=== PATIENT | male | born 1965 | race Caucasian/White ===

== ENCOUNTER → 2016-09-19 | Outpatient (CLI) | payer OTHER ==
[~2016-09-19] MED LIST: ASPCH81X PO; ATOR-54 PO; CLB100 PO; GABA-113 PO; HYDR25TA5 PO; LORA0.5T12 PO; LSNP/30 PO; METH-446 PO; PANT40TA PO; TRAM-10 PO; ZOLP10TA PO
--- NOTE | 2016-09-19 10:02 | DIAGNOSTIC IMAGING REPORT ---
KUB CLINICAL HISTORY: ABDOMINAL PAIN pain. Nausea. COMPARISON STUDY: 08/19/2015 FINDINGS: The soft tissues, psoas shadows, renal outlines and intestinal gas pattern appear normal. There is no evidence for bowel obstruction. No abnormal abdominal calcifications are seen. IMPRESSION: Normal study. Electronically signed by: Bryant Waters M.D. 09/19/2016 10:01 AM Dictated Date/Time: 09/19/2016 9:58 AM
[2016-09-19 10:53] LABS: BASO % 0.6 %; BASO ABS # 0.03 K/uL (0-0.2); COMPLETE YES; EOS % 3.7 %; HEMATOCRIT 39.2 % (42-52); IG% 0.2 %; LYMPH % 27.6 %; LYMPH ABS # 1.35 K/uL (1.2-3.4); MEAN CELL VOLUME 91.2 fL (80-100); MEAN CORPUSCULAR HGB CONC 32.9 g/dl (32-36); MEAN PLATELET VOLUME 10.8 fL (7.4-10.4); NEUT % 56.9 %; PLATELET COUNT 252 K/uL (130-400); WHITE BLOOD COUNT 4.89 K/uL (4.8-10.8)
[2016-09-19 11:15] LABS: URINE APPEARANCE CLEAR (CLEAR); URINE BILIRUBIN NEG (NEG); URINE COLOR YELLOW; URINE EPITHELIAL CELL AUTO 0-5 /lpf (0-5); URINE NITRITE NEG (NEG); URINE PH 6.5 (4.5-7.5); URINE SPECIFIC GRAVITY 1.009 (1.000-1.030); UROBILINOGEN NEG (NEG); ZZUR CULT IF INDIC CLEAN CATCH NO
[2016-09-19 11:18] LABS: ALB/GLOB RATIO 1.2 (0.9-2); ALKALINE PHOSPHATASE 78 U/L (45-117); ALT/SGPT 26 U/L (12-78); AST/SGOT 18 U/L (15-37); BLOOD UREA NITROGEN 23 mg/dl (7-18); BUN/CREATININE RATIO 21.3 (10-20); CALCIUM 9.1 mg/dl (8.5-10.1); CARBON DIOXIDE 29 mmol/L (21-32); CHLORIDE 104 mmol/L (98-107); GLUCOSE 104 mg/dl (70-99); MANUAL MICROSCOPIC REQUIRED? NO; POTASSIUM 4.5 mmol/L (3.5-5.1); REVIEW REQ? NO; SODIUM 139 mmol/L (136-145)
[2016-09-19 11:30] LABS: ESTIMATED AVERAGE GLUCOSE 120 mg/dl; HA1C FLAG Normal (Normal)
== END | disposition home or self-care (01) ==
LOC: C.RADBC 09:11
PROVIDERS: ATTEND Nurse Practitioner Family
DX: R10.9 Unspecified abdominal pain (principal)

== ENCOUNTER → 2016-10-03 | Outpatient (CLI) | payer OTHER ==
--- NOTE | 2016-10-03 11:01 | DIAGNOSTIC IMAGING REPORT ---
LEFT FOOT MIN 3 VIEWS ROUTINE CLINICAL HISTORY: M79.672 Left foot [id number] trauma. Pain. COMPARISON: None. DISCUSSION: The bones and joint spaces appear intact. There is no evidence of fracture, dislocation or bony disease. There is no evidence for soft tissue swelling. IMPRESSION: Negative study. Electronically signed by: Bryant Waters M.D. 10/03/2016 11:00 AM Dictated Date/Time: 10/03/2016 10:59 AM
== END | disposition home or self-care (01) ==
LOC: C.RADBC 10:22
PROVIDERS: ATTEND Nurse Practitioner Family
DX: M79.672 Pain in left foot (principal)

== ENCOUNTER → 2016-10-19 | Outpatient (CLI) | payer OTHER ==
[2016-10-19 17:15] LABS: C-REACTIVE PROTEIN < 0.29 mg/dl (0-0.29); RHEUMATOID FACTOR < 10.0 U/mL (0-15); URIC ACID 5.3 mg/dl (2.6-7.2)
[2016-10-19 18:43] LABS: LYME DISEASE AB IGG NEG (NEG); LYME DISEASE AB IGM NEG (NEG)
== END | disposition home or self-care (01) ==
LOC: C.LABBC 12:56
PROVIDERS: ATTEND Nurse Practitioner Family
DX: M79.672 Pain in left foot (principal)

== ENCOUNTER → 2016-11-22 | Outpatient (CLI) | payer OTHER ==
--- NOTE | 2016-11-22 15:54 | DIAGNOSTIC IMAGING REPORT ---
L-SPINE MIN 4 VIEWS ROUTINE CLINICAL HISTORY: Low back pain left-sided radiculopathy. COMPARISON STUDY: No previous studies for comparison. FINDINGS: There are 5 lumbar type vertebral bodies present. There are moderate multilevel degenerative changes. There is multilevel osteophytic spurring. There is disc space narrowing most pronounced the L4-5 level. There is mild narrowing of the AP diameter of the spinal canal. Underlying spinal stenosis cannot be excluded. No fractures are visualized. IMPRESSION: 1. Multilevel degenerative changes most pronounced the L4-5 level 2. No acute fractures or subluxations identified Electronically signed by: Ruy Gómez M.D. 11/22/2016 3:52 PM Dictated Date/Time: 11/22/2016 3:50 PM
== END | disposition home or self-care (01) ==
LOC: C.RADBC 15:24
PROVIDERS: ATTEND Nurse Practitioner Family
DX: M54.5 Low back pain (principal)

== ENCOUNTER → 2016-12-05 | Outpatient (CLI) | payer OTHER ==
--- NOTE | 2016-12-05 17:44 | DIAGNOSTIC IMAGING REPORT ---
MRI LUMBAR SPINE W/O CONTRAST CLINICAL HISTORY: Lower back pain. Spinal stenosis. TECHNIQUE: Sagittal and axial T1, T2 and STIR images were obtained. COMPARISON STUDY: Conventional radiographic study dated November 22, 2016 OBSERVATIONS: The vertebral bodies and posterior elements appear intact. There is no abnormal bony signal present to suggest a marrow replacement process. L1-2: There is a tiny left paracentral disc protrusion. There is no significant spinal or foraminal stenosis. L2-3: There is a mild circumferential disc bulge present. There is slight flattening of the anterior thecal sac. There is no significant foraminal narrowing. L3-4: No disc protrusions or extrusions. No evidence of spinal canal or neural foraminal compromise. L4-5: There is marked disc desiccation and narrowing. There is a tiny central disc protrusion. There is slight deformity of the anterior thecal sac. There is no significant foraminal narrowing L5-S1: There is a small central disc protrusion. There is no thecal sac deformity. There is no significant spinal or foraminal stenosis. The conus medullaris and cauda equina appear normal. IMPRESSION: Multilevel spondylitic changes. Tiny left paracentral disc protrusion at the L1-2 level, tiny central disc protrusion at the L4-5 level, and small central disc protrusion at the L5-S1 level. There is minimal spinal canal narrowing at several levels. There is no evidence of moderate or severe spinal stenosis Electronically signed by: Ruy Gómez M.D. 12/05/2016 5:42 PM Dictated Date/Time: 12/05/2016 5:37 PM
== END | disposition home or self-care (01) ==
LOC: C.MRIBC 16:42
PROVIDERS: ATTEND Orthopaedic Surgery Orthopaedic Surgery of the Spine
DX: M48.06 Spinal stenosis, lumbar region (principal)

== ENCOUNTER → 2017-03-06 | Outpatient (CLI) | payer OTHER ==
[2017-03-06 10:46] LABS: ALT/SGPT 27 U/L (12-78); BLOOD UREA NITROGEN 15 mg/dl (7-18); BUN/CREATININE RATIO 14.1 (10-20); CALCIUM 8.8 mg/dl (8.5-10.1); CARBON DIOXIDE 29 mmol/L (21-32); CHLORIDE 100 mmol/L (98-107); CHOLESTEROL 110 mg/dl (0-200); CREATININE 1.09 mg/dl (0.60-1.40); GLUCOSE 104 mg/dl (70-99); POTASSIUM 4.4 mmol/L (3.5-5.1); SODIUM 135 mmol/L (136-145); TRIGLYCERIDES 30 mg/dl (0-150); VERY LOW DENSITY LIPOPROT CALC 6 mg/dl
[2017-03-06 10:50] LABS: ALB/GLOB RATIO 1.2 (0.9-2); ALKALINE PHOSPHATASE 64 U/L (45-117); AST/SGOT 16 U/L (15-37); CHOLESTEROL/HDL RATIO 1.8; HDL CHOLESTEROL 61 mg/dl; LDL CHOLESTEROL CALCULATED 43 mg/dl
[2017-03-06 11:07] LABS: HEMATOCRIT 37.9 % (42-52); MEAN CELL VOLUME 91.8 fL (80-100); MEAN CORPUSCULAR HEMOGLOBIN 30.8 pg (25-34); MEAN CORPUSCULAR HGB CONC 33.5 g/dl (32-36); MEAN PLATELET VOLUME 10.7 fL (7.4-10.4); PLATELET COUNT 238 K/uL (130-400); RED BLOOD COUNT 4.13 M/uL (4.7-6.1); WHITE BLOOD COUNT 5.67 K/uL (4.8-10.8)
== END | disposition home or self-care (01) ==
LOC: C.LABBC 07:59
PROVIDERS: ATTEND Nurse Practitioner Family
DX: E78.5 Hyperlipidemia, unspecified (principal); I10 Essential (primary) hypertension

== ENCOUNTER → 2017-03-09 | Outpatient (CLI) | payer OTHER ==
--- NOTE | 2017-03-09 12:55 | DIAGNOSTIC IMAGING REPORT ---
RIGHT HIP 2 VIEWS CLINICAL HISTORY: Right hip pain of 3 months duration. No reported history of trauma. FINDINGS: AP and frog-leg views of the right hip are obtained. No prior studies are available for comparison at the time of dictation. The skeletal structures appear osteopenic. No fracture is seen in the right hip or the imaged right hemipelvis. There is moderate arthritic change in the right hip with associated joint space narrowing. Spurring is present along the acetabular roof and the femoral head. Enthesophytes arise from the right anterior superior iliac spine and the greater trochanter of the right femur. The overlying soft tissues are within normal limits. IMPRESSION: Arthritic change as above with no acute bony abnormality identified in the right hip. Electronically signed by: Anatoly Sandoval M.D. 03/09/2017 12:53 PM Dictated Date/Time: 03/09/2017 12:51 PM
[2017-03-09 14:07] LABS: FERRITIN 206.5 ng/ml (8.0-388.0); MAGNESIUM 2.2 mg/dl (1.8-2.4); THYROID STIMULATING HORMONE 1.36 uIu/ml (0.300-4.500)
== END | disposition home or self-care (01) ==
LOC: C.RADBC 09:25
PROVIDERS: ATTEND Nurse Practitioner Family
DX: M25.551 Pain in right hip (principal)

== ENCOUNTER → 2017-05-10 | Outpatient (CLI) | payer OTHER ==
--- NOTE | 2017-05-10 11:04 | DIAGNOSTIC IMAGING REPORT ---
FLUOROSCOPICALLY GUIDED RIGHT HIP STEROID AND ANESTHETIC INJECTION CLINICAL HISTORY: Right hip pain. Osteoarthritis. COMPARISON STUDY: Conventional radiographic study dated 03/09/2017 FLUOROSCOPY TIME: 22 seconds. NUMBER OF FLUOROSCOPIC IMAGES: 1 FINDINGS: A timeout was performed. The risks of the procedure were explained the patient informed consent was obtained. The patient was prepped and draped in sterile fashion. The skin was anesthetized 1% lidocaine. Under fluoroscopic guidance, 22-gauge needle was introduced into the joint capsule. Intra-articular location was documented with injection of Optiray 300. 2 cc of Celestone, and 5 cc of 0.5% Marcaine were injected intra-articularly. There were no immediate complications. IMPRESSION: Successful fluoroscopically guided intra-articular injection of 5 cc of 0.5% Marcaine, and 2 cc of Celestone into the right hip. Electronically signed by: Ruy Gómez M.D. 05/10/2017 11:03 AM Dictated Date/Time: 05/10/2017 11:01 AM
== END | disposition home or self-care (01) ==
LOC: C.RADBC 09:50
PROVIDERS: ATTEND Orthopaedic Surgery
DX: M16.10 Unilateral primary osteoarthritis, unspecified hip (principal)

== ENCOUNTER → 2017-08-02 | Outpatient (CLI) | payer BC ==
[2017-08-02 10:40] LABS: BASO % 0.3 %; BASO ABS # 0.01 K/uL (0-0.2); EOS ABS # 0.16 K/uL (0-0.5); HEMATOCRIT 41.9 % (42-52); HEMOGLOBIN 14.2 g/dL (14.0-18.0); LYMPH % 33.2 %; LYMPH ABS # 1.32 K/uL (1.2-3.4); MEAN CELL VOLUME 91.5 fL (80-100); MEAN CORPUSCULAR HGB CONC 33.9 g/dl (32-36); MEAN PLATELET VOLUME 11.9 fL (7.4-10.4); MONO % 14.6 %; MONO ABS # 0.58 K/uL (0.11-0.59); NEUT % 47.9 %; PLATELET COUNT 185 K/uL (130-400); RED CELL DISTRIBUTION WIDTH CV 12.5 % (11.5-14.5); RED CELL DISTRIBUTION WIDTH SD 42.1 fL (36.4-46.3); WHITE BLOOD COUNT 3.97 K/uL (4.8-10.8)
[2017-08-02 10:47] LABS: PTT PATIENT 26.2 SECONDS (21.0-31.0)
[2017-08-02 11:23] LABS: ALBUMIN 3.8 gm/dl (3.4-5.0); ALT/SGPT 26 U/L (12-78); BLOOD UREA NITROGEN 14 mg/dl (7-18); CALCIUM 8.9 mg/dl (8.5-10.1); CARBON DIOXIDE 29 mmol/L (21-32); CREATININE 1.26 mg/dl (0.60-1.40); GLUCOSE 113 mg/dl (70-99); POTASSIUM 3.4 mmol/L (3.5-5.1); SODIUM 134 mmol/L (136-145)
[2017-08-02 11:26] LABS: ALKALINE PHOSPHATASE 97 U/L (45-117); AST/SGOT 17 U/L (15-37); TOTAL PROTEIN 7.1 gm/dl (6.4-8.2)
== END | disposition home or self-care (01) ==
LOC: C.LABBC 08:01
PROVIDERS: ATTEND Nurse Practitioner Family
DX: E55.9 Vitamin D deficiency, unspecified (principal); M79.672 Pain in left foot; M16.11 Unilateral primary osteoarthritis, right hip; Z01.818 Encounter for other preprocedural examination; Z01.810 Encounter for preprocedural cardiovascular examination

== ENCOUNTER 2022-06-19 21:22 | Observation (INO) ==
[2022-06-19 22:10] LABS: Basophils # (auto) 0.07 K/uL (0-0.2); Eosinophils # (auto) 0.21 K/uL (0-0.50); Hemoglobin 10.1 g/dl (14.0-18.0); Immature Granulocytes # (auto) 0.03 K/uL (0.01-0.20); Immature Granulocytes % (auto) 0.4 %; Lymphocytes # (auto) 0.43 K/uL (1.2-3.4); Lymphocytes % (auto) 6.2 %; Mean Corpuscular Hemoglobin 29.4 pg (25.0-34.0); Mean Corpuscular Hgb Conc 32.6 g/dL (32.0-36.0); Mean Corpuscular Volume 90.4 fL (80.0-100.0); Mean Platelet Volume 10.2 fL (9.4-12.4); Monocytes # (auto) 0.65 K/uL (0.11-0.59); Monocytes % (auto) 9.4 %; Neutrophils # (auto) 5.51 K/uL (1.40-6.50); Platelet Count 308 K/uL (130-400); RDW Coefficient of Variation 13.2 % (11.5-14.5); RDW Standard Deviation 43.8 fL (36.4-46.3); Red Blood Count 3.43 M/uL (4.70-6.10)
[2022-06-19 22:22] LABS: Partial Thromboplastin Ratio 1.1; Partial Thromboplastin Time 31.2 Seconds (21.0-31.0)
[2022-06-19] MEDS ORDERED: SODIUM CHLORIDE 0.9% 1000ML 1,000 ML IV ONE (22:27)
[2022-06-19] MEDS ORDERED: ACETAMINOPHEN 1,000 MG/100 ML VIAL IV STA (22:27)
[2022-06-19] MEDS ORDERED: PIPERACILLIN/TAZOBACTAM 4.5 GM/120 ML BAG IV ONE (22:27)
[2022-06-19] MEDS ORDERED: ALBUT/IPRATROP 3MG/0.5MG NEB 3 ML VIAL NEB STA (22:27)
[2022-06-19 22:40] LABS: Albumin Globulin Ratio 1.1 (0.9-2); Albumin Level 3.6 gm/dl (3.4-5.0); BUN Creatinine Ratio 14.3 (10-20); Bilirubin,Total 0.4 mg/dl (0.2-1.0); Calcium 9.1 mg/dl (8.5-10.1); Creatinine Clr Calc Pharmacy 95.1 ml/min; Est GFR (African American) 84.7 ml/min; Globulin 3.2 gm/dl (2.5-4.0); Magnesium 1.7 mg/dl (1.7-2.4); Potassium 4.6 mmol/L (3.5-5.1); Total Protein 6.8 gm/dl (6.0-8.3)
[2022-06-19 22:48] LABS: Troponin I High Sensitivity 4.8 pg/ml (0-20)
[2022-06-19 22:48] LABS: Influenza A virus by PCR Negative (Neg); Influenza B virus by PCR Negative (Neg); RSV by PCR Negative (Neg); SARS CoV2 RNA(COVID-19) Ceph NEGATIVE (Negative)
--- NOTE | 2022-06-19 22:51 | Emergency Department Note ---
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 Last chemo was a month ago. Patient denies abdominal pain, leg swelling, history of DVTs, headache, neck stiffness. Patient is due to start a new trial next week for his cancer. T-max 103 last night. Tylenol was this morning. Home Medications Medication Instructions Recorded Confirmed Type cholecalciferol (vitamin D3) 50 50 mcg PO QAM #30 tabs 04/06/20 06/19/22 History mcg (2,000 unit) tablet cyanocobalamin (vitamin B-12) 1,000 mcg sublingual QAM #30 tabs 04/06/20 06/19/22 History 1,000 mcg sublingual tablet acetaminophen 500 mg capsule 1,000 mg PO HS PRN Pain 09/10/20 06/19/22 History bisacodyl 5 mg tablet,delayed 5 mg PO HS PRN Constipation 09/10/20 06/19/22 History release (Dulcolax (bisacodyl)) aspirin 81 mg tablet,delayed 81 mg PO DAILY #90 tabs 01/28/21 06/19/22 Rx release (Adult Low Dose Aspirin) celecoxib 100 mg capsule (Celebrex) 100 mg PO BID #180 caps 06/10/21 06/19/22 Rx fluticasone propionate 50 2 spray intranasal BID PRN Allergy 09/23/21 06/19/22 Rx mcg/actuation nasal Symptoms #16 grams spray,suspension duloxetine 30 mg capsule,delayed 30 mg PO DAILY #90 caps 12/15/21 06/19/22 Rx release oxycodone 5 mg tablet 5 mg PO QID PRN pain #30 tabs 01/05/22 06/19/22 Rx gabapentin 800 mg tablet 800 mg PO TID #270 tabs 01/06/22 06/19/22 Rx pilocarpine HCl 5 mg tablet 5 mg PO TID #270 tabs 01/06/22 06/19/22 Rx (Salagen (pilocarpine)) atorvastatin 20 mg tablet (Lipitor) 20 mg PO HS #90 tabs 01/24/22 06/19/22 Rx lisinopril 40 mg tablet 40 mg PO DAILY #30 tabs 02/16/22 06/19/22 Rx pantoprazole 40 mg tablet,delayed 40 mg PO QAM #90 tabs 03/14/22 06/19/22 Rx release clobetasol 0.05 % topical ointment 1 applic topical DAILY PRN Skin 05/08/22 06/19/22 History Irritation Cock-Up Wrist Splint #2 ea 05/19/22 Rx famotidine 40 mg tablet 40 mg PO BID #180 tabs 06/14/22 06/19/22 Rx gabapentin 100 mg capsule 100 mg PO TID #270 caps 06/14/22 06/19/22 Rx lorazepam 0.5 mg tablet 0.5 mg PO DAILY PRN anxiety #30 06/14/22 06/19/22 Rx tabs mupirocin 2 % topical ointment 1 applic topical BID PRN NEEDED 06/19/22 06/19/22 History zolpidem 10 mg tablet 10 mg PO HS 06/19/22 06/19/22 History Allergies Allergy/AdvReac Type Severity Reaction Status Date / Time No Known Allergies Allergy Verified 06/19/22 23:10 Past Med/Surg History Medical History Allergic rhinitis Anemia Chronic, baseline hgb 12-13 range per chart review Anxiety Cervical radiculopathy Chronic insomnia Congestion of nasal sinus Degenerative disc disease (02/06/13) Deviated nasal septum Diverticulosis GERD (gastroesophageal reflux disease) Hiatal hernia Hyperlipidemia Hypertension Hypertrophy of nasal turbinates Left hip pain group home prescription benzodiazepine use Lumbar disc disease Lumbar radiculopathy Lymphadenopathy of left cervical region Lymphadenopathy of right cervical region Macular hole of left eye Mass of right parotid gland Numbness of upper extremity Osteoarthritis Overweight Sleep apnea Mild, not using CPAP Spinal stenosis Vitamin D deficiency Surgical History History of anesthesia reaction Awareness during [facility] (2018 and 2019)- at [facility] History of back surgery History of cervical discectomy "Good" ROM History of colonoscopy History of esophagogastroduodenoscopy (EGD) History of hand surgery (~2004) Right hand surery History of hip replacement right (2018), left (2019) History of left cataract surgery History of open reduction and internal fixation (ORIF) procedure right wrist History of repair of rotator cuff left History of sinus surgery History of superficial parotidectomy 09/24/20 Family History Mother , 62yo Stroke Father , 44yo Myocardial infarction Brother Mantle cell lymphoma Rodriguez esophagus Heart disease Stent placed; Daughter Hypertension Other No family history of adverse response to anesthesia No family history of allergies No family history of bleeding disorder Denies family history of Ovarian cancer Prostate cancer Diabetes Breast cancer Colorectal cancer Social History Smoking Status: Never smoker Second Hand Exposure: Yes (FATHER SMOKED); Hx Alcohol Use: No Hx Substance Use: No Preferred Language: Citizen Of [place] Communication Ability: Effective Visual Impairment: No Limitations Hearing Ability: Normal Bottom Turner Required: No Beliefs That Will Affect Care: None marital status: Current Living Situation: Spouse Current Living Situation Comment: AND DAUGHTER current occupational status: employed current occupation: [employer] at [employer] Feels Safe at Home: Yes Childhood Exposure to Second-Hand Smoke: Yes Diet Comment: regular caffeine: No during the past year weight has: increased > 10 lbs Dental Care, Regularly: Yes Physical Activity Frequency: Daily Seatbelt Use: always Sunscreen Use: Yes Assistive Devices: Glasses Review of Systems A total of 10 systems reviewed and were otherwise negative Physical Exam Vital Signs Vital Signs - 24 hr 06/19/22 21:33 06/19/22 21:33 06/19/22 22:27 Temperature 38.7 C H Temperature Source Temporal Artery Scan Pulse Rate 100 H Pulse Rate [Apical] 105 H Respiratory Rate 28 H 24 Respiratory Effort / Characteristics Labored Blood Pressure 133/84 Blood Pressure [Left Arm] 124/70 Blood Pressure Mean 100 Blood Pressure Mean [Left Arm] 88 Pulse Oximetry 98 95 Oxygen Delivery Method Room Air Room Air Room Air Sepsis Recent Fever Within 48 Hours Yes Sepsis New/Unexplained Change in Mental Status No Sepsis Action Taken by Nursing No Action Required 06/19/22 22:30 Temperature Temperature Source Pulse Rate Pulse Rate [Apical] Respiratory Rate Respiratory Effort / Characteristics Blood Pressure Blood Pressure [Left Arm] Blood Pressure Mean Blood Pressure Mean [Left Arm] Pulse Oximetry 96 Oxygen Delivery Method Room Air Sepsis Recent Fever Within 48 Hours Sepsis New/Unexplained Change in Mental Status Sepsis Action Taken by Nursing VITALS: Vitals are noted on the nurse's note and reviewed by myself. Vital signs febrile. GENERAL: White male ill-appearing with present coughing SKIN: The skin was without rashes, erythema, edema, or bruising. There is no tenting of the skin. Capillary reflex less than 2 seconds. HEAD: Normocephalic atraumatic. EARS: External auditory canals clear, tympanic membranes pearly steward without erythema or effusion bilaterally. EYES: Pupils equal round and reactive to light and accommodation. Conjunctivae without injection, sclerae without icterus. Extraocular movements intact. NOSE: Patent, turbinates without inflammation or discharge. MOUTH: Mucous membranes mildly dry. Pharynx without erythema or exudate. Uvula midline. Airway patent. Tongue does not deviate. NECK: Supple without nuchal rigidity. No lymphadenopathy. No thyromegaly. Cervical spine is nontender. No JVD. HEART: Regular rate and rhythm LUNGS: Diffuse inspiratory and end expiratory wheeze. No retractions or accessory muscle use. ABDOMEN: Positive bowel sounds x 4. Normal tympanic percussion. Soft, nontender, without masses or organomegaly. Reagan sign negative. No guarding or rebound tenderness. No CVA tenderness MUSCULOSKELETAL: No muscle atrophy, erythema, or edema noted. NEURO: Patient was alert and oriented to person place and time. Normal sensation to light and sharp touch. No focal neurological deficits. Course Administered Medications Discontinued Medications Albuterol (Albut/Ipratrop 3mg/0.5mg Neb 3 Ml Vial) 3 ml NEB NOW STA; Protocol Stop: 06/19/22 22:28 Last Admin: 06/19/22 22:49 Dose: 3 ml Documented By: VIET Piperacillin Sod/Tazobactam Sod (Zosyn) 4.5 gm in 120 mls @ 240 mls/hr IV NOW ONE Stop: 06/19/22 22:56 Last Infusion: 06/19/22 23:28 Dose: 0 mls/hr Documented By: Admin: 06/19/22 22:53 Dose: 240 mls/hr Documented By: VIET Sodium Chloride (Nss 1000ml) 1,000 mls @ 999 mls/hr IV .Q1H1M ONE Stop: 06/19/22 23:27 Last Infusion: 06/20/22 00:07 Dose: 0 mls/hr Documented By: Admin: 06/19/22 22:51 Dose: 999 mls/hr Documented By: VIET Acetaminophen (Ofirmev) 1,000 mg in 100 mls @ 400 mls/hr IV NOW STA Stop: 06/19/22 22:41 Last Infusion: 06/20/22 00:07 Dose: 0 mls/hr Documented By: Admin: 06/19/22 23:28 Dose: 400 mls/hr Documented By: TAISHA Ioversol (Optiray 320 500ml) 108 ml IV ONCE ONE Stop: 06/19/22 23:22 Last Admin: 06/19/22 23:24 Dose: 108 ml Documented By: ALONSO Morphine Sulfate (Morphine Sulfate 4 Mg/Ml 1 Ml Carp\\Vial) 4 mg IV NOW STA Stop: 06/20/22 00:24 Last Admin: 06/20/22 00:30 Dose: 4 mg Documented By: TAISHA Medical Decision Making Medical Records Attestation: I reviewed the patient's medical records. Home Medications Current Medication List: was personally reviewed by me Laboratory Data Attestation: I reviewed the patient's lab results. 06/19/22 21:40 06/19/22 21:40 Lab Results 06/19/22 06/19/22 06/19/22 Range/Units 21:40 21:40 21:40 WBC 6.90 (4.8-10.8) K/ul RBC 3.43 L (4.70-6.10) M/uL Hgb 10.1 L (14.0-18.0) g/dl Hct 31.0 L (42.0-52.0) % MCV 90.4 (80.0-100.0) fL MCH 29.4 (25.0-34.0) pg MCHC 32.6 (32.0-36.0) g/dL RDW Std Deviation 43.8 (36.4-46.3) fL RDW Coeff of Renny 13.2 (11.5-14.5) % Plt Count 308 (130-400) K/uL MPV 10.2 (9.4-12.4) fL Immature Gran % (Auto) 0.4 % Neut % (Auto) 80.0 % Lymph % (Auto) 6.2 % Harper % (Auto) 9.4 % Eos % (Auto) 3.0 % Baso % (Auto) 1.0 % Neut # (Auto) 5.51 (1.40-6.50) K/uL Lymph # (Auto) 0.43 L (1.2-3.4) K/uL Harper # (Auto) 0.65 H (0.11-0.59) K/uL Eos # (Auto) 0.21 (0-0.50) K/uL Baso # (Auto) 0.07 (0-0.2) K/uL Immature Gran # (Auto) 0.03 (0.01-0.20) K/uL PT 11.0 (9.0-12.0) Seconds INR 1.0 (0.9-1.1) APTT 31.2 H (21.0-31.0) Seconds PTT Ratio 1.1 Sodium 131 L (136-145) mmol/L Potassium 4.6 (3.5-5.1) mmol/L Chloride 99 (98-107) mmol/L Carbon Dioxide 25 (21-32) mmol/L Anion Gap 7 (3-11) BUN 16 (6-23) mg/dl Creatinine 1.12 (0.6-1.4) mg/dl Est Cr Clr Drug Dosing 95.1 ml/min Est GFR ( Amer) 84.7 ml/min Est GFR (Non-Af Amer) 73.0 ml/min BUN/Creatinine Ratio 14.3 (10-20) Glucose 108 H (70-99(Fasting)) mg/dl Lactate (0.4-2.0) mmol/L Calcium 9.1 (8.5-10.1) mg/dl Magnesium 1.7 (1.7-2.4) mg/dl Total Bilirubin 0.4 (0.2-1.0) mg/dl AST 22 (13-39) U/L ALT 15 (7-52) U/L Alkaline Phosphatase 91 (34-104) U/L Troponin I High Sens 4.8 (0-20) pg/ml Total Protein 6.8 (6.0-8.3) gm/dl Albumin 3.6 (3.4-5.0) gm/dl Globulin 3.2 (2.5-4.0) gm/dl Albumin/Globulin Ratio 1.1 (0.9-2) Procalcitonin (0-0.5) ng/ml SARS-CoV-2 (PCR) (Negative) Influenza Type A (PCR) (Neg) Influenza Type B (PCR) (Neg) RSV (RT-PCR) (Neg) 06/19/22 06/19/22 06/19/22 Range/Units 21:40 21:45 21:50 WBC (4.8-10.8) K/ul RBC (4.70-6.10) M/uL Hgb (14.0-18.0) g/dl Hct (42.0-52.0) % MCV (80.0-100.0) fL MCH (25.0-34.0) pg MCHC (32.0-36.0) g/dL RDW Std Deviation (36.4-46.3) fL RDW Coeff of Renny (11.5-14.5) % Plt Count (130-400) K/uL MPV (9.4-12.4) fL Immature Gran % (Auto) % Neut % (Auto) % Lymph % (Auto) % Harper % (Auto) % Eos % (Auto) % Baso % (Auto) % Neut # (Auto) (1.40-6.50) K/uL Lymph # (Auto) (1.2-3.4) K/uL Harper # (Auto) (0.11-0.59) K/uL Eos # (Auto) (0-0.50) K/uL Baso # (Auto) (0-0.2) K/uL Immature Gran # (Auto) (0.01-0.20) K/uL PT (9.0-12.0) Seconds INR (0.9-1.1) APTT (21.0-31.0) Seconds PTT Ratio Sodium (136-145) mmol/L Potassium (3.5-5.1) mmol/L Chloride (98-107) mmol/L Carbon Dioxide (21-32) mmol/L Anion Gap (3-11) BUN (6-23) mg/dl Creatinine (0.6-1.4) mg/dl Est Cr Clr Drug Dosing ml/min Est GFR ( Amer) ml/min Est GFR (Non-Af Amer) ml/min BUN/Creatinine Ratio (10-20) Glucose (70-99(Fasting)) mg/dl Lactate 0.7 (0.4-2.0) mmol/L Calcium (8.5-10.1) mg/dl Magnesium (1.7-2.4) mg/dl Total Bilirubin (0.2-1.0) mg/dl AST (13-39) U/L ALT (7-52) U/L Alkaline Phosphatase (34-104) U/L Troponin I High Sens (0-20) pg/ml Total Protein (6.0-8.3) gm/dl Albumin (3.4-5.0) gm/dl Globulin (2.5-4.0) gm/dl Albumin/Globulin Ratio (0.9-2) Procalcitonin 0.07 (0-0.5) ng/ml SARS-CoV-2 (PCR) NEGATIVE (Negative) Influenza Type A (PCR) Negative (Neg) Influenza Type B (PCR) Negative (Neg) RSV (RT-PCR) Negative (Neg) Imaging Data Attestation: I personally reviewed and interpreted this imaging study as follows: MDM Narrative Prior records/ancillary studies reviewed. Triage Nursing notes reviewed. Additional history obtained from family. The patient's history was concerning for fever with cough congestion chest and back pain. Differential diagnosis: Etiologies such as sepsis, UTI, pneumonia, metabolic, electrolyte abnormalities, cardiac sources, intracerebral event, toxicologic, neurologic, as well as others were entertained. Physical examination: As above. Pertinent findings were febrile. Vital signs reviewed and revealed febrile. ER treatment provided: IV fluid resuscitation with Normal saline solution, IV fluids Blood and urine cultures Antibiotics: Zosyn Nebulizer An order was placed for continuous cardiac monitoring. The monitor shows a rate of 60-1 50 with a sinus rhythm per my interpretation. On reassessment the patient vital signs improved. Diagnostics interpretation by me: ECG: Ordered for dyspnea and independently interpreted by myself EKG: Poor baseline, normal sinus, normal nose, no acute ST-T wave changes. Impression sinus tachycardia interpreted by myself I think arrhythmia is unlikely. EKG shows normal sinus rhythm with no interval abnormalities such as QT prolongation or WPW. There are no findings to suggest Brugada syndrome. Cardiac monitoring in the emergency department reveals no tachycardic or bradycardic dysrhythmia. Hypertrophic cardiomyopathy was considered but there are no clear historical elements pointing toward this. EKG is not suggestive. The QRS voltage is not extremely large and there are no suggestive Q waves. The labs Independently Interpreted by myself revealed no worrisome leukocytosis, negative procalcitonin. Negative troponin Negative COVID Blood and urine cultures are pending. Imaging studies: Chest xray revealed multifocal pneumonia and progression of cancer per my interpretation. Preliminary Findings Only See Final Report For Complete Findings CT T SPINE: When compared to the MRI of the thoracic spine dated 03/09/2022, there has been interval surgical posterior fusion from T3-T7 with bilateral pedicle screws and paraspinal rods at T3, T4, T6 and T7. The anterior wedge compression fracture at T5 level is noted. Laminectomy defect identified at this level. No significant postoperative complication. Incidental fractures involving the posterior medial aspect of the right fifth and sixth ribs. There is a lytic area involving the left posterior lateral T8 vertebral body. No pathologic compression noted in this region. Subsegmental changes throughout the lungs is nonspecific. However, subsegmental changes in the apices suggest infection. Prominent paratracheal, hilar and prevascular lymphadenopathy with the largest lymph node measuring 3.3 cm in diameter along the lateral margin of the aortic arch. Findings are atypical for infection, which raises the concern for lymphoma/lymphoproliferative process. Radiologist: Ricardo Hernandez MD CTA CHEST: Evaluation of the pulmonary artery tree is limited by extensive respiratory artifact and beam hardening artifact from history of fusion. Accounting for limitations, there is no definite evidence for pulmonary embolism. The thoracic aorta is unremarkable. The cardiac chambers demonstrate no significant acute abnormality. No pericardial effusion. Coronary artery calcifi cation is of uncertain clinical significance. There is extensive prevascular, AP window, paratracheal, pericarinal and hilar lymphadenopathy. The largest single lymph node overlying the lateral aspect of the aortic arch measures 3.3 cm and AP diameter from 2.5 cm on the CTA examination dated 05/01/2022. Findings are consistent with advancing metastatic disease, as previously noted. Multiple peripherally subcentimeter nodules throughout the lungs are consistent with advancing metastatic disease. The largest nodules at the lung apices are increased in size from the previous exam. No pleural effusion or pneumothorax. There is a healing left lateral seventh rib fracture which is subacute 5 no from the previous examination. Posterior fusion from T3-T7 with associated laminectomy and kyphopla sty/vertebroplasty changes. Please see the thoracic spine examination for further details. There are subtle lytic lesions involving the left lateral T8 vertebral body and involving the L2 and L3 vertebral bodies. No new interval pathologic fracture. No significant overlying soft tissue abnormality. Radiologist: Ricardo Hernandez MD Consultation: A consultation was placed with the hospitalist. The case was discussed and diagnostics were reviewed. The patient was evaluated in the ER for further treatment. Exam and history seem consistent with multifocal pneumonia with progression of cancer. Patient was started on IV antibiotics upon initial evaluation. He was medicated as above. Advanced imaging was ordered as patient was extremely short of breath and was concerns for PE and infection to the spine. This was reviewed and read by radiology as above. Medicine was consulted and the case was discussed. Patient will be admitted to the medical service. Patient is agreeable. Patient unfortunate stage IV cancer that that is progressed. He supposed to start a new trial next week. Patient had no PE on imaging. Troponin was negative. EKG was nonischemic but poor baseline. The chart was completed utilizing [employer] Speech voice recognition software. Grammatical errors, random word insertions, pronoun errors, and incomplete sentences are an occassional consequence of this system due to software limitations, ambient noise, and hardware issues. Any formal questions or concerns about the content, text, or information contained within the body of this dictation should be directly addressed to the physician shop assistant for clarification. Impression & Plan PNA (pneumonia), Metastatic cancer, Chest pain, Acute dyspnea Discharge Plan Visit Data Chief Complaint: Respiratory Problems Stated Complaint: SOB,WHEEZING,COUGH ED Provider: [facility] Midlevel Provider: Maribell Gresham Discharge Problem: PNA (pneumonia), Metastatic cancer, Chest pain, Acute dyspnea Patient Disposition: Admitted As Inpatient Condition: Fair Forms Stand Alone Forms: My [employer] Prescriptions Prescriptions: No Action duloxetine 30 mg capsule,delayed release(DR/EC) 30 mg PO DAILY Qty: 90 1RF atorvastatin [Lipitor] 20 mg tablet 20 mg PO HS Qty: 90 1RF pantoprazole 40 mg tablet,delayed release (DR/EC) 40 mg PO QAM Qty: 90 3RF (DME) Cock-Up Wrist Splint Misc See Dose Instructions .ROUTE .MEDSUPPLY Qty: 2 0RF Dose Instruction: As directed Rx Instructions: Left and right wrist splints G56.00 lorazepam 0.5 mg tablet 0.5 mg PO DAILY PRN (Reason: anxiety) Qty: 30 0RF famotidine 40 mg tablet 40 mg PO BID Qty: 180 1RF gabapentin 100 mg capsule 100 mg PO TID Qty: 270 1RF Rx Instructions: WITH 800 MG DAILY FOR TOTAL OF 900 MG TID cholecalciferol (vitamin D3) 50 mcg (2,000 unit) tablet 50 mcg PO QAM Qty: 30 cyanocobalamin (vitamin B-12) 1,000 mcg tablet, sublingual 1,000 mcg SL QAM Qty: 30 Label Comments: ON HOLD FOR SURGERY aspirin [Adult Low Dose Aspirin] 81 mg tablet,delayed release (DR/EC) 81 mg PO DAILY Qty: 90 3RF oxycodone 5 mg tablet 5 mg PO QID PRN (Reason: pain) Qty: 30 0RF gabapentin 800 mg tablet 800 mg PO TID Qty: 270 1RF Rx Instructions: WITH 100 MG DAILY FOR TOTAL OF 900 MG TID pilocarpine HCl [Salagen (pilocarpine)] 5 mg tablet 5 mg PO TID Qty: 270 1RF fluticasone propionate 50 mcg/actuation spray,suspension 2 spray intranasal BID PRN (Reason: Allergy Symptoms) Qty: 16 1RF lisinopril 40 mg tablet 40 mg PO DAILY Qty: 30 2RF celecoxib [Celebrex] 100 mg capsule 100 mg PO BID Qty: 180 1RF Label Comments: ON HOLD FOR SURGERY clobetasol 0.05 % ointment 1 applic topical DAILY PRN (Reason: Skin Irritation) Rx Instructions: Apply to the hands at night for 2 weeks for flaring. mupirocin 2 % ointment 1 applic topical BID PRN (Reason: NEEDED) Rx Instructions: Apply to the cracks of the hands BID for 10-14 days until closed. zolpidem 10 mg tablet 10 mg PO HS acetaminophen 500 mg Capsule 1,000 mg PO HS PRN (Reason: Pain) bisacodyl [Dulcolax (bisacodyl)] 5 mg Tablet,Delayed Release (Dr/Ec) 5 mg PO HS PRN (Reason: Constipation) Referrals Referrals: Jo Maxwell MD [Primary Care Provider] - : PNA (pneumonia) Qualifiers: Pneumonia type: due to unspecified organism Laterality: bilateral Lung location: unspecified part of lung Qualified Code(s): J18.9 - Pneumonia, unspecified organism
[2022-06-19] MEDS ORDERED: OPTIRAY 320 500ml IV ONE (23:21)
[2022-06-20] MEDS ORDERED: MoRPHine SULFATE 4 MG/ML 1 ML CARP\\VIAL IV STA (00:23)
[2022-06-20] MEDS ORDERED: ALBUT/IPRATROP 3MG/0.5MG NEB 3 ML VIAL NEB STA (00:38)
--- NOTE | 2022-06-20 00:38 | History & Physical Report ---
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 Acute dyspnea/PNA: -WBC 6.90, procal 0.07, Na 131 otherwise electrolytes WNL. -CXR w/ pulmonary congestion and perihilar LAD. -CTA chest and CT T spine w/ evidence of metastatic disease in lungs as well as nodules, subsegmental changes at lung apices suspicious for infection. -Given patient's temperature up to 38.7, upper respiratory symptoms, metastatic disease, and pulmonary congestion worsened over past day most likely pneumonia. -Also questionable source of spinal hardware, however blood cultures pending. Urinalysis w/ culture also sent. -Given low sodium, urine legionaire's antigen ordered. -Given Zosyn 4.5gm and Vancomycin loading dose 20mg/kg in ED. -Continue Zosyn 4.5gm q8h, Vancomycin maintenance. -Ordered nasal MRSA. -Admitted to med/tele. Metastatic cancer: -Noted, had appointment with Dr. Wren oncology on Sunday but will be delayed due to inpatient hospitalization. -Would recommend reaching out to Dr. Wren's office to notify them. HTN: -Continue home lisinoril. GERD: -Continue home famotidine 40mg BID, pantoprazole 40mg qAM. Hx of papilledema of R eye: -Continue home pilocarpine. HLD: -Continue home atorvastatin. DVT Prophylaxis: Lovenox 40mg daily. F/E/N/GI: Regular diet. Code status: Full code. 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 Patient stated a few days ago he started to have increased runny nose, cough and sputum production, mostly in the morning although no other symptoms. He states that earlier today he went to his PT session a few blocks down from his house and when he returned he felt more mucous and congestion in his lungs and head as well as feeling warm. He took his temperature orally and got 103F. Him and his have a retired nurse as a neighbor and they consulted this neighbor who came over and listened to his lungs, after hearing some wheezing and coarse sounds the neighbor recommended he go to the hospital for further evaluation. He denies any nausea, vomiting, chest pain or abdominal pain other than MSK type pain from the cough, dysuria, urinary frequency. In the ED vitals 38.7C for temp, tachy to 105, O2 96%, WBC 6.90, Hgb 10.1, procal 0.07, his CXR had evidence of pulmonary and perihilar congestion, CTA chest w/o evidence for PE, multiple pulmonary nodules, LAD, w/ findings consistent w/ advancing metastatic disease, CT T spine w/ anterior wedge compression fracture T5, lytic area L posterior lateral T8 vertebral body w/o compression noted, subsegmental changes to apices of lungs suggesting infection. Allergies Allergy/AdvReac Type Severity Reaction Status Date / Time No Known Allergies Allergy Verified 06/19/22 23:10 Home Medications Medication Instructions Recorded Confirmed Type cholecalciferol (vitamin D3) 50 50 mcg PO QAM #30 tabs 04/06/20 06/19/22 History mcg (2,000 unit) tablet cyanocobalamin (vitamin B-12) 1,000 mcg sublingual QAM #30 tabs 04/06/20 06/19/22 History 1,000 mcg sublingual tablet acetaminophen 500 mg capsule 1,000 mg PO HS PRN Pain 09/10/20 06/19/22 History bisacodyl 5 mg tablet,delayed 5 mg PO HS PRN Constipation 09/10/20 06/19/22 History release (Dulcolax (bisacodyl)) aspirin 81 mg tablet,delayed 81 mg PO DAILY #90 tabs 01/28/21 06/19/22 Rx release (Adult Low Dose Aspirin) celecoxib 100 mg capsule (Celebrex) 100 mg PO BID #180 caps 06/10/21 06/19/22 Rx fluticasone propionate 50 2 spray intranasal BID PRN Allergy 09/23/21 06/19/22 Rx mcg/actuation nasal Symptoms #16 grams spray,suspension duloxetine 30 mg capsule,delayed 30 mg PO DAILY #90 caps 12/15/21 06/19/22 Rx release oxycodone 5 mg tablet 5 mg PO QID PRN pain #30 tabs 01/05/22 06/19/22 Rx gabapentin 800 mg tablet 800 mg PO TID #270 tabs 01/06/22 06/19/22 Rx pilocarpine HCl 5 mg tablet 5 mg PO TID #270 tabs 01/06/22 06/19/22 Rx (Salagen (pilocarpine)) atorvastatin 20 mg tablet (Lipitor) 20 mg PO HS #90 tabs 01/24/22 06/19/22 Rx lisinopril 40 mg tablet 40 mg PO DAILY #30 tabs 02/16/22 06/19/22 Rx pantoprazole 40 mg tablet,delayed 40 mg PO QAM #90 tabs 03/14/22 06/19/22 Rx release clobetasol 0.05 % topical ointment 1 applic topical DAILY PRN Skin 05/08/22 06/19/22 History Irritation Cock-Up Wrist Splint #2 ea 05/19/22 Rx famotidine 40 mg tablet 40 mg PO BID #180 tabs 06/14/22 06/19/22 Rx gabapentin 100 mg capsule 100 mg PO TID #270 caps 06/14/22 06/19/22 Rx lorazepam 0.5 mg tablet 0.5 mg PO DAILY PRN anxiety #30 06/14/22 06/19/22 Rx tabs mupirocin 2 % topical ointment 1 applic topical BID PRN NEEDED 06/19/22 06/19/22 History zolpidem 10 mg tablet 10 mg PO HS 06/19/22 06/19/22 History azithromycin 250 mg tablet See Rx Instructions PO .COMPLEX #6 06/20/22 Rx (Zithromax Z-Pablito) tabs Past Med/Surg History Medical History Allergic rhinitis Anemia Chronic, baseline hgb 12-13 range per chart review Anxiety Cervical radiculopathy Chronic insomnia Congestion of nasal sinus Degenerative disc disease (02/06/13) Deviated nasal septum Diverticulosis GERD (gastroesophageal reflux disease) Hiatal hernia Hyperlipidemia Hypertension Hypertrophy of nasal turbinates Left hip pain half-way prescription benzodiazepine use Lumbar disc disease Lumbar radiculopathy Lymphadenopathy of left cervical region Lymphadenopathy of right cervical region Macular hole of left eye Mass of right parotid gland Numbness of upper extremity Osteoarthritis Overweight Sleep apnea Mild, not using CPAP Spinal stenosis Vitamin D deficiency Surgical History History of anesthesia reaction Awareness during [facility] (2018 and 2019)- at [facility] History of back surgery History of cervical discectomy "Good" ROM History of colonoscopy History of esophagogastroduodenoscopy (EGD) History of hand surgery (~2004) Right hand surery History of hip replacement right (2018), left (2019) History of left cataract surgery History of open reduction and internal fixation (ORIF) procedure right wrist History of repair of rotator cuff left History of sinus surgery History of superficial parotidectomy 09/24/20 Family History Mother , 62yo Stroke Father , 44yo Myocardial infarction Brother Mantle cell lymphoma Rodriguez esophagus Heart disease Stent placed; Daughter Hypertension Other No family history of adverse response to anesthesia No family history of allergies No family history of bleeding disorder Denies family history of Ovarian cancer Prostate cancer Diabetes Breast cancer Colorectal cancer Social History Smoking Status: Never smoker Second Hand Exposure: No; Do You Dip or Chew Tobacco: No; Hx Alcohol Use: No Hx Substance Use: No Preferred Language: Hungarian Communication Ability: Effective Visual Impairment: No Limitations Hearing Ability: Normal Principal Bioinformatics 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 Required: No Beliefs That Will Affect Care: Adventism marital status: Current Living Situation: Spouse Current Living Situation Comment: AND DAUGHTER current occupational status: employed current occupation: [employer] at [employer] Other Information That Helps Us Care for You: No Feels Safe at Home: Yes Safety Concerns: Feels Safe At This Time Childhood Exposure to Second-Hand Smoke: Yes Diet Comment: regular caffeine: No during the past year weight has: increased > 10 lbs Dental Care, Regularly: Yes Physical Activity Frequency: Daily Seatbelt Use: always Sunscreen Use: Yes Assistive Devices: Glasses Review of Systems Review of Systems: As per HPI. Physical Exam Constitutional: WD/WN, vitals as above Respiratory: Mild expiratory wheezes at the bilateral lung bases, lungs coarse throughout bilaterally even post cough. Cardiovascular: Rate/Rhythm: regular rhythm and + tachycardic Heart Sounds: normal S1 and normal S2 Gastrointestinal (Abdomen): normal bowel sounds, soft, nontender, no hepatosplenomegaly Skin: no rashes, warm and dry Psychiatric: A+Ox3, euthymic affect Results & Data Results & Data ([place]) Vital Signs (Past 12 Hours) Vital Signs Temp Pulse Pulse Resp BP BP Pulse Ox 06/19/22 22:30 96 06/19/22 22:27 105 H 24 124/70 95 06/19/22 21:33 38.7 C H 100 H 28 H 133/84 98 06/19/22 21:33 O2 Del Method 06/19/22 22:30 Room Air 06/19/22 22:27 Room Air 06/19/22 21:33 Room Air 06/19/22 21:33 Room Air Diagnostic Findings Preliminary Findings Only See Final Report For Complete FindingsCT T SPINE: When compared to the MRI of the thoracic spine dated 03/09/2022, there has been interval surgical posterior fusion from T3-T7 with bilateral pedicle screws and paraspinal rods at T3, T4, T6 and T7. The anterior wedge compression fracture at T5 level is noted. Laminectomy defect identified at this level. No significant postoperative complication. Incidental fractures involving the posterior medial aspect of the right fifth and sixth ribs. There is a lytic area involving the left posterior lateral T8 vertebral body. No pathologic compression noted in this region. Subsegmental changes throughout the lungs is nonspecific. However, subsegmental changes in the apices suggest infection. Prominent paratracheal, hilar and prevascular lymphadenopathy with the largest lymph node measuring 3.3 cm in diameter along the lateral margin of the aortic arch. Findings are atypical for infection, which raises the concern for lymphoma/lymphoproliferative process. Radiologist: Ricardo Hernandez MD CTA CHEST: Evaluation of the pulmonary artery tree is limited by extensive respiratory artifact and beam hardening artifact from history of fusion. Accounting for limitations, there is no definite evidence for pulmonary embolism. The thoracic aorta is unremarkable. The cardiac chambers demonstrate no significant acute abnormality. No pericardial effusion. Coronary artery calcification is of uncertain clinical significance. There is extensive prevascular, AP window, paratracheal, pericarinal and hilar lymphadenopathy. The largest single lymph node overlying the lateral aspect of the aortic arch measures 3.3 cm and AP diameter from 2.5 cm on the CTA examination dated 05/01/2022. Findings are consistent with advancing metastatic disease, as previously noted. Multiple peripherally subcentimeter nodules throughout the lungs are consistent with advancing metastatic disease. The largest nodules at the lung apices are increased in size from the previous exam. No pleural effusion or pneumothorax. There is a healing left lateral seventh rib fracture which is subacute 5 no from the previous examination. Posterior fusion from T3-T7 with associated laminectomy and kyphoplasty/vertebroplasty changes. Please see the thoracic spine examination for further details. There are subtle lytic lesions involving the left lateral T8 vertebral body and involving the L2 and L3 vertebral bodies. No new interval pathologic fracture. No significant overlying soft tissue abnormality. Radiologist: Ricardo Hernandez MD Supervising Physician Co-Signing Physician Notes Attending addendum: I have physically seen this patient, have supervised the medical residents activities, and agree with the H&P unless as otherwise noted. Assessment and Plan: Pneumonia bilateral apices with MDR risk- Zosyn 4.5 g IV every 8 hours Vancomycin IV per pharmacokinetic monitoring MRSA swab Duonebs every 4 hours while awake and every 2 hours when necessary. Guaifenesin extended release 1200 mg p.o. twice daily Metastatic cancer of the parotid gland to bone- CT negative for PE, but does show multiple metastatic lymph node involvement along with lytic lesions in bone He was to begin new cancer treatment this week, however, will notify Dr. Wren's office of current infection Hypertension- Continue lisinopril with hold parameters GERD- Continue outpatient regimen of pantoprazole 40 mg every morning and famotidine 40 mg p.o. twice daily Remaining orders and notations as noted Resident Activity Tracking Resident Involvement: Resident Care Provided Care Provided: Adult Hospital Medicine (1) PNA (pneumonia) Laterality: bilateral Lung location: unspecified part of lung Pneumonia type: due to unspecified organism Qualified Code(s): J18.9 - Pneumonia, unspecified organism
[2022-06-20] MEDS ORDERED: VANCOMYCIN CONSULT ACTIVE PRN (00:49)
[2022-06-20] MEDS ORDERED: VANCOMYCIN HCL 2,250 MG in SODIUM CHLORIDE 0.9% 500 ML IV ONE (00:49)
[2022-06-20] MEDS ORDERED: ONDANSETRON INJ 2 MG/ML 2 ML VIAL IV PRN (01:47)
[2022-06-20] MEDS ORDERED: ALBUTEROL 0.083% NEBU SOLN 3 ML VIAL NEB PRN (01:51)
[2022-06-20 04:00] VITALS: TEMP 98.1
[2022-06-20] MEDS ORDERED: PIPERACILLIN/TAZOBACTAM 4.5 GM in DEXTROSE 5% 100 ML IV SCH (04:00)
[2022-06-20 05:27] LABS: BUN Creatinine Ratio 12.4 (10-20); Calcium 8.6 mg/dl (8.5-10.1); Creatinine Clr Calc Pharmacy 101.4 ml/min; Est GFR (African American) 91.5 ml/min; Potassium 4.5 mmol/L (3.5-5.1)
[2022-06-20 06:09] LABS: Basophils # (auto) 0.07 K/uL (0-0.2); Eosinophils # (auto) 0.11 K/uL (0-0.50); Eosinophils % (auto) 1.5 %; Hematocrit (blood only) 28.2 % (42.0-52.0); Hemoglobin 9.2 g/dl (14.0-18.0); Immature Granulocytes # (auto) 0.03 K/uL (0.01-0.20); Immature Granulocytes % (auto) 0.4 %; Lymphocytes # (auto) 0.54 K/uL (1.2-3.4); Lymphocytes % (auto) 7.4 %; Mean Corpuscular Hemoglobin 29.7 pg (25.0-34.0); Mean Corpuscular Hgb Conc 32.6 g/dL (32.0-36.0); Mean Platelet Volume 10.2 fL (9.4-12.4); Monocytes % (auto) 12.3 %; Neutrophils # (auto) 5.64 K/uL (1.40-6.50); Neutrophils % (auto) 77.4 %; Platelet Count 271 K/uL (130-400); RDW Coefficient of Variation 13.2 % (11.5-14.5); RDW Standard Deviation 44.6 fL (36.4-46.3); White Blood Count 7.29 K/ul (4.8-10.8)
[2022-06-20 06:17] VITALS: O2SAT 97
[2022-06-20 06:35] LABS: Appearance Urine Clear (Clear); Bilirubin Urine Negative (Negative); Blood Urine Negative (Negative); Color Urine Yellow; Glucose Urine UA Negative (Negative); Ketones Urine Negative (Negative); Leukocyte Esterase Urine Negative (Negative); Nitrite Urine Negative (Negative); Protein Urine Negative (Negative); Specific Gravity Urine 1.015 (1.000-1.030); Urobilinogen Urine Negative (Negative)
[2022-06-20] MEDS ORDERED: ACETAMINOPHEN 325 MG TAB PO PRN (08:06)
--- NOTE | 2022-06-20 08:23 | XRay Report ---
XR chest 1V portable CLINICAL HISTORY: Shortness of breath. Malignant neoplasm of parotid gland. COMPARISON STUDY: Chest radiograph and chest CT May 01, 2022. FINDINGS: Postoperative findings within the spine are noted. There is mild cardiomegaly with pulmonar y vascular congestion. Reticulonodular interstitial thickening has progressed. This favors progressio n of metastatic disease. Mediastinal and bilateral hilar lymphadenopathy has progressed. There is no pneumothorax or pleural effusion. IMPRESSION: 1. Progression of metastatic disease, as described above. 2. Mild cardiomegaly with pulmonary vascular congestion. ACT 112: Negative or not required by law. Electronically signed by: Toney Crump M.D. 06/20/2022 8:21 AM
--- NOTE | 2022-06-20 08:31 | CT Scan Report ---
CT thoracic spine w con HISTORY: 56 years-old Male severe pain, fever, CA pt acute cough with fever and shortness of breath. COMPARISON: CTA chest of same day and also 05/01/2022 TECHNIQUE: Multiple axial CT images of the thoracic spine were obtained following the intravenous adm inistration of 108 mL Optiray 320. A dose lowering technique was used consistent with the principals of ALARA. FINDINGS: Posterior interbody darrel and screw fusion again noted at T3-T7 with T3, T4, T6 and T7 vertebroplasty. Pathologic burst fracture of T5 with retropulsion appears unchanged. Partially imaged anterior plate and screw cervical spinal fusion hardware. Scattered lytic osseous metastasis have progressed. For ex ample, the lesions involving the left lateral aspect of the T8 vertebral body with cortical breakthro ugh and increased in size on image 187 series 5. Mild interval healing of the subacute mildly comminuted and slightly displaced fractures in the media l aspect of the right fourth through sixth ribs. Paravertebral edema at T5-T6 is similar to the prior study. Limited dilation of the central canal and neural foramen at this level secondary to artifact from the hardware. Metastatic mediastinal and hilar lymphadenopathy again noted. Pulmonary metastatic disease has progre ssively worsened. IMPRESSION: 1. Progressively worsened metastatic disease of the chest as above. 2. Increased size of the lytic metastatic foci including lesions within the T8 vertebral body with co rtical destruction. No definite acute pathologic fracture identified. 4. Unchanged appearance of the pathologic T5 fracture with retropulsion. 5. Mild interval healing of the subacute posterior medial right-sided rib fractures. ACT 112: Negative or not required by law. The above report was generated using voice recognition software. It may contain grammatical, syntax o r spelling errors. Electronically signed by: William Whitlock M.D. 06/20/2022 8:29 AM
[2022-06-20] MEDS ORDERED: MoRPHine SULFATE 2 MG/ML CARP IV ONE (08:38)
--- NOTE | 2022-06-20 08:38 | CT Scan Report ---
CT ANGIOGRAPHY OF THE CHEST, PULMONARY EMBOLUS PROTOCOL CLINICAL HISTORY: PE, metastatic acinic cell carcinoma of the parotid gland. COMPARISON STUDY: Chest CT May 01, 2022. TECHNIQUE: Following IV administration of 108 mL of Optiray, helical axial images of the chest were o btained utilizing the pulmonary embolus protocol. Maximal intensity projections and sagittal and cor onal reformats were viewed on an independent 3D workstation. IV contrast was administered without co mplication. Automated exposure control was utilized for the study. A dose lowering technique was ut ilized adhering to the principles of ALARA. FINDINGS: No pulmonary emboli are identified although sensitivity is diminished given respiratory mo tion and suboptimal opacification. Extrinsic mass effect/narrowing of several pulmonary arteries is n oted due to lymphadenopathy. Mild cardiomegaly is noted. There is coronary calcification. No pericard ial effusion is present. No pneumothorax is present. Trace right pleural effusion has decreased in si ze since prior examination. There is no consolidation to suggest pneumonia. Groundglass opacities wit h mild mosaic attenuation within the lungs are noted. There has been increase in size and number of i nnumerable pulmonary nodules since CT of May 01, 2022. A 2.2 cm right lower lobe nodule on image 257 of 406 was not clearly identified on prior exam. A 1.1 cm right upper lobe nodule on image 347 p reviously measured 0.8 cm. Extensive mediastinal and bilateral hilar lymphadenopathy has progressed. Index prevascular node on image 320 measures 3.6 x 3.3 cm. It previously measured 3.3 x 2.7 cm. The t horacic spine CT will be reported separately. Extensive skeletal metastatic disease has progressed si nce prior CT. T5 pathologic fracture is again noted. Thoracic spinal fusion is noted. Several patholo gic bilateral rib fractures have developed. There is a pathologic fracture of the left transverse pro cess of L3 which is new since CT of the abdomen and pelvis February 21, 2022. Lytic lesions within the lumbar spine have significantly progressed. IMPRESSION: 1. No pulmonary emboli within the limitations described above. 2. Progression of extensive metastatic disease since chest CT May 01, 2022, as detailed above. 3. No consolidation to suggest pneumonia. ACT 112: Negative or not required by law. Electronically signed by: Toney Crump M.D. 06/20/2022 8:36 AM
[2022-06-20] MEDS ORDERED: PANTOprazole 40 MG TAB PO SCH (09:00)
[2022-06-20] MEDS ORDERED: FLUTICASONE PROPIONATE NA SPR 16 GM BTL SCH (09:00)
[2022-06-20] MEDS ORDERED: lisinopril 40 MG TAB PO SCH (09:00)
[2022-06-20] MEDS ORDERED: DULoxetine HCL 30 MG CAP PO SCH (09:00)
[2022-06-20] MEDS ORDERED: GABAPENTIN 800 MG TAB PO SCH (09:00)
[2022-06-20] MEDS ORDERED: PILOCARPINE HCL 5 MG TABLET PO SCH (09:00)
[2022-06-20] MEDS ORDERED: ENOXAPARIN INJ 40 MG/0.4 ML SYR SQ SCH (09:00)
[2022-06-20] MEDS ORDERED: GABAPENTIN 100 MG CAP PO SCH (09:00)
[2022-06-20] MEDS ORDERED: ASPIRIN 81 MG ECTAB PO SCH (09:00)
[2022-06-20] MEDS ORDERED: FAMOTIDINE 40 MG TABLET PO SCH (09:00)
[2022-06-20] MEDS ORDERED: LIDOCAINE 5% 1 PATCH TD SCH (09:00)
[2022-06-20] MEDS ORDERED: VANCOMYCIN HCL 1,250 MG in SODIUM CHLORIDE 0.9% 250 ML IV SCH (10:00)
--- NOTE | 2022-06-20 10:37 | Pharmacy Report ---
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 MRSA nasal (-), Blood cultures pending. Renal function stable, (+) fevers. Day #1 of antimicrobial therapy. Plan Vancomycin * Loading dose: 2250 mg IV x 1 * Maintenance dose: 1250 mg IV every 12 hours * Regimen is predicted to achieve target AUC/SIXTO of 400-600 mg/L.hr * Will obtain a level around steady state if vancomycin continued, or sooner if clinically indicated Pharmacy will continue to follow and will adjust dose/frequency as necessary. Thank you. Pharmacy has transitioned to AUC monitoring for vancomycin. AUC/SIXTO is the preferred PK/PD target and is associated with decreased risk of nephrotoxicity compared to traditional trough targets.
[2022-06-20 12:55] VITALS: BP 133/75; PULSE 78
--- NOTE | 2022-06-20 15:29 | Electrocardiogram Report ---
Test Reason : Blood Pressure : / mmHG Vent. Rate : 111 BPM Atrial Rate : 111 BPM P-R Int : 196 ms QRS Dur : 072 ms QT Int : 250 ms P-R-T Axes : 024 006 042 degrees QTc Int : 340 ms Poor data quality, interpretation may be adversely affected Sinus tachycardia with Premature ventricular complexes Nonspecific ST abnormality Abnormal ECG When compared with ECG of 01-MAY-2022 08:56, Premature ventricular complexes are now Present ST now depressed in Inferior leads ST now depressed in Anterior leads Confirmed by Cricket Tobar ([id number]) on 06/20/2022 3:29:12 PM Referred By: REFERRED SELF Confirmed By:Cricket Tobar
--- NOTE | 2022-06-20 18:12 | Discharge Summary ---
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 Patient stated a few days ago he started to have increased runny nose, cough and sputum production, mostly in the morning although no other symptoms. He states that earlier today he went to his PT session a few blocks down from his house and when he returned he felt more mucous and congestion in his lungs and head as well as feeling warm. He took his temperature orally and got 103F. Him and his have a retired nurse as a neighbor and they consulted this neighbor who came over and listened to his lungs, after hearing some wheezing and coarse sounds the neighbor recommended he go to the hospital for further evaluation. He denies any nausea, vomiting, chest pain or abdominal pain other than MSK type pain from the cough, dysuria, urinary frequency. In the ED vitals 38.7C for temp, tachy to 105, O2 96%, WBC 6.90, Hgb 10.1, procal 0.07, his CXR had evidence of pulmonary and perihilar congestion, CTA chest w/o evidence for PE, multiple pulmonary nodules, LAD, w/ findings consistent w/ advancing metastatic disease, CT T spine w/ anterior wedge compression fracture T5, lytic area L posterior lateral T8 vertebral body w/o compression noted, subsegmental changes to apices of lungs suggesting infection. Principal Diagnosis Dyspnea Discharge Exam Constitutional WD/WN, vitals as above Eyes + anicteric sclerae Neck trachea midline, no thyromegaly Respiratory normal respiratory effort; no respiratory distress Bronchial breath sounds noted in the upper lobes b/l otherwise cta Cardiovascular RRR, no murmur, no edema Gastrointestinal (Abdomen) normal bowel sounds, soft, nontender, no hepatosplenomegaly Musculoskeletal Head/Neck/Chest: normocephalic and head atraumatic Skin no rashes, warm and dry Neurologic moves all extremities Psychiatric A+Ox3, euthymic affect Discharge Data Allergies Allergy/AdvReac Type Severity Reaction Status Date / Time No Known Allergies Allergy Verified 06/19/22 23:10 Consultations 06/20/22 00:38 ED Decision to Admit Stat Ordered Studies 06/19/22 22:27 CT angio chest PE protocol Urgent CT thoracic spine w con Urgent Hospital Course (1) Acute dyspnea: Chris is a 56 year old male w/ PmHx 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 Acute dyspnea/PNA: -WBC 6.90, procal 0.07, Na 131 otherwise electrolytes WNL. -CXR w/ pulmonary congestion and perihilar LAD. -CTA chest and CT T spine w/ evidence of metastatic disease in lungs as well as nodules. Initial read by stat rad suggested pneumonia but when read by our radiologist and the hospitalist providers, no evidence of pneumonia or consolidation. -Patient symptoms are likely a combination of acute viral illness with lung mets making it difficult for him to breathe. Oxygen saturation normal. -Given flutter valve and incentive spirometry in house. Additionally given some breathing treatments in ED. -Blood cultures were taken on admission, pending. -Discharge patient on azithromycin to cover atypicals and provide anti- inflammatory properties. Continue for 5 days total -Ordered nasal MRSA. -Discharged home with spirometry and flutter valve. Metastatic cancer: -Noted. -COVID, flu, RSV negative, so no need to quarantine. Patient may go to follow- up appointment with oncology tomorrow. HTN: -Continue home lisinoril. GERD: -Continue home famotidine 40mg BID, pantoprazole 40mg qAM. Hx of papilledema of R eye: -Continue home pilocarpine. HLD: -Continue home atorvastatin. F/E/N/GI: Regular diet. Code status: Full code. Dispo: Discharge home. (2) PNA (pneumonia): (3) Metastatic cancer: (4) Hypertension: (5) Anxiety: (6) Degenerative disc disease: Total Time Total Time Spent Total Time Spent (In Minutes): <30 Discharge Plan Discharge Items Patient Disposition: Home - Self-Care Reason For Visit: FEVERS, INFECTION IN CANCER PATIENT Discharge Diagnosis: Fever Viral Upper Respiratory Infection Condition on Discharge: Fair Activity: Per Instructions section Non-emergency contact: Primary Care Provider Call non-emergency contact if: you have any medication questions Follow-up/Referrals: Jo Maxwell MD [Primary Care Provider] - (please schedule f/u within 1 week of discharge) Diet: Regular Addtl Attending Provider Instructions: You were admitted to [facility] from 06/19 to 06/20 for cold- like symptoms. You had a fever of 101F on arrival but thankfully no further fevers. You were given several doses of IV antibiotics to cover for potential pneumonia, but thankfully your blood work and imaging did not show evidence of flu, COVID, or pneumonia. The imaging did show the known metastasis of your cancer to your lungs. You will be discharged in improved, stable condition on 06/20. You will continue to take a medication called Azithromycin - you will take this medication daily for the next 5 days. You should follow up with your primary care provider as well as your oncologist. You should continue to take all of your home medications as scheduled. Pending Studies at Discharge: No Stand-Alone Forms: My [facility], Smoking Cessation Medications and DC Order Prescriptions: New azithromycin [Zithromax Z-Pablito] 250 mg tablet See Rx Instructions .ROUTE .COMPLEX Qty: 6 0RF Rx Instructions: For 250 mg dose pack: take 500 mg today (day 1), then 250 mg for 4 days (days 2-5) Continued duloxetine 30 mg capsule,delayed release(DR/EC) 30 mg PO DAILY Qty: 90 1RF atorvastatin [Lipitor] 20 mg tablet 20 mg PO HS Qty: 90 1RF pantoprazole 40 mg tablet,delayed release (DR/EC) 40 mg PO QAM Qty: 90 3RF (DME) Cock-Up Wrist Splint Misc See Dose Instructions .ROUTE .MEDSUPPLY Qty: 2 0RF Dose Instruction: As directed Rx Instructions: Left and right wrist splints G56.00 lorazepam 0.5 mg tablet 0.5 mg PO DAILY PRN (Reason: anxiety) Qty: 30 0RF famotidine 40 mg tablet 40 mg PO BID Qty: 180 1RF gabapentin 100 mg capsule 100 mg PO TID Qty: 270 1RF Rx Instructions: WITH 800 MG DAILY FOR TOTAL OF 900 MG TID cholecalciferol (vitamin D3) 50 mcg (2,000 unit) tablet 50 mcg PO QAM Qty: 30 cyanocobalamin (vitamin B-12) 1,000 mcg tablet, sublingual 1,000 mcg SL QAM Qty: 30 Label Comments: ON HOLD FOR SURGERY aspirin [Adult Low Dose Aspirin] 81 mg tablet,delayed release (DR/EC) 81 mg PO DAILY Qty: 90 3RF oxycodone 5 mg tablet 5 mg PO QID PRN (Reason: pain) Qty: 30 0RF gabapentin 800 mg tablet 800 mg PO TID Qty: 270 1RF Rx Instructions: WITH 100 MG DAILY FOR TOTAL OF 900 MG TID pilocarpine HCl [Salagen (pilocarpine)] 5 mg tablet 5 mg PO TID Qty: 270 1RF fluticasone propionate 50 mcg/actuation spray,suspension 2 spray intranasal BID PRN (Reason: Allergy Symptoms) Qty: 16 1RF lisinopril 40 mg tablet 40 mg PO DAILY Qty: 30 2RF celecoxib [Celebrex] 100 mg capsule 100 mg PO BID Qty: 180 1RF Label Comments: ON HOLD FOR SURGERY clobetasol 0.05 % ointment 1 applic topical DAILY PRN (Reason: Skin Irritation) Rx Instructions: Apply to the hands at night for 2 weeks for flaring. mupirocin 2 % ointment 1 applic topical BID PRN (Reason: NEEDED) Rx Instructions: Apply to the cracks of the hands BID for 10-14 days until closed. zolpidem 10 mg tablet 10 mg PO HS acetaminophen 500 mg Capsule 1,000 mg PO HS PRN (Reason: Pain) bisacodyl [Dulcolax (bisacodyl)] 5 mg Tablet,Delayed Release (Dr/Ec) 5 mg PO HS PRN (Reason: Constipation) Discharge Orders: Discharge Order (Routine); Ordered 06/20/22 Ordered By: Kushal Ball Admission Data Admit Date/Time: 06/20/22 01:13 Attending Provider: Nitesh Fenton Admit Provider: Ishaan De Primary Care Provider: Jo Maxwell Other Providers: Shaw Bean Other Interventions: Discharge Summary Assessment (RN) Last Done: 06/20/22 12:53 Supervising Physician Co-Signing Physician Notes I personally examined the patient and verified all muir points of history and exam, discussed case, and agree with decision making with Dr Ball Feeling okay, feels up to going home. Would like to keep oncology follow-up tomorrow. Extensive discussion with patient and , answered all questions the best my ability and to their satisfaction. Vitals noted, in general he is awake and alert pleasant no distress. HEENT normocephalic atraumatic mucous membranes moist. Lungs show scattered mucus-like sounds essentially and extremely mild rhonchi, no rales no wheezes no accessory muscle use no conversational dyspnea good effort. Skin shows no rashes no pallor or icterus. Initial concern on sepsis/pneumoniaI suspect this is really all metastatic diseaseas evidenced based on the CT of his lungs, he probably does have an acute infection overlay with what is most likely a viral URIwe will cover with empiric antibiotics particularly for atypicals given his risk status, but I really believe that proceeding with treating his cancer is most important here. Safe/stable for home given his stable vital stable on room air. Secondary malignant neoplasm of bone, T5, T8 vertebral body, pulmonary metastatic disease, mediastinal adenopathywith reported parotid primary - sees oncology tomorrow.
--- NOTE | 2022-06-20 19:35 | Billing Data ---
Date of Service June 20, 2022 Coding Level of Care Code HOSP INP/OBS DISCH 30 MIN/LESS
--- NOTE | 2022-06-20 19:38 | Communication Note ---
Date of Service: June 20, [address] velez to communicate plan of care
[2022-06-20] MEDS ORDERED: ATORVASTATIN 20 MG TAB PO SCH (21:00)
[2022-06-20] MEDS ORDERED: ZOLPIDEM TARTRATE 10 MG TAB PO SCH (21:00)
--- NOTE | 2022-06-21 03:46 | Billing Data ---
Date of Service June 21, 2022 Coding Level of Care Code 15287 INT INP/OBS CARE
== END 2022-06-20 13:04 | disposition home or self-care (01) ==
LOC: ED 21:22 → EDINP 06-20 01:13 → SUATTDRO 06-20 01:13 → INTOOBSV 06-20 01:13 → EDINP 06-20 01:47

== ENCOUNTER 2022-09-22 16:36 | Inpatient (IN) ==
--- NOTE | 2022-09-22 16:44 | ED Triage Note ---
Date of Service September 22, 2022 History of Present Illness This patient was briefly evaluated while in triage. An abbreviated physical exam was performed. This patient is a 56-year-old Male who presents to the ED for evaluation of chest pain. He was walking upstairs and began to feel short of breath and devel oped chest pain with radiation into the left arm. He took his blood pressure and it was elevated. He states he was here 2 days ago for the same symptoms. His symptoms have been coming and going. He has acinic cell carcinoma and currently gets chemotherapy. He does state that he has metastasis to his bones. Physical Exam VITALS: Vitals are noted on the nurse's note and reviewed by myself. GENERAL: This is a 56-year-old male, in no acute distress, sitting in a wheelchair. SKIN: The skin was without rashes. Nondiaphoretic. HEART: Regular rate and rhythm without murmurs gallops or rubs. LUNGS: Clear to auscultation bilaterally without wheezes, rales or rhonchi. No retractions or accessory muscle use. NEURO: Patient was alert and oriented to person place and time. Initial orders for labs and / or imaging were placed and patient was placed in the waiting area until a bed is available. Please see further documentation for the full ED course.
[2022-09-22 17:44] LABS: Basophils # (auto) 0.06 K/uL (0-0.2); Basophils % (auto) 0.8 %; Eosinophils # (auto) 0.14 K/uL (0-0.50); Hematocrit (blood only) 28.4 % (42.0-52.0); Hemoglobin 9.1 g/dl (14.0-18.0); Immature Granulocytes # (auto) 0.03 K/uL (0.01-0.20); Immature Granulocytes % (auto) 0.4 %; Lymphocytes # (auto) 0.22 K/uL (1.2-3.4); Lymphocytes % (auto) 3.1 %; Mean Corpuscular Hemoglobin 28.5 pg (25.0-34.0); Mean Platelet Volume 10.2 fL (9.4-12.4); Monocytes # (auto) 0.76 K/uL (0.11-0.59); Monocytes % (auto) 10.6 %; Neutrophils # (auto) 5.93 K/uL (1.40-6.50); Neutrophils % (auto) 83.1 %; Platelet Count 437 K/uL (130-400); RDW Coefficient of Variation 18.5 % (11.5-14.5); RDW Standard Deviation 60.2 fL (36.4-46.3); Red Blood Count 3.19 M/uL (4.70-6.10); White Blood Count 7.14 K/ul (4.8-10.8)
[2022-09-22 17:51] LABS: Alanine Aminotransferase 62 U/L (7-52); Albumin Level 3.4 gm/dl (3.4-5.0); Alkaline Phosphatase 174 U/L (34-104); Anion Gap 8 (3-11); Aspartate Aminotransferase 110 U/L (13-39); BUN Creatinine Ratio 13.9 (10-20); Bilirubin,Total 0.6 mg/dl (0.2-1.0); Blood Urea Nitrogen 14 mg/dl (6-23); Calcium 8.2 mg/dl (8.6-10.3); Carbon Dioxide 23 mmol/L (21-32); Chloride 97 mmol/L (98-107); Est GFR (African American) 95.9 ml/min; Est GFR (Non-African American) 82.8 ml/min; Globulin 3.4 gm/dl (2.5-4.0); Glucose 102 mg/dl (70-99(Fasting)); Potassium 4.4 mmol/L (3.5-5.1); Sodium 128 mmol/L (136-145); Total Protein 6.8 gm/dl (6.0-8.3)
[2022-09-22 17:57] LABS: Troponin I High Sensitivity 5.8 pg/ml (0-20)
--- NOTE | 2022-09-22 18:31 | Emergency Department Note ---
Impression & Plan Chest pain, Stroke-like symptom, Closed rib fracture, Acute hyponatremia ED Provider Note NAME: TOM LARA AGE: 56 SEX: M : 1965 ARRIVES VIA: Walk-In INFORMANT: Patient, ED PROVIDER(S): Cricket Quintero DO CHIEF COMPLAINT: Chest pain HPI: The patient is a 56-year-old male who presented to the emergency department for evaluation of chest pain. The patient states he was seen in our facility recently for similar complaints. At that time his emergency department work-up did not reveal a cause for his symptoms. The patient presents back to the emergency department today because of ongoing symptoms. He started noticing now that he is having exertional dyspnea as well as chest pain. He describes left- sided chest pain. 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 He denies having any headache. He denies having any vomiting. He denies having any lower extremity swelling. The patient was not seen by his family doctor after he was seen in the emergency department. At this time he states his chest pain is minimal. ROS: See above HPI for pertinent positives & negatives. A total of 10 systems reviewed and were otherwise negative. PAST MEDICAL HISTORY: See Below PAST SURGICAL HISTORY: See Below FAMILY HISTORY: See Below SOCIAL HISTORY: See Below HOME MEDICATIONS: See Below ALLERGIES: See Below VITALS: See Below PHYSICAL EXAMINATION: GENERAL: Patient is awake alert in no acute distress patient is resting comfortably and showing no signs of anxiety EYES: The conjunctivae are clear. The pupils are round and reactive. EARS, NOSE, MOUTH AND THROAT: The nose is without any evidence of any deformity. NECK: The neck is nontender and supple. RESPIRATORY: Normal respiratory effort is noted there is no evidence of wheezing rhonchi or rales CARDIOVASCULAR: Regular rate and rhythm noted there no murmurs rubs or gallops normal S1 normal S2. GASTROINTESTINAL: The abdomen is soft. Abdomen is nontender. MUSCULOSKELETAL/EXTREMITIES: There is no evidence of gross deformity full range of motion is noted in the hips and shoulders. SKIN: There is no obvious evidence of any rash. There are no petechiae, pallor or cyanosis noted. NEUROLOGIC: Patient is awake alert and oriented x3. Patellar tendon reflexes are 2+ bilaterally. 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 There is no drift in the upper extremities. Facial droop was absent. Speech was clear. MEDICAL DECISION MAKING: The patient is a 56-year-old male who presented to the emergency department for an evaluation of chest pain. The patient has a history of metastatic head neck cancer. The patient was seen in our facility recently for similar complaints. The chest pain did return today but he was more concerned because he started having left-sided weakness. He complained of left upper and left lower extremity weakness. On my exam there is no significant asymmetry in his physical exam. I discussed the patient's laboratory and radiographic studies with him. I also discussed the limitations of the emergency department work-up for chest pain with him. Ultimately the patient had CT angiography of the head neck and chest. There was concern this could represent venous thromboembolic disease or even possibly other vascular issue given the patient's unilateral weakness and chest pain. Ultimately no definite cause for the patient's symptoms could be found. Given his weakness I discussed his condition with the on-call [facility] hospitalist. He may require further inpatient work-up and management. Triage Nursing notes reviewed. Prior medical records reviewed Vital Signs: reviewed and remarkable for tachycardia. Differential diagnosis: Cardiac ischemia, aortic dissection, pulmonary embolism, pneumothorax, pneumonia, pericarditis, myocarditis, esophageal rupture, GERD, cholecystitis, pancreatitis, musculoskeletal, as well as other pathologies. ER treatment provided: See below Diagnostics interpreted by me: ECG: EKG was obtained in the emergency department. My interpretation is sinus tachycardia at 107 bpm. There is no ectopy. There is no acute ST segment abnormalities noted. This was compared to a tracing from September 18, 2022. No changes were noted. Cardiac Monitoring: An order was placed for continuous cardiac monitoring. The monitor shows a rate of 103 bpm with sinus tachycardia. Laboratory studies: As stated above and show below. Imaging studies: See below. Radiographic imaging was reviewed by myself Consultation(s): I discussed this case with Dr. Nicole who [facility]. 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 Numbness of upper extremity Osteoarthritis Overweight Sleep apnea Mild, not using CPAP Spinal stenosis Vitamin D deficiency Surgical History History of anesthesia reaction Awareness during [facility] (2017 and 2018)- at [facility] History of back surgery History of cervical discectomy "Good" ROM History of colonoscopy History of esophagogastroduodenoscopy (EGD) History of hand surgery (~2004) Right hand surery History of hip replacement right (2018), left (2019) History of left cataract surgery History of open reduction and internal fixation (ORIF) procedure right wrist History of repair of rotator cuff left History of sinus surgery History of superficial parotidectomy 09/24/20 Family History Mother , 62yo Stroke Father , 44yo Myocardial infarction Brother Mantle cell lymphoma Rodriguez esophagus Heart disease Stent placed; Daughter Hypertension Other No family history of adverse response to anesthesia No family history of allergies No family history of bleeding disorder Denies family history of Ovarian cancer Prostate cancer Diabetes Breast cancer Colorectal cancer Social History Smoking Status: Never smoker Second Hand Exposure: No; Do You Dip or Chew Tobacco: No; Hx Alcohol Use: No Hx Substance Use: No Preferred Language: Armenian Communication Ability: Effective Visual Impairment: No Limitations Hearing Ability: Normal Second Helper Required: No Beliefs That Will Affect Care: Yazidi marital status: Current Living Situation: Spouse Current Living Situation Comment: AND DAUGHTER current occupational status: employed 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 [employer] Feels Safe at Home: Yes Childhood Exposure to Second-Hand Smoke: Yes Diet: regular Diet Comment: regular caffeine: No during the past year weight has: increased > 10 lbs Dental Care, Regularly: Yes Physical Activity Frequency: Daily Seatbelt Use: always Sunscreen Use: Yes Assistive Devices: Glasses Allergies Allergies Allergy/AdvReac Type Severity Reaction Status Date / Time No Known Allergies Allergy Verified 09/22/22 19:04 Home Meds Home Medications Medication Instructions Recorded Confirmed acetaminophen 500 mg capsule 1,000 mg PO HS PRN Pain 09/10/20 09/22/22 bisacodyl 5 mg tablet,delayed 5 mg PO HS PRN Constipation 09/10/20 09/22/22 release (Dulcolax (bisacodyl)) clobetasol 0.05 % topical ointment 1 applic topical DAILY PRN Skin 05/08/22 09/22/22 Irritation mupirocin 2 % topical ointment 1 applic topical BID PRN NEEDED 06/19/22 09/22/22 levothyroxine 50 mcg capsule 50 mcg PO DAILY 08/08/22 09/22/22 ondansetron HCl 8 mg tablet 8 mg PO Q8H PRN Nausea 08/08/22 09/22/22 prochlorperazine maleate 10 mg 10 mg PO Q6H PRN Nausea 08/08/22 09/22/22 tablet (Compazine) duloxetine 40 mg capsule,delayed 40 mg PO DAILY 09/22/22 09/22/22 release fentanyl 25 mcg/hr transdermal See Rx Instructions .Route .COMPLEX 09/22/22 09/22/22 patch gabapentin 100 mg capsule See Rx Instructions .Route .COMPLEX 09/22/22 09/22/22 gabapentin 800 mg tablet See Rx Instructions .Route .COMPLEX 09/22/22 09/22/22 naloxone 4 mg/actuation nasal spray See Rx Instructions .Route .COMPLEX 09/22/22 09/22/22 Previous Rx's Medication Instructions Recorded aspirin 81 mg tablet,delayed 81 mg PO DAILY #90 tabs 01/28/21 release (Adult Low Dose Aspirin) fluticasone propionate 50 2 spray intranasal BID PRN Allergy 09/23/21 mcg/actuation nasal Symptoms #16 grams spray,suspension lisinopril 40 mg tablet 40 mg PO DAILY #30 tabs 02/16/22 pantoprazole 40 mg tablet,delayed 40 mg PO QAM #90 tabs 03/14/22 release Cock-Up Wrist Splint #2 ea 05/19/22 Auto Titrating CPAP #1 ea 07/10/22 celecoxib 100 mg capsule (Celebrex) 100 mg PO BID #180 caps 07/12/22 pilocarpine HCl 5 mg tablet 5 mg PO TID #270 tabs 07/12/22 (Salagen (pilocarpine)) atorvastatin 20 mg tablet (Lipitor) 20 mg PO HS #90 tabs 07/26/22 lorazepam 0.5 mg tablet 0.5 mg PO DAILY PRN anxiety #30 09/05/22 tabs famotidine 40 mg tablet 40 mg PO BID #180 tabs 09/21/22 zolpidem 10 mg tablet 10 mg PO HS #30 tabs 09/21/22 Results & Data (ED) Vital Signs Vital Signs - 24 hr 09/22/22 16:39 09/22/22 16:43 09/22/22 18:13 Temperature 37.0 C Temperature Source Temporal Artery Scan Pulse Rate 110 H Pulse Rate [Radial] Pulse Rate from SpO2 Sensor Respiratory Rate 20 Respiratory Effort / Characteristics Non-Labored Spontaneous SOB on Exertion Respiratory Depth Normal Respiratory Pattern Blood Pressure 163/87 H Blood Pressure [Right Arm] Blood Pressure Mean 112 Blood Pressure Mean [Right Arm] Pulse Oximetry 97 94 Oxygen Delivery Method Room Air Room Air Sepsis New/Unexplained Change in Mental Status N/A Sepsis Action Taken by Nursing No Action Required 09/22/22 18:20 09/22/22 18:45 09/22/22 18:18 Temperature Temperature Source Pulse Rate 103 H 102 H Pulse Rate [Radial] 102 H Pulse Rate from SpO2 Sensor 102 H Respiratory Rate 16 20 Respiratory Effort / Characteristics Non-Labored Spontaneous Respiratory Depth Normal Respiratory Pattern Regular Blood Pressure Blood Pressure [Right Arm] 125/74 Blood Pressure Mean Blood Pressure Mean [Right Arm] 91 Pulse Oximetry 95 96 Oxygen Delivery Method Room Air Sepsis New/Unexplained Change in Mental Status Sepsis Action Taken by Nursing 09/22/22 18:20 09/22/22 18:30 09/22/22 18:40 Temperature Temperature Source Pulse Rate 102 H 104 H 103 H Pulse Rate [Radial] Pulse Rate from SpO2 Sensor 102 H 104 H 103 H Respiratory Rate 21 18 16 Respiratory Effort / Characteristics Respiratory Depth Respiratory Pattern Blood Pressure Blood Pressure [Right Arm] Blood Pressure Mean Blood Pressure Mean [Right Arm] Pulse Oximetry 96 95 95 Oxygen Delivery Method Sepsis New/Unexplained Change in Mental Status Sepsis Action Taken by Nursing 09/22/22 18:50 Temperature Temperature Source Pulse Rate 103 H Pulse Rate [Radial] Pulse Rate from SpO2 Sensor 103 H Respiratory Rate 24 Respiratory Effort / Characteristics Respiratory Depth Respiratory Pattern Blood Pressure Blood Pressure [Right Arm] Blood Pressure Mean Blood Pressure Mean [Right Arm] Pulse Oximetry 96 Oxygen Delivery Method Sepsis New/Unexplained Change in Mental Status Sepsis Action Taken by Longterm Medications Current Medication List: was personally reviewed by me Laboratory Data Attestation: I reviewed the patient's lab results. 09/22/22 17:14 09/22/22 17:14 Lab Results 09/22/22 09/22/22 Range/Units 17:14 17:14 WBC 7.14 (4.8-10.8) K/ul RBC 3.19 L (4.70-6.10) M/uL Hgb 9.1 L (14.0-18.0) g/dl Hct 28.4 L (42.0-52.0) % MCV 89.0 (80.0-100.0) fL MCH 28.5 (25.0-34.0) pg MCHC 32.0 (32.0-36.0) g/dL RDW Std Deviation 60.2 H (36.4-46.3) fL RDW Coeff of Renny 18.5 H (11.5-14.5) % Plt Count 437 H (130-400) K/uL MPV 10.2 (9.4-12.4) fL Immature Gran % (Auto) 0.4 % Neut % (Auto) 83.1 % Lymph % (Auto) 3.1 % Haakon % (Auto) 10.6 % Eos % (Auto) 2.0 % Baso % (Auto) 0.8 % Neut # (Auto) 5.93 (1.40-6.50) K/uL Lymph # (Auto) 0.22 L (1.2-3.4) K/uL Haakon # (Auto) 0.76 H (0.11-0.59) K/uL Eos # (Auto) 0.14 (0-0.50) K/uL Baso # (Auto) 0.06 (0-0.2) K/uL Immature Gran # (Auto) 0.03 (0.01-0.20) K/uL Sodium 128 L (136-145) mmol/L Potassium 4.4 (3.5-5.1) mmol/L Chloride 97 L (98-107) mmol/L Carbon Dioxide 23 (21-32) mmol/L Anion Gap 8 (3-11) BUN 14 (6-23) mg/dl Creatinine 1.01 (0.6-1.4) mg/dl Est Cr Clr Drug Dosing Not Reportable Est GFR ( Amer) 95.9 ml/min Est GFR (Non-Af Amer) 82.8 ml/min BUN/Creatinine Ratio 13.9 (10-20) Glucose 102 H (70-99(Fasting)) mg/dl Calcium 8.2 L (8.6-10.3) mg/dl Total Bilirubin 0.6 (0.2-1.0) mg/dl AST 110 H (13-39) U/L ALT 62 H (7-52) U/L Alkaline Phosphatase 174 H (34-104) U/L Troponin I High Sens 5.8 (0-20) pg/ml Total Protein 6.8 (6.0-8.3) gm/dl Albumin 3.4 (3.4-5.0) gm/dl Globulin 3.4 (2.5-4.0) gm/dl Albumin/Globulin Ratio 1.0 (0.9-2) Administered Medications Discontinued Medications Ioversol (Optiray 320 500ml) 115 ml IV ONCE ONE Stop: 09/22/22 19:11 Last Admin: 09/22/22 19:11 Dose: 115 ml Documented By: ALONSO Imaging Data Attestation: I personally reviewed and interpreted this imaging study as follows: My Impression: 1 view chest x-ray was obtained in the emergency department. My interpretation is no free air, no definite filtrate, final report below Radiologist's Impression: Chest X-Ray 09/22/22 16:46 SINGLE VIEW CHEST CLINICAL HISTORY: Atypical chest pain. FINDINGS: An AP, portable, upright chest radiograph is compared to chest x-ray and chest CT dated 09/18/2022. The examination is degraded by portable technique, apical lordotic positioning, and patient rotation. The heart is enlarged. There is pulmonary vascular congestion. There is chronic elevation of the right hemidiaphragm with bibasilar scarring/atelectasis. No airspace consolidation or large pleural effusion is identified. Findings of multifocal pulmonary metastatic disease are unchanged. No pneumothorax is seen. The skeletal structures are osteopenic. There are numerous thoracic compression deformities with evidence of previous vertebroplasty. Fusion hardware is seen in the lower cervical spine as well as within the lumbar spine. Bilateral rib fractures are again noted. IMPRESSION: 1. Cardiomegaly with pulmonary vascular congestion. 2. No airspace consolidation or large pleural effusion is identified. 3. Findings of multifocal pulmonary metastatic disease are unchanged. 4. Bilateral rib fractures are again noted. ACT 112: Negative or not required by law. Electronically signed by: Anatoly Sandoval M.D. 09/22/2022 7:11 PM Chest CTA 09/22/22 18:28 Exam(s): CTA CHEST IV Amt: OPTIRAY 320 115ML EXAM: CT Angiography Chest With Intravenous Contrast CLINICAL HISTORY: Pulmonary embolus. TECHNIQUE: Axial computed tomographic angiography images of the chest with intravenous contrast. CTDI is 18.01 mGy and DLP is 1105.04 mGy-cm. Automated exposure control was utilized for the study. A dose lowering technique was utilized adhering to the principles of ALARA. MIP reconstructed images were created and reviewed. CONTRAST: 115 mL of Optiray 320 COMPARISON: CTA chest 09/18/2022 FINDINGS: Pulmonary arteries: Unremarkable. No pulmonary embolus. Aorta: No acute findings. No thoracic aortic aneurysm. Lungs: Diffuse pulmonary metastases. Interval thickening may represent atelectasis and/or pulmonary edema. Pleural space: Unremarkable. No significant effusion. No pneumothorax. Heart: Unremarkable. No cardiomegaly. No significant pericardial effusion. No evidence of RV dysfunction. Mediastinum: Extensive mediastinal lymphadenopathy most consistent with metastatic disease. Bones/joints: Redemonstrated bilateral lateral rib fractures. Osseous metastases are redemonstrated. Stable chronic compression fracture of T5 with stable retropulsion, Opacities and traversing posterior screws and rods. No dislocation. Soft tissues: Unremarkable. Lymph nodes: Unremarkable. No enlarged lymph nodes. IMPRESSION: 1. No pulmonary embolus. 2. Diffuse pulmonary metastases. 3. Extensive mediastinal lymphadenopathy most consistent with metastatic disease. 4. Interval thickening may represent atelectasis and/or pulmonary edema. 5. Redemonstrated bilateral lateral rib fractures. 6. Osseous metastases are redemonstrated. Electronically signed by: Anat Rowe MD 09/22/22 21:[address] 09/22/22 18:28 Exam(s): CT HEAD Without Contrast EXAM: CT Head Without Intravenous Contrast CLINICAL HISTORY: Chest pain with left-sided weakness.. TECHNIQUE: Axial computed tomography images of the head/brain without intravenous contrast. CTDI is 37.55 mGy and DLP is 691.05 mGy-cm. Automated exposure control was utilized for the study. A dose lowering technique was utilized adhering to the principles of ALARA. COMPARISON: MRI brain 06/30/2021 FINDINGS: Brain: No intracranial hemorrhage, mass-effect or midline shift. No abnormal extra axial fluid. No evidence of acute infarct. Mild periventricular white matter hypodensities are most consistent with chronic microangiopathy. Ventricles: Unremarkable. No ventriculomegaly. Bones/joints: Unremarkable. No acute fracture. Soft tissues: Unremarkable. Sinuses: Unremarkable as visualized. No acute sinusitis. Mastoid air cells: Unremarkable as visualized. No mastoid effusion. IMPRESSION: No acute intracranial finding. Electronically signed by: Anat Rowe MD 09/22/22 20:48 PM Head CTA 09/22/22 18:28 Exam(s): CTA HEAD With Contrast IV Amt: 115ML OPTIRAY 320 EXAM: CT Head With Intravenous Contrast CLINICAL HISTORY: Chest pain with left-sided weakness. TECHNIQUE: Axial computed tomographic images of the head with intravenous contrast. CTDI is 63.38 mGy and DLP is 31.69 mGy-cm. Automated exposure control was utilized for the study. A dose lowering technique was utilized adhering to the principles of ALARA. CONTRAST: 115 mL of Optiray 320. COMPARISON: No relevant prior studies available. FINDINGS: Right internal carotid artery: No acute findings. Intracranial segment is patent with no significant stenosis. No aneurysm. Right anterior cerebral artery: Unremarkable. No occlusion or significant stenosis. No aneurysm. Right middle cerebral artery: Unremarkable. No occlusion or significant stenosis. No aneurysm. Right posterior cerebral artery: Unremarkable. No occlusion or significant stenosis. No aneurysm. Right vertebral artery: Unremarkable as visualized. Left internal carotid artery: No acute findings. Intracranial segment is patent with no significant stenosis. No aneurysm. Left anterior cerebral artery: Unremarkable. No occlusion or significant stenosis. No aneurysm. Left middle cerebral artery: Unremarkable. No occlusion or significant stenosis. No aneurysm. Left posterior cerebral artery: Unremarkable. No occlusion or significant stenosis. No aneurysm. Left vertebral artery: Unremarkable as visualized. Basilar artery: Unremarkable. No occlusion or significant stenosis. No aneurysm. IMPRESSION: No acute finding of the arteries of the head. Electronically signed by: Anat Rowe MD 09/22/22 21:11 PM Neck CTA 09/22/22 18:28 Exam(s): CTA NECK With Contrast IV Amt: 115ML OPTIRAY 320 EXAM: CT Neck With Intravenous Contrast CLINICAL HISTORY: Chest pain with left-sided weakness. TECHNIQUE: Routine carotid CT protocol was performed with intravenous contrast. NASCET criteria using the distal ICAs for comparison were used for evaluation of stenoses. CTDI is 63.38 mGy and DLP is 31.69 mGy-cm. Automated exposure control was utilized for the study. A dose lowering technique was utilized adhering to the principles of ALARA. CONTRAST: 115 mL of Optiray 320 COMPARISON: None. FINDINGS: VASCULATURE: Right common carotid artery: Unremarkable. No occlusion or significant stenosis. No dissection. Right internal carotid artery: Unremarkable. Extracranial segment is patent with no occlusion or significant stenosis. No dissection. Right external carotid artery: Unremarkable. No occlusion. Right vertebral artery: Unremarkable. No occlusion or significant stenosis. No dissection. Left common carotid artery: Unremarkable. No occlusion or significant stenosis. No dissection. Left internal carotid artery: Unremarkable. Extracranial segment is patent with no occlusion or significant stenosis. No dissection. Left external carotid artery: Unremarkable. No occlusion. Left vertebral artery: Unremarkable. No occlusion or significant stenosis. No dissection. NECK: Bones/joints: There are degenerative changes of the spine. No fracture. Intervertebral disc spacers of C4-C5, C5-C6 and C6-C7 with anterior screws and plates. Soft tissues: Unremarkable. Lung apices: Please see dedicated CTA chest regarding the thoracic findings. CAROTID STENOSIS REFERENCE USING NASCET CRITERIA: % ICA stenosis = (1 - narrowest ICA diameter/diameter of distal cervical ICA) x 100. Mild - <50% stenosis. Moderate - 50-69% stenosis. Severe - 70-94% stenosis. Near occlusion - 95-99% stenosis. Occluded - 100% stenosis. IMPRESSION: 1. No acute finding of the arteries of the neck. 2. Please see dedicated CTA chest regarding the thoracic findings. Electronically signed by: Anat Rowe MD 09/22/22 21:14 PM Discharge Plan Visit Data Chief Complaint: Cardiac Assessment Stated Complaint: CHEST PAIN RAIDIATING TO L ARM, ED Provider: Cricket Quintero Discharge Problem: Chest pain, Stroke-like symptom, Closed rib fracture, Acute hyponatremia Patient Disposition: Being Evaluated by Hospitalist Forms Stand Alone Forms: My [facility] [employer] Prescriptions Prescriptions: No Action levothyroxine 50 mcg capsule 50 mcg PO DAILY ondansetron HCl 8 mg tablet 8 mg PO Q8H PRN (Reason: Nausea) prochlorperazine maleate [Compazine] 10 mg tablet 10 mg PO Q6H PRN (Reason: Nausea) pantoprazole 40 mg tablet,delayed release (DR/EC) 40 mg PO QAM Qty: 90 3RF (DME) Cock-Up Wrist Splint Misc See Dose Instructions .ROUTE .MEDSUPPLY Qty: 2 0RF Dose Instruction: As directed Rx Instructions: Left and right wrist splints G56.00 celecoxib [Celebrex] 100 mg capsule 100 mg PO BID Qty: 180 1RF Patient Comments: ON HOLD FOR SURGERY pilocarpine HCl [Salagen (pilocarpine)] 5 mg tablet 5 mg PO TID Qty: 270 1RF atorvastatin [Lipitor] 20 mg tablet 20 mg PO HS Qty: 90 1RF lorazepam 0.5 mg tablet 0.5 mg PO DAILY PRN (Reason: anxiety) Qty: 30 0RF famotidine 40 mg tablet 40 mg PO BID Qty: 180 1RF zolpidem 10 mg tablet 10 mg PO HS Qty: 30 1RF aspirin [Adult Low Dose Aspirin] 81 mg tablet,delayed release (DR/EC) 81 mg PO DAILY Qty: 90 3RF fluticasone propionate 50 mcg/actuation spray,suspension 2 spray intranasal BID PRN (Reason: Allergy Symptoms) Qty: 16 1RF lisinopril 40 mg tablet 40 mg PO DAILY Qty: 30 2RF (DME) Auto Titrating CPAP Misc See Rx Instructions .Route Qty: 1 0RF Rx Instructions: as directed-Min pressure: 4cmH2O, Max pressure: [id number], CPAP SUPPLIES NEEDED: HUMIDIFIER, HEATED , REPLACEMENT WATER CHAMBER , TUBING , DISPOSABLE FILTERS , NON-DISPOSABLE FILTERS , HEADGEAR , MASK. clobetasol 0.05 % ointment 1 applic topical DAILY PRN (Reason: Skin Irritation) Rx Instructions: Apply to the hands at night for 2 weeks for flaring. mupirocin 2 % ointment 1 applic topical BID PRN (Reason: NEEDED) Rx Instructions: Apply to the cracks of the hands BID for 10-14 days until closed. fentanyl 25 mcg/hr patch 72 hour See Rx Instructions .ROUTE .COMPLEX Rx Instructions: Replace 1 patch every 72 hours. duloxetine 40 mg capsule,delayed release(DR/EC) 40 mg PO DAILY naloxone 4 mg/actuation spray,non-aerosol See Rx Instructions .ROUTE .COMPLEX Rx Instructions: CALL 911. ADMINISTER A SINGLE SPRAY INTRANASALLY INTO ONE NOSTRIL UPON SIGNS OF OPIOID OVERDOSE. MAY REPEAT AFTER 3 MINUTES IF NO RESPONSE. gabapentin 800 mg tablet See Rx Instructions .ROUTE .COMPLEX Rx Instructions: TAKE 1 CAPSULE BY MOUTH THREE TIMES DAILY WITH THE 100MG DOSES FOR A TOTAL OF 900MG THREE TIMES A DAY gabapentin 100 mg capsule See Rx Instructions .ROUTE .COMPLEX Rx Instructions: TAKE 1 CAPSULE BY MOUTH THREE TIMES DAILY WITH THE 800MG DOSES FOR A TOTAL OF 900MG THREE TIMES A DAY acetaminophen 500 mg Capsule 1,000 mg PO HS PRN (Reason: Pain) bisacodyl [Dulcolax (bisacodyl)] 5 mg Tablet,Delayed Release (Dr/Ec) 5 mg PO HS PRN (Reason: Constipation) Referrals Referrals: Jo Maxwell MD [Primary Care Provider] - Chest pain Qualifiers: Chest pain type: unspecified Qualified Code(s): R07.9 - Chest pain, unspecified Closed rib fracture Qualifiers: Encounter type: initial encounter Rib fracture type: multiple ribs Laterality: unspecified laterality Qualified Code(s): S22.49XA - Multiple fractures of ribs, unspecified side, initial encounter for closed fracture
[2022-09-22] MEDS ORDERED: OPTIRAY 320 500ml IV ONE (19:10)
--- NOTE | 2022-09-22 19:13 | XRay Report ---
SINGLE VIEW CHEST CLINICAL HISTORY: Atypical chest pain. FINDINGS: An AP, portable, upright chest radiograph is compared to chest x-ray and chest CT dated 09/18. The examination is degraded by portable technique, apical lordotic positioning, and patient ro tation. The heart is enlarged. There is pulmonary vascular congestion. There is chronic elevation of the right hemidiaphragm with bibasilar scarring/atelectasis. No airspace consolidation or large pleu ral effusion is identified. Findings of multifocal pulmonary metastatic disease are unchanged. No pne umothorax is seen. The skeletal structures are osteopenic. There are numerous thoracic compression de formities with evidence of previous vertebroplasty. Fusion hardware is seen in the lower cervical spi ne as well as within the lumbar spine. Bilateral rib fractures are again noted. IMPRESSION: 1. Cardiomegaly with pulmonary vascular congestion. 2. No airspace consolidation or large pleural effusion is identified. 3. Findings of multifocal pulmonary metastatic disease are unchanged. 4. Bilateral rib fractures are again noted. ACT 112: Negative or not required by law. Electronically signed by: Anatoly Sandoval M.D. 09/22/2022 7:11 PM
--- NOTE | 2022-09-22 20:48 | CT Scan Report ---
Exam(s): CT HEAD Without Contrast EXAM: CT Head Without Intravenous Contrast CLINICAL HISTORY: Chest pain with left-sided weakness.. TECHNIQUE: Axial computed tomography images of the head/brain without intravenous contrast. CTDI is 37.55 mGy and DLP is 691.05 mGy-cm. Automated exposure control was utilized for the study. A dose lowering technique was utilized adhering to the principles of ALARA. COMPARISON: MRI brain 06/30/2021 FINDINGS: Brain: No intracranial hemorrhage, mass-effect or midline shift. No abnormal extra axial fluid. No evidence of acute infarct. Mild periventricular white matter hypodensities are most consistent with chronic microangiopathy. Ventricles: Unremarkable. No ventriculomegaly. Bones/joints: Unremarkable. No acute fracture. Soft tissues: Unremarkable. Sinuses: Unremarkable as visualized. No acute sinusitis. Mastoid air cells: Unremarkable as visualized. No mastoid effusion. IMPRESSION: No acute intracranial finding. Electronically signed by: Anat Rowe MD 09/22/22 20:48 PM
--- NOTE | 2022-09-22 21:12 | CT Scan Report ---
Exam(s): CTA HEAD With Contrast IV Amt: 115ML OPTIRAY 320 EXAM: CT Head With Intravenous Contrast CLINICAL HISTORY: Chest pain with left-sided weakness. TECHNIQUE: Axial computed tomographic images of the head with intravenous contrast. CTDI is 63.38 mGy and DLP is 31.69 mGy-cm. Automated exposure control was utilized for the study. A dose lowering technique was utilized adhering to the principles of ALARA. CONTRAST: 115 mL of Optiray 320. COMPARISON: No relevant prior studies available. FINDINGS: Right internal carotid artery: No acute findings. Intracranial segment is patent with no significant stenosis. No aneurysm. Right anterior cerebral artery: Unremarkable. No occlusion or significant stenosis. No aneurysm. Right middle cerebral artery: Unremarkable. No occlusion or significant stenosis. No aneurysm. Right posterior cerebral artery: Unremarkable. No occlusion or significant stenosis. No aneurysm. Right vertebral artery: Unremarkable as visualized. Left internal carotid artery: No acute findings. Intracranial segment is patent with no significant stenosis. No aneurysm. Left anterior cerebral artery: Unremarkable. No occlusion or significant stenosis. No aneurysm. Left middle cerebral artery: Unremarkable. No occlusion or significant stenosis. No aneurysm. Left posterior cerebral artery: Unremarkable. No occlusion or significant stenosis. No aneurysm. Left vertebral artery: Unremarkable as visualized. Basilar artery: Unremarkable. No occlusion or significant stenosis. No aneurysm. IMPRESSION: No acute finding of the arteries of the head. Electronically signed by: Anat Rowe MD 09/22/22 21:11 PM
--- NOTE | 2022-09-22 21:13 | CT Scan Report ---
Exam(s): CTA CHEST IV Amt: OPTIRAY 320 115ML EXAM: CT Angiography Chest With Intravenous Contrast CLINICAL HISTORY: Pulmonary embolus. TECHNIQUE: Axial computed tomographic angiography images of the chest with intravenous contrast. CTDI is 18.01 mGy and DLP is 1105.04 mGy-cm. Automated exposure control was utilized for the study. A dose lowering technique was utilized adhering to the principles of ALARA. MIP reconstructed images were created and reviewed. CONTRAST: 115 mL of Optiray 320 COMPARISON: CTA chest 09/18/2022 FINDINGS: Pulmonary arteries: Unremarkable. No pulmonary embolus. Aorta: No acute findings. No thoracic aortic aneurysm. Lungs: Diffuse pulmonary metastases. Interval thickening may represent atelectasis and/or pulmonary edema. Pleural space: Unremarkable. No significant effusion. No pneumothorax. Heart: Unremarkable. No cardiomegaly. No significant pericardial effusion. No evidence of RV dysfunction. Mediastinum: Extensive mediastinal lymphadenopathy most consistent with metastatic disease. Bones/joints: Redemonstrated bilateral lateral rib fractures. Osseous metastases are redemonstrated. Stable chronic compression fracture of T5 with stable retropulsion, Opacities and traversing posterior screws and rods. No dislocation. Soft tissues: Unremarkable. Lymph nodes: Unremarkable. No enlarged lymph nodes. IMPRESSION: 1. No pulmonary embolus. 2. Diffuse pulmonary metastases. 3. Extensive mediastinal lymphadenopathy most consistent with metastatic disease. 4. Interval thickening may represent atelectasis and/or pulmonary edema. 5. Redemonstrated bilateral lateral rib fractures. 6. Osseous metastases are redemonstrated. Electronically signed by: Anat Rowe MD 09/22/22 21:12 PM
--- NOTE | 2022-09-22 21:15 | CT Scan Report ---
Exam(s): CTA NECK With Contrast IV Amt: 115ML OPTIRAY 320 EXAM: CT Neck With Intravenous Contrast CLINICAL HISTORY: Chest pain with left-sided weakness. TECHNIQUE: Routine carotid CT protocol was performed with intravenous contrast. NASCET criteria using the distal ICAs for comparison were used for evaluation of stenoses. CTDI is 63.38 mGy and DLP is 31.69 mGy-cm. Automated exposure control was utilized for the study. A dose lowering technique was utilized adhering to the principles of ALARA. CONTRAST: 115 mL of Optiray 320 COMPARISON: None. FINDINGS: VASCULATURE: Right common carotid artery: Unremarkable. No occlusion or significant stenosis. No dissection. Right internal carotid artery: Unremarkable. Extracranial segment is patent with no occlusion or significant stenosis. No dissection. Right external carotid artery: Unremarkable. No occlusion. Right vertebral artery: Unremarkable. No occlusion or significant stenosis. No dissection. Left common carotid artery: Unremarkable. No occlusion or significant stenosis. No dissection. Left internal carotid artery: Unremarkable. Extracranial segment is patent with no occlusion or significant stenosis. No dissection. Left external carotid artery: Unremarkable. No occlusion. Left vertebral artery: Unremarkable. No occlusion or significant stenosis. No dissection. NECK: Bones/joints: There are degenerative changes of the spine. No fracture. Intervertebral disc spacers of C4-C5, C5-C6 and C6-C7 with anterior screws and plates. Soft tissues: Unremarkable. Lung apices: Please see dedicated CTA chest regarding the thoracic findings. CAROTID STENOSIS REFERENCE USING NASCET CRITERIA: % ICA stenosis = (1 - narrowest ICA diameter/diameter of distal cervical ICA) x 100. Mild - <50% stenosis. Moderate - 50-69% stenosis. Severe - 70-94% stenosis. Near occlusion - 95-99% stenosis. Occluded - 100% stenosis. IMPRESSION: 1. No acute finding of the arteries of the neck. 2. Please see dedicated CTA chest regarding the thoracic findings. Electronically signed by: Anat Rowe MD 09/22/22 21:14 PM
[2022-09-22] MEDS ORDERED: ASPIRIN CHEW 324 MG PO STA (21:51)
--- NOTE | 2022-09-22 22:42 | History & Physical Report ---
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 Patient was seen in the ER on 09/18/2022 with similar complaints. Had negative CTA at that time as well as a largely normal work-up and was subsequently discharged home with a diagnosis of musculoskeletal pain. Pain has persisted. Patient also reports worsening dyspnea on exertion. Suspect multifactorial -patient with pulmonary metastasis, fractured ribs, likely some degree of atelectasis with splinting. Possible pulmonary edema contributing as well. Telemetry monitoring Trend troponin Pulmonary toilet with incentive spirometer and flutter valve Check BNP and procalcitonin Lasix 40 mg IV x1 Monitor I's/O's and daily weights (2) Acute hyponatremia: Plan: Sodium = 128 Check urine and serum osmolality Check random urine sodium Repeat chemistry in the morning (3) Abnormal LFTs: Plan: Patient with progressively worsening LFTs. AST = 110, ALT = 62, alkaline phosphatase = 174 (known bony metastasis, normal bilirubin). Repeat LFTs in the morning Check right upper quadrant ultrasound (4) Left-sided weakness: Plan: Patient with complaint of left-sided weakness of his arm and leg. Very minimal weakness appreciated in the left lower extremity on exam. CT head as well as CTA head and neck are unremarkable for acute intracranial issue. We will check MRI brain given history of metastatic malignancy (5) Metastatic cancer: Plan: Patient with metastatic malignancy Continue fentanyl patch for pain control (6) GERD (gastroesophageal reflux disease): Plan: Chronic. Stable. Continue Protonix 40 mg p.o. every morning Continue Pepcid 40 mg p.o. twice daily (7) Hypertension: Plan: Blood pressure mildly elevated presently 161/82 Continue lisinopril 40 mg p.o. daily Continue to monitor (8) Sleep apnea: Plan: Chronic. CPAP nightly (9) Hyperlipidemia: Plan: Chronic. Stable. 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 Bateman with adjuvant radiation therapy. He was found to have metastatic disease in April 2021 with involvement of T5 s/p resection. Unfortunately with progression of metastatic disease. He has participated in clinical trials at [facility] and has been seen at [facility] as well. Patient follows with Oncology at the [facility] and is presently receiving chemotherapy (?Enhertu per Rad-Onc notes). His last treatment was early August and he is due again now. He is to follow at [facility] next week for a PET scan and additional medical opinion. Patient has had several unprovoked rib fractures of late. He was seen in the ER on 09/18/22 with pleuritic left sided chest pain that had been ongoing x 4 days as well as fatigue. Patient had a largely negative work-up to include EKG shows NSR with normal intervals, normal QRS complexes, no ST elevation or depression, and no arrhythmias. And CT without PE. Patient did have some rib fractures as well as a thoracic fracture. He was discharged home. Pain thought to be secondary to musculoskeletal origin Patient returns this evening with ongoing left-sided chest discomfort as well as shortness of breath, dyspnea on exertion, wheezing. He reports ongoing dry cough and chills as well. Additionally he reports subjective weakness of left upper and lower extremity which began today. He reports increased urinary frequency and urgency but no dysuria. In the ER he is afebrile, tachycardic otherwise hemodynamically stable. No acute distress. ER course: Aspirin Allergies Allergy/AdvReac Type Severity Reaction Status Date / Time No Known Allergies Allergy Verified 09/22/22 19:04 Home Medications Medication Instructions Recorded Confirmed Type acetaminophen 500 mg capsule 1,000 mg PO HS PRN Pain 09/10/20 09/22/22 History bisacodyl 5 mg tablet,delayed 5 mg PO HS PRN Constipation 09/10/20 09/22/22 History release (Dulcolax (bisacodyl)) aspirin 81 mg tablet,delayed 81 mg PO DAILY #90 tabs 01/28/21 09/22/22 Rx release (Adult Low Dose Aspirin) fluticasone propionate 50 2 spray intranasal BID PRN Allergy 09/23/21 09/22/22 Rx mcg/actuation nasal Symptoms #16 grams spray,suspension lisinopril 40 mg tablet 40 mg PO DAILY #30 tabs 02/16/22 09/22/22 Rx pantoprazole 40 mg tablet,delayed 40 mg PO QAM #90 tabs 03/14/22 09/22/22 Rx release clobetasol 0.05 % topical ointment 1 applic topical DAILY PRN Skin 05/08/22 09/22/22 History Irritation Cock-Up Wrist Splint #2 ea 05/19/22 06/30/22 Rx mupirocin 2 % topical ointment 1 applic topical BID PRN NEEDED 06/19/22 09/22/22 History Auto Titrating CPAP #1 ea 07/10/22 07/10/22 Rx celecoxib 100 mg capsule (Celebrex) 100 mg PO BID #180 caps 07/12/22 09/22/22 Rx pilocarpine HCl 5 mg tablet 5 mg PO TID #270 tabs 07/12/22 09/22/22 Rx (Salagen (pilocarpine)) atorvastatin 20 mg tablet (Lipitor) 20 mg PO HS #90 tabs 07/26/22 09/22/22 Rx levothyroxine 50 mcg capsule 50 mcg PO DAILY 08/08/22 09/22/22 History ondansetron HCl 8 mg tablet 8 mg PO Q8H PRN Nausea 08/08/22 09/22/22 History prochlorperazine maleate 10 mg 10 mg PO Q6H PRN Nausea 08/08/22 09/22/22 History tablet (Compazine) lorazepam 0.5 mg tablet 0.5 mg PO DAILY PRN anxiety #30 09/05/22 09/22/22 Rx tabs famotidine 40 mg tablet 40 mg PO BID #180 tabs 09/21/22 09/22/22 Rx zolpidem 10 mg tablet 10 mg PO HS #30 tabs 09/21/22 09/22/22 Rx duloxetine 40 mg capsule,delayed 40 mg PO DAILY 09/22/22 09/22/22 History release fentanyl 25 mcg/hr transdermal See Rx Instructions .Route .COMPLEX 09/22/22 09/22/22 History patch gabapentin 100 mg capsule See Rx Instructions .Route .COMPLEX 09/22/22 09/22/22 History gabapentin 800 mg tablet See Rx Instructions .Route .COMPLEX 09/22/22 09/22/22 History naloxone 4 mg/actuation nasal spray See Rx Instructions .Route .COMPLEX 09/22/22 09/22/22 History Past Med/Surg History Medical History Allergic rhinitis Anemia Chronic, baseline hgb 12-13 range per chart review Anxiety Cervical radiculopathy Chronic insomnia Degenerative disc disease (02/06/13) Deviated nasal septum Diverticulosis GERD (gastroesophageal reflux disease) Hiatal hernia Hyperlipidemia Hypertension Hypertrophy of nasal turbinates Left hip pain [facility] prescription benzodiazepine use Lumbar disc disease Lumbar radiculopathy Lymphadenopathy of left cervical region Lymphadenopathy of right cervical region Macular hole of left eye Mass of right parotid gland Numbness of upper extremity Osteoarthritis Overweight Sleep apnea Mild, not using CPAP Spinal stenosis Vitamin D deficiency Surgical History History of anesthesia reaction Awareness during COLETTE (2018 and 2018)- at [facility] History of back surgery History of cervical discectomy "Good" ROM History of colonoscopy History of esophagogastroduodenoscopy (EGD) History of hand surgery (~2004) Right hand surery History of hip replacement right (2018), left (2019) History of left cataract surgery History of open reduction and internal fixation (ORIF) procedure right wrist History of repair of rotator cuff left History of sinus surgery History of superficial parotidectomy 09/24/20 Family History Mother , 62yo Stroke Father , 44yo Myocardial infarction Brother Mantle cell lymphoma Rodriguez esophagus Heart disease Stent placed; Daughter Hypertension Other No family history of adverse response to anesthesia No family history of allergies No family history of bleeding disorder Denies family history of Ovarian cancer Prostate cancer Diabetes Breast cancer Colorectal cancer Social History Smoking Status: Never smoker Second Hand Exposure: No; Do You Dip or Chew Tobacco: No; Hx Alcohol Use: No Hx Substance Use: No Preferred Language: Lithuanian Communication Ability: Effective Visual Impairment: No Limitations Hearing Ability: Normal 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: No Beliefs That Will Affect Care: Episcopal marital status: Current Living Situation: Spouse Current Living Situation Comment: AND DAUGHTER current occupational status: employed current occupation: [employer] at [employer] Feels Safe at Home: Yes Childhood Exposure to Second-Hand Smoke: Yes Diet: regular Diet Comment: regular caffeine: No during the past year weight has: increased > 10 lbs Dental Care, Regularly: Yes Physical Activity Frequency: Daily Seatbelt Use: always Sunscreen Use: Yes Assistive Devices: Glasses Review of Systems Review of Systems: All systems reviewed & are unremarkable except as noted in HPI & below Physical Exam Physical Exam: General: patient resting comfortably, NAD, non-toxic in appearance, AA&O x 4 Skin: warm, dry, intact, no rashes or lesions HEENT: NC/AT, PERRL, EOMI, anicteric sclera, conjunctiva without injection, external ear normal to inspection and nontender, nares patent, moist mucus membranes, dentition intact, no oropharyngeal lesions, neck supple, trachea midline, no LAD, no thyromegaly, no JVD Heart: +S1/S2, regular, tachycardic, no m/r/g Lungs: Slightly diminished breath sounds right hemithorax, coarse breath sounds at times cleared by coughing, no rhonchi or wheeze Abd: +BS, soft, NT/ND, no masses/organomegaly/ascites Ext: warm, 2+ pulses in UE/LE bilaterally, no clubbing/cyanosis or edema Neuro: nonfocal, patient AA&O x 4, speech intact, no facial droop, moving all ex tremities on command, mild weakness noted LLE, LUE 5/5 however Results & Data Results & Data Vital Signs (Past 12 Hours) Vital Signs Temp Pulse Pulse Resp BP BP Pulse Ox 09/22/22 18:50 103 H 24 96 09/22/22 18:40 103 H 16 95 09/22/22 18:30 104 H 18 95 09/22/22 18:20 102 H 21 96 09/22/22 18:18 102 H 20 96 09/22/22 18:45 102 H 16 125/74 95 09/22/22 18:20 103 H 09/22/22 18:13 94 09/22/22 16:39 37.0 C 110 H 20 163/87 H 97 O2 Del Method 09/22/22 18:50 09/22/22 18:40 09/22/22 18:30 09/22/22 18:20 09/22/22 18:18 09/22/22 18:45 Room Air 09/22/22 18:20 09/22/22 18:13 Room Air 09/22/22 16:39 Room Air Laboratory Results Laboratory Results WBC 7.14 K/ul (4.8-10.8) 09/22/22 17:14 RBC 3.19 M/uL (4.70-6.10) L 09/22/22 17:14 Hgb 9.1 g/dl (14.0-18.0) L 09/22/22 17:14 Hct 28.4 % (42.0-52.0) L 09/22/22 17:14 MCV 89.0 fL (80.0-100.0) 09/22/22 17:14 MCH 28.5 pg (25.0-34.0) 09/22/22 17:14 MCHC 32.0 g/dL (32.0-36.0) 09/22/22 17:14 RDW Std Deviation 60.2 fL (36.4-46.3) H 09/22/22 17:14 RDW Coeff of Renny 18.5 % (11.5-14.5) H 09/22/22 17:14 Plt Count 437 K/uL (130-400) H 09/22/22 17:14 MPV 10.2 fL (9.4-12.4) 09/22/22 17:14 Immature Gran % (Auto) 0.4 % 09/22/22 17:14 Neut % (Auto) 83.1 % 09/22/22 17:14 Lymph % (Auto) 3.1 % 09/22/22 17:14 [place] % (Auto) 10.6 % 09/22/22 17:14 Eos % (Auto) 2.0 % 09/22/22 17:14 Baso % (Auto) 0.8 % 09/22/22 17:14 Neut # (Auto) 5.93 K/uL (1.40-6.50) 09/22/22 17:14 Lymph # (Auto) 0.22 K/uL (1.2-3.4) L 09/22/22 17:14 [place] # (Auto) 0.76 K/uL (0.11-0.59) H 09/22/22 17:14 Eos # (Auto) 0.14 K/uL (0-0.50) 09/22/22 17:14 Baso # (Auto) 0.06 K/uL (0-0.2) 09/22/22 17:14 Immature Gran # (Auto) 0.03 K/uL (0.01-0.20) 09/22/22 17:14 Sodium 128 mmol/L (136-145) L 09/22/22 17:14 Potassium 4.4 mmol/L (3.5-5.1) 09/22/22 17:14 Chloride 97 mmol/L (98-107) L 09/22/22 17:14 Carbon Dioxide 23 mmol/L (21-32) 09/22/22 17:14 Anion Gap 8 (3-11) 09/22/22 17:14 BUN 14 mg/dl (6-23) 09/22/22 17:14 Creatinine 1.01 mg/dl (0.6-1.4) 09/22/22 17:14 Est Cr Clr Drug Dosing Not Reportable 09/22/22 17:14 Est GFR ( Amer) 95.9 ml/min 09/22/22 17:14 Est GFR (Non-Af Amer) 82.8 ml/min 09/22/22 17:14 BUN/Creatinine Ratio 13.9 (10-20) 09/22/22 17:14 Glucose 102 mg/dl (70-99(Fasting)) H 09/22/22 17:14 Calcium 8.2 mg/dl (8.6-10.3) L 09/22/22 17:14 Total Bilirubin 0.6 mg/dl (0.2-1.0) 09/22/22 17:14 AST 110 U/L (13-39) H 09/22/22 17:14 ALT 62 U/L (7-52) H 09/22/22 17:14 Alkaline Phosphatase 174 U/L (34-104) H 09/22/22 17:14 Troponin I High Sens 5.8 pg/ml (0-20) 09/22/22 17:14 Total Protein 6.8 gm/dl (6.0-8.3) 09/22/22 17:14 Albumin 3.4 gm/dl (3.4-5.0) 09/22/22 17:14 Globulin 3.4 gm/dl (2.5-4.0) 09/22/22 17:14 Albumin/Globulin Ratio 1.0 (0.9-2) 09/22/22 17:14 SARS-CoV-2, RNA, NAAT NEGATIVE (NEGATIVE) 09/22/22 21:14 Impressions Chest X-Ray 09/22/22 16:46 SINGLE VIEW CHEST CLINICAL HISTORY: Atypical chest pain. FINDINGS: An AP, portable, upright chest radiograph is compared to chest x-ray and chest CT dated 09/18/2022. The examination is degraded by portable technique, apical lordotic positioning, and patient rotation. The heart is enlarged. There is pulmonary vascular congestion. There is chronic elevation of the right hemidiaphragm with bibasilar scarring/atelectasis. No airspace consolidation or large pleural effusion is identified. Findings of multifocal pulmonary metastatic disease are unchanged. No pneumothorax is seen. The skeletal structures are osteopenic. There are numerous thoracic compression deformities with evidence of previous vertebroplasty. Fusion hardware is seen in the lower cervical spine as well as within the lumbar spine. Bilateral rib fractures are again noted. IMPRESSION: 1. Cardiomegaly with pulmonary vascular congestion. 2. No airspace consolidation or large pleural effusion is identified. 3. Findings of multifocal pulmonary metastatic disease are unchanged. 4. Bilateral rib fractures are again noted. ACT 112: Negative or not required by law. Electronically signed by: Anatoly Sandoval M.D. 09/22/2022 7:11 PM Chest CTA 09/22/22 18:28 Exam(s): CTA CHEST IV Amt: OPTIRAY 320 115ML EXAM: CT Angiography Chest With Intravenous Contrast CLINICAL HISTORY: Pulmonary embolus. TECHNIQUE: Axial computed tomographic angiography images of the chest with intravenous contrast. CTDI is 18.01 mGy and DLP is 1105.04 mGy-cm. Automated exposure control was utilized for the study. A dose lowering technique was utilized adhering to the principles of ALARA. MIP reconstructed images were created and reviewed. CONTRAST: 115 mL of Optiray 320 COMPARISON: CTA chest 09/18/2022 FINDINGS: Pulmonary arteries: Unremarkable. No pulmonary embolus. Aorta: No acute findings. No thoracic aortic aneurysm. Lungs: Diffuse pulmonary metastases. Interval thickening may represent atelectasis and/or pulmonary edema. Pleural space: Unremarkable. No significant effusion. No pneumothorax. Heart: Unremarkable. No cardiomegaly. No significant pericardial effusion. No evidence of RV dysfunction. Mediastinum: Extensive mediastinal lymphadenopathy most consistent with metastatic disease. Bones/joints: Redemonstrated bilateral lateral rib fractures. Osseous metastases are redemonstrated. Stable chronic compression fracture of T5 with stable retropulsion, Opacities and traversing posterior screws and rods. No dislocation. Soft tissues: Unremarkable. Lymph nodes: Unremarkable. No enlarged lymph nodes. IMPRESSION: 1. No pulmonary embolus. 2. Diffuse pulmonary metastases. 3. Extensive mediastinal lymphadenopathy most consistent with metastatic disease. 4. Interval thickening may represent atelectasis and/or pulmonary edema. 5. Redemonstrated bilateral lateral rib fractures. 6. Osseous metastases are redemonstrated. Electronically signed by: Anat Rowe MD 09/22/22 21:[address] 09/22/22 18:28 Exam(s): CT HEAD Without Contrast EXAM: CT Head Without Intravenous Contrast CLINICAL HISTORY: Chest pain with left-sided weakness.. TECHNIQUE: Axial computed tomography images of the head/brain without intravenous contrast. CTDI is 37.55 mGy and DLP is 691.05 mGy-cm. Automated exposure control was utilized for the study. A dose lowering technique was utilized adhering to the principles of ALARA. COMPARISON: MRI brain 06/30/2021 FINDINGS: Brain: No intracranial hemorrhage, mass-effect or midline shift. No abnormal extra axial fluid. No evidence of acute infarct. Mild periventricular white matter hypodensities are most consistent with chronic microangiopathy. Ventricles: Unremarkable. No ventriculomegaly. Bones/joints: Unremarkable. No acute fracture. Soft tissues: Unremarkable. Sinuses: Unremarkable as visualized. No acute sinusitis. Mastoid air cells: Unremarkable as visualized. No mastoid effusion. IMPRESSION: No acute intracranial finding. Electronically signed by: Anat Rowe MD 09/22/22 20:48 PM Head CTA 09/22/22 18:28 Exam(s): CTA HEAD With Contrast IV Amt: 115ML OPTIRAY 320 EXAM: CT Head With Intravenous Contrast CLINICAL HISTORY: Chest pain with left-sided weakness. TECHNIQUE: Axial computed tomographic images of the head with intravenous contrast. CTDI is 63.38 mGy and DLP is 31.69 mGy-cm. Automated exposure control was utilized for the study. A dose lowering technique was utilized adhering to the principles of ALARA. CONTRAST: 115 mL of Optiray 320. COMPARISON: No relevant prior studies available. FINDINGS: Right internal carotid artery: No acute findings. Intracranial segment is patent with no significant stenosis. No aneurysm. Right anterior cerebral artery: Unremarkable. No occlusion or significant stenosis. No aneurysm. Right middle cerebral artery: Unremarkable. No occlusion or significant stenosis. No aneurysm. Right posterior cerebral artery: Unremarkable. No occlusion or significant stenosis. No aneurysm. Right vertebral artery: Unremarkable as visualized. Left internal carotid artery: No acute findings. Intracranial segment is patent with no significant stenosis. No aneurysm. Left anterior cerebral artery: Unremarkable. No occlusion or significant stenosis. No aneurysm. Left middle cerebral artery: Unremarkable. No occlusion or significant stenosis. No aneurysm. Left posterior cerebral artery: Unremarkable. No occlusion or significant stenosis. No aneurysm. Left vertebral artery: Unremarkable as visualized. Basilar artery: Unremarkable. No occlusion or significant stenosis. No aneurysm. IMPRESSION: No acute finding of the arteries of the head. Electronically signed by: Anat Rowe MD 09/22/22 21:11 PM Neck CTA 09/22/22 18:28 Exam(s): CTA NECK With Contrast IV Amt: 115ML OPTIRAY 320 EXAM: CT Neck With Intravenous Contrast CLINICAL HISTORY: Chest pain with left-sided weakness. TECHNIQUE: Routine carotid CT protocol was performed with intravenous contrast. NASCET criteria using the distal ICAs for comparison were used for evaluation of stenoses. CTDI is 63.38 mGy and DLP is 31.69 mGy-cm. Automated exposure control was utilized for the study. A dose lowering technique was utilized adhering to the principles of ALARA. CONTRAST: 115 mL of Optiray 320 COMPARISON: None. FINDINGS: VASCULATURE: Right common carotid artery: Unremarkable. No occlusion or significant stenosis. No dissection. Right internal carotid artery: Unremarkable. Extracranial segment is patent with no occlusion or significant stenosis. No dissection. Right external carotid artery: Unremarkable. No occlusion. Right vertebral artery: Unremarkable. No occlusion or significant stenosis. No dissection. Left common carotid artery: Unremarkable. No occlusion or significant stenosis. No dissection. Left internal carotid artery: Unremarkable. Extracranial segment is patent with no occlusion or significant stenosis. No dissection. Left external carotid artery: Unremarkable. No occlusion. Left vertebral artery: Unremarkable. No occlusion or significant stenosis. No dissection. NECK: Bones/joints: There are degenerative changes of the spine. No fracture. Intervertebral disc spacers of C4-C5, C5-C6 and C6-C7 with anterior screws and plates. Soft tissues: Unremarkable. Lung apices: Please see dedicated CTA chest regarding the thoracic findings. CAROTID STENOSIS REFERENCE USING NASCET CRITERIA: % ICA stenosis = (1 - narrowest ICA diameter/diameter of distal cervical ICA) x 100. Mild - <50% stenosis. Moderate - 50-69% stenosis. Severe - 70-94% stenosis. Near occlusion - 95-99% stenosis. Occluded - 100% stenosis. IMPRESSION: 1. No acute finding of the arteries of the neck. 2. Please see dedicated CTA chest regarding the thoracic findings. Electronically signed by: Anat Rowe MD 09/22/22 21:14 PM Code Status & VTE Plan VTE Prophylaxis Plan VTE Prophylaxis will be ordered: Yes PG Care Time/CCT Total # of Minutes Spent Total Time Spent with Patient: Total time spent is greater than 50% in coordination of care (as documented) at patient's floor/unit and/or counseling patient: Coding Level of Care Code 63208 INT INP/OBS CARE 3/75MIN Diagnoses Left-sided chest pain R07.9 Acute hyponatremia E87.1 Abnormal LFTs R79.89 Left-sided weakness R53.1 Metastatic cancer C79.9 GERD (gastroesophageal reflux disease) K21.9 Hypertension I10 Sleep apnea G47.30 Hyperlipidemia E78.5
[2022-09-23] MEDS ORDERED: POLYETHYLENE (MIRALAX) 17 GM PACK PO PRN (01:33)
[2022-09-23] MEDS ORDERED: FUROSEMIDE 40 MG/4 ML VIAL IV ONE (01:33)
[2022-09-23] MEDS ORDERED: FLUTICASONE PROPIONATE NA SPR 16 GM BTL PRN (01:33)
[2022-09-23] MEDS ORDERED: ACETAMINOPHEN 325 MG TAB PO PRN (01:33)
[2022-09-23] MEDS ORDERED: LORazepam 0.5 MG TAB PO PRN (01:33)
[2022-09-23] MEDS ORDERED: bisacodyL 5 MG TABEC PO PRN (01:33)
[2022-09-23] MEDS ORDERED: ONDANSETRON INJ 2 MG/ML 2 ML VIAL IV PRN (01:33)
[2022-09-23 02:07] LABS: Hematocrit (blood only) 26.2 % (42.0-52.0); Hemoglobin 8.4 g/dl (14.0-18.0); Mean Corpuscular Hemoglobin 28.2 pg (25.0-34.0); Mean Corpuscular Hgb Conc 32.1 g/dL (32.0-36.0); Mean Corpuscular Volume 87.9 fL (80.0-100.0); Mean Platelet Volume 10.5 fL (9.4-12.4); Platelet Count 413 K/uL (130-400); RDW Coefficient of Variation 18.6 % (11.5-14.5); RDW Standard Deviation 60.3 fL (36.4-46.3); Red Blood Count 2.98 M/uL (4.70-6.10); White Blood Count 8.38 K/ul (4.8-10.8)
[2022-09-23 02:26] LABS: Albumin Level 3.1 gm/dl (3.4-5.0); BUN Creatinine Ratio 11.3 (10-20); Bilirubin Direct 0.2 mg/dl (0-0.2); Bilirubin,Total 0.6 mg/dl (0.2-1.0); Calcium 7.6 mg/dl (8.6-10.3); Creatinine Clr Calc Pharmacy 105.5 ml/min; Est GFR (African American) 100.7 ml/min; Est GFR (Non-African American) 86.9 ml/min; Magnesium 1.9 mg/dl (1.7-2.4); Phosphorus 2.3 mg/dl (2.5-4.9); Potassium 4.3 mmol/L (3.5-5.1); Total Protein 5.9 gm/dl (6.0-8.3)
[2022-09-23] MEDS: CHECK fentaNYL PATCH PLACEMENT SCH ×4 (02:30→23:30)
[2022-09-23 02:32] LABS: Troponin I High Sensitivity 5.3 pg/ml (0-20)
[2022-09-23 03:24] LABS: Appearance Urine Clear (Clear); Bilirubin Urine Negative (Negative); Blood Urine Negative (Negative); Color Urine Yellow; Glucose Urine UA Negative (Negative); Ketones Urine Negative (Negative); Leukocyte Esterase Urine Negative (Negative); Nitrite Urine Negative (Negative); Protein Urine Negative (Negative); Specific Gravity Urine 1.012 (1.000-1.030); Urobilinogen Urine Negative (Negative); pH Urine 5.5 (4.5-7.5)
[2022-09-23] MEDS: LEVOTHYROXINE SODIUM 50 MCG TABLET PO SCH (05:53)
--- NOTE | 2022-09-23 07:42 | Hospitalist Progress Note ---
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 See below, now w/ concerning lesions to brain, liver as well, pathological fractures noted on imaging MRI brain unfortunately showed evidence for metastatic disease: There is a lobular enhancing T2 hyperintense focus within the right posterior parietal bone consistent with metastatic disease. This measures approximately 6.5 cm in length. There is associated abnormal right posterior dural thickening and enhancement consistent with additional sites of metastatic disease. CT cervical spine w/ Nondisplaced pathologic fracture at the tip of the C7 spinous process. This is secondary to a small underlying osteolytic metastatic lesion at this location. (of note, severe left neural foraminal narrowing noted at C4-C5), could contribute to issues w/ LUE weakness at times w/ movement/pain w/ movement Heme/onc on consult--> additional labs for eval ordered. Discussed and added decadron 4mg BID ordered and will monitor. Pain control -- continuing fentanyl patch 50mcg at present -- consider increasing patch based on response to steroids Radiation/oncology consulted for Sunday - - discussed w/ Dr Cowan and can offer some SBRT but will discuss w/ patient on Sunday We are going to get MRI lumbar/thoracic spine for further eval given his weakness reported Did spike temp 38.2C this morning, blood cultures obtained and placed on broad spectrum abx with Vanco/Zosyn given cancer hx/chemotherapy but not neutropenic. Monitor cx/empiric for 48hrs. Pro carolyn minimal bump 0.19 on admission. Tylenol available prn Of note, patient has appt on Sunday w/ [facility] we will attempt to get patient to for further eval/opinions as far as options go for ongoing treatment . Hopefully pending course, will be able to accommodate for dc Sunday hopefully --> per , patient also ONLY RECEIVED ONE dose of his Enhertu, not two doses, as prior denied by insurance per for unknown reason. 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 Patient was seen in the ER on 09/18/2022 with similar complaints. Had negative CTA at that time as well as a largely normal work-up and was subsequently discharged home with a diagnosis of musculoskeletal pain. Pain has persisted. Patient also reports worsening dyspnea on exertion. Suspect multifactorial -patient with pulmonary metastasis, fractured ribs, likely some degree of atelectasis with splinting. Possible pulmonary edema contributing as well. Was given Lasix 40mg IV x 1, will hold off further dosing for now. Is back to room air at present. CXR w/ pulm congestion on admit but HRs were elevated. Will monitor on exam tomorrow and consider additional dosing if needed Monitor I&O Troponin negative Continue pulmonary toilet given rib fractures, pathologic. BNP not elevated. Would not further pursue cardiac work-up at this time given above findings and low suspicion for cardiac etiology and rather suspect bony mets/fractures contributing to his pain Continue fentanyl patch, pulmonary toilet. Can consider topical voltaren/lidocaine if needed as well Monitor on tele for any arrythmia (3) Left-sided weakness: Plan: Patient with complaint of left-sided weakness of his arm and leg. Very minimal weakness appreciated in the left lower extremity on exam. CTA head/neck unremarkable for acute process Brain MRI as above, ordering MRI lumbar/thoracic spine as outlined Heme/onc, radiation oncology on consult Consideration for brace for comfort w/ orthotics? PT/OT consults (4) Acute hyponatremia: Plan: Sodium = 128 Urine osm Serum Osm Random urine sodium elevated 101, urine osm 310 -- fluid restriction in place Repeat/monitor BMP, consider small amt IVF and repeating levels as well (5) Abnormal LFTs: Plan: Patient with progressively worsening LFTs. AST = 110, ALT = 62, alkaline phosphatase = 174 (known bony metastasis, normal bilirubin). Repeat LFts in AM improving, still elevation ALP - see above RUQ w/ 1.1cm lesion concerning for malignancy but too small to characterize Heme/onc on consult as above Additional lab testing sent for eval Will hold statin at this time will need outpt f/u for treatment as above (6) GERD (gastroesophageal reflux disease): Plan: Chronic. Stable. Continue Protonix 40 mg p.o. every morning -- consider increasing to BID if needed w/ steroid use Continue Pepcid 40 mg p.o. twice daily (7) Hypertension: Plan: Blood pressure mildly elevated on admit to 161/82, likely 2nd to aspect of pain as well Continues on lisinopril 40mg daily, given lasix as above on admit BP presently 153/78 Monitor (8) Sleep apnea: Plan: Chronic. States just recently was set up with machine but that he does have excessive daytime sleepiness CPAP ordered HS while inpatient (9) Hyperlipidemia: Plan: Chronic. Stable. Will hold statin for now given LFTS (10) Anemia: Plan: Baseline hgb appears to have been in the 10-12s prior to the start of this year denied any wilfrido bleeding hgb 9.1 on admission, repeat 8.4 checking iron panel/b12/folate -- replacement as indicated --> B12 low normal 255 and will supplement w/ IM while inpatient and plan for PO at d/c Folate not deficient but lower end at 7.55 and will start PO supplementation for AM Iron panel w iron LOW <10 reported. TIBC/trans % sat unable to be performed. Ferritin elevated 917 likely 2nd to reactive/malignancy as above peripheral smear pending, LDH further labs by heme/oncology (11) Abnormal brain MRI: Plan: as above, c/w met disease (12) Liver lesion: Plan: 1.1cm lesion, too small to characterize but concerning for malignancy, gurwinder in setting of elevated LFTs (13) C7 cervical fracture: Plan: noted nondisplaced pathologic fx tip C7 spinous process, 2nd to small underlying osteolytic metastatic lesion at this location. pain control, PT/OT consults consider brace w/ orthotics pending further imaging of the back as above for comfort if tolerated Plan DVT prophylaxis: Lovenox SQ while inpatient continued inpatient stay Updated by phone this morning and at bedside this afternoon. Admission and Anticipated Discharge Date Admission Date: September 22, 2022 Supervising Physician Co-Signing Physician Notes The patient was not seen by me. The chart was reviewed. Case discussed with Thalia Luther, agree with assessment and plan Subjective evaluated this morning, doing alright. decent appetite but varies. Weakness to his left side, more with walking around. Difficulty lifting his left arm but stable on exam, just takes some time. Discussed MRI brain/lesion, reaching out to heme/oncology. Cervical spine findings also discussed. He reports he has an appointment with [facility] this upcoming week to discuss options. Also had been seen in the past by [facility]. Discussed mood- he notes he is typically a calm/collected person and stays positive but hard time with this recently w/ continued bad news. Pain to chest/ribs reported, on fentanyl patch for about 1-2 months. Never had adjustments to this medication but reported some constipation since starting this. Will continue senna/docusate. Updated on phone and at bedside regarding findings/plan. She does note his chemo most recently was cancelled due to insurance coverage and so Mr Jesus has only undergone one round of Chemo w/ Ehertu at this point. He did have a PET scan in the past which did not show these new findings. Discussed obtaining MRI lumbar/thoracic spine for further eval in anticipation for radiation/oncology consultation and possible getting measurements to begin radiation after eval at [facility]. They do wonder if he will be able to make this appointment and discussed further imaging and Dr Wren back on Sunday as well to help coordinate. Regarding depression, he notes his Cymbalta he takes at night. Discussed taking in AM given insomnia/ambien use and would avoid ambien. He does note daytime fatigue/sleepiness and recent obtained CPAP. Making sure ordered for tonight. Physical Exam Physical Exam: General: WD chronically ill appearing male, sitting up in bed, NAD HEENT: head normocephalic, pupils equal in size, mmm, trachea midline, thick neck, +lymphadenopathy Resp: CTA, slightly diminished in the bases, coarse breath sounds at times cleared w/ coughing, no wheezing/rales, on room air 93% CV: regular rhythm, rates in 90s-low 100s, no significant m/r/g, no pitting edema GI: +BS, soft, slightly distended, nontender to palpation : no Flynn, urinal at bedside MSK/Neuro: follows commands, no facial droop/slurred speech strength LE equal bilaterally in bed with dorsiflexion/plantar flexion. not assessed sitting/standing able to raise b/l UE above head, albeit slowly, but equal strength against resistance, slightly reduced bilaterally Psych: AOx3, cooperative, does endorse some depression symptoms w/ recent news but otherwise stable, no SI/HI at present Sin: warm, dry, no obvious lesions/rashes Results & Data Results & Data Vital Signs (Past 12 Hours) Vital Signs Temp Pulse Pulse Resp BP BP Pulse Ox 09/23/22 03:44 38.2 C H 107 H 24 136/79 96 09/23/22 01:54 09/23/22 01:43 37.8 C H 111 H 16 129/64 09/23/22 01:33 37.8 C H 111 H 22 129/64 91 09/23/22 00:30 105 H 24 139/73 94 09/23/22 00:00 107 H 22 144/77 H 93 09/22/22 23:08 106 H 09/22/22 22:30 104 H 22 161/82 H 95 O2 Del Method O2 Flow Rate 09/23/22 03:44 Nasal Cannula 2 09/23/22 01:54 Nasal Cannula 2 09/23/22 01:43 Nasal Cannula 2 09/23/22 01:33 Nasal Cannula 2 09/23/22 00:30 09/23/22 00:00 09/22/22 23:08 09/22/22 22:30 Laboratory Results 09/23/22 09/23/22 09/23/22 Range/Units 02:50 02:50 02:50 WBC (4.8-10.8) K/ul RBC (4.70-6.10) M/uL Hgb (14.0-18.0) g/dl Hct (42.0-52.0) % MCV (80.0-100.0) fL MCH (25.0-34.0) pg MCHC (32.0-36.0) g/dL RDW Std Deviation (36.4-46.3) fL RDW Coeff of Renny (11.5-14.5) % Plt Count (130-400) K/uL MPV (9.4-12.4) fL Immature Gran % (Auto) % Neut % (Auto) % Lymph % (Auto) % [place] % (Auto) % Eos % (Auto) % Baso % (Auto) % Neut # (Auto) (1.40-6.50) K/uL Lymph # (Auto) (1.2-3.4) K/uL [place] # (Auto) (0.11-0.59) K/uL Eos # (Auto) (0-0.50) K/uL Baso # (Auto) (0-0.2) K/uL Immature Gran # (Auto) (0.01-0.20) K/uL Sodium (136-145) mmol/L Potassium (3.5-5.1) mmol/L Chloride (98-107) mmol/L Carbon Dioxide (21-32) mmol/L Anion Gap (3-11) BUN (6-23) mg/dl Creatinine (0.6-1.4) mg/dl Est Cr Clr Drug Dosing Est GFR ( Amer) ml/min Est GFR (Non-Af Amer) ml/min BUN/Creatinine Ratio (10-20) Glucose (70-99(Fasting)) mg/dl Osmolality (280-300) mOsm/kg Calcium (8.6-10.3) mg/dl Phosphorus (2.5-4.9) mg/dl Magnesium (1.7-2.4) mg/dl Total Bilirubin (0.2-1.0) mg/dl Direct Bilirubin (0-0.2) mg/dl AST (13-39) U/L ALT (7-52) U/L Alkaline Phosphatase (34-104) U/L Troponin I High Sens (0-20) pg/ml B-Natriuretic Peptide (0-100) pg/ml Total Protein (6.0-8.3) gm/dl Albumin (3.4-5.0) gm/dl Globulin (2.5-4.0) gm/dl Albumin/Globulin Ratio (0.9-2) Procalcitonin (0-0.5) ng/ml Urine Color Yellow Urine Appearance Clear (Clear) Urine pH 5.5 (4.5-7.5) Ur Specific [place] 1.012 (1.000-1.030) Urine Protein Negative (Negative) Urine Glucose (UA) Negative (Negative) Urine Ketones Negative (Negative) Urine Blood Negative (Negative) Urine Nitrite Negative (Negative) Urine Bilirubin Negative (Negative) Urine Urobilinogen Negative (Negative) Ur Leukocyte Esterase Negative (Negative) Urine Osmolality 310 L (500-800) mOsm/kg Ur Random Sodium 104 mmol/L SARS-CoV-2, RNA, NAAT (NEGATIVE) 09/23/22 09/23/22 09/23/22 Range/Units 01:44 01:44 01:44 WBC 8.38 (4.8-10.8) K/ul RBC 2.98 L (4.70-6.10) M/uL Hgb 8.4 L (14.0-18.0) g/dl Hct 26.2 L (42.0-52.0) % MCV 87.9 (80.0-100.0) fL MCH 28.2 (25.0-34.0) pg MCHC 32.1 (32.0-36.0) g/dL RDW Std Deviation 60.3 H (36.4-46.3) fL RDW Coeff of Renny 18.6 H (11.5-14.5) % Plt Count 413 H (130-400) K/uL MPV 10.5 (9.4-12.4) fL Immature Gran % (Auto) % Neut % (Auto) % Lymph % (Auto) % [place] % (Auto) % Eos % (Auto) % Baso % (Auto) % Neut # (Auto) (1.40-6.50) K/uL Lymph # (Auto) (1.2-3.4) K/uL [place] # (Auto) (0.11-0.59) K/uL Eos # (Auto) (0-0.50) K/uL Baso # (Auto) (0-0.2) K/uL Immature Gran # (Auto) (0.01-0.20) K/uL Sodium 128 L (136-145) mmol/L Potassium 4.3 (3.5-5.1) mmol/L Chloride 98 (98-107) mmol/L Carbon Dioxide 24 (21-32) mmol/L Anion Gap 6 (3-11) BUN 11 (6-23) mg/dl Creatinine 0.97 (0.6-1.4) mg/dl Est Cr Clr Drug Dosing 105.5 Est GFR ( Amer) 100.7 ml/min Est GFR (Non-Af Amer) 86.9 ml/min BUN/Creatinine Ratio 11.3 (10-20) Glucose 113 H (70-99(Fasting)) mg/dl Osmolality (280-300) mOsm/kg Calcium 7.6 L (8.6-10.3) mg/dl Phosphorus 2.3 L (2.5-4.9) mg/dl Magnesium 1.9 (1.7-2.4) mg/dl Total Bilirubin 0.6 (0.2-1.0) mg/dl Direct Bilirubin 0.2 (0-0.2) mg/dl AST 84 H (13-39) U/L ALT 50 (7-52) U/L Alkaline Phosphatase 154 H (34-104) U/L Troponin I High Sens 5.3 (0-20) pg/ml B-Natriuretic Peptide (0-100) pg/ml Total Protein 5.9 L (6.0-8.3) gm/dl Albumin 3.1 L (3.4-5.0) gm/dl Globulin (2.5-4.0) gm/dl Albumin/Globulin Ratio (0.9-2) Procalcitonin 0.19 (0-0.5) ng/ml Urine Color Urine Appearance (Clear) Urine pH (4.5-7.5) Ur Specific [place] (1.000-1.030) Urine Protein (Negative) Urine Glucose (UA) (Negative) Urine Ketones (Negative) Urine Blood (Negative) Urine Nitrite (Negative) Urine Bilirubin (Negative) Urine Urobilinogen (Negative) Ur Leukocyte Esterase (Negative) Urine Osmolality (500-800) mOsm/kg Ur Random Sodium mmol/L SARS-CoV-2, RNA, NAAT (NEGATIVE) 09/23/22 09/23/22 09/22/22 Range/Units 01:44 01:44 21:14 WBC (4.8-10.8) K/ul RBC (4.70-6.10) M/uL Hgb (14.0-18.0) g/dl Hct (42.0-52.0) % MCV (80.0-100.0) fL MCH (25.0-34.0) pg MCHC (32.0-36.0) g/dL RDW Std Deviation (36.4-46.3) fL RDW Coeff of Renny (11.5-14.5) % Plt Count (130-400) K/uL MPV (9.4-12.4) fL Immature Gran % (Auto) % Neut % (Auto) % Lymph % (Auto) % [place] % (Auto) % Eos % (Auto) % Baso % (Auto) % Neut # (Auto) (1.40-6.50) K/uL Lymph # (Auto) (1.2-3.4) K/uL [place] # (Auto) (0.11-0.59) K/uL Eos # (Auto) (0-0.50) K/uL Baso # (Auto) (0-0.2) K/uL Immature Gran # (Auto) (0.01-0.20) K/uL Sodium (136-145) mmol/L Potassium (3.5-5.1) mmol/L Chloride (98-107) mmol/L Carbon Dioxide (21-32) mmol/L Anion Gap (3-11) BUN (6-23) mg/dl Creatinine (0.6-1.4) mg/dl Est Cr Clr Drug Dosing Est GFR ( Amer) ml/min Est GFR (Non-Af Amer) ml/min BUN/Creatinine Ratio (10-20) Glucose (70-99(Fasting)) mg/dl Osmolality 268 L (280-300) mOsm/kg Calcium (8.6-10.3) mg/dl Phosphorus (2.5-4.9) mg/dl Magnesium (1.7-2.4) mg/dl Total Bilirubin (0.2-1.0) mg/dl Direct Bilirubin (0-0.2) mg/dl AST (13-39) U/L ALT (7-52) U/L Alkaline Phosphatase (34-104) U/L Troponin I High Sens (0-20) pg/ml B-Natriuretic Peptide 42 (0-100) pg/ml Total Protein (6.0-8.3) gm/dl Albumin (3.4-5.0) gm/dl Globulin (2.5-4.0) gm/dl Albumin/Globulin Ratio (0.9-2) Procalcitonin (0-0.5) ng/ml Urine Color Urine Appearance (Clear) Urine pH (4.5-7.5) Ur Specific [place] (1.000-1.030) Urine Protein (Negative) Urine Glucose (UA) (Negative) Urine Ketones (Negative) Urine Blood (Negative) Urine Nitrite (Negative) Urine Bilirubin (Negative) Urine Urobilinogen (Negative) Ur Leukocyte Esterase (Negative) Urine Osmolality (500-800) mOsm/kg Ur Random Sodium mmol/L SARS-CoV-2, RNA, NAAT NEGATIVE (NEGATIVE) 09/22/22 09/22/22 Range/Units 17:14 17:14 WBC 7.14 (4.8-10.8) K/ul RBC 3.19 L (4.70-6.10) M/uL Hgb 9.1 L (14.0-18.0) g/dl Hct 28.4 L (42.0-52.0) % MCV 89.0 (80.0-100.0) fL MCH 28.5 (25.0-34.0) pg MCHC 32.0 (32.0-36.0) g/dL RDW Std Deviation 60.2 H (36.4-46.3) fL RDW Coeff of Renny 18.5 H (11.5-14.5) % Plt Count 437 H (130-400) K/uL MPV 10.2 (9.4-12.4) fL Immature Gran % (Auto) 0.4 % Neut % (Auto) 83.1 % Lymph % (Auto) 3.1 % [place] % (Auto) 10.6 % Eos % (Auto) 2.0 % Baso % (Auto) 0.8 % Neut # (Auto) 5.93 (1.40-6.50) K/uL Lymph # (Auto) 0.22 L (1.2-3.4) K/uL [place] # (Auto) 0.76 H (0.11-0.59) K/uL Eos # (Auto) 0.14 (0-0.50) K/uL Baso # (Auto) 0.06 (0-0.2) K/uL Immature Gran # (Auto) 0.03 (0.01-0.20) K/uL Sodium 128 L (136-145) mmol/L Potassium 4.4 (3.5-5.1) mmol/L Chloride 97 L (98-107) mmol/L Carbon Dioxide 23 (21-32) mmol/L Anion Gap 8 (3-11) BUN 14 (6-23) mg/dl Creatinine 1.01 (0.6-1.4) mg/dl Est Cr Clr Drug Dosing Not Reportable Est GFR ( Amer) 95.9 ml/min Est GFR (Non-Af Amer) 82.8 ml/min BUN/Creatinine Ratio 13.9 (10-20) Glucose 102 H (70-99(Fasting)) mg/dl Osmolality (280-300) mOsm/kg Calcium 8.2 L (8.6-10.3) mg/dl Phosphorus (2.5-4.9) mg/dl Magnesium (1.7-2.4) mg/dl Total Bilirubin 0.6 (0.2-1.0) mg/dl Direct Bilirubin (0-0.2) mg/dl AST 110 H (13-39) U/L ALT 62 H (7-52) U/L Alkaline Phosphatase 174 H (34-104) U/L Troponin I High Sens 5.8 (0-20) pg/ml B-Natriuretic Peptide (0-100) pg/ml Total Protein 6.8 (6.0-8.3) gm/dl Albumin 3.4 (3.4-5.0) gm/dl Globulin 3.4 (2.5-4.0) gm/dl Albumin/Globulin Ratio 1.0 (0.9-2) Procalcitonin (0-0.5) ng/ml Urine Color Urine Appearance (Clear) Urine pH (4.5-7.5) Ur Specific [place] (1.000-1.030) Urine Protein (Negative) Urine Glucose (UA) (Negative) Urine Ketones (Negative) Urine Blood (Negative) Urine Nitrite (Negative) Urine Bilirubin (Negative) Urine Urobilinogen (Negative) Ur Leukocyte Esterase (Negative) Urine Osmolality (500-800) mOsm/kg Ur Random Sodium mmol/L SARS-CoV-2, RNA, NAAT (NEGATIVE) Diagnostic Findings Chest X-Ray 09/22/22 16:46 SINGLE VIEW CHEST CLINICAL HISTORY: Atypical chest pain. FINDINGS: An AP, portable, upright chest radiograph is compared to chest x-ray and chest CT dated 09/18/2022. The examination is degraded by portable technique, apical lordotic positioning, and patient rotation. The heart is enlarged. There is pulmonary vascular congestion. There is chronic elevation of the right hemid iaphragm with bibasilar scarring/atelectasis. No airspace consolidation or large pleural effusion is identified. Findings of multifocal pulmonary metastatic disease are unchanged. No pneumothorax is seen. The skeletal structures are osteopenic. There are numerous thoracic compression deformities with evidence of previous vertebroplasty. Fusion hardware is seen in the lower cervical spine as well as within the lumbar spine. Bilateral rib fractures are again noted. IMPRESSION: 1. Cardiomegaly with pulmonary vascular congestion. 2. No airspace consolidation or large pleural effusion is identified. 3. Findings of multifocal pulmonary metastatic disease are unchanged. 4. Bilateral rib fractures are again noted. ACT 112: Negative or not required by law. Electronically signed by: Anatoly Sandoval M.D. 09/22/2022 7:11 PM Chest CTA 09/22/22 18:28 Exam(s): CTA CHEST IV Amt: OPTIRAY 320 115ML EXAM: CT Angiography Chest With Intravenous Contrast CLINICAL HISTORY: Pulmonary embolus. TECHNIQUE: Axial computed tomographic angiography images of the chest with intravenous contrast. CTDI is 18.01 mGy and DLP is 1105.04 mGy-cm. Automated exposure control was utilized for the study. A dose lowering technique was utilized adhering to the principles of ALARA. MIP reconstructed images were created and reviewed. CONTRAST: 115 mL of Optiray 320 COMPARISON: CTA chest 09/18/2022 FINDINGS: Pulmonary arteries: Unremarkable. No pulmonary embolus. Aorta: No acute findings. No thoracic aortic aneurysm. Lungs: Diffuse pulmonary metastases. Interval thickening may represent atelectasis and/or pulmonary edema. Pleural space: Unremarkable. No significant effusion. No pneumothorax. Heart: Unremarkable. No cardiomegaly. No significant pericardial effusion. No evidence of RV dysfunction. Mediastinum: Extensive mediastinal lymphadenopathy most consistent with metastatic disease. Bones/joints: Redemonstrated bilateral lateral rib fractures. Osseous metastases are redemonstrated. Stable chronic compression fracture of T5 with stable retropulsion, Opacities and traversing posterior screws and rods. No dislocation. Soft tissues: Unremarkable. Lymph nodes: Unremarkable. No enlarged lymph nodes. IMPRESSION: 1. No pulmonary embolus. 2. Diffuse pulmonary metastases. 3. Extensive mediastinal lymphadenopathy most consistent with metastatic disease. 4. Interval thickening may represent atelectasis and/or pulmonary edema. 5. Redemonstrated bilateral lateral rib fractures. 6. Osseous metastases are redemonstrated. Electronically signed by: Anat Rowe MD 09/22/22 21:[address] 09/22/22 18:28 Exam(s): CT HEAD Without Contrast EXAM: CT Head Without Intravenous Contrast CLINICAL HISTORY: Chest pain with left-sided weakness.. TECHNIQUE: Axial computed tomography images of the head/brain without intravenous contrast. CTDI is 37.55 mGy and DLP is 691.05 mGy-cm. Automated exposure control was utilized for the study. A dose lowering technique was utilized adhering to the principles of ALARA. COMPARISON: MRI brain 06/30/2021 FINDINGS: Brain: No intracranial hemorrhage, mass-effect or midline shift. No abnormal extra axial fluid. No evidence of acute infarct. Mild periventricular white matter hypodensities are most consistent with chronic microangiopathy. Ventricles: Unremarkable. No ventriculomegaly. Bones/joints: Unremarkable. No acute fracture. Soft tissues: Unremarkable. Sinuses: Unremarkable as visualized. No acute sinusitis. Mastoid air cells: Unremarkable as visualized. No mastoid effusion. IMPRESSION: No acute intracranial finding. Electronically signed by: Anat Rowe MD 09/22/22 20:48 PM Head CTA 09/22/22 18:28 Exam(s): CTA HEAD With Contrast IV Amt: 115ML OPTIRAY 320 EXAM: CT Head With Intravenous Contrast CLINICAL HISTORY: Chest pain with left-sided weakness. TECHNIQUE: Axial computed tomographic images of the head with intravenous contrast. CTDI is 63.38 mGy and DLP is 31.69 mGy-cm. Automated exposure control was utilized for the study. A dose lowering technique was utilized adhering to the principles of ALARA. CONTRAST: 115 mL of Optiray 320. COMPARISON: No relevant prior studies available. FINDINGS: Right internal carotid artery: No acute findings. Intracranial segment is patent with no significant stenosis. No aneurysm. Right anterior cerebral artery: Unremarkable. No occlusion or significant stenosis. No aneurysm. Right middle cerebral artery: Unremarkable. No occlusion or significant stenosis. No aneurysm. Right posterior cerebral artery: Unremarkable. No occlusion or significant stenosis. No aneurysm. Right vertebral artery: Unremarkable as visualized. Left internal carotid artery: No acute findings. Intracranial segment is patent with no significant stenosis. No aneurysm. Left anterior cerebral artery: Unremarkable. No occlusion or significant stenosis. No aneurysm. Left middle cerebral artery: Unremarkable. No occlusion or significant stenosis. No aneurysm. Left posterior cerebral artery: Unremarkable. No occlusion or significant stenosis. No aneurysm. Left vertebral artery: Unremarkable as visualized. Basilar artery: Unremarkable. No occlusion or significant stenosis. No aneurysm. IMPRESSION: No acute finding of the arteries of the head. Electronically signed by: Anat Rowe MD 09/22/22 21:11 PM Neck CTA 09/22/22 18:28 Exam(s): CTA NECK With Contrast IV Amt: 115ML OPTIRAY 320 EXAM: CT Neck With Intravenous Contrast CLINICAL HISTORY: Chest pain with left-sided weakness. TECHNIQUE: Routine carotid CT protocol was performed with intravenous contrast. NASCET criteria using the distal ICAs for comparison were used for evaluation of stenoses. CTDI is 63.38 mGy and DLP is 31.69 mGy-cm. Automated exposure control was utilized for the study. A dose lowering technique was utilized adhering to the principles of ALARA. CONTRAST: 115 mL of Optiray 320 COMPARISON: None. FINDINGS: VASCULATURE: Right common carotid artery: Unremarkable. No occlusion or significant stenosis. No dissection. Right internal carotid artery: Unremarkable. Extracranial segment is patent with no occlusion or significant stenosis. No dissection. Right external carotid artery: Unremarkable. No occlusion. Right vertebral artery: Unremarkable. No occlusion or significant stenosis. No dissection. Left common carotid artery: Unremarkable. No occlusion or significant stenosis. No dissection. Left internal carotid artery: Unremarkable. Extracranial segment is patent with no occlusion or significant stenosis. No dissection. Left external carotid artery: Unremarkable. No occlusion. Left vertebral artery: Unremarkable. No occlusion or significant stenosis. No dissection. NECK: Bones/joints: There are degenerative changes of the spine. No fracture. Intervertebral disc spacers of C4-C5, C5-C6 and C6-C7 with anterior screws and plates. Soft tissues: Unremarkable. Lung apices: Please see dedicated CTA chest regarding the thoracic findings. CAROTID STENOSIS REFERENCE USING NASCET CRITERIA: % ICA stenosis = (1 - narrowest ICA diameter/diameter of distal cervical ICA) x 100. Mild - <50% stenosis. Moderate - 50-69% stenosis. Severe - 70-94% stenosis. Near occlusion - 95-99% stenosis. Occluded - 100% stenosis. IMPRESSION: 1. No acute finding of the arteries of the neck. 2. Please see dedicated CTA chest regarding the thoracic findings. Electronically signed by: Anat Rowe MD 09/22/22 21:14 PM Brain MRI 09/23/22 01:33 Brain MRI WITH AND WITHOUT CONTRAST HISTORY: left sided weakness, h/o cancer TECHNIQUE: Multiplanar multisequence MRI of the brain was performed both before and after the intravenous administration of contrast. COMPARISON STUDY: Head CT 09/22/2022. FINDINGS: No areas restricted diffusion to suggest an acute infarction. The midline structures are intact. Small right mastoid effusion. The paranasal sinuses and left mastoid air cells are clear. Prior left lens replacement. The major vascular flow-voids at the skull base are well-maintained. The ventricles are normal in size. The brain parenchyma demonstrate a normal signal intensity with no evidence for an intracranial mass, hematoma, or midline shift. There is a lobular enhancing T2 hyperintense focus within the right posterior parietal bone consistent with metastatic disease. This measures approximately 6.5 cm in length. There is associated abnormal right posterior dural thickening and enhancement consistent with additional sites of metastatic disease. IMPRESSION: 1. No acute infarct or intracranial hemorrhage. 2. An enhancing metastatic focus within the right posterior parietal bone with adjacent right posterior dural thickening and enhancement consistent with me tastatic disease. ACT 112: Negative or not required by law. Electronically signed by: Bob Hinds M.D. 09/23/2022 11:19 AM Liver Ultrasound 09/23/22 01:33 ABDOMINAL ULTRASOUND, RIGHT UPPER QUADRANT HISTORY: Abnormal LFTs - h/o Cancer. COMPARISON: Abdomen and pelvis CT 12/30/2021. FINDINGS: Pancreas: The pancreatic head and tail are obscured by overlying bowel gas. The remaining portions of the pancreas are within normal limits. Liver: There is a 1.1 cm peripheral hypoechoic lesion within the anterior liver. This is difficult to characterize but is concerning for a solid lesion/mass. There is a 7 mm right hepatic lobe cyst, unchanged. Gallbladder: No gallbladder wall thickening. No gallstones. CBD: 3 mm. Right kidney: No hydronephrosis. IMPRESSION: 1. Normal gallbladder. No gallstones. 2. A 1.1 cm hypoechoic lesion within the liver which could represent a small metastatic focus. This is difficult to characterize due to its small size. ACT 112: Negative or not required by law. Electronically signed by: Bob Hinds M.D. 09/23/2022 7:43 AM Cervical Spine MRI 09/23/22 09:01 CERVICAL SPINE MRI WITH AND WITHOUT CONTRAST HISTORY: Left-sided weakness. with mri brain, parotid cancer, mets, weakness, eval l TECHNIQUE: Multiplanar multisequence MRI of the cervical spine was performed both before and after the use of intravenous contrast. COMPARISON STUDY: CT neck 09/22/2022. Thoracic spine MRI 08/14/2022. Neck MRA 03/01/2022. Cervical spine MRI 11/04/2012. FINDINGS: There is anteroseptal discectomy and fusion from C4 through C7. The metallic artifact partially obscures the vertebral bodies at these levels. There is mild disc space narrowing at C3-4 and C7-T1. There is mild reversal the normal lordotic curvature with 1 mm of anterolisthesis of C3 on C4. The cervical spinal cord is normal in course, caliber, and signal intensity. The right lower neck lymphadenopathy, right paratracheal lymphadenopathy, pulmonary metastatic disease are better appreciated on the prior studies. There is nondisplaced pathologic fracture at the tip of the C7 spinous process due to an osteolytic lesion. This likely accounts for the marrow and soft tissue edema at this location. No additional osseous lesions identified within the cervical spine. There are [id number] facet degenerative changes throughout the cervical spine. No epidural fluid collections or soft tissue masses identified. The posterior fossa is better appreciated on the same day head CT. Prevertebral soft tissues and the C1-C2 interval are intact. C2-C3: No significant central canal or right-sided neural foraminal narrowing. There is mild left-sided neural foraminal narrowing. C3-C4: No central canal narrowing. There is severe right and mild left neural foraminal narrowing. C4-C5: Small broad-based posterior disc osteophyte without significant central canal narrowing. There is mild right and severe left neural foraminal narrowing. C5-C6: No significant central canal or neural foraminal narrowing. C6-C7: Small broad-based posterior disc osteophyte without significant central canal narrowing. There is moderate left and mild right neural foraminal narrowing. C7-T1: No significant central canal or neural foraminal narrowing. IMPRESSION: 1. Nondisplaced pathologic fracture at the tip of the C7 spinous process. This is secondary to a small underlying osteolytic metastatic lesion at this location. 2. No additional osseous lesions identified within the cervical spine. 3. Degenerative changes as described above. 4. The right lower neck lymphadenopathy, paratracheal lymphadenopathy, and pulmonary metastatic disease is better appreciated on the prior studies. ACT 112: Negative or not required by law. Electronically signed by: Bob Hinds M.D. 09/23/2022 11:28 AM PG Care Time/CCT Total # of Minutes Spent Total Time Spent with Patient: Total time spent is greater than 50% in coordination of care (as documented) at patient's floor/unit and/or counseling patient: Prolonged Care Time Prolonged Care Time: Yes additional 65 minutes of time spent in combination with time with patient at bedside initially, phone conversation with following for update, discussion w/ Dr Morgan from hematology/oncology as well as Dr Cowan from radiation/oncology on the phone today in conjunction with return to the patient's room to update again at bedside for further questions in addition to usual time spend reviewing chart/labs Coding Level of Care Code 00893 SUB INP/OBS CARE 3/50MIN (25 - SIGNIFICANT, SEPARATELY IDENTIFIABLE ) Diagnoses Metastatic cancer C79.9 Left-sided chest pain R07.9 Left-sided weakness R53.1 Acute hyponatremia E87.1 Abnormal LFTs R79.89 GERD (gastroesophageal reflux disease) K21.9 Hypertension I10 Sleep apnea G47.30 Hyperlipidemia E78.5 Anemia D64.9 Abnormal brain MRI R90.89 Liver lesion K76.9 C7 cervical fracture S12.600A Additional Codes Prolonged Care Time - Prolonged Care Time: Yes ([id number])
--- NOTE | 2022-09-23 07:45 | Ultrasound Report ---
ABDOMINAL ULTRASOUND, RIGHT UPPER QUADRANT HISTORY: Abnormal LFTs - h/o Cancer. COMPARISON: Abdomen and pelvis CT 12/30/2021. FINDINGS: Pancreas: The pancreatic head and tail are obscured by overlying bowel gas. The remaining portions of the pancreas are within normal limits. Liver: There is a 1.1 cm peripheral hypoechoic lesion within the anterior liver. This is difficult to characterize but is concerning for a solid lesion/mass. There is a 7 mm right hepatic lobe cyst, unc hanged. Gallbladder: No gallbladder wall thickening. No gallstones. CBD: 3 mm. Right kidney: No hydronephrosis. IMPRESSION: 1. Normal gallbladder. No gallstones. 2. A 1.1 cm hypoechoic lesion within the liver which could represent a small metastatic focus. This i s difficult to characterize due to its small size. ACT 112: Negative or not required by law. Electronically signed by: Bob Hinds M.D. 09/23/2022 7:43 AM
--- NOTE | 2022-09-23 08:44 | Consultation ---
Date of Consultation September 23, 2022 Assessment & Plan (1) Left-sided weakness: While CT/CTA of the head and neck are not immediately concerning, MRI of the brain and cervical spine MRI may be worthwhile to assess for more subtle lesions. 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 Did not well tolerate the combination of pembrolizumab/lenvatinib. Most recently on fam-trastuzumab deruxtecan and denosumab, 3 months out from start of that therapy there certainly has not been a dramatic response and may even be some mild progression. Has significant intrathoracic and skeletal disease, ultrasound suggest a possible early liver lesion and there is some modest increase in transaminases but there does not seem to be immediately threatening disease there. He is apparently scheduled for [facility] review in the near future and has been followed at [facility]. Acute presentation would suggest possible progression within the thorax and/or ribs in the interim underlying the acute, immediate management will need to be with regards to stabilization of his pain. There does not seem to be evidence of pulmonary embolism though obviously he is at risk for VTE because of the cancer and would be appropriate for ongoing prophylaxis at least during his hospitalization Need to further assess from the standpoint of his mild hyponatremia and left- sided weakness for DOCK ATTENDANT and/or cervical spine changes. CT/CTA imaging of the head and neck were unremarkable but there could be subtle brain metastases not evident by those studies and an MRI of the brain with and without contrast is pending. He does have a T5 lesion that includes apparent epidural extension, that would not specifically explain left upper extremity weakness but would certainly raise the concern as to possible somewhat subtle involvement elsewhere within the spine and thus an MRI of the cervical spine will be pursued as well. Additional significant findings in either of these warrant more immediate local attention but unfortunately would also further raise concerns regarding the overall prognosis and practicality of systemic treatment beyond supportive care. MRI imaging will also be important to rule out subtle DOCK ATTENDANT lesions that might be inducing an SIADH like picture. I am not specifically familiar with the patient nor with his desired level of aggression with regards to further diagnostics and therapeutic options. I am limited in electronic only review of his situation at this time. Certainly through the weekend it will be most important to pursue the additional imaging as outlined above and stabilize his pain. Dr. Wren will return on Sunday and can more broadly reassess parameters of care and on the basis of further conversation with her and the patient decisions can be made as to whether or not to involve palliative care in discussions during his inpatient admission. (3) Anemia: Most likely a consequence of his fam-trastuzumab deruxtecan but will assure that there are no additional contributors with anemia work-up, peripheral smear review/reticulocyte count/nutritional studies are pending (4) Abnormal LFTs: Has had previous alk phos elevation probably reflecting his bony metastases but that has risen mildly further along with some mild changes in transaminases. These could be chemotherapy induced toxicities, ultrasound does not suggest dramatic changes in the liver though early metastatic disease there is not e xcluded. Does not need emergent further imaging though as we evolve a picture of the understanding of the presence or absence of new DOCK ATTENDANT or cervical spine disease, will need to determine if broader restaging is appropriate. He is apparently tentatively scheduled for a PET CT scan at the [facility] in the not too distant future Plan Would proceed with more definitive MRI imaging with and without contrast of his brain and as well MRI of the cervical spine to see if there are specific lesions associated with his left-sided weakness and hyponatremia [facility] pain management Dr. Wren will be available for [id number] discussions with the patient as of Sunday and can work to review the longer-term level of aggression with regards to further diagnostics or therapeutic intervention History of Present Illness Reason for Consultation: Metastatic adenocarcinoma of the parotid, admitted with left-sided weakness and chest pain Attending Physician: Sina Ferrari MD History of Present Illness Please note that this is a consultation constructed purely from review of the electronic database. I am working remotely and unable to speak directly with the patient or examine him. I reviewed both the records from the [facility] and the current admission records which seem to be an accurate source of relevant information but I am completely reliant on that for my conclusions and perspectives. If there are urgent concerns regarding the need for more direct [id number] review, you should consider transferring the patient to another institution. Dr. Wren will be available Sunday for a [id number] meeting to augment our assessment and recommendations. The evaluation is consultative in nature and all patient care and treatment decisions can either be accepted or rejected by the patient's primary hospital- based treating physician using their own independent medical judgment for the patient. Patient had presented with right ear pain in 2020 with evolution of a right parotid nodule biopsy which on 09/03/2020 revealed an oncocytic neoplasm. He underwent 09/27/2020 surgical parotidectomy with regional lymph node dissection identifying T3N1 disease. This was followed by adjuvant radiation completed 12/23/2020. 04/20/[address] scan shows a T5 lytic lesion which was ultimately biopsied at [facility] confirming metastatic carcinoma consistent with parotid primary. This was resected there in August, but additional staging that time also showed an increased number of lung nodules and necrotic hilar adenopathy. There was also evidence of multifocal bony metastasis Based on evaluation at [facility] he was started in October, on the combination of pembrolizumab and lenvatinib but had multiple complications including loss of right eye vision, hypertension and skin lesions and these were discontinued at the end of 2021. Follow-up in June at [facility] suggested the initiation of fam-trastuzumab deruxtecan-nxki which started 06/21/2022 with his fourth dose administered on 08/23/2022. He has also been on denosumab He is admitted now with hyponatremia, chest pain, significant pulmonary/mediast inal metastatic disease, widespread skeletal metastases including apparent spontaneous rib fractures, but no pulmonary emboli. There is some mild left- sided weakness but previous brain MRI did not show metastases and at least initial head CT and neck CTA were unremarkable but we do note that he does have a T5 metastatic lesion that includes some retropulsion and epidural changes Allergies Allergy/AdvReac Type Severity Reaction Status Date / Time No Known Allergies Allergy Verified 09/22/22 19:04 Home Medications Medication Instructions Recorded Confirmed Type acetaminophen 500 mg capsule 1,000 mg PO HS PRN Pain 09/10/20 09/22/22 History bisacodyl 5 mg tablet,delayed 5 mg PO HS PRN Constipation 09/10/20 09/22/22 History release (Dulcolax (bisacodyl)) aspirin 81 mg tablet,delayed 81 mg PO DAILY #90 tabs 01/28/21 09/22/22 Rx release (Adult Low Dose Aspirin) fluticasone propionate 50 2 spray intranasal BID PRN Allergy 09/23/21 09/22/22 Rx mcg/actuation nasal Symptoms #16 grams spray,suspension lisinopril 40 mg tablet 40 mg PO DAILY #30 tabs 02/16/22 09/22/22 Rx pantoprazole 40 mg tablet,delayed 40 mg PO QAM #90 tabs 03/14/22 09/22/22 Rx release clobetasol 0.05 % topical ointment 1 applic topical DAILY PRN Skin 05/08/22 09/22/22 History Irritation Cock-Up Wrist Splint #2 ea 05/19/22 06/30/22 Rx mupirocin 2 % topical ointment 1 applic topical BID PRN NEEDED 06/19/22 09/22/22 History Auto Titrating CPAP #1 ea 07/10/22 07/10/22 Rx celecoxib 100 mg capsule (Celebrex) 100 mg PO BID #180 caps 07/12/22 09/22/22 Rx pilocarpine HCl 5 mg tablet 5 mg PO TID #270 tabs 07/12/22 09/22/22 Rx (Salagen (pilocarpine)) atorvastatin 20 mg tablet (Lipitor) 20 mg PO HS #90 tabs 07/26/22 09/22/22 Rx levothyroxine 50 mcg capsule 50 mcg PO DAILY 08/08/22 09/22/22 History ondansetron HCl 8 mg tablet 8 mg PO Q8H PRN Nausea 08/08/22 09/22/22 History prochlorperazine maleate 10 mg 10 mg PO Q6H PRN Nausea 08/08/22 09/22/22 History tablet (Compazine) lorazepam 0.5 mg tablet 0.5 mg PO DAILY PRN anxiety #30 09/05/22 09/22/22 Rx tabs famotidine 40 mg tablet 40 mg PO BID #180 tabs 09/21/22 09/22/22 Rx zolpidem 10 mg tablet 10 mg PO HS #30 tabs 09/21/22 09/22/22 Rx duloxetine 40 mg capsule,delayed 40 mg PO DAILY 09/22/22 09/22/22 History release fentanyl 25 mcg/hr transdermal See Rx Instructions .Route .COMPLEX 09/22/22 09/22/22 History patch gabapentin 100 mg capsule See Rx Instructions .Route .COMPLEX 09/22/22 09/22/22 History gabapentin 800 mg tablet See Rx Instructions .Route .COMPLEX 09/22/22 09/22/22 History naloxone 4 mg/actuation nasal spray See Rx Instructions .Route .COMPLEX 09/22/22 09/22/22 History Patient History Medical History (Updated 09/23/22 @ 09:47 by Ronan Morgan MD) Allergic rhinitis Anemia Chronic, baseline hgb 12-13 range per chart review Anxiety Cervical radiculopathy Chronic insomnia Degenerative disc disease (02/06/13) Deviated nasal septum Diverticulosis GERD (gastroesophageal reflux disease) Hiatal hernia Hyperlipidemia Hypertension Hypertrophy of nasal turbinates Left hip pain residential prescription benzodiazepine use Lumbar disc disease Lumbar radiculopathy Lymphadenopathy of left cervical region Lymphadenopathy of right cervical region Macular hole of left eye Mass of right parotid gland Numbness of upper extremity Osteoarthritis Overweight Sleep apnea Mild, not using CPAP Spinal stenosis Vitamin D deficiency Surgical History History of anesthesia reaction Awareness during [facility]LETT[facility] (2018 and 2019)- at [facility] History of back surgery History of cervical discectomy "Good" ROM History of colonoscopy History of esophagogastroduodenoscopy (EGD) History of hand surgery (~2004) Right hand surery History of hip replacement right (2018), left (2019) History of left cataract surgery History of open reduction and internal fixation (ORIF) procedure right wrist History of repair of rotator cuff left History of sinus surgery History of superficial parotidectomy 09/24/20 Family History Mother , 62yo Stroke Father , 44yo Myocardial infarction Brother Mantle cell lymphoma Rodriguez esophagus Heart disease Stent placed; Daughter Hypertension Other No family history of adverse response to anesthesia No family history of allergies No family history of bleeding disorder Denies family history of Ovarian cancer Prostate cancer Diabetes Breast cancer Colorectal cancer Social History Smoking Status: Never smoker Second Hand Exposure: No; Do You Dip or Chew Tobacco: No; Hx Alcohol Use: No Hx Substance Use: No Preferred Language: Latvian Communication Ability: Effective Visual Impairment: No Limitations Hearing Ability: Normal Automation Test Engineer Required: No Beliefs That Will Affect Care: None marital status: Current Living Situation: Spouse Current Living Situation Comment: AND DAUGHTER current occupational status: employed 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 Feels Safe at Home: Yes Childhood Exposure to Second-Hand Smoke: Yes Diet: regular Diet Comment: regular caffeine: No during the past year weight has: increased > 10 lbs Dental Care, Regularly: Yes Physical Activity Frequency: Daily Seatbelt Use: always Sunscreen Use: Yes Assistive Devices: None Physical Exam Physical Exam: Vital signs are stable and he has good oxygenation with 2 L nasal cannula. Hospitalist note suggest only subtle weakness on the left side with no immediately threatening physical changes otherwise Results & Data Vital Signs (Past 12 Hours) Vital Signs Temp Pulse Pulse Resp BP BP Pulse Ox 09/23/22 07:45 38.0 C H 99 H 18 131/75 96 09/23/22 03:44 38.2 C H 107 H 24 136/79 96 09/23/22 01:54 09/23/22 01:43 37.8 C H 111 H 16 129/64 09/23/22 01:33 37.8 C H 111 H 22 129/64 91 09/23/22 00:30 105 H 24 139/73 94 09/23/22 00:00 107 H 22 144/77 H 93 09/22/22 23:08 106 H 09/22/22 22:30 104 H 22 161/82 H 95 O2 Del Method O2 Flow Rate 09/23/22 07:45 Nasal Cannula 2 09/23/22 03:44 Nasal Cannula 2 09/23/22 01:54 Nasal Cannula 2 09/23/22 01:43 Nasal Cannula 2 09/23/22 01:33 Nasal Cannula 2 09/23/22 00:30 09/23/22 00:00 09/22/22 23:08 09/22/22 22:30 Laboratory Results Laboratory Results - last 24 hr 09/22/22 09/22/22 09/22/22 17:14 17:14 21:14 WBC 7.14 RBC 3.19 L Hgb 9.1 L Hct 28.4 L MCV 89.0 MCH 28.5 MCHC 32.0 RDW Std Deviation 60.2 H RDW Coeff of Renny 18.5 H Plt Count 437 H MPV 10.2 Immature Gran % (Auto) 0.4 Neut % (Auto) 83.1 Lymph % (Auto) 3.1 Anderson % (Auto) 10.6 Eos % (Auto) 2.0 Baso % (Auto) 0.8 Neut # (Auto) 5.93 Lymph # (Auto) 0.22 L Anderson # (Auto) 0.76 H Eos # (Auto) 0.14 Baso # (Auto) 0.06 Immature Gran # (Auto) 0.03 Sodium 128 L Potassium 4.4 Chloride 97 L Carbon Dioxide 23 Anion Gap 8 BUN 14 Creatinine 1.01 Est Cr Clr Drug Dosing Not Reportable Est GFR ( Amer) 95.9 Est GFR (Non-Af Amer) 82.8 BUN/Creatinine Ratio 13.9 Glucose 102 H Osmolality Calcium 8.2 L Phosphorus Magnesium Total Bilirubin 0.6 Direct Bilirubin AST 110 H ALT 62 H Alkaline Phosphatase 174 H Troponin I High Sens 5.8 B-Natriuretic Peptide Total Protein 6.8 Albumin 3.4 Globulin 3.4 Albumin/Globulin Ratio 1.0 Procalcitonin Urine Color Urine Appearance Urine pH Ur Specific [place] Urine Protein Urine Glucose (UA) Urine Ketones Urine Blood Urine Nitrite Urine Bilirubin Urine Urobilinogen Ur Leukocyte Esterase Urine Osmolality Ur Random Sodium SARS-CoV-2, RNA, NAAT NEGATIVE 09/23/22 09/23/22 09/23/22 01:44 01:44 01:44 WBC RBC Hgb Hct MCV MCH MCHC RDW Std Deviation RDW Coeff of Renny Plt Count MPV Immature Gran % (Auto) Neut % (Auto) Lymph % (Auto) Anderson % (Auto) Eos % (Auto) Baso % (Auto) Neut # (Auto) Lymph # (Auto) Anderson # (Auto) Eos # (Auto) Baso # (Auto) Immature Gran # (Auto) Sodium Potassium Chloride Carbon Dioxide Anion Gap BUN Creatinine Est Cr Clr Drug Dosing Est GFR ( Amer) Est GFR (Non-Af Amer) BUN/Creatinine Ratio Glucose Osmolality 268 L Calcium Phosphorus Magnesium Total Bilirubin Direct Bilirubin AST ALT Alkaline Phosphatase Troponin I High Sens B-Natriuretic Peptide 42 Total Protein Albumin Globulin Albumin/Globulin Ratio Procalcitonin 0.19 Urine Color Urine Appearance Urine pH Ur Specific [place] Urine Protein Urine Glucose (UA) Urine Ketones Urine Blood Urine Nitrite Urine Bilirubin Urine Urobilinogen Ur Leukocyte Esterase Urine Osmolality Ur Random Sodium SARS-CoV-2, RNA, NAAT 09/23/22 09/23/22 09/23/22 01:44 01:44 02:50 WBC 8.38 RBC 2.98 L Hgb 8.4 L Hct 26.2 L MCV 87.9 MCH 28.2 MCHC 32.1 RDW Std Deviation 60.3 H RDW Coeff of Renny 18.6 H Plt Count 413 H MPV 10.5 Immature Gran % (Auto) Neut % (Auto) Lymph % (Auto) Anderson % (Auto) Eos % (Auto) Baso % (Auto) Neut # (Auto) Lymph # (Auto) Anderson # (Auto) Eos # (Auto) Baso # (Auto) Immature Gran # (Auto) Sodium 128 L Potassium 4.3 Chloride 98 Carbon Dioxide 24 Anion Gap 6 BUN 11 Creatinine 0.97 Est Cr Clr Drug Dosing 105.5 Est GFR ( Amer) 100.7 Est GFR (Non-Af Amer) 86.9 BUN/Creatinine Ratio 11.3 Glucose 113 H Osmolality Calcium 7.6 L Phosphorus 2.3 L Magnesium 1.9 Total Bilirubin 0.6 Direct Bilirubin 0.2 AST 84 H ALT 50 Alkaline Phosphatase 154 H Troponin I High Sens 5.3 B-Natriuretic Peptide Total Protein 5.9 L Albumin 3.1 L Globulin Albumin/Globulin Ratio Procalcitonin Urine Color Urine Appearance Urine pH Ur Specific [place] Urine Protein Urine Glucose (UA) Urine Ketones Urine Blood Urine Nitrite Urine Bilirubin Urine Urobilinogen Ur Leukocyte Esterase Urine Osmolality 310 L Ur Random Sodium SARS-CoV-2, RNA, NAAT 09/23/22 09/23/22 02:50 02:50 WBC RBC Hgb Hct MCV MCH MCHC RDW Std Deviation RDW Coeff of Renny Plt Count MPV Immature Gran % (Auto) Neut % (Auto) Lymph % (Auto) Anderson % (Auto) Eos % (Auto) Baso % (Auto) Neut # (Auto) Lymph # (Auto) Anderson # (Auto) Eos # (Auto) Baso # (Auto) Immature Gran # (Auto) Sodium Potassium Chloride Carbon Dioxide Anion Gap BUN Creatinine Est Cr Clr Drug Dosing Est GFR ( Amer) Est GFR (Non-Af Amer) BUN/Creatinine Ratio Glucose Osmolality Calcium Phosphorus Magnesium Total Bilirubin Direct Bilirubin AST ALT Alkaline Phosphatase Troponin I High Sens B-Natriuretic Peptide Total Protein Albumin Globulin Albumin/Globulin Ratio Procalcitonin Urine Color Yellow Urine Appearance Clear Urine pH 5.5 Ur Specific [place] 1.012 Urine Protein Negative Urine Glucose (UA) Negative Urine Ketones Negative Urine Blood Negative Urine Nitrite Negative Urine Bilirubin Negative Urine Urobilinogen Negative Ur Leukocyte Esterase Negative Urine Osmolality Ur Random Sodium 104 SARS-CoV-2, RNA, NAAT Diagnostic Findings Chest X-Ray 09/22/22 16:46 SINGLE VIEW CHEST CLINICAL HISTORY: Atypical chest pain. FINDINGS: An AP, portable, upright chest radiograph is compared to chest x-ray and chest CT dated 09/18/2022. The examination is degraded by portable technique, apical lordotic positioning, and patient rotation. The heart is enlarged. There is pulmonary vascular congestion. There is chronic elevation of the right hemidiaphragm with bibasilar scarring/atelectasis. No airspace consolidation or large pleural effusion is identified. Findings of multifocal pulmonary metastatic disease are unchanged. No pneumothorax is seen. The skeletal structures are osteopenic. There are numerous thoracic compression deformities with evidence of previous vertebroplasty. Fusion hardware is seen in the lower cervical spine as well as within the lumbar spine. Bilateral rib fractures are again noted. IMPRESSION: 1. Cardiomegaly with pulmonary vascular congestion. 2. No airspace consolidation or large pleural effusion is identified. 3. Findings of multifocal pulmonary metastatic disease are unchanged. 4. Bilateral rib fractures are again noted. ACT 112: Negative or not required by law. Electronically signed by: Anatoly Sandoval M.D. 09/22/2022 7:11 PM Chest CTA 09/22/22 18:28 Exam(s): CTA CHEST IV Amt: OPTIRAY 320 115ML EXAM: CT Angiography Chest With Intravenous Contrast CLINICAL HISTORY: Pulmonary embolus. TECHNIQUE: Axial computed tomographic angiography images of the chest with intravenous contrast. CTDI is 18.01 mGy and DLP is 1105.04 mGy-cm. Automated exposure control was utilized for the study. A dose lowering technique was utilized adhering to the principles of ALARA. MIP reconstructed images were created and reviewed. CONTRAST: 115 mL of Optiray 320 COMPARISON: CTA chest 09/18/2022 FINDINGS: Pulmonary arteries: Unremarkable. No pulmonary embolus. Aorta: No acute findings. No thoracic aortic aneurysm. Lungs: Diffuse pulmonary metastases. Interval thickening may represent atelectasis and/or pulmonary edema. Pleural space: Unremarkable. No significant effusion. No pneumothorax. Heart: Unremarkable. No cardiomegaly. No significant pericardial effusion. No evidence of RV dysfunction. Mediastinum: Extensive mediastinal lymphadenopathy most consistent with metastatic disease. Bones/joints: Redemonstrated bilateral lateral rib fractures. Osseous metastases are redemonstrated. Stable chronic compression fracture of T5 with stable retropulsion, Opacities and traversing posterior screws and rods. No dislocation. Soft tissues: Unremarkable. Lymph nodes: Unremarkable. No enlarged lymph nodes. IMPRESSION: 1. No pulmonary embolus. 2. Diffuse pulmonary metastases. 3. Extensive mediastinal lymphadenopathy most consistent with metastatic disease. 4. Interval thickening may represent atelectasis and/or pulmonary edema. 5. Redemonstrated bilateral lateral rib fractures. 6. Osseous metastases are redemonstrated. Electronically signed by: Anat Rowe MD 09/22/22 21:[address] 09/22/22 18:28 Exam(s): CT HEAD Without Contrast EXAM: CT Head Without Intravenous Contrast CLINICAL HISTORY: Chest pain with left-sided weakness.. TECHNIQUE: Axial computed tomography images of the head/brain without intravenous contrast. CTDI is 37.55 mGy and DLP is 691.05 mGy-cm. Automated exposure control was utilized for the study. A dose lowering technique was utilized adhering to the principles of ALARA. COMPARISON: MRI brain 06/30/2021 FINDINGS: Brain: No intracranial hemorrhage, mass-effect or midline shift. No abnormal extra axial fluid. No evidence of acute infarct. Mild periventricular white matter hypodensities are most consistent with chronic microangiopathy. Ventricles: Unremarkable. No ventriculomegaly. Bones/joints: Unremarkable. No acute fracture. Soft tissues: Unremarkable. Sinuses: Unremarkable as visualized. No acute sinusitis. Mastoid air cells: Unremarkable as visualized. No mastoid effusion. IMPRESSION: No acute intracranial finding. Electronically signed by: Anat Rowe MD 09/22/22 20:48 PM Head CTA 09/22/22 18:28 Exam(s): CTA HEAD With Contrast IV Amt: 115ML OPTIRAY 320 EXAM: CT Head With Intravenous Contrast CLINICAL HISTORY: Chest pain with left-sided weakness. TECHNIQUE: Axial computed tomographic images of the head with intravenous contrast. CTDI is 63.38 mGy and DLP is 31.69 mGy-cm. Automated exposure control was utilized for the study. A dose lowering technique was utilized adhering to the principles of ALARA. CONTRAST: 115 mL of Optiray 320. COMPARISON: No relevant prior studies available. FINDINGS: Right internal carotid artery: No acute findings. Intracranial segment is patent with no significant stenosis. No aneurysm. Right anterior cerebral artery: Unremarkable. No occlusion or significant stenosis. No aneurysm. Right middle cerebral artery: Unremarkable. No occlusion or significant stenosis. No aneurysm. Right posterior cerebral artery: Unremarkable. No occlusion or significant stenosis. No aneurysm. Right vertebral artery: Unremarkable as visualized. Left internal carotid artery: No acute findings. Intracranial segment is patent with no significant stenosis. No aneurysm. Left anterior cerebral artery: Unremarkable. No occlusion or significant stenosis. No aneurysm. Left middle cerebral artery: Unremarkable. No occlusion or significant stenosis. No aneurysm. Left posterior cerebral artery: Unremarkable. No occlusion or significant stenosis. No aneurysm. Left vertebral artery: Unremarkable as visualized. Basilar artery: Unremarkable. No occlusion or significant stenosis. No aneurysm. IMPRESSION: No acute finding of the arteries of the head. Electronically signed by: Anat Rowe MD 09/22/22 21:11 PM Neck CTA 09/22/22 18:28 Exam(s): CTA NECK With Contrast IV Amt: 115ML OPTIRAY 320 EXAM: CT Neck With Intravenous Contrast CLINICAL HISTORY: Chest pain with left-sided weakness. TECHNIQUE: Routine carotid CT protocol was performed with intravenous contrast. NASCET criteria using the distal ICAs for comparison were used for evaluation of stenoses. CTDI is 63.38 mGy and DLP is 31.69 mGy-cm. Automated exposure control was utilized for the study. A dose lowering technique was utilized adhering to the principles of ALARA. CONTRAST: 115 mL of Optiray 320 COMPARISON: None. FINDINGS: VASCULATURE: Right common carotid artery: Unremarkable. No occlusion or significant stenosis. No dissection. Right internal carotid artery: Unremarkable. Extracranial segment is patent with no occlusion or significant stenosis. No dissection. Right external carotid artery: Unremarkable. No occlusion. Right vertebral artery: Unremarkable. No occlusion or significant stenosis. No dissection. Left common carotid artery: Unremarkable. No occlusion or significant stenosis. No dissection. Left internal carotid artery: Unremarkable. Extracranial segment is patent with no occlusion or significant stenosis. No dissection. Left external carotid artery: Unremarkable. No occlusion. Left vertebral artery: Unremarkable. No occlusion or significant stenosis. No dissection. NECK: Bones/joints: There are degenerative changes of the spine. No fracture. Intervertebral disc spacers of C4-C5, C5-C6 and C6-C7 with anterior screws and plates. Soft tissues: Unremarkable. Lung apices: Please see dedicated CTA chest regarding the thoracic findings. CAROTID STENOSIS REFERENCE USING NASCET CRITERIA: % ICA stenosis = (1 - narrowest ICA diameter/diameter of distal cervical ICA) x 100. Mild - <50% stenosis. Moderate - 50-69% stenosis. Severe - 70-94% stenosis. Near occlusion - 95-99% stenosis. Occluded - 100% stenosis. IMPRESSION: 1. No acute finding of the arteries of the neck. 2. Please see dedicated CTA chest regarding the thoracic findings. Electronically signed by: Anat Rowe MD 09/22/22 21:14 PM Liver Ultrasound 09/23/22 01:33 ABDOMINAL ULTRASOUND, RIGHT UPPER QUADRANT HISTORY: Abnormal LFTs - h/o Cancer. COMPARISON: Abdomen and pelvis CT 12/30/2021. FINDINGS: Pancreas: The pancreatic head and tail are obscured by overlying bowel gas. The remaining portions of the pancreas are within normal limits. Liver: There is a 1.1 cm peripheral hypoechoic lesion within the anterior liver. This is difficult to characterize but is concerning for a solid lesion/mass. There is a 7 mm right hepatic lobe cyst, unchanged. Gallbladder: No gallbladder wall thickening. No gallstones. CBD: 3 mm. Right kidney: No hydronephrosis. IMPRESSION: 1. Normal gallbladder. No gallstones. 2. A 1.1 cm hypoechoic lesion within the liver which could represent a small metastatic focus. This is difficult to characterize due to its small size. ACT 112: Negative or not required by law. Electronically signed by: Bob Hinds M.D. 09/23/2022 7:43 AM PG Care Time/CCT Total # of Minutes Spent Total Time Spent with Patient: Total time spent is greater than 50% in coordination of care (as documented) at patient's floor/unit and/or counseling patient: Coding Level of Care Code 87903 IN/OBS CONSULT LVL 3,45M Diagnoses Left-sided weakness R53.1 Malignant neoplasm of parotid gland C07 Anemia D64.9 Abnormal LFTs R79.89
[2022-09-23] MEDS ORDERED: PIPERACILLIN/TAZOBACTAM 4.5 GM in DEXTROSE 5% 100 ML IV ONE (09:00)
[2022-09-23] MEDS ORDERED: VANCOMYCIN HCL 2,500 MG in SODIUM CHLORIDE 0.9% 500 ML IV ONE (09:00)
[2022-09-23] MEDS: PANTOprazole 40 MG TAB PO SCH (09:03)
[2022-09-23] MEDS: PILOCARPINE HCL 5 MG TABLET PO SCH ×3 (09:04→21:18)
[2022-09-23] MEDS: lisinopril 40 MG TAB PO SCH (09:04)
[2022-09-23] MEDS: GABAPENTIN 800 MG TAB PO SCH ×3 (09:04→21:17)
[2022-09-23] MEDS: FAMOTIDINE 40 MG TABLET PO SCH ×2 (09:04→21:18)
[2022-09-23] MEDS: GABAPENTIN 100 MG CAP PO SCH ×3 (09:04→21:18)
[2022-09-23] MEDS: DULoxetine HCL 20 MG CAP PO SCH (09:05)
[2022-09-23] MEDS: ENOXAPARIN INJ 40 MG/0.4 ML SYR SQ SCH (09:05)
[2022-09-23] MEDS: ASPIRIN 81 MG ECTAB PO SCH (09:05)
[2022-09-23] MEDS ORDERED: VANCOMYCIN CONSULT ACTIVE PRN (09:52)
[2022-09-23] MEDS ORDERED: GADOBUTROL 30ML VIAL IV ONE (10:32)
--- NOTE | 2022-09-23 10:45 | Electrocardiogram Report ---
Test Reason : Blood Pressure : / mmHG Vent. Rate : 107 BPM Atrial Rate : 107 BPM P-R Int : 204 ms QRS Dur : 082 ms QT Int : 312 ms P-R-T Axes : 011 010 039 degrees QTc Int : 416 ms Sinus tachycardia Otherwise normal ECG When compared with ECG of 18-SEP-2022 11:22, No significant change was found Confirmed by Eliseo Fink ([id number]) on 09/23/2022 10:45:26 AM Referred By: REFERRED SELF Confirmed By:Eliseo Fink
--- NOTE | 2022-09-23 11:21 | Magnetic Resonance Report ---
Brain MRI WITH AND WITHOUT CONTRAST HISTORY: left sided weakness, h/o cancer TECHNIQUE: Multiplanar multisequence MRI of the brain was performed both before and after the intrave nous administration of contrast. COMPARISON STUDY: Head CT 09/22/2022. FINDINGS: No areas restricted diffusion to suggest an acute infarction. The midline structures are in tact. Small right mastoid effusion. The paranasal sinuses and left mastoid air cells are clear. Prior left lens replacement. The major vascular flow-voids at the skull base are well-maintained. The vent ricles are normal in size. The brain parenchyma demonstrate a normal signal intensity with no evidenc e for an intracranial mass, hematoma, or midline shift. There is a lobular enhancing T2 hyperintense focus within the right posterior parietal bone consistent with metastatic disease. This measures appr oximately 6.5 cm in length. There is associated abnormal right posterior dural thickening and enhance ment consistent with additional sites of metastatic disease. IMPRESSION: 1. No acute infarct or intracranial hemorrhage. 2. An enhancing metastatic focus within the right posterior parietal bone with adjacent right posteri or dural thickening and enhancement consistent with metastatic disease. ACT 112: Negative or not required by law. Electronically signed by: Bob Hinds M.D. 09/23/2022 11:19 AM
--- NOTE | 2022-09-23 11:31 | Magnetic Resonance Report ---
CERVICAL SPINE MRI WITH AND WITHOUT CONTRAST HISTORY: Left-sided weakness. with mri brain, parotid cancer, mets, weakness, eval l TECHNIQUE: Multiplanar multisequence MRI of the cervical spine was performed both before and after th e use of intravenous contrast. COMPARISON STUDY: CT neck 09/22/2022. Thoracic spine MRI 08/14/2022. Neck MRA 03/01/2022. Cervical spin e MRI 11/04/2012. FINDINGS: There is anteroseptal discectomy and fusion from C4 through C7. The metallic artifact parti ally obscures the vertebral bodies at these levels. There is mild disc space narrowing at C3-4 and C7 -T1. There is mild reversal the normal lordotic curvature with 1 mm of anterolisthesis of C3 on C4. T he cervical spinal cord is normal in course, caliber, and signal intensity. The right lower neck lymp hadenopathy, right paratracheal lymphadenopathy, pulmonary metastatic disease are better appreciated on the prior studies. There is nondisplaced pathologic fracture at the tip of the C7 spinous process due to an osteolytic lesion. This likely accounts for the marrow and soft tissue edema at this locati on. No additional osseous lesions identified within the cervical spine. There are [id number] fa cet degenerative changes throughout the cervical spine. No epidural fluid collections or soft tissue masses identified. The posterior fossa is better appreciated on the same day head CT. Prevertebral so ft tissues and the C1-C2 interval are intact. C2-C3: No significant central canal or right-sided neural foraminal narrowing. There is mild left-huong ed neural foraminal narrowing. C3-C4: No central canal narrowing. There is severe right and mild left neural foraminal narrowing. C4-C5: Small broad-based posterior disc osteophyte without significant central canal narrowing. There is mild right and severe left neural foraminal narrowing. C5-C6: No significant central canal or neural foraminal narrowing. C6-C7: Small broad-based posterior disc osteophyte without significant central canal narrowing. There is moderate left and mild right neural foraminal narrowing. C7-T1: No significant central canal or neural foraminal narrowing. IMPRESSION: 1. Nondisplaced pathologic fracture at the tip of the C7 spinous process. This is secondary to a smal l underlying osteolytic metastatic lesion at this location. 2. No additional osseous lesions identified within the cervical spine. 3. Degenerative changes as described above. 4. The right lower neck lymphadenopathy, paratracheal lymphadenopathy, and pulmonary metastatic disea se is better appreciated on the prior studies. ACT 112: Negative or not required by law. Electronically signed by: Bob Hinds M.D. 09/23/2022 11:28 AM
[2022-09-23] MEDS: DOCUSATE SODIUM/SENNA 50/8.6MG TAB PO SCH (11:41)
[2022-09-23 11:47] LABS: Reticulocyte % 0.9 % (0.5-2.0); Reticulocytes # 0.03 10^6/uL (0.02-0.10)
--- NOTE | 2022-09-23 12:17 | Pharmacy Report ---
Pharmacy PK ABX Note - Date of Service September 23, 2022 - Assessment and Plan Assessment 56 year old M receiving Vancomycin and Zosyn for the empiric treatment of fevers. * Day #1 of antimicrobial therapy. 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 * Febrile at 100.8oF. No leukocytosis. No neutropenia. Procalcitonin 0.19. * Blood cultures pending. Plan Vancomycin * Loading dose: 2500 mg IV x 1 * Maintenance dose: 1250 mg IV every 12 hours * Regimen is predicted to achieve target AUC/SIXTO of 400-600 mg/L.hr * Random level ordered for: 09/25/22 Zosyn * 4.5 g IV every 8 hours Pharmacy will continue to follow and will adjust dose/frequency as necessary. Thank you. Pharmacy has transitioned to AUC monitoring for vancomycin. AUC/SIXTO is the preferred PK/PD target and is associated with decreased risk of nephrotoxicity compared to traditional trough targets.
[2022-09-23 12:23] LABS: Iron < 10 mcg/dl (35-175); Unsaturated Iron Binding Cap 220 mcg/dl (155-355)
[2022-09-23] MEDS: dexAMETHasone 4 MG in SYRINGE 0 ML IV SCH ×2 (13:25→22:17)
[2022-09-23] MEDS: CYANOCOBALAMIN 1000 MCG/ML VIAL IM SCH (15:52)
[2022-09-23 18:00] LABS: BUN Creatinine Ratio 12.2 (10-20); Calcium 7.3 mg/dl (8.6-10.3); Creatinine Clr Calc Pharmacy 113.7 ml/min; Est GFR (African American) 110.3 ml/min; Est GFR (Non-African American) 95.1 ml/min; Potassium 3.9 mmol/L (3.5-5.1)
[2022-09-23] MEDS ORDERED: SODIUM CHLORIDE 0.9% 1000ML 250 ML IV ONE (18:08)
[2022-09-23] MEDS: PIPERACILLIN/TAZOBACTAM 4.5 GM in DEXTROSE 5% 100 ML IV SCH (18:21)
[2022-09-23 20:09] LABS: BUN Creatinine Ratio 11.5 (10-20); Calcium 7.8 mg/dl (8.6-10.3); Creatinine Clr Calc Pharmacy 98.4 ml/min; Est GFR (African American) 92.6 ml/min; Est GFR (Non-African American) 79.9 ml/min
[2022-09-23] MEDS: VANCOMYCIN HCL 1,250 MG in SODIUM CHLORIDE 0.9% 250 ML IV SCH (20:33)
[2022-09-23] MEDS ORDERED: ZOLPIDEM TARTRATE 10 MG TAB PO SCH (21:00)
[2022-09-23] MEDS ORDERED: ATORVASTATIN 20 MG TAB PO SCH (21:00)
[2022-09-23] MEDS ORDERED: MIRTAZAPINE TAB 15 MG TAB PO SCH (21:00)
[2022-09-24] MEDS: PIPERACILLIN/TAZOBACTAM 4.5 GM in DEXTROSE 5% 100 ML IV SCH ×2 (01:48→11:15)
[2022-09-24] MEDS: LEVOTHYROXINE SODIUM 50 MCG TABLET PO SCH (05:51)
--- NOTE | 2022-09-24 07:21 | XRay Report ---
XR chest 1V portable CLINICAL HISTORY: f/u COMPARISON STUDY: Chest radiograph and chest CT September 22, 2022. FINDINGS: Postoperative findings within the cervical and thoracic spine circulation noted. There is n o pneumothorax or pleural effusion. Pulmonary metastases and thoracic lymphadenopathy is better depic kaity on recent chest CT. No consolidation is identified to suggest superimposed pneumonia. There is pu lmonary vascular congestion without overt pulmonary edema. IMPRESSION: 1. Pulmonary vascular congestion without overt pulmonary edema. 2. Pulmonary metastases in thoracic lymphadenopathy is better depicted on chest CT. 3. No consolidation to suggest pneumonia. ACT 112: Negative or not required by law. Electronically signed by: Toney Crump M.D. 09/24/2022 7:20 AM
[2022-09-24 07:28] LABS: Hemoglobin 8.7 g/dl (14.0-18.0); Mean Corpuscular Hemoglobin 28.3 pg (25.0-34.0); Mean Corpuscular Hgb Conc 32.2 g/dL (32.0-36.0); Mean Corpuscular Volume 87.9 fL (80.0-100.0); Mean Platelet Volume 10.3 fL (9.4-12.4); Platelet Count 425 K/uL (130-400); RDW Coefficient of Variation 18.6 % (11.5-14.5); RDW Standard Deviation 59.6 fL (36.4-46.3); Red Blood Count 3.07 M/uL (4.70-6.10); White Blood Count 11.52 K/ul (4.8-10.8)
[2022-09-24 07:43] LABS: Basophils # (auto) 0.02 K/uL (0-0.2); Basophils % (auto) 0.2 %; Immature Granulocytes # (auto) 0.11 K/uL (0.01-0.20); Lymphocytes # (auto) 0.16 K/uL (1.2-3.4); Lymphocytes % (auto) 1.4 %; Monocytes # (auto) 0.42 K/uL (0.11-0.59); Monocytes % (auto) 3.6 %; Neutrophils # (auto) 10.81 K/uL (1.40-6.50); Neutrophils % (auto) 93.8 %; Ovalocytes 1+; Polychromasia 1+; Tear Drop Cells 1+
[2022-09-24 07:47] LABS: Albumin Globulin Ratio 0.9 (0.9-2); BUN Creatinine Ratio 19.7 (10-20); Bilirubin,Total 0.5 mg/dl (0.2-1.0); Calcium 7.3 mg/dl (8.6-10.3); Creatinine Clr Calc Pharmacy 139.3 ml/min; Est GFR (African American) 120.7 ml/min; Est GFR (Non-African American) 104.2 ml/min; Globulin 3.4 gm/dl (2.5-4.0); Magnesium 2.3 mg/dl (1.7-2.4); Potassium 4.1 mmol/L (3.5-5.1); Total Protein 6.4 gm/dl (6.0-8.3)
[2022-09-24 07:53] LABS: INR 1.1 (0.9-1.1); Prothrombin Time 12.1 Seconds (9.0-12.0)
--- NOTE | 2022-09-24 08:00 | Hospitalist Progress Note ---
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 See below, now w/ concerning lesions to brain, liver as well, pathological fractures noted on imaging MRI brain unfortunately showed evidence for metastatic disease: There is a lobular enhancing T2 hyperintense focus within the right posterior parietal bone consistent with metastatic disease. This measures approximately 6.5 cm in length. There is associated abnormal right posterior dural thickening and enhancement consistent with additional sites of metastatic disease. CT cervical spine w/ Nondisplaced pathologic fracture at the tip of the C7 spinous process. This is secondary to a small underlying osteolytic metastatic lesion at this location. (of note, severe left neural foraminal narrowing noted at C4-C5), could contribute to issues w/ LUE weakness at times w/ movement/pain w/ movement Heme/onc on consult--> additional labs for eval ordered. Discussed and added decadron 4mg BID ordered and will monitor. Pain control -- continuing fentanyl patch 25mcg at present -- consider increasing patch based on response to steroids Radiation/oncology consulted for Sunday - - discussed w/ Dr Cowan and can offer some SBRT but will discuss w/ patient on Sunday We are going to get MRI lumbar/thoracic spine for further eval given his weakness reported Did spike temp 38.2C this morning, blood cultures obtained and placed on broad spectrum abx with Vanco/Zosyn given cancer hx/chemotherapy but not neutropenic. Monitor cx/empiric for 48hrs. Pro carolyn minimal bump 0.19 on admission. Tylenol available prn Of note, patient has appt on Sunday w/ [facility] we will attempt to get patient to for further eval/opinions as far as options go for ongoing treatment . Hopefully pending course, will be able to accommodate for dc Sunday hopefully --> per , patient also ONLY RECEIVED ONE dose of his Enhertu, not two doses, as prior denied by insurance per for unknown reason. 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 Patient was seen in the ER on 09/18/2022 with similar complaints. Had negative CTA at that time as well as a largely normal work-up and was subsequently discharged home with a diagnosis of musculoskeletal pain. Pain has persisted. Patient also reports worsening dyspnea on exertion. Suspect multifactorial -patient with pulmonary metastasis, fractured ribs, likely some degree of atelectasis with splinting. Possible pulmonary edema contributing as well. Was given Lasix 40mg IV x 1, will hold off further dosing for now. Is back to room air at present. CXR w/ pulm congestion on admit but HRs were elevated. Will monitor on exam tomorrow and consider additional dosing if needed Monitor I&O Troponin negative Continue pulmonary toilet given rib fractures, pathologic. BNP not elevated. Would not further pursue cardiac work-up at this time given above findings and low suspicion for cardiac etiology and rather suspect bony mets/fractures contributing to his pain Continue fentanyl patch, pulmonary toilet. Can consider topical voltaren/lidocaine if needed as well Monitor on tele for any arrythmia (3) Left-sided weakness: Plan: Patient with complaint of left-sided weakness of his arm and leg. Very minimal weakness appreciated in the left lower extremity on exam. CTA head/neck unremarkable for acute process Brain MRI as above, ordering MRI lumbar/thoracic spine as outlined Heme/onc, radiation oncology on consult Consideration for brace for comfort w/ orthotics? PT/OT consults (4) Acute hyponatremia: Plan: Sodium = 128 Urine osm Serum Osm Random urine sodium elevated 101, urine osm 310 -- fluid restriction in place Repeat/monitor BMP, consider small amt IVF and repeating levels as well (5) Abnormal LFTs: Plan: Patient with progressively worsening LFTs. AST = 110, ALT = 62, alkaline phosphatase = 174 (known bony metastasis, normal bilirubin). Repeat LFts in AM improving, still elevation ALP - see above RUQ w/ 1.1cm lesion concerning for malignancy but too small to characterize Heme/onc on consult as above Additional lab testing sent for eval Will hold statin at this time will need outpt f/u for treatment as above (6) GERD (gastroesophageal reflux disease): Plan: Chronic. Stable. Continue Protonix 40 mg p.o. every morning -- consider increasing to BID if needed w/ steroid use Continue Pepcid 40 mg p.o. twice daily (7) Hypertension: Plan: Blood pressure mildly elevated on admit to 161/82, likely 2nd to aspect of pain as well Continues on lisinopril 40mg daily, given lasix as above on admit BP presently 153/78 Monitor (8) Sleep apnea: Plan: Chronic. States just recently was set up with machine but that he does have excessive daytime sleepiness CPAP ordered HS while inpatient (9) Hyperlipidemia: Plan: Chronic. Stable. Will hold statin for now given LFTS (10) Anemia: Plan: Baseline hgb appears to have been in the 10-12s prior to the start of this year denied any wiflrido bleeding hgb 9.1 on admission, repeat 8.4 checking iron panel/b12/folate -- replacement as indicated --> B12 low normal 255 and will supplement w/ IM while inpatient and plan for PO at d/c Folate not deficient but lower end at 7.55 and will start PO supplementation for AM Iron panel w iron LOW <10 reported. TIBC/trans % sat unable to be performed. Ferritin elevated 917 likely 2nd to reactive/malignancy as above peripheral smear pending, LDH further labs by heme/oncology (11) Abnormal brain MRI: Plan: as above, c/w met disease (12) Liver lesion: Plan: 1.1cm lesion, too small to characterize but concerning for malignancy, gurwinder in setting of elevated LFTs (13) C7 cervical fracture: Plan: noted nondisplaced pathologic fx tip C7 spinous process, 2nd to small underlying osteolytic metastatic lesion at this location. pain control, PT/OT consults consider brace w/ orthotics pending further imaging of the back as above for comfort if tolerated Plan DVT prophylaxis: Lovenox SQ while inpatient continued inpatient stay Updated by phone this morning and at bedside this afternoon. Admission and Anticipated Discharge Date Admission Date: September 22, 2022 Subjective eval this morning around 1115am. doing well, just got back from MRI. Reports not yet available. He is feeling much better. Passing gas but no BM since yesterday. Na levels improved and stable. He is actually inquiring if possible about discharge today. Will see about MRI but strength appears good on exam, ambulating in the room. Back to room air at present, no shortness of breath or chest pain at all reported. Patch for pain to be at [facility] tomorrow but was out of stock. Discussed if any issues to call in tomorrow to us or Dr Morgan and we can attempt to send to different pharmacy if needed so he has for his trip. Results & Data Results & Data Vital Signs (Past 12 Hours) Vital Signs Temp Pulse Pulse Resp BP Pulse Ox O2 Del Method 09/24/22 07:11 67 09/24/22 03:03 36.5 C 78 16 132/82 99 Nasal Cannula 09/23/22 21:58 86 09/23/22 23:37 Nasal Cannula 09/23/22 22:22 36.8 C 87 16 123/73 93 Room Air O2 Flow Rate 09/24/22 07:11 09/24/22 03:03 2 09/23/22 21:58 09/23/22 23:37 2 09/23/22 22:22 PG Care Time/CCT Total # of Minutes Spent Total Time Spent with Patient: Total time spent is greater than 50% in coordination of care (as documented) at patient's floor/unit and/or counseling patient: Coding Diagnoses Metastatic cancer C79.9 Left-sided chest pain R07.9 Left-sided weakness R53.1 Acute hyponatremia E87.1 Abnormal LFTs R79.89 GERD (gastroesophageal reflux disease) K21.9 Hypertension I10 Sleep apnea G47.30 Hyperlipidemia E78.5 Anemia D64.9 Abnormal brain MRI R90.89 Liver lesion K76.9 C7 cervical fracture S12.600A
[2022-09-24] MEDS: VANCOMYCIN HCL 1,250 MG in SODIUM CHLORIDE 0.9% 250 ML IV SCH (08:25)
[2022-09-24] MEDS: CHECK fentaNYL PATCH PLACEMENT SCH (08:25)
[2022-09-24] MEDS: ENOXAPARIN INJ 40 MG/0.4 ML SYR SQ SCH (08:28)
[2022-09-24] MEDS: DOCUSATE SODIUM/SENNA 50/8.6MG TAB PO SCH (08:28)
[2022-09-24] MEDS: DULoxetine HCL 20 MG CAP PO SCH (08:28)
[2022-09-24] MEDS: CYANOCOBALAMIN 1000 MCG/ML VIAL IM SCH (08:28)
[2022-09-24] MEDS: PANTOprazole 40 MG TAB PO SCH (08:29)
[2022-09-24] MEDS: ASPIRIN 81 MG ECTAB PO SCH (08:29)
[2022-09-24] MEDS ORDERED: FOLIC ACID 1 MG TAB PO SCH (09:00)
[2022-09-24] MEDS ORDERED: fentaNYL 25 MCG/HR TDSY TD SCH (09:00)
[2022-09-24] MEDS: dexAMETHasone 4 MG in SYRINGE 0 ML IV SCH (09:06)
[2022-09-24] MEDS: PILOCARPINE HCL 5 MG TABLET PO SCH ×2 (09:06→14:08)
[2022-09-24] MEDS: GABAPENTIN 800 MG TAB PO SCH ×2 (09:06→14:09)
[2022-09-24] MEDS: lisinopril 40 MG TAB PO SCH (09:06)
[2022-09-24] MEDS: GABAPENTIN 100 MG CAP PO SCH ×2 (09:06→14:36)
[2022-09-24] MEDS: FAMOTIDINE 40 MG TABLET PO SCH (09:06)
[2022-09-24] MEDS ORDERED: GADOBUTROL 30ML VIAL IV ONE (10:47)
[2022-09-24] MEDS ORDERED: CALCIUM GLUCONATE 10% 1,000 MG in DEXTROSE 5% 50 ML IV ONE (11:13)
[2022-09-24] MEDS ORDERED: STAT IV STA (11:13)
--- NOTE | 2022-09-24 11:38 | Discharge Summary ---
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 Bateman with adjuvant radiation therapy. He was found to have metastatic disease in April 2021 with involvement of T5 s/p resection. Unfortunately with progression of metastatic disease. He has participated in clinical trials at [facility] and has been seen at [facility] as well. Patient follows with Oncology at the [facility] and is presently receiving chemotherapy (?Enhertu per Rad-Onc notes). His last treatment was early August and he is due again now. He is to follow at [facility] next week for a PET scan and additional medical opinion. Patient has had several unprovoked rib fractures of late. He was seen in the ER on 09/18/22 with pleuritic left sided chest pain that had been ongoing x 4 days as well as fatigue. Patient had a largely negative work-up to include EKG shows NSR with normal intervals, normal QRS complexes, no ST elevation or depression, and no arrhythmias. And CT without PE. Patient did have some rib fractures as well as a thoracic fracture. He was discharged home. Pain thought to be secondary to musculoskeletal origin Patient returns this evening with ongoing left-sided chest discomfort as well as shortness of breath, dyspnea on exertion, wheezing. He reports ongoing dry cough and chills as well. Additionally he reports subjective weakness of left upper and lower extremity which began today. He reports increased urinary frequency and urgency but no dysuria. In the ER he is afebrile, tachycardic otherwise hemodynamically stable. No acute distress. ER course: Aspirin Admission Exam Per Admitting Provider General: patient resting comfortably, NAD, non-toxic in appearance, AA&O x 4 Skin: warm, dry, intact, no rashes or lesions HEENT: NC/AT, PERRL, EOMI, anicteric sclera, conjunctiva without injection, external ear normal to inspection and nontender, nares patent, moist mucus membranes, dentition intact, no oropharyngeal lesions, neck supple, trachea midline, no LAD, no thyromegaly, no JVD Heart: +S1/S2, regular, tachycardic, no m/r/g Lungs: Slightly diminished breath sounds right hemithorax, coarse breath sounds at times cleared by coughing, no rhonchi or wheeze Abd: +BS, soft, NT/ND, no masses/organomegaly/ascites Ext: warm, 2+ pulses in UE/LE bilaterally, no clubbing/cyanosis or edema Neuro: nonfocal, patient AA&O x 4, speech intact, no facial droop, moving all extremities on command, mild weakness noted LLE, LUE 5/5 however Principal Diagnosis Chest Pain, Metastatic Ca Discharge Exam General: WD chronically ill appearing male, walking back to the chair without issue, NAD HEENT: head normocephalic, pupils equal in size, mmm, trachea midline, thick neck, +lymphadenopathy Resp: CTA, improvement in air entry bilaterally, diminished int he bases, no w/c, on room air CV: regular rhythm, rates in 80-90s, no significant m/r/g, no pitting edema GI: +BS, soft, NT : no Flynn, urinal at bedside MSK/Neuro: follows commands, no facial droop/slurred speech strength LE equal bilaterally in bed with dorsiflexion/plantar flexion. not assessed sitting/standing improvement in ability for L straight leg without pain, slightly reduced strength against resistance able to raise b/l UE above head, albeit slowly, but equal strength against resistance, slightly reduced bilaterally --> IMPROVED ON REPEAT EXAM Psych: AOx3, cooperative, does endorse some depression symptoms w/ recent news but otherwise stable, no SI/HI at present Sin: warm, dry, no obvious lesions/rashes Discharge Data Allergies Allergy/AdvReac Type Severity Reaction Status Date / Time No Known Allergies Allergy Verified 09/25/22 13:30 Consultations 09/22/22 22:10 ED Decision to Admit Stat 09/23/22 07:35 Consult Hematology Routine 09/23/22 12:36 Consult Radiation Oncology Routine 09/24/22 11:37 Burn CD for patient Routine Ordered Studies Chest X-Ray 09/22/22 16:46 SINGLE VIEW CHEST CLINICAL HISTORY: Atypical chest pain. FINDINGS: An AP, portable, upright chest radiograph is compared to chest x-ray and chest CT dated 09/18/2022. The examination is degraded by portable technique, apical lordotic positioning, and patient rotation. The heart is enlarged. There is pulmonary vascular congestion. There is chronic elevation of the right hemidiaphragm with bibasilar scarring/atelectasis. No airspace consolidation or large pleural effusion is identified. Findings of multifocal pulmonary metastatic disease are unchanged. No pneumothorax is seen. The skeletal structures are osteopenic. There are numerous thoracic compression deformities with evidence of previous vertebroplasty. Fusion hardware is seen in the lower cervical spine as well as within the lumbar spine. Bilateral rib fractures are again noted. IMPRESSION: 1. Cardiomegaly with pulmonary vascular congestion. 2. No airspace consolidation or large pleural effusion is identified. 3. Findings of multifocal pulmonary metastatic disease are unchanged. 4. Bilateral rib fractures are again noted. ACT 112: Negative or not required by law. Electronically signed by: Anatoly Sandoval M.D. 09/22/2022 7:11 PM Chest CTA 09/22/22 18:28 Exam(s): CTA CHEST IV Amt: OPTIRAY 320 115ML EXAM: CT Angiography Chest With Intravenous Contrast CLINICAL HISTORY: Pulmonary embolus. TECHNIQUE: Axial computed tomographic angiography images of the chest with intravenous contrast. CTDI is 18.01 mGy and DLP is 1105.04 mGy-cm. Automated exposure control was utilized for the study. A dose lowering technique was utilized adhering to the principles of ALARA. MIP reconstructed images were created and reviewed. CONTRAST: 115 mL of Optiray 320 COMPARISON: CTA chest 09/18/2022 FINDINGS: Pulmonary arteries: Unremarkable. No pulmonary embolus. Aorta: No acute findings. No thoracic aortic aneurysm. Lungs: Diffuse pulmonary metastases. Interval thickening may represent atelectasis and/or pulmonary edema. Pleural space: Unremarkable. No significant effusion. No pneumothorax. Heart: Unremarkable. No cardiomegaly. No significant pericardial effusion. No evidence of RV dysfunction. Mediastinum: Extensive mediastinal lymphadenopathy most consistent with metastatic disease. Bones/joints: Redemonstrated bilateral lateral rib fractures. Osseous metastases are redemonstrated. Stable chronic compression fracture of T5 with stable retropulsion, Opacities and traversing posterior screws and rods. No dislocation. Soft tissues: Unremarkable. Lymph nodes: Unremarkable. No enlarged lymph nodes. IMPRESSION: 1. No pulmonary embolus. 2. Diffuse pulmonary metastases. 3. Extensive mediastinal lymphadenopathy most consistent with metastatic disease. 4. Interval thickening may represent atelectasis and/or pulmonary edema. 5. Redemonstrated bilateral lateral rib fractures. 6. Osseous metastases are redemonstrated. Electronically signed by: Anat Rowe MD 09/22/22 21:[address] 09/22/22 18:28 Exam(s): CT HEAD Without Contrast EXAM: CT Head Without Intravenous Contrast CLINICAL HISTORY: Chest pain with left-sided weakness.. TECHNIQUE: Axial computed tomography images of the head/brain without intravenous contrast. CTDI is 37.55 mGy and DLP is 691.05 mGy-cm. Automated exposure control was utilized for the study. A dose lowering technique was utilized adhering to the principles of ALARA. COMPARISON: MRI brain 06/30/2021 FINDINGS: Brain: No intracranial hemorrhage, mass-effect or midline shift. No abnormal extra axial fluid. No evidence of acute infarct. Mild periventricular white matter hypodensities are most consistent with chronic microangiopathy. Ventricles: Unremarkable. No ventriculomegaly. Bones/joints: Unremarkable. No acute fracture. Soft tissues: Unremarkable. Sinuses: Unremarkable as visualized. No acute sinusitis. Mastoid air cells: Unremarkable as visualized. No mastoid effusion. IMPRESSION: No acute intracranial finding. Electronically signed by: Anat Rowe MD 09/22/22 20:48 PM Head CTA 09/22/22 18:28 Exam(s): CTA HEAD With Contrast IV Amt: 115ML OPTIRAY 320 EXAM: CT Head With Intravenous Contrast CLINICAL HISTORY: Chest pain with left-sided weakness. TECHNIQUE: Axial computed tomographic images of the head with intravenous contrast. CTDI is 63.38 mGy and DLP is 31.69 mGy-cm. Automated exposure control was utilized for the study. A dose lowering technique was utilized adhering to the principles of ALARA. CONTRAST: 115 mL of Optiray 320. COMPARISON: No relevant prior studies available. FINDINGS: Right internal carotid artery: No acute findings. Intracranial segment is patent with no significant stenosis. No aneurysm. Right anterior cerebral artery: Unremarkable. No occlusion or significant stenosis. No aneurysm. Right middle cerebral artery: Unremarkable. No occlusion or significant stenosis. No aneurysm. Right posterior cerebral artery: Unremarkable. No occlusion or significant stenosis. No aneurysm. Right vertebral artery: Unremarkable as visualized. Left internal carotid artery: No acute findings. Intracranial segment is patent with no significant stenosis. No aneurysm. Left anterior cerebral artery: Unremarkable. No occlusion or significant stenosis. No aneurysm. Left middle cerebral artery: Unremarkable. No occlusion or significant stenosis. No aneurysm. Left posterior cerebral artery: Unremarkable. No occlusion or significant stenosis. No aneurysm. Left vertebral artery: Unremarkable as visualized. Basilar artery: Unremarkable. No occlusion or significant stenosis. No aneurysm. IMPRESSION: No acute finding of the arteries of the head. Electronically signed by: Anat Rowe MD 09/22/22 21:11 PM Neck CTA 09/22/22 18:28 Exam(s): CTA NECK With Contrast IV Amt: 115ML OPTIRAY 320 EXAM: CT Neck With Intravenous Contrast CLINICAL HISTORY: Chest pain with left-sided weakness. TECHNIQUE: Routine carotid CT protocol was performed with intravenous contrast. NASCET criteria using the distal ICAs for comparison were used for evaluation of stenoses. CTDI is 63.38 mGy and DLP is 31.69 mGy-cm. Automated exposure control was utilized for the study. A dose lowering technique was utilized adhering to the principles of ALARA. CONTRAST: 115 mL of Optiray 320 COMPARISON: None. FINDINGS: VASCULATURE: Right common carotid artery: Unremarkable. No occlusion or significant stenosis. No dissection. Right internal carotid artery: Unremarkable. Extracranial segment is patent with no occlusion or significant stenosis. No dissection. Right external carotid artery: Unremarkable. No occlusion. Right vertebral artery: Unremarkable. No occlusion or significant stenosis. No dissection. Left common carotid artery: Unremarkable. No occlusion or significant stenosis. No dissection. Left internal carotid artery: Unremarkable. Extracranial segment is patent with no occlusion or significant stenosis. No dissection. Left external carotid artery: Unremarkable. No occlusion. Left vertebral artery: Unremarkable. No occlusion or significant stenosis. No dissection. NECK: Bones/joints: There are degenerative changes of the spine. No fracture. Intervertebral disc spacers of C4-C5, C5-C6 and C6-C7 with anterior screws and plates. Soft tissues: Unremarkable. Lung apices: Please see dedicated CTA chest regarding the thoracic findings. CAROTID STENOSIS REFERENCE USING NASCET CRITERIA: % ICA stenosis = (1 - narrowest ICA diameter/diameter of distal cervical ICA) x 100. Mild - <50% stenosis. Moderate - 50-69% stenosis. Severe - 70-94% stenosis. Near occlusion - 95-99% stenosis. Occluded - 100% stenosis. IMPRESSION: 1. No acute finding of the arteries of the neck. 2. Please see dedicated CTA chest regarding the thoracic findings. Electronically signed by: Anat Rowe MD 09/22/22 21:14 PM Brain MRI 09/23/22 01:33 Brain MRI WITH AND WITHOUT CONTRAST HISTORY: left sided weakness, h/o cancer TECHNIQUE: Multiplanar multisequence MRI of the brain was performed both before and after the intravenous administration of contrast. COMPARISON STUDY: Head CT 09/22/2022. FINDINGS: No areas restricted diffusion to suggest an acute infarction. The midline structures are intact. Small right mastoid effusion. The paranasal sinuses and left mastoid air cells are clear. Prior left lens replacement. The major vascular flow-voids at the skull base are well-maintained. The ventricles are normal in size. The brain parenchyma demonstrate a normal signal intensity with no evidence for an intracranial mass, hematoma, or midline shift. There is a lobular enhancing T2 hyperintense focus within the right posterior parietal bone consistent with metastatic disease. This measures approximately 6.5 cm in l ength. There is associated abnormal right posterior dural thickening and enhancement consistent with additional sites of metastatic disease. IMPRESSION: 1. No acute infarct or intracranial hemorrhage. 2. An enhancing metastatic focus within the right posterior parietal bone with adjacent right posterior dural thickening and enhancement consistent with metastatic disease. ACT 112: Negative or not required by law. Electronically signed by: Bob Hinds M.D. 09/23/2022 11:19 AM Liver Ultrasound 09/23/22 01:33 ABDOMINAL ULTRASOUND, RIGHT UPPER QUADRANT HISTORY: Abnormal LFTs - h/o Cancer. COMPARISON: Abdomen and pelvis CT 12/30/2021. FINDINGS: Pancreas: The pancreatic head and tail are obscured by overlying bowel gas. The remaining portions of the pancreas are within normal limits. Liver: There is a 1.1 cm peripheral hypoechoic lesion within the anterior liver. This is difficult to characterize but is concerning for a solid lesion/mass. There is a 7 mm right hepatic lobe cyst, unchanged. Gallbladder: No gallbladder wall thickening. No gallstones. CBD: 3 mm. Right kidney: No hydronephrosis. IMPRESSION: 1. Normal gallbladder. No gallstones. 2. A 1.1 cm hypoechoic lesion within the liver which could represent a small metastatic focus. This is difficult to characterize due to its small size. ACT 112: Negative or not required by law. Electronically signed by: Bob Hinds M.D. 09/23/2022 7:43 AM Cervical Spine MRI 09/23/22 09:01 CERVICAL SPINE MRI WITH AND WITHOUT CONTRAST HISTORY: Left-sided weakness. with mri brain, parotid cancer, mets, weakness, eval l TECHNIQUE: Multiplanar multisequence MRI of the cervical spine was performed both before and after the use of intravenous contrast. COMPARISON STUDY: CT neck 09/22/2022. Thoracic spine MRI 08/14/2022. Neck MRA 03/01/2022. Cervical spine MRI 11/04/2012. FINDINGS: There is anteroseptal discectomy and fusion from C4 through C7. The metallic artifact partially obscures the vertebral bodies at these levels. There is mild disc space narrowing at C3-4 and C7-T1. There is mild reversal the normal lordotic curvature with 1 mm of anterolisthesis of C3 on C4. The cervical spinal cord is normal in course, caliber, and signal intensity. The right lower neck lymphadenopathy, right paratracheal lymphadenopathy, pulmonary metastatic disease are better appreciated on the prior studies. There is nondisplaced pathologic fracture at the tip of the C7 spinous process due to an osteolytic lesion. This likely accounts for the marrow and soft tissue edema at this location. No additional osseous lesions identified within the cervical spine. There are veym-lw-[id number] facet degenerative changes throughout the cervical spine. No epidural fluid collections or soft tissue masses identified. The posterior fossa is better appreciated on the same day head CT. Prevertebral soft tissues and the C1-C2 interval are intact. C2-C3: No significant central canal or right-sided neural foraminal narrowing. There is mild left-sided neural foraminal narrowing. C3-C4: No central canal narrowing. There is severe right and mild left neural foraminal narrowing. C4-C5: Small broad-based posterior disc osteophyte without significant central canal narrowing. There is mild right and severe left neural foraminal narrowing. C5-C6: No significant central canal or neural foraminal narrowing. C6-C7: Small broad-based posterior disc osteophyte without significant central canal narrowing. There is moderate left and mild right neural foraminal narrowing. C7-T1: No significant central canal or neural foraminal narrowing. IMPRESSION: 1. Nondisplaced pathologic fracture at the tip of the C7 spinous process. This is secondary to a small underlying osteolytic metastatic lesion at this location. 2. No additional osseous lesions identified within the cervical spine. 3. Degenerative changes as described above. 4. The right lower neck lymphadenopathy, paratracheal lymphadenopathy, and pulmonary metastatic disease is better appreciated on the prior studies. ACT 112: Negative or not required by law. Electronically signed by: Bob Hinds M.D. 09/23/2022 11:28 AM Lumbar Spine MRI 09/24/22 00:00 MRI OF THE LUMBAR SPINE WITH AND WITHOUT CONTRAST CLINICAL HISTORY: Weakness, metastatic disease, eval pathological fx/lesion COMPARISON STUDY: Lumbar spine MRI August 14, 2022. TECHNIQUE: Utilizing a 1.5 Josiane magnet and dedicated coil, multiplanar, multiecho imaging of the lumbar spine was performed before and after uneventful IV administration of Gadavist. FINDINGS: For purposes of numbering on this exam, the L5-S1 disc space is assigned to axial image 23 of 25. Lumbar spine vertebral body heights are maintained. There is no lumbar spine pathologic fracture. Dense of multifocal marrow replacement is noted. This has mildly progressed since MRI of August 14, 2022 and represents metastatic disease. These include metastases within the left iliac bone, partially imaged on this exam. No epidural extension of tumor is noted. Moderate multilevel degenerative changes are present. These are similar to previous MRI. A 1.5 x 1.1 cm pathologic left para-aortic lymph node is similar to prior exam. L1-2: Moderate disc space narrowing is noted with disc bulge and facet arthrosis. The central canal is patent. There is mild bilateral neural foraminal stenosis. L2-3: Moderate disc space narrowing is noted with disc bulge. There is severe facet arthrosis, greater on the left. Moderate to severe narrowing of the left neural foramen is similar to previous MRI of August 14, 2022. There is mild central canal stenosis. L3-4: Central canal is patent. There is moderate facet arthrosis. There is moderate left and mild right neural foraminal stenosis. L4-5: Moderate disc space narrowing is noted. There is moderate facet arthrosis. Central canal is patent. There is mild bilateral neural foraminal stenosis. L5-S1: Moderate disc space narrowing is noted. There is mild disc bulge. Moderate bilateral neural foraminal stenosis. IMPRESSION: 1. Mild progression of extensive skeletal metastatic disease since MRI of August 14, 2022. No pathologic fractures or epidural extension of tumor within the lumbar spine. 2. No severe central canal stenosis. Moderate multilevel degenerative changes within lumbar spine, similar to MRI of August 14, 2022. Multilevel neural foraminal stenosis, as above. ACT 112: Negative or not required by law. Electronically signed by: Toney Crump M.D. 09/24/2022 11:48 AM Thoracic Spine MRI 09/24/22 00:00 MRI OF THE THORACIC SPINE WITH AND WITHOUT CONTRAST CLINICAL HISTORY: Weakness, metastatic disease, eval pathological fx/lesion. COMPARISON: Thoracic spine MRI August 14, 2022. Thoracic spine CT June 19, 2022. TECHNIQUE: Utilizing a 1.5 Josiane magnet and dedicated coil, multiplanar, multiecho imaging of the thoracic spine was performed before and after the intravenous administration of Gadavist. FINDINGS: T5 pathologic fracture is unchanged in appearance since MRI of August 14, 2022. Posterior decompression with T3-T7 fusion is noted. Evaluation of this portion of the thoracic spine is suboptimal given susceptibility artifact from the hardware. The neural foramen are suboptimally assessed. Moderate central canal narrowing at the T5 level is unchanged since MRI of August 14, 2022. The postoperative appearance is unchanged. No thoracic cord signal abnormality is present. Mild enhancing soft tissue within the anterior epidural space at the T6-T8 levels is unchanged. This does not result in significant central canal stenosis. No new sites of the intracanalicular enhancement are noted since previous MRI. There has been interval development of multiple thoracic spine lesions since MRI of August 14, 2022, including a 1.1 cm T9 vertebral body lesion. There is an additional T8 vertebral body lesion. A enhancing lesion within the T11 spinous process is again noted. Thoracic lymphadenopathy and pleural parenchymal metastases are better depicted on recent chest CT. Multiple rib lesions are again noted. IMPRESSION: 1. Progression of skeletal metastatic disease since MRI of August 14, 2022 with interval development of several vertebral metastases. 2. Unchanged appearance of the pathologic T5 fracture since previous MRI, as described above. Stable postoperative findings. 3. Suboptimal evaluation of this portion of the thoracic spine due to susceptibility artifact from hardware. 4. Normal thoracic cord signal and caliber. 5. No change in mild enhancing soft tissue within the anterior epidural space at the T6-T8 levels since previous MRI. This favors mild epidural extension of tumor. 6. Pleural and parenchymal metastatic disease and pathologic lymphadenopathy which is better depicted on recent chest CT. ACT 112: Negative or not required by law. Electronically signed by: Toney Crump M.D. 09/24/2022 11:38 AM Chest X-Ray 09/24/22 06:00 XR chest 1V portable CLINICAL HISTORY: f/u COMPARISON STUDY: Chest radiograph and chest CT September 22, 2022. FINDINGS: Postoperative findings within the cervical and thoracic spine circulation noted. There is no pneumothorax or pleural effusion. Pulmonary metastases and thoracic lymphadenopathy is better depicted on recent chest CT. No consolidation is identified to suggest superimposed pneumonia. There is pulmonary vascular congestion without overt pulmonary edema. IMPRESSION: 1. Pulmonary vascular congestion without overt pulmonary edema. 2. Pulmonary metastases in thoracic lymphadenopathy is better depicted on chest CT. 3. No consolidation to suggest pneumonia. ACT 112: Negative or not required by law. Electronically signed by: Toney Crump M.D. 09/24/2022 7:20 AM ECHOCARDIOGRAM LV is normal in size. Normal LV wall thickness. EF 55-60%. LV wall motion normal. RV is normal in size and function. The aortic valve is trileaflet. Mild aortic regurgitation. 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 Now w/ concerning lesions to brain, liver as well, pathological fractures noted on imaging and progressive changes to his spine. MRI brain unfortunately showed evidence for metastatic disease w/ lobular enhancing T2 hyperintense focus within the right posterior parietal bone consistent with metastatic disease. This measures approximately 6.5 cm in length. There is associated abnormal right posterior dural thickening and enhancement consistent with additional sites of metastatic disease. CT cervical spine w/ Nondisplaced pathologic fracture at the tip of the C7 spinous process. This is secondary to a small underlying osteolytic metastatic lesion at this location. (of note, severe left neural foraminal narrowing noted at C4-C5), could contribute to issues w/ LUE weakness at times w/ movement/pain w/ movement MRI lumbar/thoracic spine noted w/ further progression of bony disease. No change in mild enhancing soft tissue within the anterior epidural space at the T6-T8 levels since previous MRI. Also w/ concerns small lesion 1.1cm on Liver US but too small to characterize but is concerning for malignancy as discussed w/ patient and his Heme/onc on consult while inpatient--> additional labs for eval ordered and can f/u outpatient Discussed and added Decadron 4mg BID ordered and significant improvement in pain/weakness noted. Did discuss rad/onc consultation w/ Dr Cowan and was planning to see patient on Sunday for consideration SBRT to begin However, after starting the Decadron 4mg BID, patient reported significant improvement in energy/ambulation and wanting to go home. Discussed w/ Dr Morgan and risks/symptoms to return for discussed and ok for dc on Decadron 4mg BID. Dr Cowan possibly able to see patient tomorrow pending schedule. Will call in AM but asked patient to call the office in AM if he does not hear by clay caster. Pain controlled w/ usual fentanyl patch. continued 25mcg daily. 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 Iron felt chronic and ferritin not low. No replacement at dc per heme/onc Regarding mood/depression/insomnia --> had given 15mg remeron last evening, discussed taking his Cymbalta in the morning and DISCONTINUED ambien as taking for insomnia, likely from cymbalta use at night Rx for remeron 15mg HD sent Of note, did have low grade temp 38.2C, asymptomatic, and not neutropenic, but blood cx/empiric abx initiated but not felt needed w/o source. 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 Patient was seen in the ER on 09/18/2022 with similar complaints. Had negative CTA at that time as well as a largely normal work-up and was subsequently discharged home with a diagnosis of musculoskeletal pain. Pain has persisted. Patient also reports worsening dyspnea on exertion. Suspect multifactorial -patient with pulmonary metastasis, fractured ribs, likely some degree of atelectasis with splinting. Possible pulmonary edema contributing as well. Lasix 40mg IV on admit x 1, UOP >2L and Na dropped to 124s, decadron ordered and given 250cc bolus and Na on AM labs 134 w/ adequate pain control Repeat cxr w/o significant pulmonary edema and 96% on RA Troponins negative ECHO w/o wall motion abnormality, EF Pulmonary toiler for rib fractures. BNP not elevated Continue fentanyl patch 25mcg q3d. due for fill tomorrow and to call if [facility] giving issues with having in stock to send to different pharmacy. (3) Left-sided weakness: Patient with complaint of left-sided weakness of his arm and leg. Very minimal weakness appreciated in the left lower extremity on exam. CTA head/neck unremarkable for acute process Brain MRI as above, ordered MRI lumbar/thoracic spine as outlined Did note narrowing C4-C5 on imaging likley some contribution for LUE weakness but improved w/ steroids. Did have some LLE weakness w/ straight leg but none w/ dorsiflexion/plantar flexion in bed --> improving w/ steroids. MRI lumbar spine w/ mild progression of extensive skeletal metastatic disease since MRI of August 14, 2022. No pathologic fractures or epidural extension of tumor within the lumbar spine. No severe central canal stenosis. Moderate multilevel degenerative changes within lumbar spine, similar to MRI of August 14, 2022. Multilevel neural foraminal stenosis, as noted in impression Heme/onc consulted. Rad/onc consulted for Sunday but patient leaving today as above. If not able to arrange SBRT w/ [facility] in next week to call Dr Souza office to start treatment Has cane at home, witnessed ambulating from bathroom to bed without issue. Continue to use cane for support, declined rx for walker for support but discussed if any worsening to let us/PCP know (4) Acute hyponatremia: Na 128 on admit, Urine osm/serum osm obtained --> urine random sodium 101, urine osm 310 and placed on fluid restriction Suspect aspect of uncontrolled pain, worsened after IV lasix on admission and provided 250cc bolus NSS, fluid restriction and decadron for pain w/ repeat 134 and weakness improved Discused limiting free water but continue PO gatorade/similar in meantime, monitor for any worsening. Could also be from lung ca as noted mets, uncontrolled pain, also dehydration/renal salt wasting Repeat labs outpatient w/ provider this upcoming week as will be done at [facility] (5) Abnormal LFTs: Patient with progressively worsening LFTs. AST = 110, ALT = 62, alkaline phosphatase = 174 (known bony metastasis, normal bilirubin). Repeat LFts in AM improving, still elevation ALP - (bony mets) RUQ w/ 1.1cm lesion concerning for malignancy but too small to characterize Heme/onc on consult as above Additional lab testing sent for eval Continued improvement in LFTs on AM labs -- instructed to hold statin x 1 week then resume if labs stabilized on repeat outpt f/u heme/onc at [facility], local pending further recs at [facility] (6) GERD (gastroesophageal reflux disease): Chronic. Stable. Continued Protonix 40 mg p.o. every morning -- consider increasing to BID if needed w/ steroid use and discussed w/ patient to do so if having worsening reflux on steroids Continued Pepcid 40 mg p.o. twice daily (7) Hypertension: Blood pressure mildly elevated on admit to 161/82, likely 2nd to aspect of pain as well Continued on lisinopril as taking at home, lasix on admit and then given small amt IVF as outlined BPs stable w/ stable pain control -- 119/71 most recent check (8) Sleep apnea: Chronic. States just recently was set up with machine but that he does have excessive daytime sleepiness CPAP ordered HS while inpatient Also discontinued his Ambien and using Remeron for sleep/mood (9) Hyperlipidemia: Chronic. Stable. Will hold statin for now given LFTS -- held at dc x 1 week (10) Anemia: Baseline hgb appears to have been in the 10-12s prior to the start of this year denied any wilfrido bleeding hgb 9.1 on admission, repeat 8.4 --> 8.7 Iron panel c/w chronic disease, ferritin elevated B12 low normal and given IM replacement while inpatient and PO continued at d/c Folate also low normal and continued PO supplementation LDH elevation likely 2nd to malignancy/etc as above, ?hemolysis (11) Abnormal brain MRI: as above, c/w met disease (12) Liver lesion: 1.1cm lesion, too small to characterize but concerning for malignancy, gurwinder in setting of elevated LFTs f/u heme/onc outpatient (13) C7 cervical fracture: noted nondisplaced pathologic fx tip C7 spinous process, 2nd to small underlying osteolytic metastatic lesion at this location. pain control, PT/OT consulted but ambulating in room and wanting to go home lumbar/thoracic MRIs as above -- No change in mild enhancing soft tissue within the anterior epidural space at the T6-T8 levels since previous MRI, favoring mild epidural extension of tumor f/u outpatient radiation for treatment for pain control Plan DVT prophylaxis: Lovenox SQ while inpatient wanting to go home, discussed w/ supervising provider who saw patient as well as Dr Morgan from hematology and rx for decadron 4mg BID sent at discharge. CD w/ imaging provided for outpt f/u [facility] on Sunday D/c Ambien, changed Cymbalta to AM dosing and rx for Remeron for sleep/mood given progressive metastatic disease on imaging (NEW changes from just a little over a month ago) Total Time Total Time Spent Total Time Spent (In Minutes): 60 Discharge Plan Discharge Items Patient Disposition: Home - Self-Care Reason For Visit: CHEST PAIN, SOB Discharge Diagnosis: Chest pain, metastatic cancer Goals: You have been hospitalized for an acute medical problem. During your stay at [facility], we have made an effort to correct the problem that brought you to the hospital while keeping you as comfortable as possible. Medications were used to bring your condition under control and your discharge instructions will include directions for any medications you should take after leaving the hospital. Please make sure you see your Primary Care Provider as part of your follow up plan. Activity: As commented below Non-emergency contact: Primary Care Provider Call non-emergency contact if: you have any medication questions, your symptoms worsen and your pain is not controlled Follow-up/Referrals: Jo Maxwell MD [Primary Care Provider] - 10/03/22 10:20 am Nikos Cowan MD [Physician] - Ronan Morgan MD [Physician] - Diet: Heart Healthy Addtl Attending Provider Instructions: You have been hospitalized for chest pain and weakness. CT head imaging was negative but MRI of the brain did show evidence for metastatic disease as well as findings in your liver which were concerning but too small to characterize. We put you on empiric antibiotics for low grade temp but never with actual "fever" 100.4F or greater and blood cultures have been negative. We checked labs w/ low folate and B12 and supplementation has been provided and should continue. You have pathological fractures in your spine and discussion was undertaken with Dr Morgan and we started you on Decadron (a steroid) to help with bony pain as well as brain findings to prevent any edema/etc. You should monitor for any bleeding, increased shortness of breath or weakness, seizure activity (although sodium levels much better since admission and could have been causing you to feel poorly and steroids have helped with this). You can hold your atorvastatin for now to prevent any worsening liver function and likely can resume in a week but would check with your doctor first. We have stopped the Celebrex as this increases bleeding risk and would rather continue the fentanyl and steroids and you haven't gotten this inpatient. We stopped the Ambien and are using low dose Remeron for sleep/mood and you should be taking your Cymbalta in the morning to prevent issues with sleeping. We have burnt a CD with all imaging to take to your appointment at [facility] for further evaluation and they may be able to start radiation to brain/spine sooner but Dr oCwan may be able to see you tomorrow depending on timing with schedule and he will call you tomorrow to confirm time when he arrives int he morning but if you do not hear from him just to be on the safe side by 9am please call the office at [phone]. Please return to ER with any worsening symptoms as discussed. Please follow up with [facility] on Sunday and your PCP in the next week to monitor your status. It has been a pleasure being a part of the medical team providing for you while you have been in the hospital. Take care! Pending Studies at Discharge: Yes Studies:: blood cultures -- no growth to date Stand-Alone Forms: [facility] [employer], Smoking Cessation Medications and DC Order Prescriptions: New folic acid 1 mg Tablet 1 mg PO QAM Qty: 30 0RF mirtazapine 15 mg Tablet 15 mg PO HS Qty: 30 0RF dexamethasone 4 mg tablet 4 mg PO BID Qty: 60 0RF cyanocobalamin (vitamin B-12) 1,000 mcg capsule 1,000 mcg PO DAILY Qty: 30 0RF Continued ondansetron HCl 8 mg tablet 8 mg PO Q8H PRN (Reason: Nausea) prochlorperazine maleate [Compazine] 10 mg tablet 10 mg PO Q6H PRN (Reason: Nausea) pantoprazole 40 mg tablet,delayed release (DR/EC) 40 mg PO QAM Qty: 90 3RF (DME) Cock-Up Wrist Splint Misc See Dose Instructions .ROUTE .MEDSUPPLY Qty: 2 0RF Dose Instruction: As directed Rx Instructions: Left and right wrist splints G56.00 pilocarpine HCl [Salagen (pilocarpine)] 5 mg tablet 5 mg PO TID Qty: 270 1RF lorazepam 0.5 mg tablet 0.5 mg PO DAILY PRN (Reason: anxiety) Qty: 30 0RF famotidine 40 mg tablet 40 mg PO BID Qty: 180 1RF aspirin [Adult Low Dose Aspirin] 81 mg tablet,delayed release (DR/EC) 81 mg PO DAILY Qty: 90 3RF fluticasone propionate 50 mcg/actuation spray,suspension 2 spray intranasal BID PRN (Reason: Allergy Symptoms) Qty: 16 1RF lisinopril 40 mg tablet 40 mg PO DAILY Qty: 30 2RF (DME) Auto Titrating CPAP Misc See Rx Instructions .Route Qty: 1 0RF Rx Instructions: as directed-Min pressure: 4cmH2O, Max pressure: 33mgT5R, CPAP SUPPLIES NEEDED: HUMIDIFIER, HEATED , REPLACEMENT WATER CHAMBER , TUBING , DISPOSABLE FILTERS , NON-DISPOSABLE FILTERS , HEADGEAR , MASK. clobetasol 0.05 % ointment 1 applic topical DAILY PRN (Reason: Skin Irritation) Rx Instructions: Apply to the hands at night for 2 weeks for flaring. mupirocin 2 % ointment 1 applic topical BID PRN (Reason: NEEDED) Rx Instructions: Apply to the cracks of the hands BID for 10-14 days until closed. fentanyl 25 mcg/hr patch 72 hour See Rx Instructions .ROUTE .COMPLEX Rx Instructions: Replace 1 patch every 72 hours. duloxetine 40 mg capsule,delayed release(DR/EC) 40 mg PO DAILY naloxone 4 mg/actuation spray,non-aerosol See Rx Instructions .ROUTE .COMPLEX Rx Instructions: CALL 911. ADMINISTER A SINGLE SPRAY INTRANASALLY INTO ONE NOSTRIL UPON SIGNS OF OPIOID OVERDOSE. MAY REPEAT AFTER 3 MINUTES IF NO RESPONSE. gabapentin 800 mg tablet See Rx Instructions .ROUTE .COMPLEX Rx Instructions: TAKE 1 CAPSULE BY MOUTH THREE TIMES DAILY WITH THE 100MG DOSES FOR A TOTAL OF 900MG THREE TIMES A DAY gabapentin 100 mg capsule See Rx Instructions .ROUTE .COMPLEX Rx Instructions: TAKE 1 CAPSULE BY MOUTH THREE TIMES DAILY WITH THE 800MG DOSES FOR A TOTAL OF 900MG THREE TIMES A DAY acetaminophen 500 mg Capsule 1,000 mg PO HS PRN (Reason: Pain) bisacodyl [Dulcolax (bisacodyl)] 5 mg Tablet,Delayed Release (Dr/Ec) 5 mg PO HS PRN (Reason: Constipation) Held atorvastatin [Lipitor] 20 mg tablet 20 mg PO HS Qty: 90 1RF Hold Instructions: Resume on 10/02/22. Discontinued celecoxib [Celebrex] 100 mg capsule 100 mg PO BID Qty: 180 1RF Patient Comments: ON HOLD FOR SURGERY zolpidem 10 mg tablet 10 mg PO HS Qty: 30 1RF No Action levothyroxine 50 mcg capsule 50 mcg PO DAILY Qty: 90 3RF Discharge Orders: Discharge Order (Routine); Ordered 09/24/22 Ordered By: Thalia Jones Admission Data Admit Date/Time: 09/22/22 22:41 Attending Provider: Sina Ferrari Admit Provider: Brittany Nicole Primary Care Provider: Jo Maxwell Other Providers: Brittany Nicole ; Ronan Morgna ; Nikos Cowan Other Interventions: Discharge Summary Assessment (RN) Last Done: 09/24/22 14:39 Supervising Physician Co-Signing Physician Notes The patient was seen by me. The chart was reviewed. Case discussed with EMMANUEL Yusuf. Agree with assessment and plan. He is medically stable for discharge Coding Level of Care Code 65269 INP/OBS DISCH >30 MIN Diagnoses Metastatic cancer C79.9 Left-sided chest pain R07.9 Left-sided weakness R53.1 Acute hyponatremia E87.1 Abnormal LFTs R79.89 GERD (gastroesophageal reflux disease) K21.9 Hypertension I10 Sleep apnea G47.30 Hyperlipidemia E78.5 Anemia D64.9 Abnormal brain MRI R90.89 Liver lesion K76.9 C7 cervical fracture S12.600A
--- NOTE | 2022-09-24 11:41 | Magnetic Resonance Report ---
MRI OF THE THORACIC SPINE WITH AND WITHOUT CONTRAST CLINICAL HISTORY: Weakness, metastatic disease, eval pathological fx/lesion. COMPARISON: Thoracic spine MRI August 14, 2022. Thoracic spine CT June 19, 2022. TECHNIQUE: Utilizing a 1.5 Josiane magnet and dedicated coil, multiplanar, multiecho imaging of the th oracic spine was performed before and after the intravenous administration of Gadavist. FINDINGS: T5 pathologic fracture is unchanged in appearance since MRI of August 14, 2022. Posterior de compression with T3-T7 fusion is noted. Evaluation of this portion of the thoracic spine is suboptima l given susceptibility artifact from the hardware. The neural foramen are suboptimally assessed. Mode rate central canal narrowing at the T5 level is unchanged since MRI of August 14, 2022. The postoperat naveen appearance is unchanged. No thoracic cord signal abnormality is present. Mild enhancing soft tiss ue within the anterior epidural space at the T6-T8 levels is unchanged. This does not result in signi ficant central canal stenosis. No new sites of the intracanalicular enhancement are noted since previ ous MRI. There has been interval development of multiple thoracic spine lesions since MRI of July, including a 1.1 cm T9 vertebral body lesion. There is an additional T8 vertebral body lesion. A enhancing lesion within the T11 spinous process is again noted. Thoracic lymphadenopathy and pleur al parenchymal metastases are better depicted on recent chest CT. Multiple rib lesions are again note d. IMPRESSION: 1. Progression of skeletal metastatic disease since MRI of August 14, 2022 with interval development o f several vertebral metastases. 2. Unchanged appearance of the pathologic T5 fracture since previous MRI, as described above. Stable postoperative findings. 3. Suboptimal evaluation of this portion of the thoracic spine due to susceptibility artifact from giles [employer]ware. 4. Normal thoracic cord signal and caliber. 5. No change in mild enhancing soft tissue within the anterior epidural space at the T6-T8 levels sin ce previous MRI. This favors mild epidural extension of tumor. 6. Pleural and parenchymal metastatic disease and pathologic lymphadenopathy which is better depicted on recent chest CT. ACT 112: Negative or not required by law. Electronically signed by: Tonye Crump M.D. 09/24/2022 11:38 AM
--- NOTE | 2022-09-24 11:51 | Magnetic Resonance Report ---
MRI OF THE LUMBAR SPINE WITH AND WITHOUT CONTRAST CLINICAL HISTORY: Weakness, metastatic disease, eval pathological fx/lesion COMPARISON STUDY: Lumbar spine MRI August 14, 2022. TECHNIQUE: Utilizing a 1.5 Josiane magnet and dedicated coil, multiplanar, multiecho imaging of the andrew mbar spine was performed before and after uneventful IV administration of Gadavist. FINDINGS: For purposes of numbering on this exam, the L5-S1 disc space is assigned to axial image 23 of 25. Lum bar spine vertebral body heights are maintained. There is no lumbar spine pathologic fracture. Dense of multifocal marrow replacement is noted. This has mildly progressed since MRI of August 14, 2022 and represents metastatic disease. These include metastases within the left iliac bone, partially imaged on this exam. No epidural extension of tumor is noted. Moderate multilevel degenerative changes are present. These are similar to previous MRI. A 1.5 x 1.1 cm pathologic left para-aortic lymph node is similar to prior exam. L1-2: Moderate disc space narrowing is noted with disc bulge and facet arthrosis. The central canal i s patent. There is mild bilateral neural foraminal stenosis. L2-3: Moderate disc space narrowing is noted with disc bulge. There is severe facet arthrosis, greate r on the left. Moderate to severe narrowing of the left neural foramen is similar to previous MRI of August 14, 2022. There is mild central canal stenosis. L3-4: Central canal is patent. There is moderate facet arthrosis. There is moderate left and mild rig ht neural foraminal stenosis. L4-5: Moderate disc space narrowing is noted. There is moderate facet arthrosis. Central canal is pat ent. There is mild bilateral neural foraminal stenosis. L5-S1: Moderate disc space narrowing is noted. There is mild disc bulge. Moderate bilateral neural fo raminal stenosis. IMPRESSION: 1. Mild progression of extensive skeletal metastatic disease since MRI of August 14, 2022. No patholog ic fractures or epidural extension of tumor within the lumbar spine. 2. No severe central canal stenosis. Moderate multilevel degenerative changes within lumbar spine, si milar to MRI of August 14, 2022. Multilevel neural foraminal stenosis, as above. ACT 112: Negative or not required by law. Electronically signed by: Toney Crump M.D. 09/24/2022 11:48 AM
[2022-09-24] MEDS ORDERED: dexAMETHasone 4 MG TAB PO SCH ×2 (14:00→17:00)
[2022-09-24 15:07] VITALS: BP 112/71; PULSE 75; TEMP 97.3; O2SAT 94
== END 2022-09-24 16:25 | disposition home or self-care (01) | DRG 543 ==
LOC: ED 16:36 → SUATTDRO 22:41 → 4W 22:41 → 2W 09-23 18:14
DX: D64.9 Anemia, unspecified; Z96.653 Presence of artificial knee joint, bilateral; Z79.82 Long term (current) use of aspirin; E87.1 Hypo-osmolality and hyponatremia; C78.7 Secondary malignant neoplasm of liver and intrahepatic bile duct; R74.8 Abnormal levels of other serum enzymes; G47.00 Insomnia, unspecified; S22.49XA Multiple fractures of ribs, unspecified side, initial encounter for closed fracture; Z92.21 Personal history of antineoplastic chemotherapy; F32.A Depression, unspecified; J81.1 Chronic pulmonary edema; G47.30 Sleep apnea, unspecified; Z79.890 Hormone replacement therapy; C79.51 Secondary malignant neoplasm of bone; C79.31 Secondary malignant neoplasm of brain; C07 Malignant neoplasm of parotid gland; M84.58XA Pathological fracture in neoplastic disease, other specified site, initial encounter for fracture; K21.9 Gastro-esophageal reflux disease without esophagitis; C78.00 Secondary malignant neoplasm of unspecified lung; J98.11 Atelectasis; M48.02 Spinal stenosis, cervical region; Z20.822 Contact with and (suspected) exposure to COVID-19; E78.5 Hyperlipidemia, unspecified; I10 Essential (primary) hypertension; Z92.3 Personal history of irradiation; X58.XXXA Exposure to other specified factors, initial encounter

== ENCOUNTER 2022-12-02 13:49 | Inpatient (IN) ==
[2022-12-02] MEDS ORDERED: dexAMETHasone**PF** 10 MG/ML VIAL IV ONE (15:34)
[2022-12-02] MEDS ORDERED: ALBUT/IPRATROP 3MG/0.5MG NEB 3 ML VIAL NEB STA ×2 (15:34→19:39)
--- NOTE | 2022-12-02 15:47 | Emergency Department Note ---
Impression & Plan SOB (shortness of breath), Metastatic cancer ED Provider Note INFORMANT: Patient and ED PROVIDER(S): Magdaleno Braga MD CHIEF COMPLAINT: Shortness of breath PLAN: Disposition: Admitted Condition: Good Outpatient prescription management: none Referral: None MEDICAL DECISION MAKING: Patient presented because of acute shortness of breath. He had wheezing. His cancer history is concerning. The patient had a chest x-ray performed and this was concerning for some congestive change and apparent worsening of his metastatic disease. He was treated with a DuoNeb and IV Solu-Medrol. On reassessment he was feeling somewhat better. His work of breathing did improve somewhat. ECG showed a tachycardia but no overt ischemia. Patient's troponin was mildly elevated. Due to his cancer history and elevated troponin with the shortness of breath a CT scan of the chest was ordered. Patient was found to have interval progression of his metastatic disease. No obvious pulmonary emboli were noted. Respiratory motion was an issue. He has a normal BNP. There was some congestive changes noted on the CT imaging. Patient was empirically given a dose of IV Rocephin and additional nebulizer treatment was ordered. I discussed further management in the hospital with the patient and . They were in agreement. [facility] Case discussed with Dr. Nicole. Patient was evaluated in the ER admitted for further management Discussed with assistant manager/embalmer After review of the information above and other included data, I feel the patient requires admission. Triage Nursing notes reviewed and agree them. Vital Signs: reviewed and remarkable for tachypnea Prior /Outside records reviewed: none Differential diagnosis: Complication of chemotherapy, reactive airway disease, pneumonia, pneumothorax, COPD, CHF, infections, cardiac ischemia, pulmonary embolism, musculoskeletal, gastrointestinal, as well as other pathologies. Diagnostics, as interpreted by me: ECG: Twelve-lead ECG reveals sinus tachycardia 107 bpm. Proper branch block. No ST elevation or depression. No PVCs. Cardiac Monitoring: Cardiac monitoring ordered by me: The patient was placed on continuous cardiac monitoring and observed. It revealed a normal sinus rhythm at 92 beats per minute without ectopy or evidence of dysrhythmia. Medical decision rules: none Imaging studies: Chest x-ray shows bibasilar densities and increased findings related to his known cancer. CT PE study is negative for central pulmonary embolus. Respiratory motion present. Pulmonary vascular congestion present. Pleural effusions and metastatic disease noted I refer you to the EMR for further details. HPI: The patient is a 57 year old male who presents to the Emergency Room with complaints of shortness of breath. This started a few days ago and is worse today. The patient also notes the following associated symptoms, wheezing, generalized weakness, body aches. The patient has found no relieving factors. Current pain is rated as 3/10. Patient is undergoing treatment for metastatic cancer. He notes he received chemotherapy and immunotherapy 3 days ago. Typically does not have this type of reaction after his treatments. Pt denies LOC, headache, fevers, chills, diaphoresis, visual changes, neck pain, chest pain, nausea, vomiting, abdominal pain, back pain, melena, hematochezia, urinary symptoms, numbness, lymphadenopathy, rash, or other complaints. PAST MEDICAL HISTORY: See Below, hypertension, metastatic cancer PAST SURGICAL HISTORY: See Below, SOCIAL HISTORY: See Below, HOME MEDICATIONS: See Below ALLERGIES: See Below VITALS: See Below PHYSICAL EXAMINATION: GENERAL: Awake, alert, mildly dyspneic-appearing, in no distress HENT: Normocephalic, atraumatic. Oropharynx unremarkable. EYES: Normal conjunctiva. Sclera non-icteric. NECK: Inspection normal. Non-tender. Supple. No nuchal rigidity. FROM. No masses. RESPIRATORY: Few scattered expiratory wheezes. No rales. Mildly increased respiratory effort. CARDIAC: Borderline tachycardic rate. Normal rhythm. No murmurs. No rubs. Extremities warm and well perfused. Pulses equal. No JVD. GI: Soft, non-distended. No tenderness to palpation. No rebound or guarding. No masses. RECTAL: Deferred. MUSCULOSKELETAL: Atraumatic. Chest examination reveals no tenderness. The back is symmetrical on inspection without obvious abnormality. There is no CVA tenderness to palpation. No joint edema. LOWER EXTREMITIES: Calves are equal size bilaterally and non-tender. Trace edema. No discoloration. NEURO: Normal sensorium. No sensory or motor deficits noted. SKIN: No rash or jaundice noted. 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 Lumbar disc disease Lumbar radiculopathy Lymphadenopathy of left cervical region Lymphadenopathy of right cervical region Macular hole of left eye Mass of right parotid gland Numbness of upper extremity Osteoarthritis Overweight Sleep apnea Spinal stenosis Vitamin D deficiency Surgical History History of anesthesia reaction History of back surgery History of cervical discectomy History of colonoscopy History of esophagogastroduodenoscopy (EGD) History of hand surgery (~2003) History of hip replacement History of left cataract surgery History of open reduction and internal fixation (ORIF) procedure History of repair of rotator cuff History of sinus surgery History of superficial parotidectomy Family History Mother Stroke Father Myocardial infarction Brother Mantle cell lymphoma Rodriguez esophagus Heart disease Daughter Hypertension Other No family history of adverse response to anesthesia No family history of allergies No family history of bleeding disorder Denies family history of Ovarian cancer Prostate cancer Diabetes Breast cancer Colorectal cancer Social History Smoking Status: Never smoker Second Hand Exposure: No; Do You Dip or Chew Tobacco: No; Hx Alcohol Use: No Hx Substance Use: No Preferred Language: Luxembourgish Communication Ability: Effective Visual Impairment: No Limitations Hearing Ability: Normal 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 Beliefs That Will Affect Care: None marital status: Current Living Situation: Spouse Current Living Situation Comment: AND DAUGHTER current occupational status: employed current occupation: [employer] at [employer] Feels Safe at Home: Yes Childhood Exposure to Second-Hand Smoke: Yes Diet: regular Diet Comment: regular caffeine: No during the past year weight has: increased > 10 lbs Dental Care, Regularly: Yes Physical Activity Frequency: Daily Seatbelt Use: always Sunscreen Use: Yes Assistive Devices: None Allergies Allergies Allergy/AdvReac Type Severity Reaction Status Date / Time No Known Allergies Allergy Verified 11/07/22 09:30 Home Meds Home Medications Medication Instructions Recorded Confirmed clobetasol 0.05 % topical ointment 1 applic topical DAILY PRN Skin 05/08/22 12/02/22 Irritation mupirocin 2 % topical ointment 1 applic topical BID PRN NEEDED 06/19/22 12/02/22 ondansetron HCl 8 mg tablet 8 mg PO Q8H PRN Nausea 08/08/22 12/02/22 prochlorperazine maleate 10 mg 10 mg PO Q6H PRN Nausea 08/08/22 12/02/22 tablet (Compazine) duloxetine 40 mg capsule,delayed 40 mg PO DAILY 09/22/22 12/02/22 release gabapentin 800 mg tablet 800 mg PO TID 09/22/22 12/02/22 naloxone 4 mg/actuation nasal spray See Rx Instructions .Route .COMPLEX 09/22/22 12/02/22 ibuprofen 200 mg tablet (Advil) 400 mg PO Q6H PRN Pain 10/25/22 12/02/22 gabapentin 100 mg capsule 300 mg PO TID 10/26/22 12/02/22 fentanyl 50 mcg/hr transdermal 50 mcg transdermal [id number] 12/02/22 12/02/22 patch Previous Rx's Medication Instructions Recorded fluticasone propionate 50 2 spray intranasal BID PRN Allergy 09/23/21 mcg/actuation nasal Symptoms #16 grams spray,suspension pantoprazole 40 mg tablet,delayed 40 mg PO QAM #90 tabs 03/14/22 release Cock-Up Wrist Splint #2 ea 05/19/22 Auto Titrating CPAP #1 ea 07/10/22 atorvastatin 20 mg tablet (Lipitor) 20 mg PO HS #90 tabs 07/26/22 famotidine 40 mg tablet 40 mg PO BID #180 tabs 09/21/22 cyanocobalamin (vitamin B-12) 1,000 mcg PO DAILY #30 caps 09/24/22 1,000 mcg capsule levothyroxine 50 mcg capsule 50 mcg PO DAILY #90 caps 09/26/22 lorazepam 0.5 mg tablet 0.5 mg PO DAILY PRN anxiety #30 10/03/22 tabs folic acid 1 mg tablet 1 mg PO QAM #90 tabs 10/23/22 lisinopril 40 mg tablet 40 mg PO DAILY #90 tabs 10/23/22 mirtazapine 15 mg tablet 15 mg PO HS #90 tabs 10/23/22 pilocarpine HCl 5 mg tablet 5 mg PO TID #270 tabs 10/23/22 (Salagen (pilocarpine)) ferrous gluconate 324 mg (38 mg 324 mg PO TID #90 tabs 11/29/22 iron) tablet Results & Data (ED) Vital Signs Vital Signs - 24 hr 12/02/22 14:16 12/02/22 15:15 12/02/22 15:15 Temperature 36.4 C L Temperature Source Skin Pulse Rate 115 H 105 H Pulse Rhythm Regular Pulse Strength Absent Respiratory Rate 24 32 H Respiratory Effort / Characteristics Spontaneous Short of Breath SOB on Exertion Respiratory Depth Respiratory Pattern Tachypnea Blood Pressure 136/77 Blood Pressure Mean 96 Pulse Oximetry 92 94 94 Oxygen Delivery Method Room Air Room Air Room Air Sepsis Recent Fever Within 48 Hours No Sepsis New/Unexplained Change in Mental Status N/A Sepsis Action Taken by Nursing No Action Required 12/02/22 15:12 12/02/22 15:12 12/02/22 15:05 Temperature Temperature Source Pulse Rate 107 H 107 H Pulse Rhythm Pulse Strength Respiratory Rate 22 Respiratory Effort / Characteristics Spontaneous Accessory Muscle Use Respiratory Depth Normal Respiratory Pattern Tachypnea Blood Pressure Blood Pressure Mean Pulse Oximetry Oxygen Delivery Method Sepsis Recent Fever Within 48 Hours Sepsis New/Unexplained Change in Mental Status Sepsis Action Taken by Nursing 12/02/22 19:14 Temperature Temperature Source Pulse Rate 92 H Pulse Rhythm Pulse Strength Respiratory Rate Respiratory Effort / Characteristics Respiratory Depth Respiratory Pattern Blood Pressure Blood Pressure Mean Pulse Oximetry Oxygen Delivery Method Sepsis Recent Fever Within 48 Hours Sepsis New/Unexplained Change in Mental Status Sepsis Action Taken by Nursing Laboratory Data 12/02/22 15:45 12/02/22 15:45 Lab Results 12/02/22 12/02/22 12/02/22 Range/Units 15:45 15:45 15:45 WBC 10.30 (4.8-10.8) K/ul RBC 3.84 L (4.70-6.10) M/uL Hgb 10.8 L (14.0-18.0) g/dl Hct 33.4 L (42.0-52.0) % MCV 87.0 (80.0-100.0) fL MCH 28.1 (25.0-34.0) pg MCHC 32.3 (32.0-36.0) g/dL RDW Std Deviation 49.1 H (36.4-46.3) fL RDW Coeff of Renny 15.6 H (11.5-14.5) % Plt Count 331 (130-400) K/uL MPV 10.8 (9.4-12.4) fL Immature Gran % (Auto) 0.4 % Neut % (Auto) 94.5 % Lymph % (Auto) 3.1 % Meeker % (Auto) 1.1 % Eos % (Auto) 0.4 % Baso % (Auto) 0.5 % Neut # (Auto) 9.74 H (1.40-6.50) K/uL Lymph # (Auto) 0.32 L (1.2-3.4) K/uL Meeker # (Auto) 0.11 (0.11-0.59) K/uL Eos # (Auto) 0.04 (0-0.50) K/uL Baso # (Auto) 0.05 (0-0.2) K/uL Immature Gran # (Auto) 0.04 (0.01-0.20) K/uL Anisocytosis Present Ovalocytes 1+ PT 11.7 (9.0-12.0) Seconds INR 1.1 (0.9-1.1) APTT 30.8 (21.0-31.0) Seconds PTT Ratio 1.1 Sodium 132 L (136-145) mmol/L Potassium 3.9 (3.5-5.1) mmol/L Chloride 100 (98-107) mmol/L Carbon Dioxide 25 (21-32) mmol/L Anion Gap 7 (3-11) BUN 17 (6-23) mg/dl Creatinine 1.09 (0.6-1.4) mg/dl Est Cr Clr Drug Dosing 93.0 ml/min Est GFR ( Amer) 86.9 ml/min Est GFR (Non-Af Amer) 74.9 ml/min BUN/Creatinine Ratio 15.6 (10-20) Glucose 107 H (70-99(Fasting)) mg/dl Calcium 7.4 L (8.6-10.3) mg/dl Magnesium 2.1 (1.7-2.4) mg/dl Total Bilirubin 0.8 (0.2-1.0) mg/dl AST 41 H (13-39) U/L ALT 19 (7-52) U/L Alkaline Phosphatase 113 H (34-104) U/L Troponin I High Sens 23.0 H (0-20) pg/ml B-Natriuretic Peptide (0-100) pg/ml Total Protein 6.6 (6.0-8.3) gm/dl Albumin 3.4 (3.4-5.0) gm/dl Globulin 3.2 (2.5-4.0) gm/dl Albumin/Globulin Ratio 1.1 (0.9-2) Adenovirus (PCR) (NotDetected) B. pertussis DNA (PCR) (NotDetected) B.parapertussis DNA PCR (NotDetected) C. pneumoniae DNA (PCR) (NotDetected) Coronavirus OC43 (PCR) (NotDetected) Coronavirus HKU1 (PCR) (NotDetected) Coronavirus 229E (PCR) (NotDetected) SARS-CoV-2 (PCR) (NotDetected) Coronavirus NL63 (PCR) (NotDetected) Human Metapneumovir PCR (NotDetected) Influenza Type A (PCR) (NotDetected) Influenza Type B (PCR) (NotDetected) M. pneumoniae (PCR) (NotDetected) Parainfluenza 1 (PCR) (NotDetected) Parainfluenza 2 (PCR) (NotDetected) Parainfluenza 3 (PCR) (NotDetected) Parainfluenza 4 (PCR) (NotDetected) RSV (PCR) (NotDetected) Entero/Rhino (PCR) (NotDetected) 12/02/22 12/02/22 Range/Units 15:45 15:45 WBC (4.8-10.8) K/ul RBC (4.70-6.10) M/uL Hgb (14.0-18.0) g/dl Hct (42.0-52.0) % MCV (80.0-100.0) fL MCH (25.0-34.0) pg MCHC (32.0-36.0) g/dL RDW Std Deviation (36.4-46.3) fL RDW Coeff of Renny (11.5-14.5) % Plt Count (130-400) K/uL MPV (9.4-12.4) fL Immature Gran % (Auto) % Neut % (Auto) % Lymph % (Auto) % Meeker % (Auto) % Eos % (Auto) % Baso % (Auto) % Neut # (Auto) (1.40-6.50) K/uL Lymph # (Auto) (1.2-3.4) K/uL Meeker # (Auto) (0.11-0.59) K/uL Eos # (Auto) (0-0.50) K/uL Baso # (Auto) (0-0.2) K/uL Immature Gran # (Auto) (0.01-0.20) K/uL Anisocytosis Ovalocytes PT (9.0-12.0) Seconds INR (0.9-1.1) APTT (21.0-31.0) Seconds PTT Ratio Sodium (136-145) mmol/L Potassium (3.5-5.1) mmol/L Chloride (98-107) mmol/L Carbon Dioxide (21-32) mmol/L Anion Gap (3-11) BUN (6-23) mg/dl Creatinine (0.6-1.4) mg/dl Est Cr Clr Drug Dosing ml/min Est GFR ( Amer) ml/min Est GFR (Non-Af Amer) ml/min BUN/Creatinine Ratio (10-20) Glucose (70-99(Fasting)) mg/dl Calcium (8.6-10.3) mg/dl Magnesium (1.7-2.4) mg/dl Total Bilirubin (0.2-1.0) mg/dl AST (13-39) U/L ALT (7-52) U/L Alkaline Phosphatase (34-104) U/L Troponin I High Sens (0-20) pg/ml B-Natriuretic Peptide 74 (0-100) pg/ml Total Protein (6.0-8.3) gm/dl Albumin (3.4-5.0) gm/dl Globulin (2.5-4.0) gm/dl Albumin/Globulin Ratio (0.9-2) Adenovirus (PCR) Not Detected (NotDetected) B. pertussis DNA (PCR) Not Detected (NotDetected) B.parapertussis DNA PCR Not Detected (NotDetected) C. pneumoniae DNA (PCR) Not Detected (NotDetected) Coronavirus OC43 (PCR) Not Detected (NotDetected) Coronavirus HKU1 (PCR) Not Detected (NotDetected) Coronavirus 229E (PCR) Not Detected (NotDetected) SARS-CoV-2 (PCR) Not Detected (NotDetected) Coronavirus NL63 (PCR) Not Detected (NotDetected) Human Metapneumovir PCR Not Detected (NotDetected) Influenza Type A (PCR) Not Detected (NotDetected) Influenza Type B (PCR) Not Detected (NotDetected) M. pneumoniae (PCR) Not Detected (NotDetected) Parainfluenza 1 (PCR) Not Detected (NotDetected) Parainfluenza 2 (PCR) Not Detected (NotDetected) Parainfluenza 3 (PCR) Not Detected (NotDetected) Parainfluenza 4 (PCR) Not Detected (NotDetected) RSV (PCR) Not Detected (NotDetected) Entero/Rhino (PCR) Not Detected (NotDetected) Administered Medications Discontinued Medications Albuterol (Albut/Ipratrop 3mg/0.5mg Neb 3 Ml Vial) 3 ml NEB NOW STA; Protocol Stop: 12/02/22 15:35 Last Admin: 12/02/22 15:38 Dose: 3 ml Documented By: FERTILIZER MIXER Dexamethasone Sodium Phosphate (DexamethasonePf 10 Mg/Ml Vial) 10 mg IV NOW ONE Stop: 12/02/22 15:35 Last Admin: 12/02/22 15:47 Dose: 10 mg Documented By: FERTILIZER MIXER Ioversol (Optiray 320 125ml) 119 ml IV ONCE ONE Stop: 12/02/22 17:38 Last Admin: 12/02/22 17:37 Dose: 119 ml Documented By: E[facility] Imaging Data Radiologist's Impression: Chest X-Ray 12/02/22 14:56 XR chest 1V portable HISTORY: Dyspnea COMPARISON: Chest 09/24/2022. FINDINGS: No pneumothorax. Small right pleural effusion. There are patchy bibasilar densities. Multiple scattered pulmonary nodules have increased in size. The heart remains enlarged. There is progressive interstitial/vascular thi ckening consistent with pulmonary edema. Extensive cervical and thoracic spinal fusion hardware with kyphoplasty is again noted. IMPRESSION: 1. Interval progression of pulmonary metastatic disease. 2. Pulmonary edema with a small right pleural effusion. 3. Patchy bibasilar densities are also noted. ACT 112: Negative or not required by law. Electronically signed by: Bob Hinds M.D. 12/02/2022 3:48 PM Chest CTA 12/02/22 15:36 CHEST CTA for PULMONARY ARTERIES CT DOSE: 974.19 mGy.cm HISTORY: Shortness of breath, hx of cancer TECHNIQUE: Multiaxial CT images of the chest were performed following the intravenous administration of contrast to evaluate the pulmonary arteries. 3D/ Maximal intensity projection images were also obtained. Sagittal and coronal reformations were also reviewed. A dose lowering technique was utilized adhering to the principles of ALARA. COMPARISON STUDY: Chest CTA 09/22/2022. FINDINGS: Multiple scattered lytic lesions are again seen throughout the visualized osseous structures consistent with the patient's known metastatic disease. Multiple healing bilateral rib fractures are again noted. These are similar to the prior study. T3-T7 posterior fusion hardware is again noted with associated kyphoplasty. T5 pathologic compression fracture with 6 mm of retropulsion again noted. There is posterior decompression at this level. Cervical spinal fusion hardware is partially visualized. Limited views of the upper abdomen demonstrate a normal spleen and adrenal glands. There is a 1.9 cm hypodense lesion within the right hepatic lobe. This may represent a metastatic focus. The heart is borderline enlarged. There are small bilateral pleural effusions which have progressed. Interval increase in size. Extensive pleural metastatic disease most pronounced on the right. Multiple scattered irregular p ulmonary nodules are again noted, some which have increased in size and number in the interval. No pneumothorax. Mild narrowing of the segmental bronchi due to the hilar lymphadenopathy. Extensive mediastinal and bilateral hilar lymphadenopathy persists consistent with metastatic disease. Destructive changes within the right posterior ribs again noted. Mild interlobular septal thickening and patchy groundglass densities may represent superimposed pulmonary edema. Normal caliber thoracic aorta with no evidence for dissection. Respiratory motion artifact results in suboptimal evaluation of the segmental and subsegmental pulmonary arteries. Otherwise, no evidence for a central pulmonary embolus. IMPRESSION: 1. No evidence for central pulmonary embolus. 2. Extensive metastatic disease, some of which has progressed in the interval. This is most pronounced within the pleural-based lesions. 3. Small bilateral pleural effusions have progressed. 4. Interlobular septal thickening and patchy groundglass densities may represent superimposed pulmonary edema. 5. Additional findings as described above. ACT 112: Negative or not required by law. Electronically signed by: Bob Hinds M.D. 12/02/2022 7:34 PM Discharge Plan Visit Data Chief Complaint: Shortness of Breath/Dyspnea Stated Complaint: SOB,WHEEZING IN CHEST ED Provider: Magdaleno Braga Discharge Problem: SOB (shortness of breath), Metastatic cancer Forms Stand Alone Forms: [facility] [place] [email or web address] Prescriptions Prescriptions: No Action ondansetron HCl 8 mg tablet 8 mg PO Q8H PRN (Reason: Nausea) prochlorperazine maleate [Compazine] 10 mg tablet 10 mg PO Q6H PRN (Reason: Nausea) ibuprofen [Advil] 200 mg tablet 400 mg PO Q6H PRN (Reason: Pain) pantoprazole 40 mg tablet,delayed release (DR/EC) 40 mg PO QAM Qty: 90 3RF (DME) Cock-Up Wrist Splint Misc See Dose Instructions .ROUTE .MEDSUPPLY Qty: 2 0RF Dose Instruction: As directed Rx Instructions: Left and right wrist splints G56.00 atorvastatin [Lipitor] 20 mg tablet 20 mg PO HS Qty: 90 1RF Hold Instructions: Resume on 10/02/22. famotidine 40 mg tablet 40 mg PO BID Qty: 180 1RF levothyroxine 50 mcg capsule 50 mcg PO DAILY Qty: 90 3RF folic acid 1 mg tablet 1 mg PO QAM Qty: 90 3RF lisinopril 40 mg tablet 40 mg PO DAILY Qty: 90 1RF mirtazapine 15 mg tablet 15 mg PO HS Qty: 90 1RF pilocarpine HCl [Salagen (pilocarpine)] 5 mg tablet 5 mg PO TID Qty: 270 1RF ferrous gluconate 324 mg (38 mg iron) tablet 324 mg PO TID Qty: 90 0RF fluticasone propionate 50 mcg/actuation spray,suspension 2 spray intranasal BID PRN (Reason: Allergy Symptoms) Qty: 16 1RF (DME) Auto Titrating CPAP Misc See Rx Instructions .Route Qty: 1 0RF Rx Instructions: as directed-Min pressure: 4cmH2O, Max pressure: [id number], CPAP SUPPLIES NEEDED: HUMIDIFIER, HEATED , REPLACEMENT WATER CHAMBER , TUBING , DISPOSABLE FILTERS , NON-DISPOSABLE FILTERS , HEADGEAR , MASK. lorazepam 0.5 mg tablet 0.5 mg PO DAILY PRN (Reason: anxiety) Qty: 30 1RF clobetasol 0.05 % ointment 1 applic topical DAILY PRN (Reason: Skin Irritation) Rx Instructions: Apply to the hands at night for 2 weeks for flaring. mupirocin 2 % ointment 1 applic topical BID PRN (Reason: NEEDED) Rx Instructions: Apply to the cracks of the hands BID for 10-14 days until closed. duloxetine 40 mg capsule,delayed release(DR/EC) 40 mg PO DAILY naloxone 4 mg/actuation spray,non-aerosol See Rx Instructions .ROUTE .COMPLEX Rx Instructions: CALL 911. ADMINISTER A SINGLE SPRAY INTRANASALLY INTO ONE NOSTRIL UPON SIGNS OF OPIOID OVERDOSE. MAY REPEAT AFTER 3 MINUTES IF NO RESPONSE. gabapentin 800 mg tablet 800 mg PO TID Rx Instructions: TAKE 1 CAPSULE BY MOUTH THREE TIMES DAILY WITH THE 300 MG DOSES FOR A TOTAL OF 1200 MG THREE TIMES A DAY cyanocobalamin (vitamin B-12) 1,000 mcg capsule 1,000 mcg PO DAILY Qty: 30 0RF gabapentin 100 mg capsule 300 mg PO TID Rx Instructions: TAKE 3 CAPSULE BY MOUTH THREE TIMES DAILY WITH THE 800MG DOSES FOR A TOTAL OF 1200MG THREE TIMES A DAY fentanyl 50 mcg/hr patch 72 hour 50 mcg transdermal [id number] Referrals Referrals: Jo Maxwell MD [Primary Care Provider] -
--- NOTE | 2022-12-02 15:49 | XRay Report ---
XR chest 1V portable HISTORY: Dyspnea COMPARISON: Chest 09/24/2022. FINDINGS: No pneumothorax. Small right pleural effusion. There are patchy bibasilar densities. Multip le scattered pulmonary nodules have increased in size. The heart remains enlarged. There is progressi ve interstitial/vascular thickening consistent with pulmonary edema. Extensive cervical and thoracic spinal fusion hardware with kyphoplasty is again noted. IMPRESSION: 1. Interval progression of pulmonary metastatic disease. 2. Pulmonary edema with a small right pleural effusion. 3. Patchy bibasilar densities are also noted. ACT 112: Negative or not required by law. Electronically signed by: Bob Hinds M.D. 12/02/2022 3:48 PM
[2022-12-02 16:22] LABS: Hematocrit (blood only) 33.4 % (42.0-52.0); Hemoglobin 10.8 g/dl (14.0-18.0); Mean Corpuscular Hemoglobin 28.1 pg (25.0-34.0); Mean Corpuscular Hgb Conc 32.3 g/dL (32.0-36.0); Mean Platelet Volume 10.8 fL (9.4-12.4); Platelet Count 331 K/uL (130-400); RDW Coefficient of Variation 15.6 % (11.5-14.5); RDW Standard Deviation 49.1 fL (36.4-46.3); Red Blood Count 3.84 M/uL (4.70-6.10)
[2022-12-02 16:35] LABS: Albumin Globulin Ratio 1.1 (0.9-2); Albumin Level 3.4 gm/dl (3.4-5.0); BUN Creatinine Ratio 15.6 (10-20); Bilirubin,Total 0.8 mg/dl (0.2-1.0); Calcium 7.4 mg/dl (8.6-10.3); Est GFR (African American) 86.9 ml/min; Est GFR (Non-African American) 74.9 ml/min; Globulin 3.2 gm/dl (2.5-4.0); Magnesium 2.1 mg/dl (1.7-2.4); Potassium 3.9 mmol/L (3.5-5.1); Total Protein 6.6 gm/dl (6.0-8.3)
[2022-12-02 16:52] LABS: Anisocytosis Present; Basophils # (auto) 0.05 K/uL (0-0.2); Basophils % (auto) 0.5 %; Eosinophils # (auto) 0.04 K/uL (0-0.50); Eosinophils % (auto) 0.4 %; Immature Granulocytes # (auto) 0.04 K/uL (0.01-0.20); Immature Granulocytes % (auto) 0.4 %; Lymphocytes # (auto) 0.32 K/uL (1.2-3.4); Lymphocytes % (auto) 3.1 %; Monocytes # (auto) 0.11 K/uL (0.11-0.59); Monocytes % (auto) 1.1 %; Neutrophils # (auto) 9.74 K/uL (1.40-6.50); Neutrophils % (auto) 94.5 %; Ovalocytes 1+
[2022-12-02 17:01] LABS: INR 1.1 (0.9-1.1); Partial Thromboplastin Ratio 1.1; Partial Thromboplastin Time 30.8 Seconds (21.0-31.0); Prothrombin Time 11.7 Seconds (9.0-12.0)
[2022-12-02 17:04] LABS: Adenovirus PCR Not Detected (NotDetected); Bordetella parapertussis PCR Not Detected (NotDetected); Bordetella pertussis PCR Not Detected (NotDetected); Chlamydia pneumoniae PCR Not Detected (NotDetected); Coronavirus 229E PCR Not Detected (NotDetected); Coronavirus CoV-2 (COVID19)PCR Not Detected (NotDetected); Coronavirus HKU1 PCR Not Detected (NotDetected); Coronavirus NL63 PCR Not Detected (NotDetected); Coronavirus OC43PCR Not Detected (NotDetected); Human Metapneumovirus PCR Not Detected (NotDetected); Influenza A PCR Not Detected (NotDetected); Influenza B PCR Not Detected (NotDetected); Mycoplasma pneumoniae PCR Not Detected (NotDetected); Parainfluenza Virus 1 PCR Not Detected (NotDetected); Parainfluenza Virus 2 PCR Not Detected (NotDetected); Parainfluenza Virus 3 PCR Not Detected (NotDetected); Parainfluenza Virus 4 PCR Not Detected (NotDetected); Respiratory Syncytial VirusPCR Not Detected (NotDetected); Rhinovirus/Enterovirus PCR Not Detected (NotDetected)
[2022-12-02] MEDS ORDERED: OPTIRAY 320 125ml IV ONE (17:37)
--- NOTE | 2022-12-02 19:36 | CT Scan Report ---
CHEST CTA for PULMONARY ARTERIES CT DOSE: 974.19 mGy.cm HISTORY: Shortness of breath, hx of cancer TECHNIQUE: Multiaxial CT images of the chest were performed following the intravenous administration of contrast to evaluate the pulmonary arteries. 3D/Maximal intensity projection images were also obta ined. Sagittal and coronal reformations were also reviewed. A dose lowering technique was utilized a dhering to the principles of ALARA. COMPARISON STUDY: Chest CTA 09/22/2022. FINDINGS: Multiple scattered lytic lesions are again seen throughout the visualized osseous structure s consistent with the patient's known metastatic disease. Multiple healing bilateral rib fractures ar e again noted. These are similar to the prior study. T3-T7 posterior fusion hardware is again noted w ith associated kyphoplasty. T5 pathologic compression fracture with 6 mm of retropulsion again noted. There is posterior decompression at this level. Cervical spinal fusion hardware is partially visuali zed. Limited views of the upper abdomen demonstrate a normal spleen and adrenal glands. There is a 1. 9 cm hypodense lesion within the right hepatic lobe. This may represent a metastatic focus. The heart is borderline enlarged. There are small bilateral pleural effusions which have progressed. Interval increase in size. Extensive pleural metastatic disease most pronounced on the right. Multiple scatter ed irregular pulmonary nodules are again noted, some which have increased in size and number in the i nterval. No pneumothorax. Mild narrowing of the segmental bronchi due to the hilar lymphadenopathy. E xtensive mediastinal and bilateral hilar lymphadenopathy persists consistent with metastatic disease. Destructive changes within the right posterior ribs again noted. Mild interlobular septal thickening and patchy groundglass densities may represent superimposed pulmonary edema. Normal caliber thoracic aorta with no evidence for dissection. Respiratory motion artifact results in suboptimal evaluation of the segmental and subsegmental pulmonary arteries. Otherwise, no evidence for a central pulmonary embolus. IMPRESSION: 1. No evidence for central pulmonary embolus. 2. Extensive metastatic disease, some of which has progressed in the interval. This is most pronounce d within the pleural-based lesions. 3. Small bilateral pleural effusions have progressed. 4. Interlobular septal thickening and patchy groundglass densities may represent superimposed pulmona ry edema. 5. Additional findings as described above. ACT 112: Negative or not required by law. Electronically signed by: Bob Hinds M.D. 12/02/2022 7:34 PM
[2022-12-02] MEDS ORDERED: cefTRIAXone SODIUM 2,000 MG/70 ML BAG IV STA (19:39)
--- NOTE | 2022-12-02 20:14 | History & Physical Report ---
Date of Service December 02, 2022 Assessment & Plan (1) SOB (shortness of breath): Plan: -Admit to med/tele on pulse oximetry -Currently stable on RA -Patient developed acute onset of SOB, especially with exertion up waking on 11/30 -Differential is broad and includes but is not limited to progression of lung mets, pulmonary edema, PE, ACS, infection -No leukocytosis, no sign of pneumonia on CXR or CTA of the chest, patient noted to have pulmonary edema on imaging. -He likely has multiple etiologies at this time with his progression of lung mets and interstitial pulm edema -Cannot rule out PE at this time as the CTA of the chest could only rule out central PE's, patient is high risk with active cancer and recent travel, but is also hemodynamically stable, stable on RA, and now in NSR -VQ scan would not be helpful with his extensive lung mets, Will obtain STAT BL Venous Dopplers for further revaluation but will hold therapeutic anticoagulation at this time -Do not think this is a reaction to his recent chemotherapy at this time -Do not think this is an infectious etiology at this time as his full resp biofire was negative and no sign of pneumonia on imaging -S/P 2 DuoNebs, ceftriaxone, and 10 mg IV dexamethasone in the ED -Will continue with scheduled DuoNebs, 20 mg IV lasix, incentive spirometry and flutter therapy and monitor for improvement -Will obtain TTE tomorrow -SQ lovenox for DVT PPX -HH diet -AM CBC, CMP, Mag, PT/INR (2) Elevated troponin: Plan: -Initial high sen trop elevated at 23 -Patient without acute ST segment or T-wave changes on ECG -Only experiencing chest pain with coughing at this time -Likely due to demand at this time -Will obtain STAT repeat trop now, continue to monitor on tele -Follow TTE tomorrow (3) Hypocalcemia: Plan: -Calcium noted to be 7.4 in the ED -Patient asymptomatic -Likely due to his cancer -Will obtain phos level on admission -Will give 1gm IV calcium gluconate now -Monitor am calcium level (4) Acute hyponatremia: Plan: -132 today -Likely due to a combination of SIADH from his known cancer with decreased PO intake -Monitor am electrolytes after diuresis overnight (5) Anemia: Plan: -Continue B12 and folic acid -Patient stopped ferrous sulfate due to GI irritation (6) Malignant neoplasm of parotid gland: Plan: -Currently enrolled in treatment trial at the [facility] -S/P Keytruda/pemetrexed with first dose of 11/28 -Continue home pain regimen (7) GERD (gastroesophageal reflux disease): Plan: -Continue pantoprazole and famotidine (8) Hypertension: Plan: -Stable -Continue lisinopril (9) Sleep apnea: Plan: -HS CPAP ordered (10) Hyperlipidemia: Plan: -Conitnue statin (11) Anxiety: Plan: -Continue Duloxetine, prn ativan, and HS remeron Plan The patient was discussed with Dr. 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 Bateman with adjuvant radiation therapy with metastases to the bone, parietal skull, lungs, liver, HTN, GERD, hypothyroidism, HANNAH who presented to the [facility] ED on 12/02 with a chief complaint of SOB. In the ED the patient was noted to be tachycardic with HR of 115 and respirations of 32 but otherwise stable. Labs were significant for a lymphocyte count of 0.32, sodium of 132, calcium of 7.4, AST of 41, alk phos of 113, initial high sen trop of 23, and full respiratory biofire negative. Chest xray was read as "1. Interval progression of pulmonary metastatic disease. 2. Pulmonary edema with a small right pleural effusion. 3. Patchy bibasilar densities are also noted.". CTA of the chest was read as "1. No evidence for central pulmonary embolus. 2. Extensive metastatic disease, some of which has progressed in the interval. This is most pronounced within the pleural-based lesions. 3. Small bilateral pleural effusions have progressed. 4. Interlobular septal thickening and patchy groundglass densities may represent superimposed pulmonary edema. 5. Additional findings as described above. Prior to admission the patient was given 2 DuoNeb treatments, 10 mg IV dexamethasone, and a dose of ceftriaxone. At the time of the exam the patient was sitting in bed in no acute distress with his sitting bedside, history was obtained from both. They state that they traveled to the [facility] in [place] earlier this week for his first dose of Keytruda/Pemetrexed, which is the new clinical trail he was accepted into. He had his treatment on 11/29 without complication. They flew to [place] late Sunday night and drove to [facility] [employer] getting home at 0300. He states that he went to bed around 0400 and woke up around 10am. When he woke he started to develop significant SOB with exertion and a non-productive cough, both of which are new for him. He denies baseline SOB prior to travel despite his known lung mets. He has chronic right sided chest pain from his previous rib fractures. Of note, he states that he has developed left sided chest pain since he has been coughing hard to try and bring up mucus. He denies this new chest pain at rest. His father passed at 47 due to UT and his brother had an UT in his early 50's. The patient denies a personal history of cardiac disease. He denies recent fever, chills, hemoptysis, abd pain, nausea, vomitnig, diarrhea, dysuria, hematuria, LE swelling/pain, and recent trauma. He is a full code and would want his to make medical decisions for him if he could not make them himself. Please refer to Dr. Nicole's attestation for any changes to the treatment plan Allergies Allergy/AdvReac Type Severity Reaction Status Date / Time No Known Allergies Allergy Verified 11/07/22 09:30 Home Medications Medication Instructions Recorded Confirmed Type fluticasone propionate 50 2 spray intranasal BID PRN Allergy 09/23/21 12/02/22 Rx mcg/actuation nasal Symptoms #16 grams spray,suspension pantoprazole 40 mg tablet,delayed 40 mg PO QAM #90 tabs 03/14/22 12/02/22 Rx release clobetasol 0.05 % topical ointment 1 applic topical DAILY PRN Skin 05/08/22 12/02/22 History Irritation Cock-Up Wrist Splint #2 ea 05/19/22 12/02/22 Rx mupirocin 2 % topical ointment 1 applic topical BID PRN NEEDED 06/19/22 12/02/22 History Auto Titrating CPAP #1 ea 07/10/22 12/02/22 Rx atorvastatin 20 mg tablet (Lipitor) 20 mg PO HS #90 tabs 03/08/23 07/15/23 Rx ondansetron HCl 8 mg tablet 8 mg PO Q8H PRN Nausea 08/08/22 12/02/22 History prochlorperazine maleate 10 mg 10 mg PO Q6H PRN Nausea 08/08/22 12/02/22 History tablet (Compazine) famotidine 40 mg tablet 40 mg PO BID #180 tabs 09/21/22 12/02/22 Rx duloxetine 40 mg capsule,delayed 40 mg PO DAILY 09/22/22 12/02/22 History release gabapentin 800 mg tablet 800 mg PO TID 09/22/22 12/02/22 History naloxone 4 mg/actuation nasal spray See Rx Instructions .Route .COMPLEX 09/22/22 12/02/22 History cyanocobalamin (vitamin B-12) 1,000 mcg PO DAILY #30 caps 09/24/22 12/02/22 Rx 1,000 mcg capsule levothyroxine 50 mcg capsule 50 mcg PO DAILY #90 caps 09/26/22 12/02/22 Rx lorazepam 0.5 mg tablet 0.5 mg PO DAILY PRN anxiety #30 10/03/22 12/02/22 Rx tabs folic acid 1 mg tablet 1 mg PO QAM #90 tabs 10/23/22 12/02/22 Rx lisinopril 40 mg tablet 40 mg PO DAILY #90 tabs 10/23/22 12/02/22 Rx mirtazapine 15 mg tablet 15 mg PO HS #90 tabs 10/23/22 12/02/22 Rx pilocarpine HCl 5 mg tablet 5 mg PO TID #270 tabs 10/23/22 12/02/22 Rx (Salagen (pilocarpine)) ibuprofen 200 mg tablet (Advil) 400 mg PO Q6H PRN Pain 10/25/22 12/02/22 History gabapentin 100 mg capsule 300 mg PO TID 10/26/22 12/02/22 History ferrous gluconate 324 mg (38 mg 324 mg PO TID #90 tabs 11/29/22 12/02/22 Rx iron) tablet fentanyl 50 mcg/hr transdermal 50 mcg transdermal [id number] 12/02/22 12/02/22 History patch Past Med/Surg History Medical History (Reviewed 11/25/22 @ 15:24 by Dannie Jackson Jr, MD, [facility]) Allergic rhinitis Anemia Anxiety Cervical radiculopathy Chronic insomnia Degenerative disc disease (02/06/13) Deviated nasal septum Diverticulosis GERD (gastroesophageal reflux disease) Hiatal hernia Hyperlipidemia Hypertension Hypertrophy of nasal turbinates Left hip 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 terminal prescription benzodiazepine use Lumbar disc disease Lumbar radiculopathy Lymphadenopathy of left cervical region Lymphadenopathy of right cervical region Macular hole of left eye Mass of right parotid gland Numbness of upper extremity Osteoarthritis Overweight Sleep apnea Spinal stenosis Vitamin D deficiency Surgical History History of anesthesia reaction History of back surgery History of cervical discectomy History of colonoscopy History of esophagogastroduodenoscopy (EGD) History of hand surgery (~2003) History of hip replacement History of left cataract surgery History of open reduction and internal fixation (ORIF) procedure History of repair of rotator cuff History of sinus surgery History of superficial parotidectomy Family History (Reviewed 11/25/22 @ 15:24 by Dannie Jackson Jr, MD, [facility]) Mother Stroke Father Myocardial infarction Brother Mantle cell lymphoma Rodriguez esophagus Heart disease Daughter Hypertension Other No family history of adverse response to anesthesia No family history of allergies No family history of bleeding disorder Denies family history of Ovarian cancer Prostate cancer Diabetes Breast cancer Colorectal cancer Social History (Reviewed 11/25/22 @ 15:24 by Dannie Jackson Jr, MD, [facility]) Smoking Status: Never smoker Second Hand Exposure: No; Do You Dip or Chew Tobacco: No; Hx Alcohol Use: No Hx Substance Use: No Preferred Language: Cameroonian Communication Ability: Effective Visual Impairment: No Limitations Hearing Ability: Normal Adult Psychiatrist Required: No Beliefs That Will Affect Care: None marital status: Current Living Situation: Spouse Current Living Situation Comment: AND DAUGHTER current occupational status: employed current occupation: [employer] at [employer] Feels Safe at Home: Yes Childhood Exposure to Second-Hand Smoke: Yes Diet: regular Diet Comment: regular caffeine: No during the past year weight has: increased > 10 lbs Dental Care, Regularly: Yes Physical Activity Frequency: Daily Seatbelt Use: always Sunscreen Use: Yes Assistive Devices: None Physical Exam Physical Exam: Physical Exam: General: In no acute distress, stated age, well-nourished, good hygiene HEENT: Normocephalic, atraumatic, no scleral icterus, pupils around round, symmetrical, and reactive to light, moist mucus membranes, trachea midline, no thyromegaly Chest/Pulm: No reproducible pain upon palpation of the chest, No respiratory distress, symmetrical chest expansion, scattered rhonchi and wheezing throughout with BL crackles in the lower lung soria Cardiac: RRR, no murmurs noted Abdomen: Negative for ascites and bruising, normoactive bowel sounds, soft, non-tender to palpation throughout Musculoskeletal: Symmetrical and without signs of acute trauma, upper and lower extremities with full ROM, no atrophy, spasticity, or flaccidity Extremities: Radial, dorsalis pedis, and posterior tibial pulses are intact and symmetrical, no edema noted in the BL LE's Skin: Warm, dry, no rashes , lesions, or scars noted Neuro: Alert and oriented to person, place, month, year, and president, no focal defects, CN II-XII tested and intact,no tremors noted Psych: No acute distress, calm and cooperative during the exam Results & Data Results & Data Vital Signs (Past 12 Hours) Vital Signs Temp Pulse Resp BP Pulse Ox O2 Del Method 12/02/22 19:14 92 H 12/02/22 15:12 107 H 12/02/22 15:12 107 H 22 12/02/22 15:15 105 H 32 H 94 Room Air 12/02/22 15:15 94 Room Air 12/02/22 14:16 36.4 C L 115 H 24 136/77 92 Room Air Laboratory Results Abnormal lab results 12/02/22 12/02/22 Range/Units 15:45 15:45 RBC 3.84 L (4.70-6.10) M/uL Hgb 10.8 L (14.0-18.0) g/dl Hct 33.4 L (42.0-52.0) % RDW Std Deviation 49.1 H (36.4-46.3) fL RDW Coeff of Renny 15.6 H (11.5-14.5) % Neut # (Auto) 9.74 H (1.40-6.50) K/uL Lymph # (Auto) 0.32 L (1.2-3.4) K/uL Sodium 132 L (136-145) mmol/L Glucose 107 H (70-99(Fasting)) mg/dl Calcium 7.4 L (8.6-10.3) mg/dl AST 41 H (13-39) U/L Alkaline Phosphatase 113 H (34-104) U/L Troponin I High Sens 23.0 H (0-20) pg/ml Diagnostic Findings Chest X-Ray 12/02/22 14:56 XR chest 1V portable HISTORY: Dyspnea COMPARISON: Chest 09/24/2022. FINDINGS: No pneumothorax. Small right pleural effusion. There are patchy bibasilar densities. Multiple scattered pulmonary nodules have increased in size. The heart remains enlarged. There is progressive interstitial/vascular thickening consistent with pulmonary edema. Extensive cervical and thoracic spinal fusion hardware with kyphoplasty is again noted. IMPRESSION: 1. Interval progression of pulmonary metastatic disease. 2. Pulmonary edema with a small right pleural effusion. 3. Patchy bibasilar densities are also noted. ACT 112: Negative or not required by law. Electronically signed by: Bob Hinds M.D. 12/02/2022 3:48 PM Chest CTA 12/02/22 15:36 CHEST CTA for PULMONARY ARTERIES CT DOSE: 974.19 mGy.cm HISTORY: Shortness of breath, hx of cancer TECHNIQUE: Multiaxial CT images of the chest were performed following the intravenous administration of contrast to evaluate the pulmonary arteries. 3D/Maximal intensity projection images were also obtained. Sagittal and coronal reformations were also reviewed. A dose lowering technique was utilized adhering to the principles of ALARA. COMPARISON STUDY: Chest CTA 09/22/2022. FINDINGS: Multiple scattered lytic lesions are again seen throughout the vis ualized osseous structures consistent with the patient's known metastatic disease. Multiple healing bilateral rib fractures are again noted. These are similar to the prior study. T3-T7 posterior fusion hardware is again noted with associated kyphoplasty. T5 pathologic compression fracture with 6 mm of retropulsion again noted. There is posterior decompression at this level. Cervical spinal fusion hardware is partially visualized. Limited views of the upper abdomen demonstrate a normal spleen and adrenal glands. There is a 1.9 cm hypodense lesion within the right hepatic lobe. This may represent a metastatic focus. The heart is borderline enlarged. There are small bilateral pleural effusions which have progressed. Interval increase in size. Extensive pleural metastatic disease most pronounced on the right. Multiple scattered irregular pulmonary nodules are again noted, some which have increased in size and number in the interval. No pneumothorax. Mild narrowing of the segmental bronchi due to the hilar lymphadenopathy. Extensive mediastinal and bilateral hilar lymphadenopathy persists consistent with metastatic disease. Destructive changes within the right posterior ribs again noted. Mild interlobular septal thickening and patchy groundglass densities may represent superimposed pulmonary edema. Normal caliber thoracic aorta with no evidence for dissection. Respiratory motion artifact results in suboptimal evaluation of the segmental and subsegmental pulmonary arteries. Otherwise, no evidence for a central pulmonary embolus. IMPRESSION: 1. No evidence for central pulmonary embolus. 2. Extensive metastatic disease, some of which has progressed in the interval. This is most pronounced within the pleural-based lesions. 3. Small bilateral pleural effusions have progressed. 4. Interlobular septal thickening and patchy groundglass densities may represent superimposed pulmonary edema. 5. Additional findings as described above. ACT 112: Negative or not required by law. Electronically signed by: Bob Hinds M.D. 12/02/2022 7:34 PM ECG Additional Comments: Sinus tachycardia Incomplete right bundle branch block Borderline ECG When compared with ECG of 22-SEP-2022 17:07, No significant change was found Code Status & VTE Plan Code Status Full code VTE Prophylaxis Plan VTE Prophylaxis will be ordered: Yes Supervising Physician Co-Signing Physician Notes Patient seen and examined, chart reviewed, case discussed with ELIAS Springer and I agree with the assessment and plan as documented above. In brief, patient is a 57yo male presenting with SOB. He has history of parotid gland carcinoma s/p parotidectomy - follows with [facility] on clinical trials and is currently receiving Keytruda and Pemetrexed. Patient in mild respiratory distress on arrival with RR of 44. tachycardic at 108bpm. Saturation adequate on RA Improved with administration of Albuterol, Dexamethasone On exam he is resting comfortably, NAD No rash HEENT - MMM, Neck supple Heart - +S1/S2, regular, no m/r/g Lungs - end-inspiratory crackles present in bilateral lung bases, no rhonchi or wheeze. No distress. Patient speaking in complete sentences. Abd - +BS, soft, NT/ND Ext - warm, well perfused, no clubbing/cyanosis or edema Labs and images reviewed. Assessment/Plan 57yo male presenting with worsening SOB. DDx to include worsening pulmonary metastatic disease, volume overload, less likely infectious cause as respiratory BioFire negative, no consolidation noted on imaging. High risk for PE - CTA is negative for large, central PE, unable to assess distal vessels. --Awaiting read on bilateral LE doppler -Lasix x 1 dose given - monitor response -Nebs as needed -Check TTE -Trend troponin - patient only with CP associated with cough, suspect demand- ischemia -Remainder of plan as above PG Care Time/CCT Total # of Minutes Spent Total Time Spent with Patient: Total time spent is greater than 50% in coordination of care (as documented) at patient's floor/unit and/or counseling patient: Coding [place] [address] INT INP/OBS CARE 3/75MIN Patient Type Established Medical Decision Making High Complexity Diagnoses SOB (shortness of breath) R06.02 Elevated troponin R77.8 Hypocalcemia E83.51 Acute hyponatremia E87.1 Anemia D64.9 Malignant neoplasm of parotid gland C07 GERD (gastroesophageal reflux disease) K21.9 Hypertension I10 Sleep apnea G47.30 Hyperlipidemia E78.5 Anxiety F41.9
[2022-12-02] MEDS ORDERED: STAT IV STA (21:01)
[2022-12-02] MEDS ORDERED: FUROSEMIDE INJ 20 MG/2 ML VIAL IV STA (21:17)
[2022-12-02] MEDS ORDERED: CALCIUM GLUCONATE 1,000 MG/60 ML BAG IV STA (21:22)
[2022-12-02] MEDS ORDERED: CALCIUM GLUCONATE 10% 1,000 MG in DEXTROSE 5% 50 ML IV ONE (21:30)
[2022-12-02 22:13] LABS: Phosphorus 2.6 mg/dl (2.5-4.9)
[2022-12-02 22:29] LABS: Appearance Urine Clear (Clear); Bacteria Urine Automated Negative (Negative); Bilirubin Urine Negative (Negative); Blood Urine Negative (Negative); Cast Urine Automated 0 /lpf (0-5); Color Urine Yellow; Glucose Urine UA Negative (Negative); Ketones Urine Negative (Negative); Leukocyte Esterase Urine Negative (Negative); Nitrite Urine Negative (Negative); Protein Urine 1+ (Negative); RBC Urine Automated 0-4 /hpf (0-4); Urobilinogen Urine Negative (Negative); pH Urine 6.5 (4.5-7.5)
--- NOTE | 2022-12-02 23:53 | Ultrasound Report ---
Exam(s): US VENOUS BILATERAL LOWER EXTREMITIES EXAM: US Duplex Bilateral Lower Extremities Veins CLINICAL HISTORY: Reason for exam: active cancer, please monitor for DVT. TECHNIQUE: Real-time duplex ultrasound scan of the bilateral lower extremity veins integrating B-mode two-dimensional vascular structure, Doppler spectral analysis, color flow Doppler imaging and compression. COMPARISON: No relevant prior studies available. FINDINGS: Right deep veins: Unremarkable. The visualized deep veins of the right lower extremity are compressible with color flow. No visualized thrombus. Right superficial veins: Unremarkable. Left deep veins: Unremarkable. The visualized deep veins of the left lower extremity are compressible with color flow. No visualized thrombus. Left superficial veins: Unremarkable. Soft tissues: No acute findings. IMPRESSION: No DVT within the bilateral lower extremities. Electronically signed by: Brandon Kwon MD 12/02/22 23:52 PM
[2022-12-02] MEDS ORDERED: GABAPENTIN 800 MG TAB PO SCH (23:56)
[2022-12-02] MEDS ORDERED: LORazepam 0.5 MG TAB PO PRN (23:56)
[2022-12-02] MEDS ORDERED: GABAPENTIN 300 MG CAP PO SCH (23:56)
[2022-12-02] MEDS ORDERED: ONDANSETRON INJ 2 MG/ML 2 ML VIAL IV PRN (23:56)
[2022-12-03] MEDS ORDERED: fentaNYL 50 MCG/HR TDSY TD SCH ×2 (00:15→19:00)
[2022-12-03] MEDS: MIRTAZAPINE TAB 15 MG TAB PO SCH ×2 (01:10→21:59)
[2022-12-03] MEDS: PILOCARPINE HCL 5 MG TABLET PO SCH ×4 (01:11→21:59)
[2022-12-03] MEDS: FAMOTIDINE 40 MG TABLET PO SCH ×3 (01:11→21:59)
[2022-12-03] MEDS: ENOXAPARIN INJ 40 MG/0.4 ML SYR SQ SCH ×2 (01:12→22:00)
[2022-12-03] MEDS: ATORVASTATIN 20 MG TAB PO SCH ×2 (01:12→21:59)
[2022-12-03] MEDS ORDERED: Nursing to Pharmacy Communication SCH (01:30)
[2022-12-03 03:59] LABS: Hematocrit (blood only) 32.1 % (42.0-52.0); Hemoglobin 10.4 g/dl (14.0-18.0); Mean Corpuscular Hemoglobin 28.3 pg (25.0-34.0); Mean Corpuscular Hgb Conc 32.4 g/dL (32.0-36.0); Mean Corpuscular Volume 87.5 fL (80.0-100.0); Platelet Count 300 K/uL (130-400); RDW Coefficient of Variation 15.4 % (11.5-14.5); RDW Standard Deviation 49.6 fL (36.4-46.3); Red Blood Count 3.67 M/uL (4.70-6.10); White Blood Count 9.23 K/ul (4.8-10.8)
[2022-12-03 04:15] LABS: Albumin Globulin Ratio 1.1 (0.9-2); Albumin Level 3.3 gm/dl (3.4-5.0); BUN Creatinine Ratio 19.5 (10-20); Bilirubin,Total 0.4 mg/dl (0.2-1.0); Calcium 7.8 mg/dl (8.6-10.3); Creatinine Clr Calc Pharmacy 123.7 ml/min; Est GFR (African American) 113.8 ml/min; Est GFR (Non-African American) 98.2 ml/min; Globulin 3.1 gm/dl (2.5-4.0); Magnesium 2.4 mg/dl (1.7-2.4); Potassium 4.2 mmol/L (3.5-5.1); Total Protein 6.4 gm/dl (6.0-8.3)
[2022-12-03 04:19] LABS: Basophils # (auto) 0.01 K/uL (0-0.2); Basophils % (auto) 0.1 %; Immature Granulocytes # (auto) 0.06 K/uL (0.01-0.20); Immature Granulocytes % (auto) 0.7 %; Lymphocytes # (auto) 0.15 K/uL (1.2-3.4); Lymphocytes % (auto) 1.6 %; Monocytes # (auto) 0.04 K/uL (0.11-0.59); Monocytes % (auto) 0.4 %; Neutrophils # (auto) 8.97 K/uL (1.40-6.50); Neutrophils % (auto) 97.2 %; Ovalocytes 1+
[2022-12-03 04:23] LABS: INR 1.1 (0.9-1.1); Prothrombin Time 11.7 Seconds (9.0-12.0)
[2022-12-03] MEDS: ALBUT/IPRATROP 3MG/0.5MG NEB 3 ML VIAL NEB SCH ×4 (07:09→19:36)
[2022-12-03] MEDS: LEVOTHYROXINE SODIUM 50 MCG TABLET PO SCH (08:26)
[2022-12-03] MEDS: GABAPENTIN 300 MG CAP PO SCH ×3 (08:27→21:58)
[2022-12-03] MEDS: CHECK fentaNYL PATCH PLACEMENT SCH ×3 (08:27→22:54)
[2022-12-03] MEDS: PANTOprazole 40 MG TAB PO SCH (08:28)
[2022-12-03] MEDS: lisinopril 40 MG TAB PO SCH (08:28)
[2022-12-03] MEDS: DULoxetine HCL 20 MG CAP PO SCH (08:29)
--- NOTE | 2022-12-03 10:01 | XCELERA ---
[id number] \\[email or web address]-[email or web address]\[email or web address]_[email or web address]\[id number]___[id number]
--- NOTE | 2022-12-03 11:49 | Electrocardiogram Report ---
Test Reason : Blood Pressure : / mmHG Vent. Rate : 107 BPM Atrial Rate : 107 BPM P-R Int : 168 ms QRS Dur : 098 ms QT Int : 324 ms P-R-T Axes : 015 030 022 degrees QTc Int : 432 ms Sinus tachycardia Incomplete right bundle branch block Borderline ECG When compared with ECG of 22-SEP-2022 17:07, No significant change was found Confirmed by Cricket Tobar ([id number]) on 12/03/2022 11:49:09 AM Referred By: REFERRED SELF Confirmed By:Cricket Tobar
--- NOTE | 2022-12-03 17:23 | Hospitalist Progress Note ---
Date of Service December 03, 2022 Assessment & Plan (1) SOB (shortness of breath): Plan: -Admit to med/tele on pulse oximetry -Currently stable on RA -Patient developed acute onset of SOB, especially with exertion up waking on 11/30 -Differential is broad and includes but is not limited to progression of lung mets, pulmonary edema, PE, ACS, infection -No leukocytosis, no sign of pneumonia on CXR or CTA of the chest, patient noted to have pulmonary edema on imaging. -He likely has multiple etiologies at this time with his progression of lung mets and interstitial pulm edema -Pulomonary emboli appears less likely given negative CTA scan of chest and negative venous dopllers. -Do not think this is a reaction to his recent chemotherapy at this time -Do not think this is an infectious etiology at this time as his full resp biofire was negative and no sign of pneumonia on imaging -S/P 2 DuoNebs, ceftriaxone, and 10 mg IV dexamethasone in the ED -Will continue with scheduled DuoNebs, 20 mg IV lasix, incentive spirometry and flutter therapy and monitor for improvement -TTE is negative. will obtain a stress echo with dobutamine. -SQ lovenox for DVT PPX -HH diet -AM CBC, CMP, Mag, PT/INR (2) Elevated troponin: Plan: -Initial high sen trop elevated at 23 -Patient without acute ST segment or T-wave changes on ECG -Only experiencing chest pain with coughing at this time -Likely due to demand at this time -stress echo in AM trop improved. 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 Nicole at the time of the admission Admission and Anticipated Discharge Date Admission Date: December 02, 2022 Subjective 57 yo male reports feeling better today. He has no new complaints He reports he has been having sob upn exertion for past few months predating the keytruda treatment. He does followup with cardiology. Patient also reports intermittent chest pain. Review of Systems Review of Systems: All systems reviewed & are unremarkable except as noted in HPI & below Physical Exam Physical Exam: General: In no acute distress, stated age, well-nourished, good hygiene HEENT: Normocephalic, atraumatic, no scleral icterus, pupils around round, symmetrical, and reactive to light, moist mucus membranes, trachea midline, no thyromegaly Chest/Pulm: No reproducible pain upon palpation of the chest, No respiratory distress, symmetrical chest expansion, scattered rhonchi and wheezing throughout with BL crackles in the lower lung soria Cardiac: RRR, no murmurs noted Abdomen: Negative for ascites and bruising, normoactive bowel sounds, soft, non-tender to palpation throughout Musculoskeletal: Symmetrical and without signs of acute trauma, upper and lower extremities with full ROM, no atrophy, spasticity, or flaccidity Extremities: Radial, dorsalis pedis, and posterior tibial pulses are intact and symmetrical, no edema noted in the BL LE's Skin: Warm, dry, no rashes , lesions, or scars noted Neuro: Alert and oriented to person, place, month, year, and president, no focal defects, CN II-XII tested and intact,no tremors noted Psych: No acute distress, calm and cooperative during the exam Results & Data Results & Data Vital Signs (Past 12 Hours) Vital Signs Temp Pulse Pulse Resp BP BP Pulse Ox 12/03/22 16:00 75 12/03/22 15:17 36.4 C L 87 20 121/76 98 12/03/22 14:53 75 20 96 12/03/22 11:00 78 14 99 12/03/22 09:58 78 12/03/22 09:49 12/03/22 09:49 82 18 144/80 H 97 12/03/22 07:09 59 L 14 98 O2 Del Method 12/03/22 16:00 12/03/22 15:17 Room Air 12/03/22 14:53 Room Air 12/03/22 11:00 Room Air 12/03/22 09:58 12/03/22 09:49 Room Air 12/03/22 09:49 Room Air 12/03/22 07:09 Room Air PG Care Time/CCT Total # of Minutes Spent Total Time Spent with Patient: Total time spent is greater than 50% in coordination of care (as documented) at patient's floor/unit and/or counseling patient: Coding Level of Care Code 58881 SUB INP/OBS CARE 3/50MIN Diagnoses SOB (shortness of breath) R06.02 Elevated troponin R77.8 Hypocalcemia E83.51 Acute hyponatremia E87.1 Anemia D64.9 Malignant neoplasm of parotid gland C07 GERD (gastroesophageal reflux disease) K21.9 Hypertension I10 Sleep apnea G47.30 Hyperlipidemia E78.5 Anxiety F41.9
[2022-12-04] MEDS: LEVOTHYROXINE SODIUM 50 MCG TABLET PO SCH (05:44)
[2022-12-04 07:24] LABS: Hematocrit (blood only) 32.4 % (42.0-52.0); Hemoglobin 10.2 g/dl (14.0-18.0); Mean Corpuscular Hemoglobin 28.2 pg (25.0-34.0); Mean Corpuscular Hgb Conc 31.5 g/dL (32.0-36.0); Mean Corpuscular Volume 89.5 fL (80.0-100.0); Mean Platelet Volume 11.1 fL (9.4-12.4); Platelet Count 300 K/uL (130-400); RDW Coefficient of Variation 15.5 % (11.5-14.5); RDW Standard Deviation 50.8 fL (36.4-46.3); Red Blood Count 3.62 M/uL (4.70-6.10); White Blood Count 7.14 K/ul (4.8-10.8)
[2022-12-04] MEDS: ALBUT/IPRATROP 3MG/0.5MG NEB 3 ML VIAL NEB SCH (07:25)
[2022-12-04 07:41] LABS: Albumin Level 3.3 gm/dl (3.4-5.0); BUN Creatinine Ratio 21.5 (10-20); Bilirubin,Total 0.5 mg/dl (0.2-1.0); Calcium 7.7 mg/dl (8.6-10.3); Est GFR (African American) 115.5 ml/min; Est GFR (Non-African American) 99.7 ml/min; Globulin 3.2 gm/dl (2.5-4.0); Magnesium 2.5 mg/dl (1.7-2.4); Potassium 4.5 mmol/L (3.5-5.1); Total Protein 6.5 gm/dl (6.0-8.3)
[2022-12-04 07:50] LABS: Basophils # (auto) 0.03 K/uL (0-0.2); Basophils % (auto) 0.4 %; Eosinophils # (auto) 0.03 K/uL (0-0.50); Eosinophils % (auto) 0.4 %; Immature Granulocytes # (auto) 0.04 K/uL (0.01-0.20); Immature Granulocytes % (auto) 0.6 %; Lymphocytes # (auto) 0.28 K/uL (1.2-3.4); Lymphocytes % (auto) 3.9 %; Monocytes # (auto) 0.05 K/uL (0.11-0.59); Monocytes % (auto) 0.7 %; Neutrophils # (auto) 6.71 K/uL (1.40-6.50); RBC Morphology Unremarkable
[2022-12-04 07:58] LABS: Prothrombin Time 10.7 Seconds (9.0-12.0)
[2022-12-04] MEDS ORDERED: METOPROLOL TARTRATE 1 MG/ML VIAL IV ONE (09:34)
[2022-12-04] MEDS ORDERED: ATROPINE SULFATE 0.1 MG/ML 10ML SYR IV ONE (09:34)
[2022-12-04] MEDS ORDERED: DOBUTamine HCL 12.5 MG/ML 20 ML VIAL IV ONE (09:35)
[2022-12-04] MEDS ORDERED: ALBUT/IPRATROP 3MG/0.5MG NEB 3 ML VIAL NEB PRN (10:51)
[2022-12-04] MEDS: PILOCARPINE HCL 5 MG TABLET PO SCH ×2 (11:20→15:40)
[2022-12-04] MEDS: GABAPENTIN 300 MG CAP PO SCH ×2 (11:20→15:39)
[2022-12-04] MEDS: lisinopril 40 MG TAB PO SCH (11:21)
[2022-12-04] MEDS: FAMOTIDINE 40 MG TABLET PO SCH (11:21)
[2022-12-04] MEDS: PANTOprazole 40 MG TAB PO SCH (11:21)
[2022-12-04] MEDS: DULoxetine HCL 20 MG CAP PO SCH (11:21)
[2022-12-04] MEDS: CHECK fentaNYL PATCH PLACEMENT SCH ×2 (11:22→15:40)
[2022-12-04 11:26] VITALS: O2SAT 95
--- NOTE | 2022-12-04 11:34 | Cardiology Progress Note ---
Date of Service December 04, 2022 Assessment & Plan (1) Elevated troponin: Plan: Patient's latest troponin was within normal limits. Present on Admission?: Yes (2) SOB (shortness of breath): Plan: Patient's SOB has improved subjectively. The echocardiogram done yesterday demonstrated a normal ejection fraction and the dobutamine stress test done today showed no evidence of myocardial ischemia. Present on Admission?: Yes (3) Iron deficiency anemia: Plan: Patient's labs suggest this anemia is likely a iron-deficient anemia and the patient has been advised to supplement with iron to increase his hematocrit. Present on Admission?: Yes (4) Anemia: Plan: See above for iron-deficiency anemia (5) Hypertension: Plan: Patient's latest blood pressure reading was a little elevated with a systolic at 138, after being low normotensive upon admission. (6) WALKER (dyspnea on exertion): Plan: Subjectively, the patient's dyspnea has improved since admission, including his dyspnea on exertion. His respiratory rate is in upper range of normal. Present on Admission?: Yes (7) Hyperlipidemia: Plan: Continue 20 mg PO atorvastatin nightly. Admission and Anticipated Discharge Date Admission Date: December 02, 2022 Supervising Physician Co-Signing Physician Notes Patient seen and examined. Agree with Dr. Soares's assessment and plan. Fortunately, dobutamine stress test shows no evidence of myocardial ischemia. Question if symptoms could be related to his chemotherapy. Subjective Patient reports feeling significantly better than when he entered hospital on 12/02/2022. He no longer has dyspnea w/out exertion, feels subjectively better, no longer extremely fatigued. He's able to speak without feeling 'winded' or SOB Review of Systems Constitutional: No fevers, chills, or headache Eyes: No change in vision (baseline right eye blurriness), no double vision Ear, Nose, Mouth, Throat: No rhinorrhea, patient c/o dry mouth Respiratory: No SOB, wheezing Cardiovascular: Additional Comments: No chest pain or palpations Gastrointestinal: + abdominal pain (right sided, 10 severity) Genitourinary: + urinary frequency Physical Exam Constitutional: WD/WN, vitals as above (BP slightly elevated at 143/78) + obese, healthy appearing and cooperative Eyes: PERRL, conjunctivae normal, anicteric sclerae Respiratory: normal respiratory effort, lungs clear to auscultation Cardiovascular: RRR, no murmur, no edema Gastrointestinal (Abdomen): Percussion/Palpation: + abdomen tender (right- sided abdominal pain, 4/10 severity) Musculoskeletal: no cyanosis or clubbing, extremities motor strength 5/5 Skin: no rashes, warm and dry Psychiatric: A+Ox3, euthymic affect Results & Data Vital Signs (Past 12 Hours) Vital Signs Temp Pulse Pulse Resp BP Pulse Ox O2 Del Method 12/04/22 09:00 78 12/04/22 09:00 Room Air 12/04/22 07:48 36.5 C 84 18 143/78 H 97 Room Air 12/04/22 07:25 84 16 94 Room Air 12/04/22 03:16 36.6 C 77 14 114/68 97 Room Air 12/03/22 23:23 80 12/03/22 23:13 36.7 C 79 14 121/76 95 Room Air Laboratory Results 12/04/22 12/04/22 12/04/22 Range/Units 06:12 06:12 06:12 WBC 7.14 (4.8-10.8) K/ul RBC 3.62 L (4.70-6.10) M/uL Hgb 10.2 L (14.0-18.0) g/dl Hct 32.4 L (42.0-52.0) % MCV 89.5 (80.0-100.0) fL MCH 28.2 (25.0-34.0) pg MCHC 31.5 L (32.0-36.0) g/dL RDW Std Deviation 50.8 H (36.4-46.3) fL RDW Coeff of Renny 15.5 H (11.5-14.5) % Plt Count 300 (130-400) K/uL MPV 11.1 (9.4-12.4) fL Immature Gran % (Auto) 0.6 % Neut % (Auto) 94.0 % Lymph % (Auto) 3.9 % [place] % (Auto) 0.7 % Eos % (Auto) 0.4 % Baso % (Auto) 0.4 % Neut # (Auto) 6.71 H (1.40-6.50) K/uL Lymph # (Auto) 0.28 L (1.2-3.4) K/uL [place] # (Auto) 0.05 L (0.11-0.59) K/uL Eos # (Auto) 0.03 (0-0.50) K/uL Baso # (Auto) 0.03 (0-0.2) K/uL Immature Gran # (Auto) 0.04 (0.01-0.20) K/uL RBC Morphology Unremarkable PT 10.7 (9.0-12.0) Seconds INR 1.0 (0.9-1.1) Sodium 137 (136-145) mmol/L Potassium 4.5 (3.5-5.1) mmol/L Chloride 103 (98-107) mmol/L Carbon Dioxide 28 (21-32) mmol/L Anion Gap 6 (3-11) BUN 17 (6-23) mg/dl Creatinine 0.79 (0.6-1.4) mg/dl Est Cr Clr Drug Dosing 126.0 ml/min Est GFR ( Amer) 115.5 ml/min Est GFR (Non-Af Amer) 99.7 ml/min BUN/Creatinine Ratio 21.5 H (10-20) Glucose 98 (70-99(Fasting)) mg/dl Calcium 7.7 L (8.6-10.3) mg/dl Magnesium 2.5 H (1.7-2.4) mg/dl Total Bilirubin 0.5 (0.2-1.0) mg/dl AST 67 H (13-39) U/L ALT 39 (7-52) U/L Alkaline Phosphatase 97 (34-104) U/L Troponin I High Sens 14.0 (0-20) pg/ml Total Protein 6.5 (6.0-8.3) gm/dl Albumin 3.3 L (3.4-5.0) gm/dl Globulin 3.2 (2.5-4.0) gm/dl Albumin/Globulin Ratio 1.0 (0.9-2) Diagnostic Findings Cardiac Enzymes 12/04/22 Range/Units 06:12 AST 67 H (13-39) U/L Troponin I High Sens 14.0 (0-20) pg/ml Coagulation 12/04/22 Range/Units 06:12 PT 10.7 (9.0-12.0) Seconds CBC 12/04/22 Range/Units 06:12 WBC 7.14 (4.8-10.8) K/ul RBC 3.62 L (4.70-6.10) M/uL Hgb 10.2 L (14.0-18.0) g/dl Hct 32.4 L (42.0-52.0) % Plt Count 300 (130-400) K/uL Neut # (Auto) 6.71 H (1.40-6.50) K/uL Lymph # (Auto) 0.28 L (1.2-3.4) K/uL [place] # (Auto) 0.05 L (0.11-0.59) K/uL Eos # (Auto) 0.03 (0-0.50) K/uL Baso # (Auto) 0.03 (0-0.2) K/uL Comprehensive Metabolic Panel 12/04/22 Range/Units 06:12 Sodium 137 (136-145) mmol/L Potassium 4.5 (3.5-5.1) mmol/L Chloride 103 (98-107) mmol/L Carbon Dioxide 28 (21-32) mmol/L BUN 17 (6-23) mg/dl Creatinine 0.79 (0.6-1.4) mg/dl Glucose 98 (70-99(Fasting)) mg/dl Calcium 7.7 L (8.6-10.3) mg/dl AST 67 H (13-39) U/L ALT 39 (7-52) U/L Alkaline Phosphatase 97 (34-104) U/L Total Protein 6.5 (6.0-8.3) gm/dl Albumin 3.3 L (3.4-5.0) gm/dl Intake and Output 12/03/22 12/04/22 12/04/22 22:59 06:59 14:59 Intake Total 450 / 450 0 / 450 Output Total 1700 / 2100 Balance -1250 / -1650 0 / -1650 Intake: Oral 450 / 450 0 / 450 Output: Urine 1700 / 2100 Other: Other Intake Source npo # Unmeasured Voids 2 Weight 106.3 kg Weight Measurement Method Built in [facility] Care Time/CCT Total # of Minutes Spent Total Time Spent with Patient: Total time spent is greater than 50% in coordination of care (as documented) at patient's floor/unit and/or counseling patient: Coding Level of Care Code 90390 SUB INP/OBS CARE 350MIN Diagnoses Elevated troponin R77.8 SOB (shortness of breath) R06.02 Iron deficiency anemia D50.9 Anemia D64.9 Hypertension I10 WALKER (dyspnea on exertion) R06.09 Hyperlipidemia E78.5
--- NOTE | 2022-12-04 14:20 | XCELERA ---
[id number]
--- NOTE | 2022-12-04 14:36 | Oncology Consultation ---
Date of Consultation December 04, 2022 Assessment & Plan (1) SOB (shortness of breath): (2) Metastatic adenocarcinoma to bone: Plan He seems to be doing better clinically. Suspect that worsening shortness of breath is likely related to pulmonary metastasis. Since symptoms improved with nebulizer treatments, would recommend discharging home on albuterol inhaler/nebulizer. Also recommend considering mucolytic such as Mucinex. He will continue follow-up as scheduled with oncology at [facility] for continuation of treatment. Thank you for this consult. Oncology will sign off at this time. Patient can follow-up with me in clinic on discharge. 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 Subsequently had disease progression and was En[place] till Sep, 2022. Patient recently started clinical trial utilizing pembrolizumab/pemetrexed at the [facility] and received cycle 1 of treatment on 11/29/2022. He presented to the ER at [facility] with worsening shortness of breath. CTA chest on 12/02/2022 revealed extensive metastatic disease, some of which have progressed most pronounced within pleural-based nodules, small bilateral pleural effusions and interlobular septal thickening and patchy groundglass densities possibly representing superimposed pulmonary edema. He received 1 dose of IV Lasix and also received nebulizer treatments . Also had 2D echocardiogram and dobutamine stress test which was unremarkable. He states that he is feeling a lot better and would like to be discharged home Allergies Allergy/AdvReac Type Severity Reaction Status Date / Time No Known Allergies Allergy Verified 11/07/22 09:30 Home Medications Medication Instructions Recorded Confirmed Type fluticasone propionate 50 2 spray intranasal BID PRN Allergy 09/23/21 12/02/22 Rx mcg/actuation nasal Symptoms #16 grams spray,suspension pantoprazole 40 mg tablet,delayed 40 mg PO QAM #90 tabs 03/14/22 12/02/22 Rx release clobetasol 0.05 % topical ointment 1 applic topical DAILY PRN Skin 05/08/22 12/02/22 History Irritation Cock-Up Wrist Splint #2 ea 05/19/22 12/02/22 Rx mupirocin 2 % topical ointment 1 applic topical BID PRN NEEDED 06/19/22 12/02/22 History Auto Titrating CPAP #1 ea 07/10/22 12/02/22 Rx atorvastatin 20 mg tablet (Lipitor) 20 mg PO HS #90 tabs 07/26/22 12/02/22 Rx ondansetron HCl 8 mg tablet 8 mg PO Q8H PRN Nausea 08/08/22 12/02/22 History prochlorperazine maleate 10 mg 10 mg PO Q6H PRN Nausea 08/08/22 12/02/22 History tablet (Compazine) famotidine 40 mg tablet 40 mg PO BID #180 tabs 09/21/22 12/02/22 Rx duloxetine 40 mg capsule,delayed 40 mg PO DAILY 09/22/22 12/02/22 History release gabapentin 800 mg tablet 800 mg PO TID 09/22/22 12/02/22 History naloxone 4 mg/actuation nasal spray See Rx Instructions .Route .COMPLEX 09/22/22 12/02/22 History cyanocobalamin (vitamin B-12) 1,000 mcg PO DAILY #30 caps 09/24/22 12/02/22 Rx 1,000 mcg capsule levothyroxine 50 mcg capsule 50 mcg PO DAILY #90 caps 09/26/22 12/02/22 Rx lorazepam 0.5 mg tablet 0.5 mg PO DAILY PRN anxiety #30 10/03/22 12/02/22 Rx tabs folic acid 1 mg tablet 1 mg PO QAM #90 tabs 10/23/22 12/02/22 Rx lisinopril 40 mg tablet 40 mg PO DAILY #90 tabs 10/23/22 12/02/22 Rx mirtazapine 15 mg tablet 15 mg PO HS #90 tabs 10/23/22 12/02/22 Rx pilocarpine HCl 5 mg tablet 5 mg PO TID #270 tabs 10/23/22 12/02/22 Rx (Salagen (pilocarpine)) ibuprofen 200 mg tablet (Advil) 400 mg PO Q6H PRN Pain 10/25/22 12/02/22 History gabapentin 100 mg capsule 300 mg PO TID 10/26/22 12/02/22 History ferrous gluconate 324 mg (38 mg 324 mg PO TID #90 tabs 11/29/22 12/02/22 Rx iron) tablet fentanyl 50 mcg/hr transdermal 50 mcg transdermal [id number] 12/02/22 12/02/22 History patch albuterol sulfate 90 mcg/actuation 2 inh inhalation Q6H PRN shortness 12/04/22 Rx aerosol inhaler of breath or wheezing #6.7 grams Patient History Medical History Allergic rhinitis Anemia Anxiety Cervical radiculopathy Chronic insomnia Degenerative disc disease (02/06/13) Deviated nasal septum Diverticulosis GERD (gastroesophageal reflux disease) Hiatal hernia Hyperlipidemia Hypertension Hypertrophy of nasal turbinates Left hip pain senior care prescription benzodiazepine use Lumbar disc disease Lumbar radiculopathy Lymphadenopathy of left cervical region Lymphadenopathy of right cervical region Macular hole of left eye Mass of right parotid gland Numbness of upper extremity Osteoarthritis Overweight Sleep apnea Spinal stenosis Vitamin D deficiency Surgical History History of anesthesia reaction History of back surgery History of cervical discectomy History of colonoscopy History of esophagogastroduodenoscopy (EGD) History of hand surgery (~2003) History of hip replacement History of left cataract surgery History of open reduction and internal fixation (ORIF) procedure History of repair of rotator cuff History of sinus surgery History of superficial parotidectomy Family History Mother Stroke Father Myocardial infarction Brother Mantle cell lymphoma Rodriguez esophagus Heart disease Daughter Hypertension Other No family history of adverse response to anesthesia No family history of allergies No family history of bleeding disorder Denies family history of Ovarian cancer Prostate cancer Diabetes Breast cancer Colorectal cancer Social History Smoking Status: Never smoker Second Hand Exposure: No; Do You Dip or Chew Tobacco: No; Hx Alcohol Use: No Hx Substance Use: No Preferred Language: Lebanese Communication Ability: Effective Visual Impairment: No Limitations Hearing Ability: Normal Manager Of Compensation Required: No Beliefs That Will Affect Care: None marital status: Current Living Situation: Spouse Current Living Situation Comment: AND DAUGHTER current occupational status: employed current occupation: [employer] at [employer] Feels Safe at Home: Yes Safety Concerns: Feels Safe At This Time Childhood Exposure to Second-Hand Smoke: Yes Diet: regular Diet Comment: regular caffeine: No during the past year weight has: increased > 10 lbs Dental Care, Regularly: Yes Physical Activity Frequency: Daily Seatbelt Use: always Sunscreen Use: Yes Assistive Devices: CPAP and Glasses Results & Data Vital Signs (Past 12 Hours) Vital Signs Temp Pulse Pulse Resp BP Pulse Ox O2 Del Method 12/04/22 11:25 36.4 C L 81 18 147/88 H 95 Room Air 12/04/22 09:00 78 12/04/22 09:00 Room Air 12/04/22 07:48 36.5 C 84 18 143/78 H 97 Room Air 12/04/22 07:25 84 16 94 Room Air 12/04/22 03:16 36.6 C 77 14 114/68 97 Room Air
[2022-12-04 15:08] VITALS: BP 138/79; TEMP 98.6
--- NOTE | 2022-12-04 16:35 | Discharge Summary ---
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 Bateman with adjuvant radiation therapy with metastases to the bone, parietal skull, lungs, liver, HTN, GERD, hypothyroidism, HANNAH who presented to the [facility] ED on 12/02 with a chief complaint of SOB. In the ED the patient was noted to be tachycardic with HR of 115 and respirations of 32 but otherwise stable. Labs were significant for a lymphocyte count of 0.32, sodium of 132, calcium of 7.4, AST of 41, alk phos of 113, initial high sen trop of 23, and full respiratory biofire negative. Chest xray w as read as "1. Interval progression of pulmonary metastatic disease. 2. Pulmonary edema with a small right pleural effusion. 3. Patchy bibasilar densities are also noted.". CTA of the chest was read as "1. No evidence for central pulmonary embolus. 2. Extensive metastatic disease, some of which has progressed in the interval. This is most pronounced within the pleural-based lesions. 3. Small bilateral pleural effusions have progressed. 4. Interlobular septal thickening and patchy groundglass densities may represent superimposed pulmonary edema. 5. Additional findings as described above. Prior to admission the patient was given 2 DuoNeb treatments, 10 mg IV dexamethasone, and a dose of ceftriaxone. At the time of the exam the patient was sitting in bed in no acute distress with his sitting bedside, history was obtained from both. They state that they traveled to the [facility] in [place] earlier this week for his first dose of Keytruda/Pemetrexed, which is the new clinical trail he was accepted into. He had his treatment on 11/29 without complication. They flew to [place] late Sunday night and drove to [facility] [employer] getting home at 0300. He states that he went to bed around 0400 and woke up around 10am. When he woke he started to develop significant SOB with exertion and a non-productive cough, both of which are new for him. He denies baseline SOB prior to travel despite his known lung mets. He has chronic right sided chest pain from his previous rib fractures. Of note, he states that he has developed left sided chest pain since he has been coughing hard to try and bring up mucus. He denies this new chest pain at rest. His father passed at 47 due to NV and his brother had an NV in his early 50's. The patient denies a personal history of cardiac disease. He denies recent fever, chills, hemoptysis, abd pain, nausea, vomitnig, diarrhea, dysuria, hematuria, LE swelling/pain, and recent trauma. He is a full code and would want his to make medical decisions for him if he could not make them himself. Please refer to Dr. Nicole's attestation for any changes to the treatment plan Principal Diagnosis SOB likely from lung mets Discharge Exam General: In no acute distress, stated age, well-nourished, good hygiene HEENT: Normocephalic, atraumatic, no scleral icterus, pupils around round, symmetrical, and reactive to light, moist mucus membranes, trachea midline, no thyromegaly Chest/Pulm: No reproducible pain upon palpation of the chest, No respiratory distress, symmetrical chest expansion, scattered rhonchi and wheezing throughout with BL crackles in the lower lung soria Cardiac: RRR, no murmurs noted Abdomen: Negative for ascites and bruising, normoactive bowel sounds, soft, non-tender to palpation throughout Musculoskeletal: Symmetrical and without signs of acute trauma, upper and lower extremities with full ROM, no atrophy, spasticity, or flaccidity Extremities: Radial, dorsalis pedis, and posterior tibial pulses are intact and symmetrical, no edema noted in the BL LE's Skin: Warm, dry, no rashes , lesions, or scars noted Neuro: Alert and oriented to person, place, month, year, and president, no focal defects, CN II-XII tested and intact,no tremors noted Psych: No acute distress, calm and cooperative during the exam Discharge Data Allergies Allergy/AdvReac Type Severity Reaction Status Date / Time No Known Allergies Allergy Verified 11/07/22 09:30 Consultations 12/04/22 07:25 Consult Cardiology Routine 12/04/22 07:26 Consult Oncology Routine Ordered Studies 12/02/22 15:36 CT angio chest PE protocol Stat 12/02/22 20:54 US venous doppler LE Stat Hospital Course (1) SOB (shortness of breath): -Admit to med/tele on pulse oximetry -Currently stable on RA -Patient developed acute onset of SOB, especially with exertion up waking on 11/30 -Differential is broad and includes but is not limited to progression of lung mets, pulmonary edema, PE, ACS, infection -No leukocytosis, no sign of pneumonia on CXR or CTA of the chest, patient noted to have pulmonary edema on imaging. -Cardiac workup including stress test was negative. -CTA of chest and venous doppler were negative. -SOB likely progression of his cancer, may benefit from outpatient PFT> -TTE is negative. (2) Elevated troponin: -Initial high sen trop elevated at 23 -Patient without acute ST segment or T-wave changes on ECG -Only experiencing chest pain with coughing at this time -Likely due to demand at this time (3) Hypocalcemia: -Calcium noted to be 7.4 in the ED -Patient asymptomatic -Likely due to his cancer will recommend monitoring in 1 week, replaced while here. (4) Acute hyponatremia: -132 today -Likely due to a combination of SIADH from his known cancer with decreased PO intake (5) Anemia: -Continue B12 and folic acid -Patient stopped ferrous sulfate due to GI irritation (6) Malignant neoplasm of parotid gland: -Currently enrolled in treatment trial at the [facility] -S/P Keytruda/pemetrexed with first dose of 11/28 -Continue home pain regimen (7) GERD (gastroesophageal reflux disease): -Continue pantoprazole and famotidine (8) Hypertension: -Stable -Continue lisinopril (9) Sleep apnea: -HS CPAP ordered (10) Hyperlipidemia: -Conitnue statin (11) Anxiety: -Continue Duloxetine, prn ativan, and HS remeron Total Time Total Time Spent Total Time Spent (In Minutes): 32 Discharge Plan Discharge Items Patient Disposition: Home - Self-Care Reason For Visit: SOB, PROGRESSIVE METASTASES Discharge Diagnosis: SOB Activity: Resume your previous activity Non-emergency contact: Primary Care Provider Call non-emergency contact if: you have any medication questions Follow-up/Referrals: Jo Maxwell MD [Primary Care Provider] - Diet: Regular Addtl Attending Provider Instructions: recommend followup with your PCP in 1-2 weeks. Continue to followup with Dr. Wren as scheduled. Albuterol HFA (hydrofluoroalkane) is a medication commonly used to treat and relieve symptoms of asthma, such as shortness of breath, wheezing, and chest tightness. Here are general instructions for using Albuterol HFA inhaler: 1. Shake the inhaler: Before using the inhaler, shake it well to ensure that the medication is properly mixed. 2. Prepare the inhaler: Remove the cap from the inhaler and check that the mouthpiece is clean and clear of any obstructions. 3. Breathe out: Exhale fully to empty your lungs as much as possible before using the inhaler. 4. Prime the inhaler (if required): If it's your first time using a new inhaler or if you haven't used it in a while, you may need to prime it. This typically involves releasing a few sprays into the air to ensure the inhaler is working properly. Check the instructions that come with your specific inhaler for priming details. 5. Position the inhaler: Hold the inhaler upright with your thumb on the base and your index and middle fingers on the top, supporting it in a comfortable commutator assembler. 6. Form a seal with your lips: Place the mouthpiece between your teeth, ensuring a tight seal with your lips. 7. Inhale and activate: Start breathing in slowly and deeply through your mouth, while pressing down firmly on the canister to release a dose of medication. Continue inhaling slowly until your lungs are comfortably full. 8. Hold your breath: Remove the inhaler from your mouth and hold your breath for about 10 seconds or as long as comfortable. This allows the medication to reach deep into your lungs. 9. Exhale slowly: Breathe out slowly and fully away from the inhaler. 10. Repeat (if necessary): If prescribed more than one dose, wait for about 1 minute before repeating the steps above. Be sure to check your prescription or consult your healthcare provider for the appropriate number of doses. Remember, these instructions provide a general guideline, but it's important to read and follow the specific instructions provided with your Albuterol HFA inhaler. If you have any questions or concerns about your medication or its usage, consult your healthcare provider or pharmacist. Pending Studies at Discharge: No Stand-Alone Forms: My [facility], Smoking Cessation Medications and DC Order Prescriptions: New albuterol sulfate 90 mcg/actuation HFA aerosol inhaler 2 inh inhalation Q6H PRN (Reason: shortness of breath or wheezing) Qty: 6.7 0RF Continued ondansetron HCl 8 mg tablet 8 mg PO Q8H PRN (Reason: Nausea) prochlorperazine maleate [Compazine] 10 mg tablet 10 mg PO Q6H PRN (Reason: Nausea) ibuprofen [Advil] 200 mg tablet 400 mg PO Q6H PRN (Reason: Pain) pantoprazole 40 mg tablet,delayed release (DR/EC) 40 mg PO QAM Qty: 90 3RF (DME) Cock-Up Wrist Splint Misc See Dose Instructions .ROUTE .MEDSUPPLY Qty: 2 0RF Dose Instruction: As directed Rx Instructions: Left and right wrist splints G56.00 atorvastatin [Lipitor] 20 mg tablet 20 mg PO HS Qty: 90 1RF Hold Instructions: Resume on 10/02/22. famotidine 40 mg tablet 40 mg PO BID Qty: 180 1RF levothyroxine 50 mcg capsule 50 mcg PO DAILY Qty: 90 3RF folic acid 1 mg tablet 1 mg PO QAM Qty: 90 3RF lisinopril 40 mg tablet 40 mg PO DAILY Qty: 90 1RF mirtazapine 15 mg tablet 15 mg PO HS Qty: 90 1RF pilocarpine HCl [Salagen (pilocarpine)] 5 mg tablet 5 mg PO TID Qty: 270 1RF ferrous gluconate 324 mg (38 mg iron) tablet 324 mg PO TID Qty: 90 0RF fluticasone propionate 50 mcg/actuation spray,suspension 2 spray intranasal BID PRN (Reason: Allergy Symptoms) Qty: 16 1RF (DME) Auto Titrating CPAP Misc See Rx Instructions .Route Qty: 1 0RF Rx Instructions: as directed-Min pressure: 4cmH2O, Max pressure: 39viQ2A, CPAP SUPPLIES NEEDED: HUMIDIFIER, HEATED , REPLACEMENT WATER CHAMBER , TUBING , DISPOSABLE FILTERS , NON-DISPOSABLE FILTERS , HEADGEAR , MASK. lorazepam 0.5 mg tablet 0.5 mg PO DAILY PRN (Reason: anxiety) Qty: 30 1RF clobetasol 0.05 % ointment 1 applic topical DAILY PRN (Reason: Skin Irritation) Rx Instructions: Apply to the hands at night for 2 weeks for flaring. mupirocin 2 % ointment 1 applic topical BID PRN (Reason: NEEDED) Rx Instructions: Apply to the cracks of the hands BID for 10-14 days until closed. duloxetine 40 mg capsule,delayed release(DR/EC) 40 mg PO DAILY naloxone 4 mg/actuation spray,non-aerosol See Rx Instructions .ROUTE .COMPLEX Rx Instructions: CALL 911. ADMINISTER A SINGLE SPRAY INTRANASALLY INTO ONE NOSTRIL UPON SIGNS OF OPIOID OVERDOSE. MAY REPEAT AFTER 3 MINUTES IF NO RESPONSE. gabapentin 800 mg tablet 800 mg PO TID Rx Instructions: TAKE 1 CAPSULE BY MOUTH THREE TIMES DAILY WITH THE 300 MG DOSES FOR A TOTAL OF 1200 MG THREE TIMES A DAY cyanocobalamin (vitamin B-12) 1,000 mcg capsule 1,000 mcg PO DAILY Qty: 30 0RF gabapentin 100 mg capsule 300 mg PO TID Rx Instructions: TAKE 3 CAPSULE BY MOUTH THREE TIMES DAILY WITH THE 800MG DOSES FOR A TOTAL OF 1200MG THREE TIMES A DAY fentanyl 50 mcg/hr patch 72 hour 50 mcg transdermal [id number] Discharge Orders: Discharge Order (Routine); Ordered 12/04/22 Ordered By: Gordon Florentino Admission Data Admit Date/Time: 12/02/22 20:20 Attending Provider: Gordon Florentino Admit Provider: Brittany Nicole Primary Care Provider: Jo Maxwell Other Providers: Mahendra Jensen ; Bakari Cifuentes ; Cricket Tobar ; Mir Orr ; Deric Ward ; Dannie Jackson Jr ; Theron Tsai ; Deanna Cardoza ; Alice Riggs ; Rey Hernandez ; Yuriy Martin ; Sina Farris ; Jessica Hoyt ; Ingrid Sierra ; Corey Lan ; Lawrence Hernandez ; Mir Montes V. ; Sangita Wren Other Interventions: Discharge Summary Assessment (RN) Last Done: 12/04/22 17:40 Coding Level of Care Code 34064 INP/OBS DISCH >30 MIN Diagnoses SOB (shortness of breath) R06.02 Elevated troponin R77.8 Hypocalcemia E83.51 Acute hyponatremia E87.1 Anemia D64.9 Malignant neoplasm of parotid gland C07 GERD (gastroesophageal reflux disease) K21.9 Hypertension I10 Sleep apnea G47.30 Hyperlipidemia E78.5 Anxiety F41.9
[2022-12-04 17:41] VITALS: PULSE 100
== END 2022-12-04 17:51 | disposition home or self-care (01) | DRG 181 ==
LOC: ED 13:49 → SUATTDRO 20:20 → EDINP 20:20 → 2S 23:55

== ENCOUNTER 2023-10-03 14:58 | Inpatient (IN) ==
--- NOTE | 2023-10-03 15:21 | Emergency Department Note ---
History of Present Illness General Chief Complaint: Shortness of Breath/Dyspnea Stated Complaint: SOB Time Seen by Provider: 10/03/23 15:06 History of Present Illness Provider Complaint: shortness of breath Onset (ago): day(s) (3) Consistency/Duration: + progressively worsening Relieved By: + nothing Exacerbated By: + exertion Known history of: other (Lung cancer) Associated symptoms: + chest pain, + cough, + sputum production and + chest congestion; no pain with inspiration, no fever, no wheezing or no hemoptysis HPI Narrative: Patient's oncologist is Dr. Wren and legal stenographer is Dr. Matos Related Data Home oxygen amount: none Home Medications Medication Instructions Recorded Confirmed Type Cock-Up Wrist Splint #2 ea 05/19/22 10/03/23 Rx Auto Titrating CPAP #1 ea 07/10/22 10/03/23 Rx ondansetron HCl 8 mg tablet 8 mg PO Q8H PRN Nausea 08/08/22 10/03/23 History prochlorperazine maleate 10 mg 10 mg PO Q6H PRN Nausea 08/08/22 10/03/23 History tablet (Compazine) folic acid 1 mg tablet 1 mg PO QAM #90 tabs 10/23/22 10/03/23 Rx fentanyl 50 mcg/hr transdermal 50 mcg transdermal [id number] 12/02/22 10/03/23 History patch nebulizer and compressor #1 ea 12/18/22 10/03/23 Rx albuterol sulfate 2.5 mg/3 mL 2.5 mg (3 mL) inhalation Q4H PRN 12/26/22 10/03/23 Rx (0.083 %) solution for nebulization shortness of breath or wheezing #75 mL inhalational spacing device #1 ea 01/17/23 10/03/23 Rx albuterol sulfate 90 mcg/actuation 2 inh inhalation Q6H PRN shortness 04/03/23 10/03/23 Rx aerosol inhaler of breath or wheezing #6.7 grams lisinopril 40 mg tablet 40 mg PO QAM #90 tabs 04/24/23 10/03/23 Rx mirtazapine 15 mg tablet 15 mg PO HS #90 tabs 04/24/23 10/03/23 Rx pilocarpine HCl 5 mg tablet 5 mg PO TID #270 tabs 04/24/23 10/03/23 Rx (Salagen (pilocarpine)) Cock-Up Wrist Splint #2 ea 05/10/23 10/03/23 Rx famotidine 40 mg tablet 40 mg PO BID #180 tabs 06/25/23 10/03/23 Rx pantoprazole 40 mg tablet,delayed 40 mg PO QAM #90 tabs 06/25/23 10/03/23 Rx release atorvastatin 20 mg tablet (Lipitor) 20 mg PO HS #90 tabs 08/07/23 10/03/23 Rx lorazepam 0.5 mg tablet 0.5 mg PO DAILY PRN anxiety #30 08/21/23 10/03/23 Rx tabs amlodipine 10 mg tablet 10 mg PO HS 10/03/23 10/03/23 History duloxetine 60 mg capsule,delayed 60 mg PO DAILY 10/03/23 10/03/23 History release furosemide 20 mg tablet 20 mg PO QAM PRN Edema 10/03/23 10/03/23 History gabapentin 600 mg tablet 1,200 mg PO TID 10/03/23 10/03/23 History levothyroxine 75 mcg tablet 75 mcg PO DAILYBB 10/03/23 10/03/23 History Allergies Allergy/AdvReac Type Severity Reaction Status Date / Time No Known Allergies Allergy Verified 09/25/23 14:54 Past Med/Surg History Problem List (Updated 10/03/23 @ 17:27 by Joel Anderson MD) CHF exacerbation (Acute) Hypoxia (Acute) Hypothyroidism Malignant pleural effusion Carpal tunnel syndrome on both sides Restrictive lung disease Renal insufficiency Ototoxic hearing loss of both ears Sensorineural hearing loss (SNHL) of both ears Bilateral tinnitus Malignant neoplasm of parotid gland (Chronic) Family history of premature coronary heart disease Orthostatic hypotension Postural lightheadedness Metastasis to spinal column (Chronic 04/20/21) Metastasis to lung Insomnia Hyponatremia Elevated transaminase level Eustachian tube disorder Papilledema of right eye Antiplatelet or antithrombotic long-term use Normal left ventricular systolic function and wall motion Metastatic cancer (Acute) Closed rib fracture (Acute) Left-sided weakness Abnormal brain MRI Liver lesion C7 cervical fracture Metastatic adenocarcinoma to bone (Chronic) Iron deficiency anemia WALKER (dyspnea on exertion) Fatigue Hypocalcemia Anemia Chronic- baseline 8-10 Hypertension Hyperlipidemia GERD (gastroesophageal reflux disease) Osteoarthritis Sleep apnea (Chronic) Mild, not using CPAP Vitamin D deficiency Lumbar disc disease Deviated nasal septum Chronic insomnia Anxiety Degenerative disc disease (02/06/13) Cervical radiculopathy History of superficial parotidectomy 09/24/20 Spinal stenosis Medical History Metastatic cancer Vision loss of right eye reports r/t clinical trial medication he had been taking for cancer Carcinoma of parotid gland w/ mets. Dx'd 2019. hx surgery, radiation + chemo. Had been participating in clinical trials on oral medication in past but not currently. - Recent imaging showing progression of disease with liver metastasis Macular hole of left eye Hiatal hernia Lumbar radiculopathy Surgical History Port-A-Cath in place (02/26/23) Insertion Access Port into left subclavian with Fluoroscopy(Left) - Korin Nelson DO History of back surgery History of left cataract surgery History of esophagogastroduodenoscopy (EGD) History of anesthesia reaction Awareness during [facility] (2018 and 2018)- at [facility] History of open reduction and internal fixation (ORIF) procedure right wrist History of colonoscopy History of cervical discectomy "Good" ROM History of sinus surgery History of hand surgery (~2003) Right hand surery History of repair of rotator cuff left History of hip replacement right (2018), left (2019) Family History Mother , 62yo Stroke Father , 44yo Myocardial infarction Brother Mantle cell lymphoma Rodriguez esophagus Heart disease Stent placed; Daughter Hypertension Other No family history of adverse response to anesthesia No family history of allergies No family history of bleeding disorder Denies family history of Ovarian cancer Prostate cancer Diabetes Breast cancer Colorectal cancer Social History Smoking Status: Never smoker Second Hand Exposure: Yes (as a child); Do You Dip or Chew Tobacco: No; Hx Alcohol Use: No Hx Substance Use: No Preferred Language: Wolof Communication Ability: Effective Visual Impairment: No Limitations Hearing Ability: Normal 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 Beliefs That Will Affect Care: None marital status: Current Living Situation: Spouse Current Living Situation Comment: current occupational status: employed current occupation: [employer] at [employer] How many Children do You have: 1 Feels Safe at Home: Yes Childhood Exposure to Second-Hand Smoke: Yes Diet: regular Diet Comment: regular caffeine: No during the past year weight has: decreased > 10 lbs Dental Care, Regularly: Yes Physical Activity Frequency: Daily Seatbelt Use: always Sunscreen Use: Yes Assistive Devices: CPAP and Glasses Physical Exam 2 Vital Signs: Vital Signs - 24 hr 10/03/23 15:01 10/03/23 15:14 10/03/23 15:14 Temperature 36.0 C L Temperature Source Oral Pulse Rate 99 H 92 H Pulse Rate [Apical ] 92 H Pulse Rhythm Regular Pulse Rhythm [Apic al] Regular Pulse Strength [Ap ical] Normal Respiratory Rate 24 21 Respiratory Effort / Characteristics Non-Labored Non-Labored Sponta neous Respiratory Depth Normal Normal Respiratory Patter n Regular Blood Pressure 106/60 Blood Pressure [Ri ght Arm] 110/60 Blood Pressure Cary n 75 Blood Pressure Cary n [Right Arm] 76 Blood Pressure Pos ition [Right Arm] Semi-fowlers Pulse Oximetry 93 99 99 Oxygen Delivery Me thod Room Air Nasal Cannula Nasal Cannula Oxygen Flow Rate 2 2 Sepsis Recent Feve r Within 48 Hours No Sepsis New/Unexpla ined Change in Men keenan Status N/A Sepsis Action Take n by Nursing No Action Required Oxygen Flow Rate - Titration Pulse Oximetry Pos t Tiitration 10/03/23 15:22 10/03/23 16:49 Temperature Temperature Source Pulse Rate 94 H Pulse Rate [Apical ] Pulse Rhythm Pulse Rhythm [Apic al] Pulse Strength [Ap ical] Respiratory Rate Respiratory Effort / Characteristics Respiratory Depth Respiratory Patter n Blood Pressure Blood Pressure [Ri ght Arm] Blood Pressure Cary n Blood Pressure Cary n [Right Arm] Blood Pressure Pos ition [Right Arm] Pulse Oximetry 87 L Oxygen Delivery Me thod Room Air Oxygen Flow Rate Sepsis Recent Feve r Within 48 Hours Sepsis New/Unexpla ined Change in Men keenan Status Sepsis Action Take n by Nursing Oxygen Flow Rate - Titration 2 Pulse Oximetry Pos t Tiitration 99 Physical Exam: Physical Exam HENT: Exam performed. - Head: Normocephalic and atraumatic. EYES: Conjunctivae and EOM are normal. Right eye exhibits no discharge. Left eye exhibits no discharge. No scleral icterus. NECK: Normal range of motion. Neck supple. No JVD present. CV: Normal rate, regular rhythm, normal heart sounds and intact distal pulses. 2+ pitting edema of the bilateral lower extremities. Palpable radial pulses bue. PULM/CHEST: Tachypneic. Rales bilaterally. ABD: The abdomen is soft. There is no tenderness. NEURO: Motor and sensation grossly intact. Course Course 150: The patient was evaluated in room B10. A complete history and physical exam was performed Cardiac monitoring: An order was placed for continuous cardiac monitoring. The monitor shows a rate of 90 with sinus rhythm interpreted by me Patient is found to be hypoxic on room air. Supplemental oxygen was applied via nasal cannula which improved the patient's oxygen saturation. 1725: Vital signs stable supplemental oxygen via nasal cannula. Imaging shows that the patient has cardiomegaly with fluid overloaded. BNP is elevated. Patient treated with Lasix. [facility] be [facility] to the [facility] team Dr. Lind was spoken with and he will admit the patient to his service. Administered Medications Discontinued Medications Furosemide (Furosemide 40 Mg/4 Ml Vial) 40 mg IV ONE ONE Stop: 10/03/23 16:57 Last Admin: 10/03/23 17:01 Dose: 40 mg Documented By: SRINATH Medical Decision Making Medical Records Attestation: I reviewed the patient's medical records. External medical records reviewed. Patient had blood work done on October 01, 2023 which showed a hemoglobin of 9.4 white blood cell count of 10.14. Creatinine 1.93 which appears to be around the patient's baseline. Magnesium 1.6. Alkaline phosphatase 338 lactate dehydrogenase 640. Patient had a negative ultrasound of his bilateral lower extremities to rule out DVT. CTA of the chest done on the same date showed no evidence of pulmonary embolus and an overall progression of the extensive/diffuse pulmonary and pleural-based metastatic disease when compared to May 2023. There is no overall progression of the multifocal hepatic metastatic disease as compared to November 13, 2019 for an extensive multifocal mixed lytic/blastic bony metastatic disease that does not appear changed from June 14, 2023. Patient had an echo done in November 2022 which showed an ejection fraction of 60 to 65% with no regional wall motion abnormalities. Laboratory Data Attestation: I reviewed the patient's lab results. 10/03/23 15:18 10/03/23 15:18 Lab Results 10/03/23 Range/Units 15:18 WBC 8.37 (4.8-10.8) K/ul RBC 2.63 L (4.70-6.10) M/uL Hgb 8.3 L (14.0-18.0) g/dl Hct 25.2 L (42.0-52.0) % MCV 95.8 (80.0-100.0) fL MCH 31.6 (25.0-34.0) pg MCHC 32.9 (32.0-36.0) g/dL RDW Std Deviation 69.0 H (36.4-46.3) fL RDW Coeff of Renny 21.1 H (11.5-14.5) % Plt Count 96 L (130-400) K/uL MPV 11.9 (9.4-12.4) fL Immature Gran % (Auto) 1.2 % Neut % (Auto) 83.5 % Lymph % (Auto) 1.8 % Nye % (Auto) 11.5 % Eos % (Auto) 1.8 % Baso % (Auto) 0.2 % Neut # (Auto) 6.99 H (1.40-6.50) K/uL Lymph # (Auto) 0.15 L (1.20-3.40) K/uL Nye # (Auto) 0.96 H (0.11-0.59) K/uL Eos # (Auto) 0.15 (0.00-0.50) K/uL Baso # (Auto) 0.02 (0.00-0.20) K/uL Immature Gran # (Auto) 0.10 (0.01-0.20) K/uL Dohle Bodies 1+ Platelet Estimate Decreased L (Normal) Anisocytosis Present PT 12.5 H (9.0-12.0) Seconds INR 1.2 H (0.9-1.1) APTT 83 H* (21-31) Seconds PTT Ratio 3.1 Sodium 134 L (136-145) mmol/L Potassium 3.4 L (3.5-5.1) mmol/L Chloride 99 (98-107) mmol/L Carbon Dioxide 27 (21-32) mmol/L Anion Gap 8 (3-11) BUN 41 H (6-23) mg/dl Creatinine 2.25 H (0.6-1.4) mg/dl Est Cr Clr Drug Dosing 44.6 ml/min Est GFR ( Amer) 35.9 ml/min Est GFR (Non-Af Amer) 31.0 ml/min BUN/Creatinine Ratio 18.2 (10-20) Glucose 113 H (70-99(Fasting)) mg/dl Calcium 8.1 L (8.6-10.3) mg/dl Troponin I High Sens 19.7 (0-20) pg/ml B-Natriuretic Peptide 157 H (0-100) pg/ml Lipase 6 L (11-82) U/L SARS-CoV-2 (PCR) NEGATIVE (Negative) Influenza Type A (PCR) Negative (Neg) Influenza Type B (PCR) Negative (Neg) RSV (RT-PCR) Negative (Neg) Imaging Data Attestation: I personally reviewed and interpreted this imaging study as follows: My Impression: Chest x-ray: Cardiomegaly with cephalization Radiologist's Impression: Chest X-Ray 10/03/23 15:14 SINGLE VIEW CHEST CLINICAL HISTORY: Atypical chest pain. FINDINGS: An AP, portable, upright chest radiograph is compared to study dated 09/24/2023 and correlated with chest CT dated 10/01/2023. A left subclavian central venous infusion port is unchanged in position. The heart is enlarged. There is pulmonary vascular congestion. Findings of multifocal pulmonary and pleural- based metastatic disease or better assessed on the recent CT scan. There is a left pleural collection, which was also better assessed by CT. No pneumothorax is seen. The skeletal structures are osteopenic. Fusion hardware is seen in the lower cervical spine and upper lumbar spine. There are thoracic compression deformities or evidence of prior vertebroplasty. There are chronic left-sided rib fractures. IMPRESSION: 1. Cardiomegaly with evidence of congestive failure. 2. Left pleural effusion. 3. Multifocal pulmonary and pleural-based metastatic disease was better assessed on the recent chest CT. ACT 112: Negative or not required by law. Electronically signed by: Anatoly Sandoval M.D. 10/03/2023 4:55 PM ECG Data Attestation: I personally reviewed and interpreted this ECG as follows: Interpretation: Sinus rhythm with a rate of 94. CT QRS and QTc intervals within normal limits. No ST elevation or ST depression. [facility] Narrative 1506: The patient was evaluated in room B10. A complete history and physical exam was performed Cardiac monitoring: An order was placed for continuous cardiac monitoring. The monitor shows a rate of 90 with sinus rhythm interpreted by me Patient is found to be hypoxic on room air. Supplemental oxygen was applied via nasal cannula which improved the patient's oxygen saturation. 1725: Vital signs stable supplemental oxygen via nasal cannula. Imaging shows that the patient has cardiomegaly with fluid overloaded. BNP is elevated. Patient treated with Lasix. Patient be admitted to the [facility] Hospitalist team Dr. Lind was spoken with and he will admit the patient to his service. Impression & Plan Hypoxia, CHF exacerbation Critical Care Time Critical Care Time: Yes Total Critical Care Time: 58 I have personally spent greater than 58 minutes of critical care time in the direct management of this patient. This includes bedside care, interpretation of diagnostic studies, and testing, discussion with consultants, patient, and family members, and other required patient management activities. This 58 minutes is in excess of all separately billable procedures. Discharge Plan Visit Data Chief Complaint: Shortness of Breath/Dyspnea Stated Complaint: SOB ED Provider: Joel Anderson Discharge Problem: Hypoxia, CHF exacerbation Patient Disposition: Admitted As Inpatient Forms Stand Alone Forms: My [facility] Prescriptions Prescriptions: No Action ondansetron HCl 8 mg tablet 8 mg PO Q8H PRN (Reason: Nausea) prochlorperazine maleate [Compazine] 10 mg tablet 10 mg PO Q6H PRN (Reason: Nausea) (DME) Cock-Up Wrist Splint Misc See Dose Instructions .ROUTE .MEDSUPPLY Qty: 2 0RF Dose Instruction: As directed Rx Instructions: Left and right wrist splints G56.00 folic acid 1 mg tablet 1 mg PO QAM Qty: 90 3RF albuterol sulfate 2.5 mg /3 mL (0.083 %) solution for nebulization 2.5 mg inhalation Q4H PRN (Reason: shortness of breath or wheezing) Qty: 75 3RF (DME) inhalational spacing device Spacer See Rx Instructions .ROUTE .MEDSUPPLY Qty: 1 0RF Rx Instructions: As directed albuterol sulfate 90 mcg/actuation HFA aerosol inhaler 2 inh inhalation Q6H PRN (Reason: shortness of breath or wheezing) Qty: 6.7 3RF lisinopril 40 mg tablet 40 mg PO QAM Qty: 90 1RF mirtazapine 15 mg tablet 15 mg PO HS Qty: 90 1RF pilocarpine HCl [Salagen (pilocarpine)] 5 mg tablet 5 mg PO TID Qty: 270 1RF famotidine 40 mg tablet 40 mg PO BID Qty: 180 1RF pantoprazole 40 mg tablet,delayed release (DR/EC) 40 mg PO QAM Qty: 90 3RF atorvastatin [Lipitor] 20 mg tablet 20 mg PO HS Qty: 90 1RF Hold Instructions: Resume on 10/02/22. (DME) nebulizer and compressor Device See Rx Instructions .Route Qty: 1 0RF Rx Instructions: with accessories As directed. C78.00 (DME) Auto Titrating CPAP Misc See Rx Instructions .Route Qty: 1 0RF Rx Instructions: as directed-Min pressure: 4cmH2O, Max pressure: [id number], CPAP SUPPLIES NEEDED: HUMIDIFIER, HEATED , REPLACEMENT WATER CHAMBER , TUBING , DISPOSABLE FILTERS , NON-DISPOSABLE FILTERS , HEADGEAR , MASK. lorazepam 0.5 mg tablet 0.5 mg PO DAILY PRN (Reason: anxiety) Qty: 30 1RF (DME) Cock-Up Wrist Splint Misc See Dose Instructions .ROUTE .MEDSUPPLY Qty: 2 0RF Dose Instruction: As directed Rx Instructions: Left and right wrist splints G56.00 fentanyl 50 mcg/hr patch 72 hour 50 mcg transdermal [id number] gabapentin 600 mg tablet 1,200 mg PO TID duloxetine 60 mg capsule,delayed release(DR/EC) 60 mg PO DAILY furosemide 20 mg tablet 20 mg PO QAM PRN (Reason: Edema) levothyroxine 75 mcg tablet 75 mcg PO DAILYBB amlodipine 10 mg tablet 10 mg PO HS Referrals Referrals: Jo Maxwell MD [Primary Care Provider] - Discharge Problem: CHF exacerbation Qualifiers: Heart failure type: unspecified Qualified Code(s): I50.9 - Heart failure, unspecified
[2023-10-03 16:02] LABS: BUN Creatinine Ratio 18.2 (10-20); Calcium 8.1 mg/dl (8.6-10.3); Creatinine Clr Calc Pharmacy 44.6 ml/min; Est GFR (African American) 35.9 ml/min; Potassium 3.4 mmol/L (3.5-5.1)
[2023-10-03 16:04] LABS: Hematocrit (blood only) 25.2 % (42.0-52.0); Hemoglobin 8.3 g/dl (14.0-18.0); Mean Corpuscular Hemoglobin 31.6 pg (25.0-34.0); Mean Corpuscular Hgb Conc 32.9 g/dL (32.0-36.0); Mean Corpuscular Volume 95.8 fL (80.0-100.0); RDW Coefficient of Variation 21.1 % (11.5-14.5); Red Blood Count 2.63 M/uL (4.70-6.10); White Blood Count 8.37 K/ul (4.8-10.8)
[2023-10-03 16:08] LABS: Troponin I High Sensitivity 19.7 pg/ml (0-20)
[2023-10-03 16:12] LABS: Anisocytosis Present; Basophils # (auto) 0.02 K/uL (0.00-0.20); Basophils % (auto) 0.2 %; Dohle Bodies 1+; Eosinophils # (auto) 0.15 K/uL (0.00-0.50); Eosinophils % (auto) 1.8 %; INR 1.2 (0.9-1.1); Immature Granulocytes % (auto) 1.2 %; Lymphocytes # (auto) 0.15 K/uL (1.20-3.40); Lymphocytes % (auto) 1.8 %; Mean Platelet Volume 11.9 fL (9.4-12.4); Monocytes # (auto) 0.96 K/uL (0.11-0.59); Monocytes % (auto) 11.5 %; Neutrophils # (auto) 6.99 K/uL (1.40-6.50); Neutrophils % (auto) 83.5 %; Partial Thromboplastin Ratio 3.1; Platelet Count 96 K/uL (130-400); Platelet Estimate Decreased (Normal); Prothrombin Time 12.5 Seconds (9.0-12.0)
[2023-10-03 16:16] LABS: Partial Thromboplastin Time 83 Seconds (21-31)
[2023-10-03 16:21] LABS: Influenza A virus by PCR Negative (Neg); Influenza B virus by PCR Negative (Neg); RSV by PCR Negative (Neg); SARS CoV2 RNA(COVID-19) Ceph NEGATIVE (Negative)
--- NOTE | 2023-10-03 16:53 | Electrocardiogram Report ---
Test Reason : Blood Pressure : / mmHG Vent. Rate : 094 BPM Atrial Rate : 094 BPM P-R Int : 182 ms QRS Dur : 084 ms QT Int : 352 ms P-R-T Axes : 035 026 028 degrees QTc Int : 440 ms Normal sinus rhythm Normal ECG When compared with ECG of 25-JUL-2023 10:39, No significant change was found Confirmed by Yuriy Martin ([id number]) on 10/03/2023 4:52:35 PM Referred By: Confirmed By:Gabriel Martin
--- NOTE | 2023-10-03 16:57 | XRay Report ---
SINGLE VIEW CHEST CLINICAL HISTORY: Atypical chest pain. FINDINGS: An AP, portable, upright chest radiograph is compared to study dated 09/24/2023 and correlate d with chest CT dated 10/01/2023. A left subclavian central venous infusion port is unchanged in posit ion. The heart is enlarged. There is pulmonary vascular congestion. Findings of multifocal pulmonary and pleural-based metastatic disease or better assessed on the recent CT scan. There is a left pleura l collection, which was also better assessed by CT. No pneumothorax is seen. The skeletal structures are osteopenic. Fusion hardware is seen in the lower cervical spine and upper lumbar spine. There are thoracic compression deformities or evidence of prior vertebroplasty. There are chronic left-sided r ib fractures. IMPRESSION: 1. Cardiomegaly with evidence of congestive failure. 2. Left pleural effusion. 3. Multifocal pulmonary and pleural-based metastatic disease was better assessed on the recent chest CT. ACT 112: Negative or not required by law. Electronically signed by: Anatoly Sandoval M.D. 10/03/2023 4:55 PM
[2023-10-03] MEDS: FUROSEMIDE 40 MG/4 ML VIAL IV ONE (17:01)
--- NOTE | 2023-10-03 17:28 | History & Physical Report ---
Date of Service October 03, 2023 Assessment & Plan (1) Pulmonary edema: Plan: Suspect secondary to metastatic cancer TTE to assess cardiac function UA to assess for proteinuria (no urinary symptoms) Bladder scan to assess for urine retention - PVR 81ml Lasix 40 mg IV daily Strict I's and O's Daily weights (2) Hypoxia: Plan: Suspect likely secondary to progressive cancer +/- pulmonary edema Baseline on room air Aim O2 sats greater than 90% (3) Malignant neoplasm of parotid gland: Plan: Consult oncology given significant progression of metastatic cancer likely causing the majority of his symptoms (4) Hypertension: Plan: Notes orthostasis from history, since we are increasing his Lasix dosing will stop amlodipine at this time. Consider stopping lisinopril if continues to have orthostasis (5) Anemia: Plan: Unlikely contributing significantly as he is close to his baseline Will defer to oncology regarding Hgb cut off for transfusion but overnight transfuse only if < 7 Suspect secondary to chemotherapy however no workup for since july therefore will repeat with AM labs (6) Hypothyroidism: Plan: TSH 11.6 in January, repeat with a.m. labs Continue levothyroxine 75 mcg p.o. daily (7) Sleep apnea: Plan: CPAP HS (does not use this at home) (8) CKD stage 3b, GFR 30-44 ml/min: (9) GERD (gastroesophageal reflux disease): (10) Malignant pleural effusion: Plan VTE prophylaxis - Lovenox 40 mg subcu daily Diet - Low Na Disposition - admit to med/tele Admission and Anticipated Discharge Date Admission Date: October 022023 History of Present Illness Chief Complaint: Shortness of breath, leg swelling Primary Care Provider: Jo Maxwell MD Higinio Jesus is a 58-year-old male with metastatic acinic cell carcinoma parotid gland who presents to the ER with shortness of breath. He reports significant worsening shortness of breath over the last 2 weeks but especially this morning while going into work at [employer]. He does have a cough but this has not changed for several weeks with clear sputum. He has also noticed lightheadedness especially while standing resulting in some falls once a month over the last 3 months. He has noticed leg swelling which occurred a month ago and improved with lasix prescribed by oncology. This recurred over the last week but he has been taking Lasix without significant effect. He notes nocturia over the last year but no other prostate issues and no history of urine retention. No shortness of breath at rest, fever, chills, nasal congestion, sinus pain, hemoptysis, chest pain, orthopnea, PND, palpitations, claudication, urinary symptoms. He has mild obstructive sleep apnea - non compliant with CPAP - wore it for a month. At [facility] he does not require oxygen, currently on 2LPM O2 in the ER to maintain O2 sats > 90%. Allergies Allergy/AdvReac Type Severity Reaction Status Date / Time No Known Allergies Allergy Verified 09/25/23 14:54 Home Medications Medication Instructions Recorded Confirmed Type Cock-Up Wrist Splint #2 ea 05/19/22 10/03/23 Rx Auto Titrating CPAP #1 ea 07/10/22 10/03/23 Rx ondansetron HCl 8 mg tablet 8 mg PO Q8H PRN Nausea 08/08/22 10/03/23 History prochlorperazine maleate 10 mg 10 mg PO Q6H PRN Nausea 08/08/22 10/03/23 History tablet (Compazine) folic acid 1 mg tablet 1 mg PO QAM #90 tabs 10/23/22 10/03/23 Rx fentanyl 50 mcg/hr transdermal 50 mcg transdermal [id number] 12/02/22 10/03/23 History patch nebulizer and compressor #1 ea 12/18/22 10/03/23 Rx albuterol sulfate 2.5 mg/3 mL 2.5 mg (3 mL) inhalation Q4H PRN 12/26/22 10/03/23 Rx (0.083 %) solution for nebulization shortness of breath or wheezing #75 mL inhalational spacing device #1 ea 01/17/23 10/03/23 Rx albuterol sulfate 90 mcg/actuation 2 inh inhalation Q6H PRN shortness 04/03/23 10/03/23 Rx aerosol inhaler of breath or wheezing #6.7 grams lisinopril 40 mg tablet 40 mg PO QAM #90 tabs 04/24/23 10/03/23 Rx mirtazapine 15 mg tablet 15 mg PO HS #90 tabs 04/24/23 10/03/23 Rx pilocarpine HCl 5 mg tablet 5 mg PO TID #270 tabs 04/24/23 10/03/23 Rx (Salagen (pilocarpine)) Cock-Up Wrist Splint #2 ea 05/10/23 10/03/23 Rx famotidine 40 mg tablet 40 mg PO BID #180 tabs 06/25/23 10/03/23 Rx pantoprazole 40 mg tablet,delayed 40 mg PO QAM #90 tabs 06/25/23 10/03/23 Rx release atorvastatin 20 mg tablet (Lipitor) 20 mg PO HS #90 tabs 08/07/23 10/03/23 Rx lorazepam 0.5 mg tablet 0.5 mg PO DAILY PRN anxiety #30 08/21/23 10/03/23 Rx tabs amlodipine 10 mg tablet 10 mg PO HS 10/03/23 10/03/23 History duloxetine 60 mg capsule,delayed 60 mg PO DAILY 10/03/23 10/03/23 History release furosemide 20 mg tablet 20 mg PO QAM PRN Edema 10/03/23 10/03/23 History gabapentin 600 mg tablet 1,200 mg PO TID 10/03/23 10/03/23 History levothyroxine 75 mcg tablet 75 mcg PO DAILYBB 10/03/23 10/03/23 History Past Med/Surg History Problem List (Updated 10/03/23 @ 18:05 by Joe Lind MD) CKD stage 3b, GFR 30-44 ml/min Pulmonary edema Hypoxia (Acute) Hypothyroidism Malignant pleural effusion Carpal tunnel syndrome on both sides Restrictive lung disease Renal insufficiency Ototoxic hearing loss of both ears Sensorineural hearing loss (SNHL) of both ears Bilateral tinnitus Malignant neoplasm of parotid gland (Chronic) Family history of premature coronary heart disease Orthostatic hypotension Postural lightheadedness Metastasis to spinal column (Chronic 04/20/21) Metastasis to lung Insomnia Hyponatremia Elevated transaminase level Eustachian tube disorder Papilledema of right eye Antiplatelet or antithrombotic long-term use Normal left ventricular systolic function and wall motion Metastatic cancer (Acute) Closed rib fracture (Acute) Left-sided weakness Abnormal brain MRI Liver lesion C7 cervical fracture Metastatic adenocarcinoma to bone (Chronic) Iron deficiency anemia WALKER (dyspnea on exertion) Fatigue Hypocalcemia Anemia Chronic- baseline 8-10 Hypertension Hyperlipidemia GERD (gastroesophageal reflux disease) Osteoarthritis Sleep apnea (Chronic) Mild, not using CPAP Vitamin D deficiency Lumbar disc disease Deviated nasal septum Chronic insomnia Anxiety Degenerative disc disease (02/06/13) Cervical radiculopathy History of superficial parotidectomy 09/24/20 Spinal stenosis Medical History Metastatic cancer Vision loss of right eye reports r/t clinical trial medication he had been taking for cancer Carcinoma of parotid gland w/ mets. Dx'd 2019. hx surgery, radiation + chemo. Had been participating in clinical trials on oral medication in past but not currently. - Recent imaging showing progression of disease with liver metastasis Macular hole of left eye Hiatal hernia Lumbar radiculopathy Surgical History Port-A-Cath in place (02/26/23) Insertion Access Port into left subclavian with Fluoroscopy(Left) - Korin Nelson DO History of back surgery History of left cataract surgery History of esophagogastroduodenoscopy (EGD) History of anesthesia reaction Awareness during [facility] (2018 and 2019)- at [facility] History of open reduction and internal fixation (ORIF) procedure right wrist History of colonoscopy History of cervical discectomy "Good" ROM History of sinus surgery History of hand surgery (~2004) Right hand surery History of repair of rotator cuff left History of hip replacement right (2018), left (2019) Family History Mother , 62yo Stroke Father , 44yo Myocardial infarction Brother Mantle cell lymphoma Rodriguez esophagus Heart disease Stent placed; Daughter Hypertension Other No family history of adverse response to anesthesia No family history of allergies No family history of bleeding disorder Denies family history of Ovarian cancer Prostate cancer Diabetes Breast cancer Colorectal cancer Social History Smoking Status: Never smoker Second Hand Exposure: No; Do You Dip or Chew Tobacco: No; Tobacco Cessation Education Requested by Patient: No Hx Alcohol Use: No Hx Substance Use: No Preferred Language: Nauruan Communication Ability: Effective Visual Impairment: No Limitations Hearing Ability: Normal Data Communications Technician Required: No Beliefs That Will Affect Care: None marital status: Current Living Situation: Spouse Current Living Situation Comment: current occupational status: employed current occupation: [employer] at [employer] How many Children do You have: 1 Other Information That Helps Us Care for You: No Feels Safe at Home: Yes Safety Concerns: Feels Safe At This Time Childhood Exposure to Second-Hand Smoke: Yes Diet: regular Diet Comment: regular caffeine: No during the past year weight has: decreased > 10 lbs Dental Care, Regularly: Yes Physical Activity Frequency: Daily Seatbelt Use: always Sunscreen Use: Yes Assistive Devices: None Review of Systems Review of Systems: All systems reviewed & are unremarkable except as noted in HPI & below Physical Exam Constitutional: WD/WN, vitals as above Eyes: PERRL, conjunctivae normal, anicteric sclerae ENMT: external ear and nose normal, oropharynx normal Neck: trachea midline, no thyromegaly Respiratory: normal respiratory effort; no respiratory distress Auscultation: + crackles (posterior throughout); breath sounds present, no diminished lung sounds, no rales, no rhonchi and no wheezes Cardiovascular: Rate/Rhythm: regular rate and regular rhythm Heart Sounds: no murmur Extremities: normal capillary refill and + pedal edema (1+ b/l equal); no calf tenderness Gastrointestinal (Abdomen): normal bowel sounds, soft, nontender, no hepatosplenomegaly Musculoskeletal: no cyanosis or clubbing, extremities motor strength 5/5 Skin: no rashes, warm and dry Neurologic: moves all extremities and awake; not confused Psychiatric: A+Ox3, euthymic affect Genitourinary: no CVA tenderness Results & Data Results & Data Vital Signs (Past 12 Hours) Vital Signs Temp Pulse Pulse Resp BP BP Pulse Ox 10/03/23 16:49 94 H 10/03/23 15:22 87 L 10/03/23 15:14 92 H 99 10/03/23 15:14 92 H 21 110/60 99 10/03/23 15:01 36.0 C L 99 H 24 106/60 93 O2 Del Method O2 Flow Rate 10/03/23 16:49 10/03/23 15:22 Room Air 10/03/23 15:14 Nasal Cannula 2 10/03/23 15:14 Nasal Cannula 2 10/03/23 15:01 Room Air Laboratory Results Abnormal lab results 10/03/23 Range/Units 15:18 RBC 2.63 L (4.70-6.10) M/uL Hgb 8.3 L (14.0-18.0) g/dl Hct 25.2 L (42.0-52.0) % RDW Std Deviation 69.0 H (36.4-46.3) fL RDW Coeff of Renny 21.1 H (11.5-14.5) % Plt Count 96 L (130-400) K/uL Neut # (Auto) 6.99 H (1.40-6.50) K/uL Lymph # (Auto) 0.15 L (1.20-3.40) K/uL [place] # (Auto) 0.96 H (0.11-0.59) K/uL Platelet Estimate Decreased L (Normal) PT 12.5 H (9.0-12.0) Seconds INR 1.2 H (0.9-1.1) APTT 83 H* (21-31) Seconds Sodium 134 L (136-145) mmol/L Potassium 3.4 L (3.5-5.1) mmol/L BUN 41 H (6-23) mg/dl Creatinine 2.25 H (0.6-1.4) mg/dl Glucose 113 H (70-99(Fasting)) mg/dl Calcium 8.1 L (8.6-10.3) mg/dl B-Natriuretic Peptide 157 H (0-100) pg/ml Lipase 6 L (11-82) U/L Diagnostic Findings SINGLE VIEW CHEST CLINICAL HISTORY: Atypical chest pain. FINDINGS: An AP, portable, upright chest radiograph is compared to study dated 09/24/2023 and correlated with chest CT dated 10/01/2023. A left subclavian central venous infusion port is unchanged in position. The heart is enlarged. There is pulmonary vascular congestion. Findings of multifocal pulmonary and pleural- based metastatic disease or better assessed on the recent CT scan. There is a left pleural collection, which was also better assessed by CT. No pneumothorax is seen. The skeletal structures are osteopenic. Fusion hardware is seen in the lower cervical spine and upper lumbar spine. There are thoracic compression deformities or evidence of prior vertebroplasty. There are chronic left-sided rib fractures. IMPRESSION: 1. Cardiomegaly with evidence of congestive failure. 2. Left pleural effusion. 3. Multifocal pulmonary and pleural-based metastatic disease was better assessed on the recent chest CT. Medications Administered ER medications given: Furosemide 40 mg IV ECG Rate (beats per minute): 94 Rhythm: normal sinus Findings: no acute ischemic change Comparison ECG Date: from (July 25, 2023) Change: no significant change Code Status & VTE Plan Code Status Full VTE Prophylaxis Plan VTE Prophylaxis will be ordered: Yes PG Care Time/CCT Total # of Minutes Spent Total Time Spent with Patient: Total time spent is greater than 50% in coordination of care (as documented) at patient's floor/unit and/or counseling patient: Coding Level of Care Code 17178 INT INP/OBS CARE 3/75MIN Diagnoses Pulmonary edema J81.1 Hypoxia R09.02 Malignant neoplasm of parotid gland C07 Hypertension I10 Anemia D64.9 Hypothyroidism E03.9 Sleep apnea G47.30 CKD stage 3b, GFR 30-44 ml/min N18.32 GERD (gastroesophageal reflux disease) K21.9 Malignant pleural effusion J91.0
[2023-10-03 17:45] LABS: Albumin Level 2.8 gm/dl (3.4-5.0); Bilirubin Direct 0.4 mg/dl (0-0.2); Bilirubin,Total 1.1 mg/dl (0.2-1.0); Magnesium 1.6 mg/dl (1.7-2.4); Total Protein 5.5 gm/dl (6.0-8.3)
[2023-10-03] MEDS: POTASSIUM CHLORIDE CRTAB 20 MEQ TABCR PO STA (18:00)
[2023-10-03 19:17] LABS: Appearance Urine Clear (Clear); Bilirubin Urine Negative (Negative); Blood Urine Trace (Negative); Color Urine Yellow; Glucose Urine UA Negative (Negative); Ketones Urine Negative (Negative); Leukocyte Esterase Urine Negative (Negative); Nitrite Urine Negative (Negative); Protein Urine 1+ (Negative); RBC Urine Automated 0-2 /hpf (0-2); Specific Gravity Urine 1.008 (1.000-1.030); Urobilinogen Urine Negative (Negative); WBC Urine Automated 0-5 /hpf (0-5); pH Urine 5.5 (4.5-7.5)
[2023-10-03 19:28] LABS: Granular Casts Urine P /lpf (None Prsent)
[2023-10-03 19:29] LABS: Bacteria Urine Automated 2+ (None Seen)
[2023-10-03 19:30] LABS: Renal Epithelial Cells Urine Present /lpf (None Presnt)
[2023-10-03] MEDS ORDERED: LORazepam 0.5 MG TAB PO PRN (22:11)
[2023-10-03] MEDS ORDERED: ACETAMINOPHEN 325 MG TAB PO PRN (22:11)
[2023-10-03] MEDS ORDERED: ALBUTEROL HFA 8 GM INHALER INH PRN (22:11)
[2023-10-04] MEDS: FAMOTIDINE 20 MG TAB PO SCH (00:08)
[2023-10-04] MEDS: GABAPENTIN 600 MG TAB PO SCH (00:08)
[2023-10-04] MEDS: ENOXAPARIN INJ 40 MG/0.4 ML SYR SQ SCH (00:08)
[2023-10-04] MEDS: PILOCARPINE HCL 5 MG TABLET PO SCH (00:08)
[2023-10-04] MEDS: ATORVASTATIN 20 MG TAB PO SCH (00:08)
[2023-10-04] MEDS: MIRTAZAPINE TAB 15 MG TAB PO SCH (00:08)
[2023-10-04] MEDS: MAGNESIUM SULFATE / D5W 1 GM/100 ML BAG IV SCH (00:11)
[2023-10-04] MEDS: fentaNYL 50 MCG/HR TDSY TD SCH (00:12)
[2023-10-04] MEDS: CHECK fentaNYL PATCH PLACEMENT SCH (00:14)
[2023-10-04] MEDS: LEVOTHYROXINE SODIUM 75 MCG TABLET PO SCH (05:59)
[2023-10-04 06:12] LABS: Basophils # (auto) 0.03 K/uL (0.00-0.20); Basophils % (auto) 0.3 %; Eosinophils # (auto) 0.19 K/uL (0.00-0.50); Hematocrit (blood only) 24.2 % (42.0-52.0); Hemoglobin 7.9 g/dl (14.0-18.0); Immature Granulocytes # (auto) 0.14 K/uL (0.01-0.20); Immature Granulocytes % (auto) 1.5 %; Lymphocytes # (auto) 0.16 K/uL (1.20-3.40); Lymphocytes % (auto) 1.7 %; Mean Corpuscular Hgb Conc 32.6 g/dL (32.0-36.0); Mean Corpuscular Volume 94.9 fL (80.0-100.0); Mean Platelet Volume 11.8 fL (9.4-12.4); Monocytes # (auto) 0.78 K/uL (0.11-0.59); Monocytes % (auto) 8.4 %; Neutrophils # (auto) 8.01 K/uL (1.40-6.50); Neutrophils % (auto) 86.1 %; Platelet Count 88 K/uL (130-400); RDW Coefficient of Variation 20.8 % (11.5-14.5); RDW Standard Deviation 69.5 fL (36.4-46.3); Red Blood Count 2.55 M/uL (4.70-6.10); Reticulocyte % 2.31 % (0.50-2.00); White Blood Count 9.31 K/ul (4.8-10.8)
[2023-10-04 06:41] LABS: Albumin Level 2.8 gm/dl (3.4-5.0); BUN Creatinine Ratio 16.8 (10-20); Bilirubin,Total 0.6 mg/dl (0.2-1.0); Calcium 8.1 mg/dl (8.6-10.3); Creatinine Clr Calc Pharmacy 38.8 ml/min; Est GFR (African American) 29.9 ml/min; Est GFR (Non-African American) 25.8 ml/min; Globulin 2.9 gm/dl (2.5-4.0); Magnesium 2.3 mg/dl (1.7-2.4); Potassium 3.8 mmol/L (3.5-5.1); Total Protein 5.7 gm/dl (6.0-8.3)
[2023-10-04 06:47] LABS: Thyroid Stimulating Hormone 0.531 uIu/ml (0.300-4.500)
[2023-10-04 06:50] LABS: Anisocytosis Present
[2023-10-04 06:52] LABS: Folate (Folic Acid),Ser orPlas 19.71 ng/ml (>5.38)
--- NOTE | 2023-10-04 07:56 | Oncology Consultation ---
Date of Consultation October 04, 2023 Assessment & Plan (1) Malignant neoplasm of parotid gland: (2) Renal insufficiency: (3) Malignant pleural effusion: Plan Unfortunately, patient has significant disease progression in the lungs. Suspect that this is the cause of his worsening shortness of breath and hypoxia. I have discussed with him that they are very limited options for very rare parotid gland carcinoma. Patient is scheduled for evaluation by medical oncology at [facility] later today as well as [facility] upon discharge from hospital. Will see if they have any clinical trials for patient. However, would recommend evaluation by palliative care at this time given extensive disease to discuss goals of care. He would also benefit from supplemental oxygen upon discharge from hospital. -Recommend evaluation by palliative care to discuss goals of care -Would benefit from home oxygen upon discharge from hospital. Thank you for this consult. Oncology will follow peripherally while he is in the hospital. Please feel free to call if have any further questions. History of Present Illness Reason for Consultation: Progressive metastatic cancer Attending Physician: Sina Ferrari MD History of Present Illness Mr. 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 Oxygen saturation while in the ER was 87%.Of note, he had had CTA chest on 10/01/2023 which was negative for PE but showed overall progression of extensive/diffuse pulmonary and pleural-based metastatic disease, overall progression of multifocal hepatic metastatic disease and extensive multifocal mixed lytic/blastic bone lesions which were stable. He states that he is feeling better with supplemental O2. Scheduled for telehealth evaluation by his oncologist at [facility] today. Allergies Allergy/AdvReac Type Severity Reaction Status Date / Time No Known Allergies Allergy Verified 09/25/23 14:54 Home Medications Medication Instructions Recorded Confirmed Type Cock-Up Wrist Splint #2 ea 05/19/22 10/03/23 Rx Auto Titrating CPAP #1 ea 07/10/22 10/03/23 Rx ondansetron HCl 8 mg tablet 8 mg PO Q8H PRN Nausea 08/08/22 10/03/23 History prochlorperazine maleate 10 mg 10 mg PO Q6H PRN Nausea 08/08/22 10/03/23 History tablet (Compazine) folic acid 1 mg tablet 1 mg PO QAM #90 tabs 10/23/22 10/03/23 Rx fentanyl 50 mcg/hr transdermal 50 mcg transdermal [id number] 12/02/22 10/03/23 History patch nebulizer and compressor #1 ea 12/18/22 10/03/23 Rx albuterol sulfate 2.5 mg/3 mL 2.5 mg (3 mL) inhalation Q4H PRN 12/26/22 10/03/23 Rx (0.083 %) solution for nebulization shortness of breath or wheezing #75 mL inhalational spacing device #1 ea 01/17/23 10/03/23 Rx albuterol sulfate 90 mcg/actuation 2 inh inhalation Q6H PRN shortness 04/03/23 10/03/23 Rx aerosol inhaler of breath or wheezing #6.7 grams lisinopril 40 mg tablet 40 mg PO QAM #90 tabs 04/24/23 10/03/23 Rx mirtazapine 15 mg tablet 15 mg PO HS #90 tabs 04/24/23 10/03/23 Rx pilocarpine HCl 5 mg tablet 5 mg PO TID #270 tabs 04/24/23 10/03/23 Rx (Salagen (pilocarpine)) Cock-Up Wrist Splint #2 ea 05/10/23 10/03/23 Rx famotidine 40 mg tablet 40 mg PO BID #180 tabs 06/25/23 10/03/23 Rx pantoprazole 40 mg tablet,delayed 40 mg PO QAM #90 tabs 06/25/23 10/03/23 Rx release atorvastatin 20 mg tablet (Lipitor) 20 mg PO HS #90 tabs 08/07/23 10/03/23 Rx lorazepam 0.5 mg tablet 0.5 mg PO DAILY PRN anxiety #30 08/21/23 10/03/23 Rx tabs amlodipine 10 mg tablet 10 mg PO HS 10/03/23 10/03/23 History duloxetine 60 mg capsule,delayed 60 mg PO DAILY 10/03/23 10/03/23 History release furosemide 20 mg tablet 20 mg PO QAM PRN Edema 10/03/23 10/03/23 History gabapentin 600 mg tablet 1,200 mg PO TID 10/03/23 10/03/23 History levothyroxine 75 mcg tablet 75 mcg PO DAILYBB 10/03/23 10/03/23 History Patient History Medical History Metastatic cancer Vision loss of right eye reports r/t clinical trial medication he had been taking for cancer Carcinoma of parotid gland w/ mets. Dx'd 2019. hx surgery, radiation + chemo. Had been participating in clinical trials on oral medication in past but not currently. - Recent imaging showing progression of disease with liver metastasis Macular hole of left eye Hiatal hernia Lumbar radiculopathy Surgical History Port-A-Cath in place (02/26/23) Insertion Access Port into left subclavian with Fluoroscopy(Left) - Korin Nelson DO History of back surgery History of left cataract surgery History of esophagogastroduodenoscopy (EGD) History of anesthesia reaction Awareness during [facility] (2018 and 2019)- at [facility] History of open reduction and internal fixation (ORIF) procedure right wrist History of colonoscopy History of cervical discectomy "Good" ROM History of sinus surgery History of hand surgery (~2004) Right hand surery History of repair of rotator cuff left History of hip replacement right (2018), left (2019) Family History Mother , 62yo Stroke Father , 44yo Myocardial infarction Brother Mantle cell lymphoma Rodriguez esophagus Heart disease Stent placed; Daughter Hypertension Other No family history of adverse response to anesthesia No family history of allergies No family history of bleeding disorder Denies family history of Ovarian cancer Prostate cancer Diabetes Breast cancer Colorectal cancer Social History Smoking Status: Never smoker Second Hand Exposure: No; Do You Dip or Chew Tobacco: No; Tobacco Cessation Education Requested by Patient: No Hx Alcohol Use: No Hx Substance Use: No Preferred Language: Omani Communication Ability: Effective Visual Impairment: No Limitations Hearing Ability: Normal Customer Engagement Manager Required: No Beliefs That Will Affect Care: None marital status: Current Living Situation: Spouse Current Living Situation Comment: current occupational status: employed current occupation: [employer] at [employer] How many Children do You have: 1 Other Information That Helps Us Care for You: No Feels Safe at Home: Yes Safety Concerns: Feels Safe At This Time Childhood Exposure to Second-Hand Smoke: Yes Diet: regular Diet Comment: regular caffeine: No during the past year weight has: decreased > 10 lbs Dental Care, Regularly: Yes Physical Activity Frequency: Daily Seatbelt Use: always Sunscreen Use: Yes Assistive Devices: None Results & Data Vital Signs (Past 12 Hours) Vital Signs Temp Pulse Pulse Pulse Resp BP BP 10/04/23 07:15 10/04/23 07:14 36.5 C 92 H 15 151/80 H 10/04/23 07:00 92 H 10/04/23 03:02 36.6 C 86 18 123/74 10/04/23 01:35 96 H 10/03/23 23:52 10/03/23 23:52 36.3 C L 95 H 18 10/03/23 22:00 87 25 H 123/77 10/03/23 20:55 92 H 10/03/23 20:00 92 H 21 139/76 BP Pulse Ox O2 Del Method O2 Flow Rate 10/04/23 07:15 Room Air 10/04/23 07:14 98 Nasal Cannula 2.5 10/04/23 07:00 10/04/23 03:02 98 Nasal Cannula 2 10/04/23 01:35 10/03/23 23:52 Nasal Cannula 2 10/03/23 23:52 117/74 97 Nasal Cannula 2 10/03/23 22:00 98 Nasal Cannula 2 10/03/23 20:55 10/03/23 20:00 99 Nasal Cannula 2
[2023-10-04 07:58] LABS: INR 1.1 (0.9-1.1); Partial Thromboplastin Ratio 1.2; Partial Thromboplastin Time 33 Seconds (21-31); Prothrombin Time 11.9 Seconds (9.0-12.0)
[2023-10-04] MEDS: DULoxetine HCL 60 MG CAP PO SCH (08:19)
[2023-10-04] MEDS: FOLIC ACID 1 MG TAB PO SCH (08:19)
[2023-10-04] MEDS: PANTOprazole 40 MG TAB PO SCH (08:19)
[2023-10-04] MEDS: FUROSEMIDE 40 MG/4 ML VIAL IV SCH (08:20)
[2023-10-04] MEDS ORDERED: lisinopril 40 MG TAB PO SCH (09:00)
--- NOTE | 2023-10-04 10:11 | XRay Report ---
XR chest 2V PA/lateral HISTORY: Shortness of breath. lung mets, dyspnea COMPARISON: Chest 10/03/2023. FINDINGS: No pneumothorax. Cervical and thoracic spinal fusion hardware again noted. A left subclavia n Port-A-Cath terminates at the proximal SVC. This remains unchanged. The heart remains mildly enlarg ed. Small left pleural effusion persists. Multifocal pulmonary and pleural-based metastatic disease i s again noted. Old bilateral rib fractures and an old thoracic spine fracture again noted. These johnny in unchanged. Mild diffuse interstitial thickening may represent superimposed pulmonary congestion. IMPRESSION: 1. Cardiomegaly with mild congestive change and a small left pleural effusion. 2. Multifocal pulmonary and pleural-based metastatic disease again noted. ACT 112: Negative or not required by law. Electronically signed by: Bob Hinds M.D. 10/04/2023 10:09 AM
--- NOTE | 2023-10-04 11:15 | Hospitalist Progress Note ---
Date of Service October 04, 2023 Assessment & Plan (1) Pulmonary edema: Plan: Difficult to say whether he has a component of CHF or not. He has no prior history of CHF. I believe his chest x-ray appearance is due to diffuse bilateral metastatic disease. Cardiac echo is pending. Parenteral Lasix has been discontinued since his creatinine jumped from 2.2 up to 2.6. Amlodipine has been restarted and lisinopril discontinued. (2) Hypoxia: Plan: He states he has shortness of breath with exertion but is currently on room air at rest. (3) Malignant neoplasm of parotid gland: Plan: Oncology consultation requested and pending. Supportive care (4) Hypertension: Plan: SHINE inhibitor should be discontinued due to elevated creatinine levels. Will continue amlodipine for now. Apparently he had some orthostatic symptoms prior to admission. Will monitor (5) Anemia: Plan: Chronic anemia and thrombocytopenia. No evidence of overt blood loss. Serial labs. (6) Hypothyroidism: Plan: Recently elevated TSH. Continue current thyroid replacement dosage (7) CKD stage 3b, GFR 30-44 ml/min: Plan: Acute on chronic kidney disease stage III. Creatinine jumped up to 2.6 from 2.2. Parenteral Lasix has been discontinued. Monitor intake and output. Serial labs Plan Hopeful discharge back to home within the next day or 2 Admission and Anticipated Discharge Date Admission Date: October 03, 2023 Subjective Alert and oriented. No distress. He denies any shortness of breath at rest but states he does get dyspnea with exertion. He is on room air. Creatinine bumped from 2.2 up to 2.6 with Lasix. His chest x-ray looks like diffuse metastatic disease. It is difficult to tell whether there is fluid overload but he has no history of CHF. He does have mild peripheral edema in the legs but this can be explained by the extensive liver metastases. Preferably, the SHINE inhibitor should be discontinued due to the renal insufficiency and amlodipine continued. Parenteral Lasix has been discontinued. Oncology consultation requested. Mild hypokalemia has been corrected. He is anemic and thrombocytopenic but this appears to be chronic. Cardiac echo report is pending. Interestingly, he did have a dobutamine stress echo last November 2022 that was normal. Review of Systems 2 Review of Systems: Constitutional-no fever or chills ENT-no blurred vision, no double vision, no epistaxis, no sore throat Respiratory-nonproductive cough. Dyspnea on exertion. No hemoptysis Cardiac-no palpitations, no chest pain, no syncope GI-no nausea, vomiting, diarrhea, melena, hematochezia -no urinary retention, no urinary incontinence, no dysuria, no hematuria Musculoskeletal-no joint pain, no muscle tenderness. Mild bilateral lower extremity peripheral edema Skin-no bruising, no rashes, no pruritus Neuro-no isolated weakness, no paresthesia, no weakness Psych-no depression, no anxiety Physical Exam 2 Physical Exam: General-alert and oriented x3, no fever, no chills HEENT-head atraumatic and normocephalic, pupils equal and reactive to light, extraocular muscles intact Neck-no lymphadenopathy or thyromegaly, trachea midline Chest-diminished breath sounds bilaterally with bilateral coarse inspiratory rales. No wheezing. No rhonchi. Cardiac-regular rate and rhythm, normal S1 and S2 Abdomen-normal bowel sounds, no hepatosplenomegaly Extremities-1+ pitting edema bilateral lower extremities below the knees Neuro-cranial nerves II through XII intact, motor and sensory function within normal limits, strength symmetrical, no focal deficits Psych-normal affect, normal mood Results & Data Results & Data Vital Signs (Past 12 Hours) Vital Signs Temp Pulse Pulse Pulse Resp BP BP 10/04/23 10:49 36.4 C L 95 H 14 133/75 10/04/23 07:15 10/04/23 07:14 36.5 C 92 H 15 151/80 H 10/04/23 07:00 92 H 10/04/23 03:02 36.6 C 86 18 123/74 10/04/23 01:35 96 H 10/03/23 23:52 10/03/23 23:52 36.3 C L 95 H 18 117/74 Pulse Ox O2 Del Method O2 Flow Rate 10/04/23 10:49 99 Nasal Cannula 2.5 10/04/23 07:15 Room Air 10/04/23 07:14 98 Nasal Cannula 2.5 10/04/23 07:00 10/04/23 03:02 98 Nasal Cannula 2 10/04/23 01:35 10/03/23 23:52 Nasal Cannula 2 10/03/23 23:52 97 Nasal Cannula 2 Laboratory Results 10/04/23 05:49 10/04/23 05:49 PG Care Time/CCT Total # of Minutes Spent Total Time Spent with Patient: Total time spent is greater than 50% in coordination of care (as documented) at patient's floor/unit and/or counseling patient: Coding Level of Care Code 48371 SUB INP/OBS CARE 3/50MIN Diagnoses Pulmonary edema J81.1 Hypoxia R09.02 Malignant neoplasm of parotid gland C07 Hypertension I10 Anemia D64.9 Hypothyroidism E03.9 CKD stage 3b, GFR 30-44 ml/min N18.32
--- NOTE | 2023-10-04 16:42 | XCELERA ---
[id number]
[2023-10-04] MEDS: amLODIPine BESYLATE 5 MG TAB PO SCH (20:57)
[2023-10-05 06:57] LABS: Mean Corpuscular Hemoglobin 30.9 pg (25.0-34.0); Mean Corpuscular Hgb Conc 32.1 g/dL (32.0-36.0); Mean Corpuscular Volume 96.2 fL (80.0-100.0); Mean Platelet Volume 11.6 fL (9.4-12.4); Platelet Count 110 K/uL (130-400); RDW Coefficient of Variation 20.9 % (11.5-14.5); RDW Standard Deviation 72.1 fL (36.4-46.3); Red Blood Count 2.91 M/uL (4.70-6.10); White Blood Count 10.11 K/ul (4.8-10.8)
[2023-10-05 07:14] LABS: BUN Creatinine Ratio 16.7 (10-20); Creatinine Clr Calc Pharmacy 40.2 ml/min; Est GFR (African American) 31.5 ml/min; Est GFR (Non-African American) 27.1 ml/min; Potassium 3.9 mmol/L (3.5-5.1)
[2023-10-05 07:20] LABS: Anisocytosis Present; Basophils # (auto) 0.08 K/uL (0.00-0.20); Basophils % (auto) 0.8 %; Eosinophils # (auto) 0.24 K/uL (0.00-0.50); Eosinophils % (auto) 2.4 %; Immature Granulocytes # (auto) 0.25 K/uL (0.01-0.20); Immature Granulocytes % (auto) 2.5 %; Lymphocytes # (auto) 0.26 K/uL (1.20-3.40); Lymphocytes % (auto) 2.6 %; Monocytes # (auto) 0.68 K/uL (0.11-0.59); Monocytes % (auto) 6.7 %
--- NOTE | 2023-10-05 09:10 | Palliative Care Consultation ---
Date of Consultation October 05, 2023 Assessment & Plan (1) Dyspnea and respiratory abnormalities: Plan for ambulatory oxygen at [facility] he try with sleep as well, may be restorative (2) Anxiety associated with depression: (3) Advanced care planning/counseling discussion: I had a nice face to face 30min visit with Mr Jesus at bedside, no family was present. Dr Munson and I met with pt. We covered a lot of ground which he willingly brought up: [facility] said they have nothing new/different o to offer and he wants to meet with [facility] team next week as planned. He noted several times that the new findings were not good news and he hoped [facility] may have something to buy him more time; if not, he knows he has to think about what he wants to prioritize/where to focus his energy. He is waiting to see Dr Cowan for the spine RT so I asked Rad Onc to schedule him to see Dr Cowan and me on the same day (Marisol has scheduled this/pt is aware.) (4) Palliative care by specialist: Plan Thank you for allowing us to participate in the ongoing care of this patient. Please don't hesitate to call or page with any additional concerns. Dr. Apurva Bradley DNP Director, Palliative Care History of Present Illness Reason for Consultation: [facility] Attending Physician: Sina Ferrari MD History of Present Illness Mr. 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 Oxygen saturation while in the ER was 87%.Of note, he had had CTA chest on 10/01/2023 which was negative for PE but showed overall progression of extensive/diffuse pulmonary and pleural-based metastatic disease, overall progression of multifocal hepatic metastatic disease and extensive multifocal mixed lytic/blastic bone lesions which were stable. He states that he is feeling better with supplemental O2. Scheduled for telehealth evaluation by his oncologist at [facility] 10/03 and states [place] has [facility] [place] for clinical trials eval. Locally he is followed by Dr Wren at [facility]. Prognosis overall is very poor. Allergies Allergy/AdvReac Type Severity Reaction Status Date / Time No Known Allergies Allergy Verified 09/25/23 14:54 Home Medications Medication Instructions Recorded Confirmed Type Cock-Up Wrist Splint #2 ea 05/19/22 10/03/23 Rx Auto Titrating CPAP #1 ea 07/10/22 10/03/23 Rx ondansetron HCl 8 mg tablet 8 mg PO Q8H PRN Nausea 08/08/22 10/03/23 History prochlorperazine maleate 10 mg 10 mg PO Q6H PRN Nausea 08/08/22 10/03/23 History tablet (Compazine) folic acid 1 mg tablet 1 mg PO QAM #90 tabs 10/23/22 10/03/23 Rx fentanyl 50 mcg/hr transdermal 50 mcg transdermal [id number] 12/02/22 10/03/23 History patch nebulizer and compressor #1 ea 12/18/22 10/03/23 Rx albuterol sulfate 2.5 mg/3 mL 2.5 mg (3 mL) inhalation Q4H PRN 12/26/22 10/03/23 Rx (0.083 %) solution for nebulization shortness of breath or wheezing #75 mL inhalational spacing device #1 ea 01/17/23 10/03/23 Rx albuterol sulfate 90 mcg/actuation 2 inh inhalation Q6H PRN shortness 04/03/23 10/03/23 Rx aerosol inhaler of breath or wheezing #6.7 grams mirtazapine 15 mg tablet 15 mg PO HS #90 tabs 04/24/23 10/03/23 Rx pilocarpine HCl 5 mg tablet 5 mg PO TID #270 tabs 04/24/23 10/03/23 Rx (Salagen (pilocarpine)) Cock-Up Wrist Splint #2 ea 05/10/23 10/03/23 Rx famotidine 40 mg tablet 40 mg PO BID #180 tabs 06/25/23 10/03/23 Rx pantoprazole 40 mg tablet,delayed 40 mg PO QAM #90 tabs 06/25/23 10/03/23 Rx release atorvastatin 20 mg tablet (Lipitor) 20 mg PO HS #90 tabs 08/07/23 10/03/23 Rx lorazepam 0.5 mg tablet 0.5 mg PO DAILY PRN anxiety #30 08/21/23 10/03/23 Rx tabs amlodipine 10 mg tablet 10 mg PO HS 10/03/23 10/03/23 History duloxetine 60 mg capsule,delayed 60 mg PO DAILY 10/03/23 10/03/23 History release furosemide 20 mg tablet 20 mg PO QAM PRN Edema 10/03/23 10/03/23 History gabapentin 600 mg tablet 1,200 mg PO TID 10/03/23 10/03/23 History levothyroxine 75 mcg tablet 75 mcg PO DAILYBB 10/03/23 10/03/23 History Patient History Medical History Metastatic cancer Vision loss of right eye reports r/t clinical trial medication he had been taking for cancer Carcinoma of parotid gland w/ mets. Dx'd 2019. hx surgery, radiation + chemo. Had been participating in clinical trials on oral medication in past but not currently. - Recent imaging showing progression of disease with liver metastasis Macular hole of left eye Hiatal hernia Lumbar radiculopathy Surgical History Port-A-Cath in place (02/26/23) Insertion Access Port into left subclavian with Fluoroscopy(Left) - Korin Nelson DO History of back surgery History of left cataract surgery History of esophagogastroduodenoscopy (EGD) History of anesthesia reaction Awareness during [facility] (2018 and 2018)- at [facility] History of open reduction and internal fixation (ORIF) procedure right wrist History of colonoscopy History of cervical discectomy "Good" ROM History of sinus surgery History of hand surgery (~2004) Right hand surery History of repair of rotator cuff left History of hip replacement right (2018), left (2019) Family History Mother , 62yo Stroke Father , 44yo Myocardial infarction Brother Mantle cell lymphoma Rodriguez esophagus Heart disease Stent placed; Daughter Hypertension Other No family history of adverse response to anesthesia No family history of allergies No family history of bleeding disorder Denies family history of Ovarian cancer Prostate cancer Diabetes Breast cancer Colorectal cancer Social History Smoking Status: Never smoker Second Hand Exposure: No; Do You Dip or Chew Tobacco: No; Hx Alcohol Use: No Hx Substance Use: No Preferred Language: Slovenian Communication Ability: Effective Visual Impairment: No Limitations Hearing Ability: Normal Rim Turning Finisher Required: No Beliefs That Will Affect Care: None marital status: Current Living Situation: Spouse Current Living Situation Comment: current occupational status: employed 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 [employer] How many Children do You have: 1 Feels Safe at Home: Yes Childhood Exposure to Second-Hand Smoke: Yes Diet: regular Diet Comment: regular caffeine: No during the past year weight has: decreased > 10 lbs Dental Care, Regularly: Yes Physical Activity Frequency: Daily Seatbelt Use: always Sunscreen Use: Yes Assistive Devices: None Review of Systems Review of Systems: All systems reviewed & are unremarkable except as noted in Subjective Physical Exam Physical Exam: NCAT PERRLA, EOMIs AAOx3 Neck supple, no stridor normal resp effort at rest mild conversational dyspnea no use of accessory muscles abd soft/NTP, BS+ YANEZ skin pink, warm neuropathic changes BUE/hands with decreased sensation Results & Data Vital Signs (Past 12 Hours) Vital Signs Temp Pulse Pulse Resp BP Pulse Ox O2 Del Method 10/05/23 07:51 36.7 C 89 20 142/73 H 97 Nasal Cannula 10/05/23 07:29 88 10/05/23 03:12 36.4 C L 83 16 128/76 96 Nasal Cannula 10/04/23 22:48 88 10/04/23 22:26 36.7 C 86 18 120/70 97 Nasal Cannula 10/04/23 21:37 Room Air O2 Flow Rate 10/05/23 07:51 2 10/05/23 07:29 10/05/23 03:12 2 10/04/23 22:48 10/04/23 22:26 2 10/04/23 21:37 Laboratory Results 10/05/23 10/04/23 10/04/23 Range/Units 05:50 20:21 06:51 WBC 10.11 (4.8-10.8) K/ul RBC 2.91 L (4.70-6.10) M/uL Hgb 9.0 L (14.0-18.0) g/dl Hct 28.0 L (42.0-52.0) % MCV 96.2 (80.0-100.0) fL MCH 30.9 (25.0-34.0) pg MCHC 32.1 (32.0-36.0) g/dL RDW Std Deviation 72.1 H (36.4-46.3) fL RDW Coeff of Renny 20.9 H (11.5-14.5) % Plt Count 110 L (130-400) K/uL MPV 11.6 (9.4-12.4) fL Immature Gran % (Auto) 2.5 % Neut % (Auto) 85.0 % Lymph % (Auto) 2.6 % [place] % (Auto) 6.7 % Eos % (Auto) 2.4 % Baso % (Auto) 0.8 % Reticulocyte % (Auto) (0.50-2.00) % Neut # (Auto) 8.60 H (1.40-6.50) K/uL Lymph # (Auto) 0.26 L (1.20-3.40) K/uL [place] # (Auto) 0.68 H (0.11-0.59) K/uL Eos # (Auto) 0.24 (0.00-0.50) K/uL Baso # (Auto) 0.08 (0.00-0.20) K/uL Reticulocyte # (0.020-0.100) 10^6/uL Immature Gran # (Auto) 0.25 H (0.01-0.20) K/uL Dohle Bodies Platelet Estimate (Normal) Anisocytosis Present PT 11.9 (9.0-12.0) Seconds INR 1.1 (0.9-1.1) APTT 33 H (21-31) Seconds PTT Ratio 1.2 Sodium 136 (136-145) mmol/L Potassium 3.9 (3.5-5.1) mmol/L Chloride 97 L (98-107) mmol/L Carbon Dioxide 31 (21-32) mmol/L Anion Gap 8 (3-11) BUN 42 H (6-23) mg/dl Creatinine 2.51 H (0.6-1.4) mg/dl Est Cr Clr Drug Dosing 40.2 ml/min Est GFR ( Amer) 31.5 ml/min Est GFR (Non-Af Amer) 27.1 ml/min BUN/Creatinine Ratio 16.7 (10-20) Glucose 99 (70-99(Fasting)) mg/dl POC Glucose 147 H (70-99) mg/dl Calcium 8.0 L (8.6-10.3) mg/dl Magnesium (1.7-2.4) mg/dl Iron (35-175) mcg/dl TIBC (250-450) mcg/dl Unsaturated IBC (155-355) mcg/dl Transferrin % Sat (20-50) % Ferritin (8-388) ng/ml Total Bilirubin (0.2-1.0) mg/dl Direct Bilirubin (0-0.2) mg/dl AST (13-39) U/L ALT (7-52) U/L Alkaline Phosphatase (34-104) U/L Lactate Dehydrogenase (86-244) U/L Troponin I High Sens (0-20) pg/ml B-Natriuretic Peptide (0-100) pg/ml Total Protein (6.0-8.3) gm/dl Albumin (3.4-5.0) gm/dl Globulin (2.5-4.0) gm/dl Albumin/Globulin Ratio (0.9-2) Lipase (11-82) U/L Vitamin B12 (180-914) pg/ml Folate (>5.38) ng/ml Procalcitonin (0-0.5) ng/ml TSH (0.300-4.500) uIu/ml Urine Color Urine Appearance (Clear) Urine pH (4.5-7.5) Ur Specific [place] (1.000-1.030) Urine Protein (Negative) Urine Glucose (UA) (Negative) Urine Ketones (Negative) Urine Blood (Negative) Urine Nitrite (Negative) Urine Bilirubin (Negative) Urine Urobilinogen (Negative) Ur Leukocyte Esterase (Negative) Urine WBC (Auto) (0-5) /hpf Urine RBC (Auto) (0-2) /hpf U Hyaline Cast (Auto) (0-2) /lpf U Epithel Cells (Auto) (0-2) /hpf Urine Bacteria (Auto) (None Seen) Ur Renal Epithelial Cell (None Presnt) /lpf Granular Casts (None Prsent) /lpf SARS-CoV-2 (PCR) (Negative) Influenza Type A (PCR) (Neg) Influenza Type B (PCR) (Neg) RSV (RT-PCR) (Neg) 05/16/24 05/15/24 05/15/24 Range/Units 05:49 18:15 15:18 WBC 9.31 8.37 (4.8-10.8) K/ul RBC 2.55 L 2.63 L (4.70-6.10) M/uL Hgb 7.9 L 8.3 L (14.0-18.0) g/dl Hct 24.2 L 25.2 L (42.0-52.0) % MCV 94.9 95.8 (80.0-100.0) fL MCH 31.0 31.6 (25.0-34.0) pg MCHC 32.6 32.9 (32.0-36.0) g/dL RDW Std Deviation 69.5 H 69.0 H (36.4-46.3) fL RDW Coeff of Renny 20.8 H 21.1 H (11.5-14.5) % Plt Count 88 L 96 L (130-400) K/uL MPV 11.8 11.9 (9.4-12.4) fL Immature Gran % (Auto) 1.5 1.2 % Neut % (Auto) 86.1 83.5 % Lymph % (Auto) 1.7 1.8 % [place] % (Auto) 8.4 11.5 % Eos % (Auto) 2.0 1.8 % Baso % (Auto) 0.3 0.2 % Reticulocyte % (Auto) 2.31 H (0.50-2.00) % Neut # (Auto) 8.01 H 6.99 H (1.40-6.50) K/uL Lymph # (Auto) 0.16 L 0.15 L (1.20-3.40) K/uL [place] # (Auto) 0.78 H 0.96 H (0.11-0.59) K/uL Eos # (Auto) 0.19 0.15 (0.00-0.50) K/uL Baso # (Auto) 0.03 0.02 (0.00-0.20) K/uL Reticulocyte # 0.060 (0.020-0.100) 10^6/uL Immature Gran # (Auto) 0.14 0.10 (0.01-0.20) K/uL Dohle Bodies 1+ Platelet Estimate Decreased L (Normal) Anisocytosis Present Present PT 12.5 H (9.0-12.0) Seconds INR 1.2 H (0.9-1.1) APTT 83 H* (21-31) Seconds PTT Ratio 3.1 Sodium 136 134 L (136-145) mmol/L Potassium 3.8 3.4 L (3.5-5.1) mmol/L Chloride 100 99 (98-107) mmol/L Carbon Dioxide 28 27 (21-32) mmol/L Anion Gap 8 8 (3-11) BUN 44 H 41 H (6-23) mg/dl Creatinine 2.62 H D 2.25 H (0.6-1.4) mg/dl Est Cr Clr Drug Dosing 38.8 44.6 ml/min Est GFR ( Amer) 29.9 35.9 ml/min Est GFR (Non-Af Amer) 25.8 31.0 ml/min BUN/Creatinine Ratio 16.8 18.2 (10-20) Glucose 130 H 113 H (70-99(Fasting)) mg/dl POC Glucose (70-99) mg/dl Calcium 8.1 L 8.1 L (8.6-10.3) mg/dl Magnesium 2.3 1.6 L (1.7-2.4) mg/dl Iron 108 (35-175) mcg/dl TIBC 177 L (250-450) mcg/dl Unsaturated IBC 69 L (155-355) mcg/dl Transferrin % Sat 61 H (20-50) % Ferritin 5904.0 H (8-388) ng/ml Total Bilirubin 0.6 D 1.1 H (0.2-1.0) mg/dl Direct Bilirubin 0.4 H (0-0.2) mg/dl AST 70 H 96 H (13-39) U/L ALT 51 54 H (7-52) U/L Alkaline Phosphatase 272 H 286 H (34-104) U/L Lactate Dehydrogenase 559 H (86-244) U/L Troponin I High Sens 19.7 (0-20) pg/ml B-Natriuretic Peptide 157 H (0-100) pg/ml Total Protein 5.7 L 5.5 L (6.0-8.3) gm/dl Albumin 2.8 L 2.8 L (3.4-5.0) gm/dl Globulin 2.9 (2.5-4.0) gm/dl Albumin/Globulin Ratio 1.0 (0.9-2) Lipase 6 L (11-82) U/L Vitamin B12 736 (180-914) pg/ml Folate 19.71 (>5.38) ng/ml Procalcitonin 5.13 H (0-0.5) ng/ml TSH 0.531 (0.300-4.500) uIu/ml Urine Color Yellow Urine Appearance Clear (Clear) Urine pH 5.5 (4.5-7.5) Ur Specific [place] 1.008 (1.000-1.030) Urine Protein 1+ H (Negative) Urine Glucose (UA) Negative (Negative) Urine Ketones Negative (Negative) Urine Blood Trace H (Negative) Urine Nitrite Negative (Negative) Urine Bilirubin Negative (Negative) Urine Urobilinogen Negative (Negative) Ur Leukocyte Esterase Negative (Negative) Urine WBC (Auto) 0-5 (0-5) /hpf Urine RBC (Auto) 0-2 (0-2) /hpf U Hyaline Cast (Auto) 3-5 H (0-2) /lpf U Epithel Cells (Auto) 3-5 H (0-2) /hpf Urine Bacteria (Auto) 2+ H (None Seen) Ur Renal Epithelial Cell Present A (None Presnt) /lpf Granular Casts P (None Prsent) /lpf SARS-CoV-2 (PCR) NEGATIVE (Negative) Influenza Type A (PCR) Negative (Neg) Influenza Type B (PCR) Negative (Neg) RSV (RT-PCR) Negative (Neg) Diagnostic Findings Chest X-Ray 10/03/23 15:14 SINGLE VIEW CHEST CLINICAL HISTORY: Atypical chest pain. FINDINGS: An AP, portable, upright chest radiograph is compared to study dated 09/24/2023 and correlated with chest CT dated 10/01/2023. A left subclavian central venous infusion port is unchanged in position. The heart is enlarged. There is pulmonary vascular congestion. Findings of multifocal pulmonary and pleural- based metastatic disease or better assessed on the recent CT scan. There is a left pleural collection, which was also better assessed by CT. No pneumothorax is seen. The skeletal structures are osteopenic. Fusion hardware is seen in the lower cervical spine and upper lumbar spine. There are thoracic compression deformities or evidence of prior vertebroplasty. There are chronic left-sided rib fractures. IMPRESSION: 1. Cardiomegaly with evidence of congestive failure. 2. Left pleural effusion. 3. Multifocal pulmonary and pleural-based metastatic disease was better assessed on the recent chest CT. ACT 112: Negative or not required by law. Electronically signed by: Anatoly Sandoval M.D. 10/03/2023 4:55 PM Chest X-Ray 10/04/23 08:24 XR chest 2V PA/lateral HISTORY: Shortness of breath. lung mets, dyspnea COMPARISON: Chest 10/03/2023. FINDINGS: No pneumothorax. Cervical and thoracic spinal fusion hardware again noted. A left subclavian Port-A-Cath terminates at the proximal SVC. This remains unchanged. The heart remains mildly enlarged. Small left pleural ef fusion persists. Multifocal pulmonary and pleural-based metastatic disease is again noted. Old bilateral rib fractures and an old thoracic spine fracture again noted. These remain unchanged. Mild diffuse interstitial thickening may represent superimposed pulmonary congestion. IMPRESSION: 1. Cardiomegaly with mild congestive change and a small left pleural effusion. 2. Multifocal pulmonary and pleural-based metastatic disease again noted. ACT 112: Negative or not required by law. Electronically signed by: Bob Hinds M.D. 10/04/2023 10:09 AM PG Care Time/CCT Total # of Minutes Spent Total Time Spent with Patient: Total time spent is greater than 50% in coordination of care (as documented) at patient's floor/unit and/or counseling patient: I spent 90 minutes overall addressing this case: 20 min in medical data review/discussion with referring provider(s) and/or preparation for the visit 15 min in direct interaction with the patient/exam 30 min in Advance Care Planning/Goals of Care discussions as detailed above in note (must be >16min) 10 min in subsequent review and synthesis of assessment and plan 15 min communicating with other providers regarding the patient's case: oncology, primary Advanced Care Planning 68916 Advanced Care Planning 30 [place] [address] IN/OBS CONSULT LVL 4,60M (25 - SIGNIFICANT, SEPARATELY IDENTIFIABLE ) Patient Type New Medical Decision Making High Complexity Diagnoses Dyspnea and respiratory abnormalities R06.00; R06.89 Anxiety associated with depression F41.8 Advanced care planning/counseling discussion Z71.89 Palliative care by specialist Z51.5 Additional Codes Advanced Care Planning - 14274 Advanced Care Planning 30 Min: 98102 Advanced Care Planning 30 Min ([id number])
[2023-10-05 11:23] VITALS: RESP 20
[2023-10-05 11:24] VITALS: BP 152/90; PULSE 96; TEMP 97.5; O2SAT 96
--- NOTE | 2023-10-05 12:21 | Discharge Summary ---
Date of Service October 05, 2023 Admission HPI Per Admitting Provider Higinio Jesus is a 58-year-old male with metastatic acinic cell carcinoma parotid gland who presents to the ER with shortness of breath. He reports significant worsening shortness of breath over the last 2 weeks but especially this morning while going into work at [employer]. He does have a cough but this has not changed for several weeks with clear sputum. He has also noticed lightheadedness especially while standing resulting in some falls once a month over the last 3 months. He has noticed leg swelling which occurred a month ago and improved with lasix prescribed by oncology. This recurred over the last week but he has been taking Lasix without significant effect. He notes nocturia over the last year but no other prostate issues and no history of urine retention. No shortness of breath at rest, fever, chills, nasal congestion, sinus pain, hemoptysis, chest pain, orthopnea, PND, palpitations, claudication, urinary symptoms. He has mild obstructive sleep apnea - non compliant with CPAP - wore it for a month. At [facility] he does not require oxygen, currently on 2LPM O2 in the ER to maintain O2 sats > 90%. 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 No wheezing. No rhonchi. Cardiac-regular rate and rhythm, normal S1 and S2 Abdomen-normal bowel sounds, no hepatosplenomegaly Extremities-1+ pitting edema bilateral lower extremities below the knees appears to be chronic Neuro-cranial nerves II through XII intact, motor and sensory function within normal limits, strength symmetrical, no focal deficits Psych-normal affect, normal mood Discharge Data Allergies Allergy/AdvReac Type Severity Reaction Status Date / Time No Known Allergies Allergy Verified 09/25/23 14:54 Consultations 10/03/23 16:58 ED Decision to Admit Stat 10/03/23 22:11 Consult Oncology Routine 10/04/23 16:29 Consult Palliative Care Routine Hospital Course (1) Pulmonary edema: Difficult to say whether he has a component of CHF or not. He has no prior history of CHF. I believe his chest x-ray appearance is due to diffuse bilateral metastatic disease. Cardiac echo reveals mild left ventricular hypertrophy with normal ejection fraction. He does have diastolic dysfunction as expected. Parenteral Lasix has been discontinued since his creatinine jumped from 2.2 up to 2.6. Amlodipine has been restarted and lisinopril discontinued. (2) Hypoxia: He states he has shortness of breath with exertion but is currently on room air at rest. Two-step evaluation was completed and he does require 2 L of oxygen per minute with ambulation. (3) Malignant neoplasm of parotid gland: Oncology consultation appreciated. Supportive care (4) Hypertension: SHINE inhibitor has been discontinued due to elevated creatinine levels. Will continue amlodipine for now. Apparently he had some orthostatic symptoms prior to admission. Will monitor (5) Anemia: Chronic anemia and thrombocytopenia. No evidence of overt blood loss. Serial labs. (6) Hypothyroidism: Recently elevated TSH. Continue current thyroid replacement dosage (7) CKD stage 3b, GFR 30-44 ml/min: Acute on chronic kidney disease stage III. Creatinine jumped up to 2.6 from 2.2. Parenteral Lasix has been discontinued. Creatinine is subsequently downtrending. Monitor intake and output. Serial labs Plan Home today, October 04 Total Time Total Time Spent Total Time Spent (In Minutes): 45 minutes Discharge Plan Discharge Items Patient Disposition: Home - Self-Care Reason For Visit: PULMONARY EDEMA, METASTATIC CANCER, HYPOXIA Discharge Diagnosis: Dyspnea and acute hypoxic respiratory failure due to diffuse pulmonary metastasis from parotid primary, acute on chronic kidney disease stage III Activity: Resume your previous activity Activity Comment: Wear oxygen at 2 L/min per nasal cannula with any activity Non-emergency contact: Primary Care Provider and Oncologist Call non-emergency contact if: you have any medication questions and your symptoms worsen Follow-up/Referrals: Jo Maxwell MD [Primary Care Provider] - Diet: Regular Addtl Attending Provider Instructions: Wear oxygen at 2 L/min per nasal cannula with any activity. Follow-up with oncology as scheduled. Stop taking lisinopril Pending Studies at Discharge: No Stand-Alone Forms: My [employer] Time, Smoking Cessation Medications and DC Order Prescriptions: Continued ondansetron HCl 8 mg tablet 8 mg PO Q8H PRN (Reason: Nausea) prochlorperazine maleate [Compazine] 10 mg tablet 10 mg PO Q6H PRN (Reason: Nausea) (DME) Cock-Up Wrist Splint Misc See Dose Instructions .ROUTE .MEDSUPPLY Qty: 2 0RF Dose Instruction: As directed Rx Instructions: Left and right wrist splints G56.00 folic acid 1 mg tablet 1 mg PO QAM Qty: 90 3RF albuterol sulfate 2.5 mg /3 mL (0.083 %) solution for nebulization 2.5 mg inhalation Q4H PRN (Reason: shortness of breath or wheezing) Qty: 75 3RF (DME) inhalational spacing device Spacer See Rx Instructions .ROUTE .MEDSUPPLY Qty: 1 0RF Rx Instructions: As directed albuterol sulfate 90 mcg/actuation HFA aerosol inhaler 2 inh inhalation Q6H PRN (Reason: shortness of breath or wheezing) Qty: 6.7 3RF mirtazapine 15 mg tablet 15 mg PO HS Qty: 90 1RF pilocarpine HCl [Salagen (pilocarpine)] 5 mg tablet 5 mg PO TID Qty: 270 1RF famotidine 40 mg tablet 40 mg PO BID Qty: 180 1RF pantoprazole 40 mg tablet,delayed release (DR/EC) 40 mg PO QAM Qty: 90 3RF atorvastatin [Lipitor] 20 mg tablet 20 mg PO HS Qty: 90 1RF Hold Instructions: Resume on 10/02/22. ([facility]) nebulizer and compressor Device See Rx Instructions .Route Qty: 1 0RF Rx Instructions: with accessories As directed. C78.00 ([facility]) Auto Titrating CPAP Misc See Rx Instructions .Route Qty: 1 0RF Rx Instructions: as directed-Min pressure: 4cmH2O, Max pressure: [id number], CPAP SUPPLIES NEEDED: HUMIDIFIER, HEATED , REPLACEMENT WATER CHAMBER , TUBING , DISPOSABLE FILTERS , NON-DISPOSABLE FILTERS , HEADGEAR , MASK. lorazepam 0.5 mg tablet 0.5 mg PO DAILY PRN (Reason: anxiety) Qty: 30 1RF (DME) Cock-Up Wrist Splint Misc See Dose Instructions .ROUTE .MEDSUPPLY Qty: 2 0RF Dose Instruction: As directed Rx Instructions: Left and right wrist splints G56.00 fentanyl 50 mcg/hr patch 72 hour 50 mcg transdermal [id number] gabapentin 600 mg tablet 1,200 mg PO TID duloxetine 60 mg capsule,delayed release(DR/EC) 60 mg PO DAILY furosemide 20 mg tablet 20 mg PO QAM PRN (Reason: Edema) levothyroxine 75 mcg tablet 75 mcg PO DAILYBB amlodipine 10 mg tablet 10 mg PO HS Discontinued lisinopril 40 mg tablet 40 mg PO QAM Qty: 90 1RF Discharge Orders: Discharge Order (Routine); Ordered 10/05/23 Ordered By: Sina Ferrari Admission Data Admit Date/Time: 10/03/23 18:21 Attending Provider: Sina Ferrari Admit Provider: Joe Lind Primary Care Provider: Jo Maxwell Other Providers: Joe Lind; Sangita Wren; Apurva Bradley Coding Level of Care Code 44557 INP/OBS DISCH >30 MIN Diagnoses Pulmonary edema J81.1 Hypoxia R09.02 Malignant neoplasm of parotid gland C07 Hypertension I10 Anemia D64.9 Hypothyroidism E03.9 CKD stage 3b, GFR 30-44 ml/min N18.32
[2023-10-05] MEDS ORDERED: HEPARIN 100 UNIT/ML 5ML FLUSH FLUSH PRN (13:19)
[2023-10-06] MEDS ORDERED: DULoxetine HCL 20 MG CAP PO SCH (09:00)
[2023-10-06] MEDS ORDERED: DULoxetine HCL 30 MG CAP PO SCH (09:00)
== END 2023-10-05 14:04 | disposition home or self-care (01) | DRG 189 ==
LOC: ED 14:58 → SUATTDRO 18:21 → EDINP 18:21 → 2N 23:43